=== PATIENT | female | born 1940 | race Caucasian/White ===

== ENCOUNTER 2017-11-17 15:27 | Emergency (ER) | payer OTHER ==
[~2017-11-17] VITALS: Ht 170.2 cm; Wt 136.0 kg
[~2017-11-17 15:27] MED LIST: ACET-1138 PO; ADVIN25/60 INH; BUME1TAB PO; CHOL1CAP85 PO; CITA20TA9 PO; FEXO1TAB46 PO; LBT100 PO; LOSA1TAB PO; NEOMOIN3 TD; NRN100 PO; OXGN; SIMV40TA4 PO; SPIR25TA5 PO; VNTHFA/IN INH; WARF-280 PO; WARF5TAB7 PO
[2017-11-17 15:33] VITALS: TEMP 36.6; Ht 170.2 cm; Wt 136.0 kg
[2017-11-17 16:39] LABS: INR 4.4 (0.9-1.1)
[2017-11-17] MEDS ORDERED: VENTOLIN HFA 90MCG INH (16:39)
[2017-11-17] MEDS ORDERED: CHOL1000 PO (16:41)
[2017-11-17] MEDS ORDERED: GABA-112 PO (16:43)
--- NOTE | 2017-11-17 16:53 | DIAGNOSTIC IMAGING REPORT ---
SINGLE VIEW PELVIS; 2 VIEWS LEFT HIP CLINICAL HISTORY: Hip and pelvic pain. FINDINGS: An AP view of the pelvis, with AP and crosstable lateral views of the left hip are obtained. The crosstable lateral views are severely degraded by large body habitus. No prior studies are available for comparison at the time of dictation. The skeletal structures are osteopenic. There is no radiographic evidence of acute fracture involving the hips or bony pelvis. Mild to moderate arthritic change and joint space narrowing is seen in the hips. Postoperative change is partially imaged in the right proximal femoral shaft. Enthesophytes arise from the anterior superior iliac spine bilaterally. There are sclerotic changes noted in the sacroiliac joints and symphysis pubis. Lumbosacral spondylosis is partially imaged. No bowel obstruction is seen. A catheter projects over the pelvis. IMPRESSION: 1. No acute osseous abnormality is identified involving the hips or bony pelvis. 2. Osteopenia and degenerative change as above. Electronically signed by: Fabian Duenas M.D. 11/17/2017 4:52 PM Dictated Date/Time: 11/17/2017 4:48 PM
--- NOTE | 2017-11-17 17:09 | DIAGNOSTIC IMAGING REPORT ---
CT SCAN OF THE BRAIN WITHOUT IV CONTRAST CLINICAL HISTORY: Head injury. COMPARISON STUDY: CT of the brain dated 04/01/2007. TECHNIQUE: Unenhanced axial CT scan of the brain is performed from the vertex to the skull base. A dose lowering technique was utilized adhering to the principles of ALARA. CT DOSE: 1040.95 mGy.cm FINDINGS: Brain parenchyma: There are age-related involutional changes noting moderate patchy subcortical and periventricular microangiopathic change. There is no hemorrhage, mass effect, or evidence of acute territorial ischemia by CT criteria. Owen-white matter is preserved. No extra-axial fluid collection is seen. Ventricles, sulci, cisterns: Prominent secondary to involutional change. Intracranial vasculature: There is atherosclerotic calcification of the cavernous carotid and vertebral arteries. Calvarium: The skeletal structures are osteopenic. There is no depressed calvarial fracture. Sinuses and mastoids: There is complete opacification of the right maxillary antrum. Thickening and sclerosis of the sinus wall suggests chronicity. There is complete opacification of several right ethmoid sinuses. Moderate mucosal thickening is noted in the right frontal sinus. The remaining visualized paranasal sinuses are clear. The mastoid air cells are well pneumatized. Orbits: The bony orbits are grossly intact. IMPRESSION: 1. There is no hemorrhage, mass effect, or evidence of acute territorial ischemia by CT criteria. 2. Right-sided paranasal sinus disease as above. Electronically signed by: Fabian Duenas M.D. 11/17/2017 5:08 PM Dictated Date/Time: 11/17/2017 5:05 PM
--- NOTE | 2017-11-17 17:15 | DIAGNOSTIC IMAGING REPORT ---
CT SCAN OF THE CERVICAL SPINE CLINICAL HISTORY: Head injury. Neck pain. COMPARISON STUDY: No priors. TECHNIQUE: CT scan of the cervical spine is performed from the skull base to the upper thoracic spine. Images are reviewed in the axial, sagittal, and coronal planes. IV contrast was not administered for this examination. A dose lowering technique was utilized adhering to the principles of ALARA. FINDINGS: Skeletal structures: The skeletal structures are osteopenic. There is no evidence of fracture or subluxation involving the cervical spine. Vertebral body height and alignment are maintained. Anterior osteophytes are seen in the lower cervical spine. There is straightening of the cervical lordosis. The odontoid process and lateral masses are intact. There is advanced degenerative change with Limited is calcification and near complete bony fusion seen at the atlantodental articulation. The spinous processes appear intact. There is moderate multilevel cervical spondylosis. Uncovertebral and facet arthropathy contribute to neural foraminal stenosis at several levels. Intervertebral discs: Moderate to advanced disc space narrowing is noted at C5-C6 and C6-C7. Mild disc space narrowing is seen at the remaining cervical levels. Central canal: Posterior disc osteophyte complexes at C3-C4, C5-C6, and C6-C7 likely contribute to acquired compromise of the central canal. A large posterior disc osteophyte complex is also seen at T1-T2. Soft tissues: The prevertebral and paraspinous soft tissues are within normal limits. There is atherosclerotic calcification of the carotid bulbs. The thyroid gland is heterogeneous. A final matter calcified nodule is noted in the left lobe. Calvarium: The visualized calvarium at the skull base appears intact. Brain parenchyma: Partially visualized brain parenchyma the skull base is within normal limits. Sinuses and mastoids: There is complete opacification of the right maxillary antrum. Thickening and sclerosis is noted in the sinus wall suggesting chronicity. The mastoid air cells are well pneumatized. Lung apices: Clear as visualized. IMPRESSION: 1. There is no evidence of fracture or subluxation involving the cervical spine. 2. Osteopenia and spondylotic change as above. Electronically signed by: Fabian Duenas M.D. 11/17/2017 5:14 PM Dictated Date/Time: 11/17/2017 5:08 PM
--- NOTE | 2017-11-17 17:20 | DIAGNOSTIC IMAGING REPORT ---
LEFT ELBOW 3 VIEWS CLINICAL HISTORY: Left elbow injury. FINDINGS: 3 views of the left elbow are obtained. No prior studies are available for comparison at the time of dictation. The skeletal structures are osteopenic. There is no radiographic evidence of left elbow fracture. No joint effusion is identified. A large enthesophyte is seen at the triceps insertion. Small enthesophytes are seen arising from the humeral epicondyles. Soft tissue edema is present around the elbow, greatest dorsally. IMPRESSION: Soft tissue edema with no radiographic evidence of left elbow fracture. Electronically signed by: Fabian Duenas M.D. 11/17/2017 5:18 PM Dictated Date/Time: 11/17/2017 5:17 PM
[2017-11-17] MEDS ORDERED: LEVO50TA6 PO (17:22)
[2017-11-17 17:30] VITALS: BP 137/69; PULSE 92; O2SAT 98
--- NOTE | 2017-11-17 17:44 | EMERGENCY ROOM VISIT NOTE ---
ED Visit Note First contact with patient: 15:38 The patient was seen and examined with Arjun Dickerson - [facility]. I agree with the history, physical and findings. Please see the note for disposition and details.
--- NOTE | 2017-11-17 19:16 | EMERGENCY ROOM VISIT NOTE ---
History First contact with patient: 15:38 Chief Complaint: FALL Stated Complaint: UPSET SCOOTER ON MYSELF, LEFT ARM & HIP PAIN History of Present Illness The patient is a 76 year old female who presents to the Emergency Room with complaints of injuries after upsetting her motorized scooter in her garage yesterday. She reports that she and the scooter fell to the left, and she landed on her left hip and left elbow. She does report hitting her head on the ground, and does have a mild headache and neck discomfort. According to the patient, she takes Coumadin for history of atrial fibrillation and pulmonary emboli. The patient lives alone. Her neighbor was able to help her back on her feet. In addition to her scooter, she also uses a walker at home. She reports notable bruising and swelling about the left elbow and left buttock region. She denies any focal back pain, chest pain, shortness of breath, abdominal pain or injuries to the right side extremities. The patient took 2 Tylenol this morning, and currently rates her pain an 8 out of 10. Review of Systems 10 system review was performed and was negative except for pertinent positives and negatives as indicated in history of present illness Past Medical/Surgical History Medical Problems: (1) Depression (2) retirement (current) use of anticoagulants Medical Problems: (1) Asthma, Unspecified (2) Atrial Fibrillation (3) Body Mass Index 40 And Over, Adult (4) Congestive Heart Failure Nos (5) Depression (6) Diverticulosis Colon (W/O Ment Of Hemorrhage) (7) Esophageal Reflux (8) Fx Femur Shaft-Closed (9) Hyperlipidemia, Unspecified (10) Hypertension Nos (11) Hypothyroidism Nos (12) retirement (current) use of anticoagulants (13) Morbid Obesity (14) Obstructive Sleep Apnea (Adult) (Pediatric) (15) Pneumonia, Organism Nos Family History Unremarkable Social History Smoking Status: Never Smoker Alcohol Use: none Drug Use: none Marital Status: Housing Status: lives with family Occupation Status: retired Current/Historical Medications Scheduled Bumetanide (Bumex), 2 MG PO QAM Cholecalciferol (Vitamin D3), 1,000 UNITS PO DAILY Citalopram Hydrobromide (Celexa), 20 MG PO DAILY Fexofenadine Hcl (Lucie), 180 MG PO DAILY Gabapentin (Neurontin), 100 MG PO AMPM Levothyroxine Sodium (Levothyroxine Sodium), 50 MCG PO DAILY Losartan Potassium (Cozaar), 25 MG PO DAILY Neomycin/Polymyx/Bacitr (Neosporin), 1 APPLN TD 2XWK Simvastatin (Zocor), 40 MG PO DAILY Spironolactone (Aldactone), 25 MG PO BID Warfarin Sod (Jantoven), 5 MG PO 3XWK Warfarin Sodium (Warfarin Sodium), 2.5 MG PO 4XWK Scheduled PRN Acetaminophen (Tylenol Extra Strength), 500-1,000 MG PO PRN PRN for Headache Fluticasone Prop/Salmeterol (Advair Diskus 250/50 60 Dose), 1 PUFF INH BID PRN for SOB/Wheezing Home O2 Therapy (Oxygen), 2 LITERS NA PRN PRN for Shortness of Breath [Ventolin Hfa 90MCG], 2 PUFFS INH Q6H PRN for SOB/Wheezing Physical Exam Vital Signs Date Time Temp Pulse Resp B/P (MAP) Pulse Ox O2 Delivery O2 Flow Rate FiO2 11/17/17 17:30 92 20 137/69 98 Room Air 11/17/17 15:33 36.6 104 20 127/65 92 Room Air Physical Exam CONSTITUTIONAL: Healthy and well nourished. Alert and oriented X 3 with positive affect. Patient appears in mild discomfort. GCS 15. HEENT: Normocephalic, atraumatic. Pupils equal, round and reactive. No epistaxis, hemotympanum, raccoon's eyes or caldwell sign. NECK: Full active range of motion without discomfort. Patient has mild tenderness to palpation of the cervical musculature. RESPIRATORY: Clear to auscultation bilaterally with no wheezing, crackles, rhonchi or stridor. CARDIOVASCULAR: Regular rate and rhythm with no murmurs, rubs or gallops. GASTROINTESTINAL: Bowel sounds present in all quadrants. Protuberant but soft and nontender to palpation. MUSCULOSKELETAL: Examination shows discomfort to palpation and range of motion of the left elbow and left hip. She has no focal tenderness through the central thoracolumbar spine. Pelvis is stable with rock. Negative logroll bilaterally. Pedal pulses are intact. INTEGUMENTARY: Examination shows notable edema and ecchymosis about the left elbow and left buttock region. No significant firmness or induration noted over these areas. NEUROLOGIC: Upper and lower extremities are sensory intact. Medical Decision & Procedures ER Provider Diagnostic Interpretation: My interpretation of left elbow x-rays does not show any acute fractures, dislocation or obvious joint effusion. Radiologist report is as follows: LEFT ELBOW 3 VIEWS CLINICAL HISTORY: Left elbow injury. FINDINGS: 3 views of the left elbow are obtained. No prior studies are available for comparison at the time of dictation. The skeletal structures are osteopenic. There is no radiographic evidence of left elbow fracture. No joint effusion is identified. A large enthesophyte is seen at the triceps insertion. Small enthesophytes are seen arising from the humeral epicondyles. Soft tissue edema is present around the elbow, greatest dorsally. IMPRESSION: Soft tissue edema with no radiographic evidence of left elbow fracture. My interpretation of pelvis and left hip x-rays does not show any acute fractures. Radiologist report is as follows: SINGLE VIEW PELVIS; 2 VIEWS LEFT HIP CLINICAL HISTORY: Hip and pelvic pain. FINDINGS: An AP view of the pelvis, with AP and crosstable lateral views of the left hip are obtained. The crosstable lateral views are severely degraded by large body habitus. No prior studies are available for comparison at the time of dictation. The skeletal structures are osteopenic. There is no radiographic evidence of acute fracture involving the hips or bony pelvis. Mild to moderate arthritic change and joint space narrowing is seen in the hips. Postoperative change is partially imaged in the right proximal femoral shaft. Enthesophytes arise from the anterior superior iliac spine bilaterally. There are sclerotic changes noted in the sacroiliac joints and symphysis pubis. Lumbosacral spondylosis is partially imaged. No bowel obstruction is seen. A catheter projects over the pelvis. IMPRESSION: 1. No acute osseous abnormality is identified involving the hips or bony pelvis. 2. Osteopenia and degenerative change as above. Noncontrast CT of the head does not show any acute intracranial bleed, midline shift or mass-effect. Right-sided paranasal sinus disease is also noted. Radiology CT SCAN OF THE BRAIN WITHOUT IV CONTRAST CLINICAL HISTORY: Head injury. COMPARISON STUDY: CT of the brain dated 04/01/2007. TECHNIQUE: Unenhanced axial CT scan of the brain is performed from the vertex to the skull base. A dose lowering technique was utilized adhering to the principles of ALARA. CT DOSE: 1040.95 mGy.cm FINDINGS: Brain parenchyma: There are age-related involutional changes noting moderate patchy subcortical and periventricular microangiopathic change. There is no hemorrhage, mass effect, or evidence of acute territorial ischemia by CT criteria. Owen-white matter is preserved. No extra-axial fluid collection is seen. Ventricles, sulci, cisterns: Prominent secondary to involutional change. Intracranial vasculature: There is atherosclerotic calcification of the cavernous carotid and vertebral arteries. Calvarium: The skeletal structures are osteopenic. There is no depressed calvarial fracture. Sinuses and mastoids: There is complete opacification of the right maxillary antrum. Thickening and sclerosis of the sinus wall suggests chronicity. There is complete opacification of several right ethmoid sinuses. Moderate mucosal thickening is noted in the right frontal sinus. The remaining visualized paranasal sinuses are clear. The mastoid air cells are well pneumatized. Orbits: The bony orbits are grossly intact. IMPRESSION: 1. There is no hemorrhage, mass effect, or evidence of acute territorial ischemia by CT criteria. 2. Right-sided paranasal sinus disease as above. Noncontrast CT of the cervical spine does not show any acute fracture or subluxation. Radiologist report is as follows: CT SCAN OF THE CERVICAL SPINE CLINICAL HISTORY: Head injury. Neck pain. COMPARISON STUDY: No priors. TECHNIQUE: CT scan of the cervical spine is performed from the skull base to the upper thoracic spine. Images are reviewed in the axial, sagittal, and coronal planes. IV contrast was not administered for this examination. A dose lowering technique was utilized adhering to the principles of ALARA. FINDINGS: Skeletal structures: The skeletal structures are osteopenic. There is no evidence of fracture or subluxation involving the cervical spine. Vertebral body height and alignment are maintained. Anterior osteophytes are seen in the lower cervical spine. There is straightening of the cervical lordosis. The odontoid process and lateral masses are intact. There is advanced degenerative change with Limited is calcification and near complete bony fusion seen at the atlantodental articulation. The spinous processes appear intact. There is moderate multilevel cervical spondylosis. Uncovertebral and facet arthropathy contribute to neural foraminal stenosis at several levels. Intervertebral discs: Moderate to advanced disc space narrowing is noted at C5-C6 and C6-C7. Mild disc space narrowing is seen at the remaining cervical levels. Central canal: Posterior disc osteophyte complexes at C3-C4, C5-C6, and C6-C7 likely contribute to acquired compromise of the central canal. A large posterior disc osteophyte complex is also seen at T1-T2. Soft tissues: The prevertebral and paraspinous soft tissues are within normal limits. There is atherosclerotic calcification of the carotid bulbs. The thyroid gland is heterogeneous. A final matter calcified nodule is noted in the left lobe. Calvarium: The visualized calvarium at the skull base appears intact. Brain parenchyma: Partially visualized brain parenchyma the skull base is within normal limits. Sinuses and mastoids: There is complete opacification of the right maxillary antrum. Thickening and sclerosis is noted in the sinus wall suggesting chronicity. The mastoid air cells are well pneumatized. Lung apices: Clear as visualized. IMPRESSION: 1. There is no evidence of fracture or subluxation involving the cervical spine. 2. Osteopenia and spondylotic change as above. Laboratory Results Test 11/17/17 16:14 Prothrombin Time 44.8 SECONDS (9.0-12.0) Prothromb Time International Ratio 4.4 (0.9-1.1) INR is 4.4. ED Course Patient history and physical exam were performed. Nurse's notes were reviewed. Vital signs were reviewed and were normal. The patient refused any analgesics. Noncontrast CT of the head and cervical spine were normal. X-rays of the left elbow and left hip/pelvis were also normal. INR today is 4.4. The patient was advised of her findings. The patient was instructed to hold her Coumadin dosing for tonight, and resume her usual dosing tomorrow. I did encourage her to contact the Coumadin clinic to advise them that she had lab work done while in the emergency department. Trial ambulation with a walker was successful. The patient was encouraged to intermittently apply ice to areas of discomfort. It was also suggested that she apply an Christian wrap to the left elbow as well. Tylenol as needed for pain. She refused any stronger analgesics. I did encourage her to follow-up with her PCP or orthopedics for recheck within the next 2-3 days. She was instructed to return to the emergency department sooner with any progressively worsening pain or swelling of the left elbow or buttock region. The patient was happy with plan of care, voiced understanding of all discharge instructions, and rated her pain a 5 out of 10 at the time of discharge. The patient was also seen and examined by Dr. Camacho, ED attending physician, who agrees with workup and plan of care. Medical Decision Medication Reconcilliation Current Medication List: was personally reviewed by me Blood Pressure Screening Patient's blood pressure: Normal blood pressure Impression Primary Impression: Left buttock hematoma Additional Impressions: Left elbow contusion Supratherapeutic INR Fall from motorized mobility scooter, initial encounter Departure Information Dispostion Home / Self-Care Condition FAIR Referrals Nito Dangelo M.D. Forms HOME CARE DOCUMENTATION FORM, IMPORTANT VISIT INFORMATION Patient Instructions My [facility] [employer] Additional Instructions Hold your Coumadin for tonight, and take your next dose tomorrow evening. Call the Coumadin clinic on Sunday to advise them that she had a repeat INR in the emergency department. Your INR today was 4.4. Intermittently apply ice to areas of swelling. You may also want to apply an Christian wrap to the left elbow. Be careful when moving around her house that she do not fall -always use your walker. Follow-up with your family doctor or [facility] (Dr. Dangelo) for further reevaluation and management. Problem Qualifiers Additional Impressions: Left elbow contusion Encounter type: initial encounter Qualified Codes: S50.02XA - Contusion of left elbow, initial encounter
== END 2017-11-17 18:00 | disposition home or self-care (01) ==
LOC: C.EDB 15:28 → C.EDC 18:00
DX: S30.0XXA Contusion of lower back and pelvis, initial encounter (principal); S50.02XA Contusion of left elbow, initial encounter; S09.90XA Unspecified injury of head, initial encounter; R79.1 Abnormal coagulation profile; V00.831A Fall from motorized mobility scooter, initial encounter; Y92.015 Private garage of single-family (private) house as the place of occurrence of the external cause; F32.9 Major depressive disorder, single episode, unspecified; I48.91 Unspecified atrial fibrillation; J45.909 Unspecified asthma, uncomplicated; I50.9 Heart failure, unspecified; I11.0 Hypertensive heart disease with heart failure; E78.5 Hyperlipidemia, unspecified; Z86.711 Personal history of pulmonary embolism; Z79.01 Long term (current) use of anticoagulants; Z79.899 Other long term (current) drug therapy

== ENCOUNTER 2020-12-05 09:49 | Inpatient (IN) ==
--- NOTE | 2020-12-05 10:08 | Emergency Department Note ---
Impression & Plan Hypoxia, CHF (congestive heart failure), [facility] (current) use of anticoagulants, Atrial fibrillation ED Provider Note NAME: GARRETT MARTINEZ AGE: 80 SEX: F : 1940 ARRIVES VIA: Ambulance INFORMANT: Patient, ED PROVIDER(S): Abner South DO CHIEF COMPLAINT: shortness of breath HPI: Patient is a 80-year-old female who was in Center care for sacral ulcers w ith a past medical history of anemia, asthma, obesity, hyperlipidemia, sleep apnea, A. fib, pulmonary hypertension, CHF, hypothyroidism, on Coumadin that presents to the ER for shortness of breath. Her symptoms started 5 days ago with a cough and congestion. She also admits to a runny nose. Symptoms have worsened today. They have been titrating her oxygen up. She normally only wears about 1 to 2 L at night while sleeping. She has been wearing it constantly. Without oxygen she is about 83%. She admits to some nausea. No dysuria, urgency or frequency. She has been taking her Coumadin. ROS: See above HPI for pertinent positives & negatives. A total of 10 systems reviewed and were otherwise negative. PAST MEDICAL HISTORY:See Below PAST SURGICAL HISTORY:See Below FAMILY HISTORY:See Below SOCIAL HISTORY:See Below HOME MEDICATIONS:See Below ALLERGIES:See Below VITALS:See Below PHYSICAL EXAMINATION: GENERAL: Sitting up in bed, alert, chronically ill-appearing, morbidly obese, disheveled, on 2 L nasal cannula, intermittent cough EYE EXAM: normal conjunctiva. OROPHARYNX: no exudate, no erythema, lips, buccal mucosa, and tongue normal and mucous membranes are moist NECK: supple, no nuchal rigidity, no adenopathy, non-tender LUNGS: Diminished bilaterally. Normal chest wall mechanics HEART: Distant, S1 normal and S2 normal ABDOMEN: abdomen soft, non-tender, normo-active bowel sounds, no masses, no rebound or guarding. UPPER EXTREMITIES: upper extremities are grossly normal. LOWER EXTREMITIES: Calves are equal bilateral with pitting edema NEURO EXAM: Normal sensorium, cranial nerves II-XII grossly intact, normal speech, no gross weakness of arms, no gross weakness of legs. MEDICAL DECISION MAKING: Patient is a 80-year-old female who presents the ER for shortness of breath which is been present for the past 5 days associate with cough and a little bit of runny nose. IV was established blood work was obtained. She was hypoxic at 83 to 5% on room air. She was placed on 3 to 4 L nasal cannula. On exam she has pitting edema in the lower extremities. Labs show no significant leukocytosis and mild anemia at 9. INR was therapeutic at 2.5. BMP with LFTs bilirubin was unremarkable. Troponin was negative. proBNP was elevated at 2500 . Lipase is normal. UA was contaminated. Covid was negative. Chest x-ray with cephalization. Patient was given Bumex and updated at bedside. She remained on nasal cannula and rested comfortably while in the ER. She was discussed with hospitalist admitted for further work-up. Triage Nursing notes reviewed. Limited review of prior medical records performed Vital Signs: reviewed and remarkable for hypoxic Differential diagnosis: Differential diagnoses includes but is not limited to pneumonia, bronchitis, COPD/Asthma exacerbation, pneumothorax, pulmonary embolism, congestive heart failure, acute coronary syndrome ER treatment provided: See below Diagnostics interpreted by me: ECG: A. fib rate of 95 Left axis Inferior Q waves Right bundle branch block T wave inversions in septal leads QTC 469 Cardiac Monitoring: An order was placed for continuous cardiac monitoring. The monitor shows a rate of 92 with A. fib rhythm. Laboratory studies: As stated above and show below. Imaging studies: Portable AP upright 1 view chest shows no focal infiltrate but cephalization with pulmonary vascular congestion Consultation(s): Discussed with hospitalist for further evaluation Procedures: none Critical Care: I have personally spent 32 minutes of critical care time in the direct management of this patient. This includes bedside care, interpretation of diagnostic studies, and testing, discussion with consultants, patient, and family members, and other required patient management activities. This 32 mago nikolai is in excess of all separately billable procedures. Past Med/Surg History Medical History (Updated 12/05/20 @ 16:31 by Abner South DO) Adult body mass index 40 and over Adult situational stress disorder Allergic rhinitis due to allergen Anemia Asthma Atrial fibrillation BMI 50.0-59.9, adult Bronchitis Congestive heart failure, unspecified COPD (chronic obstructive pulmonary disease) COPD exacerbation Cough Diverticulosis of colon (without mention of hemorrhage) Esophageal reflux Fx femur shaft-closed History of pulmonary embolism Hyperlipidemia Hyperlipidemia, unspecified Hypoxia Localized primary osteoarthritis of lower leg Lumbar radiculopathy Morbid obesity Morbid obesity with BMI of 45.0-49.9, adult Neurodermatitis Obstructive sleep apnea (adult) (pediatric) Onychomycosis Permanent atrial fibrillation Pneumonia Pneumonia, organism unspecified Psoriasis Pulmonary hypertension Sleep related hypoxia Systolic congestive heart failure Jory byrd Unspecified asthma Surgical History History of appendectomy History of hysterectomy History of tonsillectomy Family History Unknown Acute myocardial infarction Mother Heart disease Myocardial infarction Other No significant family history Denies family history of Ovarian cancer Prostate cancer Breast cancer Lung cancer Colorectal cancer Social History Smoking Status: Never smoker Second Hand Exposure: No; Hx Alcohol Use: No Hx Substance Use: No Preferred Language: [place] Island[place] Communication Ability: Effective Visual Impairment: Limited Hearing Ability: Normal Hall Cleaner Required: No Beliefs That Will Affect Care: Jewish Jewish Beliefs: Hindu marital status: / Current Living Situation: Alone current occupational status: retired How many Children do You have: 2 Feels Safe at Home: Yes Childhood Exposure to Second-Hand Smoke: No caffeine: No Dental Care, Regularly: No Physical Activity Frequency: Does not Exercise Physical Activity Frequency Comment: due to health issues Seatbelt Use: always Sunscreen Use: No (not in the sun) Assistive Devices: Walker Allergies Allergies Allergy/AdvReac Type Severity Reaction Status Date / Time sulfisoxazole Allergy Unknown Unknown Verified 12/05/20 10:26 thimerosal Allergy Unknown Unknown Verified 12/05/20 10:26 torsemide Allergy Unknown Unknown Verified 12/05/20 10:26 buspirone [From BuSpar] Allergy Unknown Verified 12/05/20 10:26 cephalexin Allergy RASH Verified 09/17/20 10:58 clarithromycin [From Biaxin] Allergy Unknown Verified 12/05/20 10:26 iodine Allergy Unknown Verified 12/05/20 10:26 povidone-iodine Allergy Unknown Verified 12/05/20 10:26 [From Betadine] soap [From Betadine] Allergy Unknown Verified 12/05/20 10:26 Home Meds Home Medications Medication Instructions Recorded Confirmed albuterol sulfate 90 mcg/actuation 2 inha INH Q6H PRN 12/20/17 12/05/20 aerosol inhaler (Ventolin HFA) fexofenadine 180 mg tablet 180 mg PO DAILY 12/20/17 12/05/20 (Lucie Allergy) cholecalciferol (vitamin D3) 125 5,000 unit PO DAILY 02/14/18 12/05/20 mcg (5,000 unit) tablet (Vitamin D3) Oxygen Home #1 ea 10/04/18 08/05/20 bumetanide 1 mg tablet 1 mg PO DAILY tab 05/07/19 12/05/20 acetaminophen 325 mg tablet 650 mg PO Q6 PRN MDD 3g 12/05/20 12/05/20 (Tylenol) doxycycline hyclate 100 mg tablet 100 mg PO BID 12/05/20 12/05/20 gabapentin 100 mg capsule 100 mg PO AMHS 12/05/20 12/05/20 lorazepam 0.5 mg tablet See Rx Instructions .ROUTE 12/05/20 12/05/20 .COMPLEX PRN multivitamin with iron-mineral 1 tab PO DAILY 12/05/20 12/05/20 nystatin 100,000 unit/mL oral 5 ml PO QID 12/05/20 12/05/20 suspension polysaccharide iron complex 150 mg 150 mg PO DAILY 12/05/20 12/05/20 iron capsule tramadol 50 mg tablet 50 mg PO Q8 PRN 12/05/20 12/05/20 Previous Rx's Medication Instructions Recorded spironolactone 25 mg tablet 25 mg PO BID #180 tab 07/14/19 Lift Chair #1 ea 10/16/19 losartan 25 mg tablet 25 mg PO QAM #90 tab 10/20/19 levothyroxine 50 mcg tablet 50 mcg PO DAILY #30 tab 07/12/20 (Euthyrox) citalopram 20 mg tablet 20 mg PO DAILY #90 tab 07/19/20 simvastatin 40 mg tablet (Zocor) 40 mg PO DAILY #90 tab 08/09/20 Results & Data (ED) Vital Signs Vital Signs - 24 hr 12/05/20 09:55 12/05/20 09:59 12/05/20 10:01 Temperature 36.8 C Temperature Source Oral Pulse Rate 92 H 98 H 101 H Pulse Rate [Finger] Pulse Rate from SpO2 Sensor 93 H 96 H Respiratory Rate 28 H 20 33 H Respiratory Effort / Characteristics Non-Labored Respiratory Depth Normal Respiratory Pattern Regular Blood Pressure 182/111 H 186/100 H 185/105 H Blood Pressure [Left Arm] Blood Pressure Mean 134 128 131 Blood Pressure Mean [Left Arm] Pulse Oximetry 91 86 L 95 Oxygen Delivery Method Room Air Oxygen Flow Rate Sepsis Recent Fever Within 48 Hours No Sepsis New/Unexplained Change in Mental Status No Sepsis Action Taken by Nursing No Action Required Oxygen Flow Rate - Titration Pulse Oximetry Post Tiitration 12/05/20 10:04 12/05/20 10:15 12/05/20 10:22 Temperature Temperature Source Pulse Rate Pulse Rate [Finger] 95 H Pulse Rate from SpO2 Sensor Respiratory Rate 26 H Respiratory Effort / Characteristics Respiratory Depth Respiratory Pattern Blood Pressure Blood Pressure [Left Arm] 182/130 H Blood Pressure Mean Blood Pressure Mean [Left Arm] 147 Pulse Oximetry 86 L 95 95 Oxygen Delivery Method Room Air Nasal Cannula Nasal Cannula Oxygen Flow Rate 2 2 Sepsis Recent Fever Within 48 Hours Sepsis New/Unexplained Change in Mental Status Sepsis Action Taken by Nursing Oxygen Flow Rate - Titration 2 Pulse Oximetry Post Tiitration 95 12/05/20 10:24 12/05/20 10:30 12/05/20 11:01 Temperature Temperature Source Pulse Rate 88 87 89 Pulse Rate [Finger] Pulse Rate from SpO2 Sensor 93 H 88 90 Respiratory Rate 27 H 22 25 H Respiratory Effort / Characteristics Respiratory Depth Respiratory Pattern Blood Pressure 160/69 H 185/79 H Blood Pressure [Left Arm] Blood Pressure Mean 132 99 114 Blood Pressure Mean [Left Arm] Pulse Oximetry 96 95 95 Oxygen Delivery Method Oxygen Flow Rate Sepsis Recent Fever Within 48 Hours Sepsis New/Unexplained Change in Mental Status Sepsis Action Taken by Nursing Oxygen Flow Rate - Titration Pulse Oximetry Post Tiitration 12/05/20 11:30 12/05/20 12:01 12/05/20 12:31 Temperature Temperature Source Pulse Rate 87 99 H 80 Pulse Rate [Finger] Pulse Rate from SpO2 Sensor 91 H 100 H 82 Respiratory Rate 24 17 28 H Respiratory Effort / Characteristics Respiratory Depth Respiratory Pattern Blood Pressure 131/92 177/89 H 164/110 H Blood Pressure [Left Arm] Blood Pressure Mean 105 118 128 Blood Pressure Mean [Left Arm] Pulse Oximetry 94 94 78 L Oxygen Delivery Method Oxygen Flow Rate Sepsis Recent Fever Within 48 Hours Sepsis New/Unexplained Change in Mental Status Sepsis Action Taken by Nursing Oxygen Flow Rate - Titration Pulse Oximetry Post Tiitration Laboratory Data Result diagrams: 12/05/20 10:12 12/05/20 10:12 Lab Results 12/05/20 12/05/20 12/05/20 Range/Units 10:12 10:12 10:12 WBC 6.55 (4.8-10.8) K/uL RBC 3.21 L (4.2-5.4) M/uL Hgb 9.0 L (12.0-16.0) g/dL Hct 30.7 L (37-47) % MCV 95.6 (80-100) fL MCH 28.0 (25-34) pg MCHC 29.3 L (32-36) g/dL RDW Std Deviation 56.4 H (36.4-46.3) fL RDW Coeff of Delaney 16.1 H (11.5-14.5) % Plt Count 215 (130-400) K/uL MPV 8.7 (7.4-10.4) fL Immature Gran % (Auto) 0.3 % Neut % (Auto) 85.9 % Lymph % (Auto) 5.8 % [place] % (Auto) 6.0 % Eos % (Auto) 2.0 % Baso % (Auto) 0.0 % Neut # (Auto) 5.63 (1.4-6.5) K/uL Lymph # (Auto) 0.38 L (1.2-3.4) K/uL [place] # (Auto) 0.39 (0.11-0.59) K/uL Eos # (Auto) 0.13 (0-0.5) K/uL Baso # (Auto) 0.00 (0-0.2) K/uL Immature Gran # (Auto) 0.02 (0.00-0.02) K/uL ESR (0-30) mm/hr PT 23.9 H (9.0-12.0) Seconds INR 2.5 H (0.9-1.1) APTT 36.9 H (21.0-31.0) Seconds PTT Ratio 1.4 Sodium 137 (136-145) mmol/L Potassium 4.5 (3.5-5.1) mmol/L Chloride 95 L (98-107) mmol/L Carbon Dioxide 38 H (21-32) mmol/L Anion Gap 4.0 (3-11) BUN 30 H (7-18) mg/dl Creatinine 0.82 (0.6-1.2) mg/dl Est Cr Clr Drug Dosing 87.2 ml/min Est GFR ( Amer) 79.4 ml/min Est GFR (Non-Af Amer) 68.5 ml/min BUN/Creatinine Ratio 37.1 H (10-20) Glucose 165 H (70-99) mg/dl Calcium 8.8 (8.5-10.1) mg/dl Total Bilirubin 0.5 (0.2-1) mg/dl AST 17 (15-37) U/L ALT 20 (12-78) U/L Alkaline Phosphatase 137 H (45-117) U/L Troponin I < 0.015 (0-0.045) ng/ml C-Reactive Protein (0-0.29) mg/dl NT-Pro-B Natriuret Pep 2571 H (0-1800) pg/ml Total Protein 6.8 (6.4-8.2) gm/dl Albumin 3.2 L (3.4-5.0) gm/dl Globulin 3.6 (2.5-4.0) gm/dl Albumin/Globulin Ratio 0.9 (0.9-2) Lipase 70 L (73-393) U/L Procalcitonin (0-0.5) ng/ml COVID-19 Eval Order SARS-CoV-2 (PCR) (Negative) 12/05/20 12/05/20 12/05/20 Range/Units 10:13 10:13 10:13 WBC (4.8-10.8) K/uL RBC (4.2-5.4) M/uL Hgb (12.0-16.0) g/dL Hct (37-47) % MCV (80-100) fL MCH (25-34) pg MCHC (32-36) g/dL RDW Std Deviation (36.4-46.3) fL RDW Coeff of Delaney (11.5-14.5) % Plt Count (130-400) K/uL MPV (7.4-10.4) fL Immature Gran % (Auto) % Neut % (Auto) % Lymph % (Auto) % [place] % (Auto) % Eos % (Auto) % Baso % (Auto) % Neut # (Auto) (1.4-6.5) K/uL Lymph # (Auto) (1.2-3.4) K/uL [place] # (Auto) (0.11-0.59) K/uL Eos # (Auto) (0-0.5) K/uL Baso # (Auto) (0-0.2) K/uL Immature Gran # (Auto) (0.00-0.02) K/uL ESR 56 H (0-30) mm/hr PT (9.0-12.0) Seconds INR (0.9-1.1) APTT (21.0-31.0) Seconds PTT Ratio Sodium (136-145) mmol/L Potassium (3.5-5.1) mmol/L Chloride (98-107) mmol/L Carbon Dioxide (21-32) mmol/L Anion Gap (3-11) BUN (7-18) mg/dl Creatinine (0.6-1.2) mg/dl Est Cr Clr Drug Dosing ml/min Est GFR ( Amer) ml/min Est GFR (Non-Af Amer) ml/min BUN/Creatinine Ratio (10-20) Glucose (70-99) mg/dl Calcium (8.5-10.1) mg/dl Total Bilirubin (0.2-1) mg/dl AST (15-37) U/L ALT (12-78) U/L Alkaline Phosphatase (45-117) U/L Troponin I (0-0.045) ng/ml C-Reactive Protein 1.71 H (0-0.29) mg/dl NT-Pro-B Natriuret Pep (0-1800) pg/ml Total Protein (6.4-8.2) gm/dl Albumin (3.4-5.0) gm/dl Globulin (2.5-4.0) gm/dl Albumin/Globulin Ratio (0.9-2) Lipase (73-393) U/L Procalcitonin < 0.05 (0-0.5) ng/ml COVID-19 Eval Order SARS-CoV-2 (PCR) (Negative) 12/05/20 12/05/20 Range/Units 10:15 10:15 WBC (4.8-10.8) K/uL RBC (4.2-5.4) M/uL Hgb (12.0-16.0) g/dL Hct (37-47) % MCV (80-100) fL MCH (25-34) pg MCHC (32-36) g/dL RDW Std Deviation (36.4-46.3) fL RDW Coeff of Delaney (11.5-14.5) % Plt Count (130-400) K/uL MPV (7.4-10.4) fL Immature Gran % (Auto) % Neut % (Auto) % Lymph % (Auto) % [place] % (Auto) % Eos % (Auto) % Baso % (Auto) % Neut # (Auto) (1.4-6.5) K/uL Lymph # (Auto) (1.2-3.4) K/uL [place] # (Auto) (0.11-0.59) K/uL Eos # (Auto) (0-0.5) K/uL Baso # (Auto) (0-0.2) K/uL Immature Gran # (Auto) (0.00-0.02) K/uL ESR (0-30) mm/hr PT (9.0-12.0) Seconds INR (0.9-1.1) APTT (21.0-31.0) Seconds PTT Ratio Sodium (136-145) mmol/L Potassium (3.5-5.1) mmol/L Chloride (98-107) mmol/L Carbon Dioxide (21-32) mmol/L Anion Gap (3-11) BUN (7-18) mg/dl Creatinine (0.6-1.2) mg/dl Est Cr Clr Drug Dosing ml/min Est GFR ( Amer) ml/min Est GFR (Non-Af Amer) ml/min BUN/Creatinine Ratio (10-20) Glucose (70-99) mg/dl Calcium (8.5-10.1) mg/dl Total Bilirubin (0.2-1) mg/dl AST (15-37) U/L ALT (12-78) U/L Alkaline Phosphatase (45-117) U/L Troponin I (0-0.045) ng/ml C-Reactive Protein (0-0.29) mg/dl NT-Pro-B Natriuret Pep (0-1800) pg/ml Total Protein (6.4-8.2) gm/dl Albumin (3.4-5.0) gm/dl Globulin (2.5-4.0) gm/dl Albumin/Globulin Ratio (0.9-2) Lipase (73-393) U/L Procalcitonin (0-0.5) ng/ml COVID-19 Eval Order Covid19 at [facility] SARS-CoV-2 (PCR) NEGATIVE (Negative) Administered Medications Discontinued Medications Bumetanide 1 mg/ Syringe 4 mls @ 4 mls/min IV ONE ONE Stop: 12/05/20 11:01 Last Admin: 12/05/20 11:19 Dose: 4 mls/min Documented by: [id number] Imaging Data Radiologist's Impression: Chest X-Ray 12/05/20 10:01 XR chest 1V portable HISTORY: Atypical Chest Pain COMPARISON: 07/17/2018. FINDINGS: No pneumothorax. No pleural effusions. The heart remains enlarged. There is progressive interstitial/vascular thickening consistent with mild pulmonary edema. No new focal lung consolidations to suggest pneumonia. IMPRESSION: Cardiomegaly with mild interstitial pulmonary edema. ACT 112: Negative or not required by law. Electronically signed by: Luke Savage M.D. 12/05/2020 10:32 AM Discharge Plan Visit Data Chief Complaint: Shortness of Breath/Dyspnea ED Provider: Abner South Discharge Problem: Hypoxia, CHF (congestive heart failure), [facility] (current) use of anticoagulants, Atrial fibrillation Patient Disposition: Admitted As Inpatient Discharge Instructions Interventions: ED Discharge Assessment Last Done: 12/05/20 14:28 Discharge Problem: CHF (congestive heart failure) Qualifiers: Heart failure type: unspecified Heart failure chronicity: unspecified Qualified Code(s): I50.9 - Heart failure, unspecified Atrial fibrillation Qualifiers: Atrial fibrillation type: unspecified Qualified Code(s): I48.91 - Unspecified atrial fibrillation
[2020-12-05 10:24] LABS: Eosinophils # (auto) 0.13 K/uL (0-0.5); Hematocrit (blood only) 30.7 % (37-47); Immature Granulocytes # (auto) 0.02 K/uL (0.00-0.02); Immature Granulocytes % (auto) 0.3 %; Lymphocytes # (auto) 0.38 K/uL (1.2-3.4); Lymphocytes % (auto) 5.8 %; Mean Corpuscular Hgb Conc 29.3 g/dL (32-36); Mean Corpuscular Volume 95.6 fL (80-100); Mean Platelet Volume 8.7 fL (7.4-10.4); Monocytes # (auto) 0.39 K/uL (0.11-0.59); Neutrophils # (auto) 5.63 K/uL (1.4-6.5); Neutrophils % (auto) 85.9 %; Platelet Count 215 K/uL (130-400); RDW Coefficient of Variation 16.1 % (11.5-14.5); RDW Standard Deviation 56.4 fL (36.4-46.3); Red Blood Count 3.21 M/uL (4.2-5.4); White Blood Count 6.55 K/uL (4.8-10.8)
--- NOTE | 2020-12-05 10:33 | XRay Report ---
XR chest 1V portable HISTORY: Atypical Chest Pain COMPARISON: 07/17/2018. FINDINGS: No pneumothorax. No pleural effusions. The heart remains enlarged. There is progressive int erstitial/vascular thickening consistent with mild pulmonary edema. No new focal lung consolidations to suggest pneumonia. IMPRESSION: Cardiomegaly with mild interstitial pulmonary edema. ACT 112: Negative or not required by law. Electronically signed by: Luke Savage M.D. 12/05/2020 10:32 AM
[2020-12-05 10:34] LABS: INR 2.5 (0.9-1.1); Partial Thromboplastin Ratio 1.4; Partial Thromboplastin Time 36.9 Seconds (21.0-31.0); Prothrombin Time 23.9 Seconds (9.0-12.0)
[2020-12-05 10:40] LABS: Alanine Aminotransferase 20 U/L (12-78); Albumin Level 3.2 gm/dl (3.4-5.0); BUN Creatinine Ratio 37.1 (10-20); Blood Urea Nitrogen 30 mg/dl (7-18); Calcium 8.8 mg/dl (8.5-10.1); Carbon Dioxide 38 mmol/L (21-32); Chloride 95 mmol/L (98-107); Creatinine Clr Calc Pharmacy 87.2 ml/min; Est GFR (African American) 79.4 ml/min; Est GFR (Non-African American) 68.5 ml/min; Glucose 165 mg/dl (70-99); Lipase 70 U/L (73-393); Potassium 4.5 mmol/L (3.5-5.1); Sodium 137 mmol/L (136-145)
[2020-12-05 10:45] LABS: Albumin Globulin Ratio 0.9 (0.9-2); Alkaline Phosphatase 137 U/L (45-117); Aspartate Aminotransferase 17 U/L (15-37); Bilirubin,Total 0.5 mg/dl (0.2-1); Globulin 3.6 gm/dl (2.5-4.0); NT Pro B Type Natriuretic Pept 2571 pg/ml (0-1800); Total Protein 6.8 gm/dl (6.4-8.2); Troponin I < 0.015 ng/ml (0-0.045)
[2020-12-05] MEDS ORDERED: BUMETANIDE 1 MG in SYRINGE 0 ML IV ONE (11:00)
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
[2020-12-05] MEDS ORDERED: traMADol HCL 50 MG TABLET PO PRN (14:56)
[2020-12-05] MEDS ORDERED: LORazepam 0.5 MG TAB PO PRN (14:56)
[2020-12-05] MEDS ORDERED: POLYETHYLENE (MIRALAX) 17 GM PACK PO PRN (14:56)
[2020-12-05] MEDS ORDERED: ACETAMINOPHEN 325 MG TAB PO PRN (14:56)
[2020-12-05 14:58] LABS: Appearance Urine Clear (Clear); Bacteria Urine Automated Negative (Negative); Bilirubin Urine Negative (Negative); Blood Urine Trace (Negative); Color Urine Yellow; Epithelial Cell Urine Auto >30 /lpf (0-5); Glucose Urine UA Negative (Negative); Ketones Urine Negative (Negative); Leukocyte Esterase Urine Trace (Negative); Nitrite Urine Negative (Negative); Protein Urine Negative (Negative); RBC Urine Automated 0-4 /hpf (0-4); Specific Gravity Urine 1.006 (1.000-1.030); Urobilinogen Urine Negative (Negative); pH Urine 6.5 (4.5-7.5)
[2020-12-05] MEDS: WARFARIN SOD 4 MG TAB PO SCH (16:56)
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
[2020-12-05] MEDS: BUMETANIDE 1 MG in SYRINGE 0 ML IV SCH (17:42)
[2020-12-05] MEDS: SPIRONOLACTONE 25 MG TAB PO SCH (20:06)
[2020-12-05] MEDS: GABAPENTIN 100 MG CAP PO SCH (20:06)
--- NOTE | 2020-12-05 22:11 | XCELERA ---
[id number]
[2020-12-06] MEDS: ALBUTEROL HFA 8 GM INHALER INH PRN ×2 (05:40→21:51)
[2020-12-06] MEDS: LEVOTHYROXINE SODIUM 50 MCG TABLET PO SCH (05:46)
--- NOTE | 2020-12-06 06:14 | Electrocardiogram Report ---
Test Reason : Blood Pressure : / mmHG Vent. Rate : 095 BPM Atrial Rate : 081 BPM P-R Int : 000 ms QRS Dur : 130 ms QT Int : 374 ms P-R-T Axes : 000 -47 028 degrees QTc Int : 469 ms Atrial fibrillation Left axis deviation Right bundle branch block Possible Anterolateral infarct , age undetermined Abnormal ECG When compared with ECG of 14-FEB-2018 13:16, Borderline criteria for Anterolateral infarct are now Present Confirmed by Santiago Cordova ([id number]) on 12/06/2020 6:14:12 AM Referred By: [facility] Confirmed By:Santiago Cordova
[2020-12-06 07:35] LABS: INR 2.5 (0.9-1.1); Prothrombin Time 23.3 Seconds (9.0-12.0)
[2020-12-06 08:05] LABS: Hematocrit (blood only) 30.6 % (37-47); Mean Corpuscular Hemoglobin 28.1 pg (25-34); Mean Corpuscular Hgb Conc 29.4 g/dL (32-36); Mean Corpuscular Volume 95.6 fL (80-100); Mean Platelet Volume 8.7 fL (7.4-10.4); Platelet Count 210 K/uL (130-400); RDW Standard Deviation 56.5 fL (36.4-46.3); White Blood Count 6.17 K/uL (4.8-10.8)
[2020-12-06 08:15] LABS: BUN Creatinine Ratio 32.9 (10-20); Calcium 8.9 mg/dl (8.5-10.1); Creatinine Clr Calc Pharmacy 66.9 ml/min; Est GFR (African American) 69.1 ml/min; Est GFR (Non-African American) 59.6 ml/min; Magnesium 1.9 mg/dl (1.8-2.4); Potassium 4.8 mmol/L (3.5-5.1)
[2020-12-06] MEDS: IRON POLYSACCHARIDE COMPLEX 150 MG CAPSULE PO SCH (09:39)
[2020-12-06] MEDS: BUMETANIDE 1 MG in SYRINGE 0 ML IV SCH ×2 (09:39→17:00)
[2020-12-06] MEDS: CITALOPRAM 20 MG TAB PO SCH (09:39)
[2020-12-06] MEDS: GABAPENTIN 100 MG CAP PO SCH ×2 (09:39→20:05)
[2020-12-06] MEDS: FEXOFENADINE HCL 180 MG TAB PO SCH (09:39)
[2020-12-06] MEDS: LOSARTAN POTASSIUM 25 MG TAB PO SCH (09:40)
[2020-12-06] MEDS: SIMVASTATIN 40 MG TAB PO SCH (09:40)
[2020-12-06] MEDS: SPIRONOLACTONE 25 MG TAB PO SCH ×2 (09:40→20:06)
--- NOTE | 2020-12-06 13:33 | Hospitalist Progress Note ---
Date of Service December 06, 2020 Assessment & Plan (1) Congestive heart failure, unspecified: Plan: Acute diastolic CHF. EF was 55 - 60% this admission. Moderate LVH. (Also with acute hypoxemic respiratory failure.) - Continue Bumex 1mg BID for tonight and tomorrow morning - Continue spironolactone 25 mg PO BID - Continue ARB - Not on beta-zach at baseline. (2) Pulmonary hypertension: Plan: Diagnosed via only ECHO in 2009 as moderate. Multiple co-morbidities and causes with SRINIVASA and/or obesity hypoventilation syndrome playing a role. Declined referral to get sleep study. - Echo this admission now with SEVERE pulmonary hypertension. Estimated RVSP 65 mmHg. (3) Hypertension: Plan: BP today is 115/70. - Continue meds as above (4) Permanent atrial fibrillation: Plan: As above- not on rate control agent. HR presently in the 90s range. - Continue warfarin 4mg PO daily - INR/PT daily (5) Hyperlipidemia: Plan: - Continue simvastatin 40mg PO daily (6) Sleep related hypoxia: Plan: As above. - 2L NC at night (7) SRINIVASA (obstructive sleep apnea): Plan: As above - does not use CPAP (8) Morbid obesity with BMI of 45.0-49.9, adult: Plan: Chronic. - Weight loss encouraged as able (9) DVT prophylaxis: Plan: On warfarin for afib - INR today is 2.5 Admission and Anticipated Discharge Date Admission Date: December 05, 2020 Subjective Feels like she is doing better today. Less shortness of breath. Not as much swelling in legs. Reports no fevers/chills, chest pain, abdominal pain, nausea, or vomiting. Physical Exam Constitutional: WD/WN, vitals as above Eyes: EOM intact bilaterally; no conjunctival abnormality ENMT: external ear and nose normal, oropharynx normal Neck: trachea midline, no thyromegaly normal visual inspection Respiratory: normal respiratory effort, lungs clear to auscultation no respiratory distress Cardiovascular: Rate/Rhythm: regular rate and regular rhythm Extremities: + edema (Trace in legs) Gastrointestinal (Abdomen): Inspection/Auscultation: abdomen normal to inspection; abdomen not distended Musculoskeletal: no cyanosis or clubbing, extremities motor strength 5/5 Skin: no rashes, warm and dry Neurologic: moves all extremities and awake Psychiatric: Orientation: alert, oriented to person and cooperative Results & Data Results & Data ([facility]) Vital Signs (Past 12 Hours) Vital Signs Temp Pulse Resp BP BP Pulse Ox 12/06/20 12:00 36.3 C L 98 H 18 116/68 93 12/06/20 07:32 36.6 C 93 H 20 151/64 H 92 12/06/20 05:43 22 12/06/20 04:00 36.4 C L 98 H 18 186/73 H 90 PG Care Time/CCT Total # of Minutes Spent Total Time Spent with Patient: Total time spent is greater than 50% in coordination of care (as documented) at patient's floor/unit and/or counseling patient: Coding Level of Care Code 24004 Subseq Hosp Care Lvl 3 Diagnoses Congestive heart failure, unspecified I50.9 Hyperlipidemia E78.5 Permanent atrial fibrillation I48.2 Pulmonary hypertension I27.20 Sleep related hypoxia G47.34 SRINIVASA (obstructive sleep apnea) G47.33 Morbid obesity with BMI of 45.0-49.9, adult E66.01; Z68.42 DVT prophylaxis Z29.9 Hypertension I10 Hypertension type: essential hypertension (1) Hypertension Hypertension type: essential hypertension Qualified Code(s): I10 - Essential (primary) hypertension
[2020-12-06] MEDS: WARFARIN SOD 4 MG TAB PO SCH (16:02)
[2020-12-07] MEDS: ALBUTEROL HFA 8 GM INHALER INH PRN (03:50)
[2020-12-07] MEDS: LEVOTHYROXINE SODIUM 50 MCG TABLET PO SCH (05:35)
[2020-12-07 07:31] LABS: Hematocrit (blood only) 30.7 % (37-47); Hemoglobin 8.9 g/dL (12.0-16.0); Mean Corpuscular Hemoglobin 27.8 pg (25-34); Mean Corpuscular Volume 95.9 fL (80-100); Mean Platelet Volume 8.7 fL (7.4-10.4); Platelet Count 175 K/uL (130-400); RDW Standard Deviation 56.9 fL (36.4-46.3)
[2020-12-07 07:41] LABS: INR 3.2 (0.9-1.1); Prothrombin Time 29.9 Seconds (9.0-12.0)
[2020-12-07 07:59] LABS: Creatinine Clr Calc Pharmacy 70.1 ml/min; Est GFR (Non-African American) 61.2 ml/min; Potassium 4.8 mmol/L (3.5-5.1)
[2020-12-07 08:00] LABS: BUN Creatinine Ratio 36.7 (10-20); Calcium 8.8 mg/dl (8.5-10.1)
[2020-12-07] MEDS: LOSARTAN POTASSIUM 25 MG TAB PO SCH (08:51)
[2020-12-07] MEDS: FEXOFENADINE HCL 180 MG TAB PO SCH (08:51)
[2020-12-07] MEDS: BUMETANIDE 1 MG in SYRINGE 0 ML IV SCH (08:51)
[2020-12-07] MEDS: SPIRONOLACTONE 25 MG TAB PO SCH ×2 (08:52→20:15)
[2020-12-07] MEDS: IRON POLYSACCHARIDE COMPLEX 150 MG CAPSULE PO SCH (08:52)
[2020-12-07] MEDS: GABAPENTIN 100 MG CAP PO SCH ×2 (08:52→20:15)
[2020-12-07] MEDS: CITALOPRAM 20 MG TAB PO SCH (08:52)
[2020-12-07] MEDS: SIMVASTATIN 40 MG TAB PO SCH (08:52)
[2020-12-07] MEDS: WARFARIN SOD 4 MG TAB PO SCH (16:10)
[2020-12-08] MEDS: LEVOTHYROXINE SODIUM 50 MCG TABLET PO SCH (05:48)
[2020-12-08 06:10] LABS: Hematocrit (blood only) 30.6 % (37-47); Mean Corpuscular Hgb Conc 29.4 g/dL (32-36); Mean Platelet Volume 8.4 fL (7.4-10.4); Platelet Count 195 K/uL (130-400); RDW Standard Deviation 56.2 fL (36.4-46.3); Red Blood Count 3.22 M/uL (4.2-5.4); White Blood Count 7.09 K/uL (4.8-10.8)
[2020-12-08 06:23] LABS: INR 3.2 (0.9-1.1); Prothrombin Time 29.7 Seconds (9.0-12.0)
[2020-12-08 06:57] LABS: BUN Creatinine Ratio 35.6 (10-20); Creatinine Clr Calc Pharmacy 63.7 ml/min; Est GFR (African American) 67.3 ml/min; Est GFR (Non-African American) 58.1 ml/min; Potassium 4.8 mmol/L (3.5-5.1)
[2020-12-08] MEDS: BUMETANIDE 1 MG TAB PO SCH (08:16)
[2020-12-08] MEDS: CITALOPRAM 20 MG TAB PO SCH (08:45)
[2020-12-08] MEDS: FEXOFENADINE HCL 180 MG TAB PO SCH (08:45)
[2020-12-08] MEDS: SIMVASTATIN 40 MG TAB PO SCH (08:45)
[2020-12-08] MEDS: LOSARTAN POTASSIUM 25 MG TAB PO SCH (08:45)
[2020-12-08] MEDS: GABAPENTIN 100 MG CAP PO SCH ×2 (08:45→20:33)
[2020-12-08] MEDS: IRON POLYSACCHARIDE COMPLEX 150 MG CAPSULE PO SCH (08:45)
--- NOTE | 2020-12-08 12:40 | Hospitalist Progress Note ---
Date of Service December 08, 2020 Assessment & Plan (1) Congestive heart failure, unspecified: Plan: Acute diastolic CHF. EF was 55 - 60% this admission. Moderate LVH. (Also with acute hypoxemic respiratory failure.) - Continue Bumex 1mg PO daily - Continue home spironolactone 25 mg PO BID - Continue ARB - Not on beta-zach at baseline. (2) Pulmonary hypertension: Plan: Diagnosed via only ECHO in 2009 as moderate. Multiple co-morbidities and causes with SRINIVASA and/or obesity hypoventilation syndrome playing a role. Declined referral to get sleep study. - Echo this admission now with SEVERE pulmonary hypertension. Estimated RVSP 65 mmHg. (3) Hypertension: Plan: BP today is 145/70. - Continue meds as above (4) Permanent atrial fibrillation: Plan: As above- not on rate control agent. HR presently in the 90s range. - Continue warfarin 4mg PO daily - INR/PT daily -> INR is 3.2 today. Will hold warfarin x 1 day. (5) Hyperlipidemia: Plan: - Continue simvastatin 40mg PO daily (6) Sleep related hypoxia: Plan: As above. - 2L NC at night (7) SRINIVASA (obstructive sleep apnea): Plan: As above - does not use CPAP (8) Morbid obesity with BMI of 45.0-49.9, adult: Plan: Chronic. - Weight loss encouraged as able (9) DVT prophylaxis: Plan: On warfarin for afib - INR today is 3.2. Admission and Anticipated Discharge Date Admission Date: December 05, 2020 Subjective Not much shortness of breath today. Does not note any swelling in legs. Reports no fevers/chills, chest pain, abdominal pain, nausea, or vomiting. Physical Exam Constitutional: WD/WN, vitals as above Eyes: EOM intact bilaterally; no conjunctival abnormality ENMT: external ear and nose normal, oropharynx normal Neck: trachea midline, no thyromegaly normal visual inspection Respiratory: normal respiratory effort, lungs clear to auscultation no respiratory distress Cardiovascular: Rate/Rhythm: regular rate and regular rhythm Extremities: + edema (Trace in legs) Gastrointestinal (Abdomen): Inspection/Auscultation: abdomen normal to inspection; abdomen not distended Musculoskeletal: no cyanosis or clubbing, extremities motor strength 5/5 Skin: no rashes, warm and dry Neurologic: moves all extremities and awake Psychiatric: Orientation: alert, oriented to person and cooperative Results & Data Results & Data ([facility]) Vital Signs (Past 12 Hours) Vital Signs Temp Pulse Pulse Resp BP BP Pulse Ox 12/08/20 11:41 37.0 C 96 H 18 143/67 H 92 12/08/20 07:50 36.6 C 93 H 18 146/78 H 95 12/08/20 07:00 94 H 12/08/20 03:22 36.8 C 87 18 142/67 H 93 12/08/20 02:58 106 H PG Care Time/CCT Total # of Minutes Spent Total Time Spent with Patient: Total time spent is greater than 50% in coor dination of care (as documented) at patient's floor/unit and/or counseling patient: Coding Level of Care Code 11835 Subseq Hosp Care Lvl 3 Diagnoses Congestive heart failure, unspecified I50.9 Pulmonary hypertension I27.20 Hypertension I10 Hypertension type: essential hypertension Permanent atrial fibrillation I48.2 Hyperlipidemia E78.5 Sleep related hypoxia G47.34 SRINIVASA (obstructive sleep apnea) G47.33 Morbid obesity with BMI of 45.0-49.9, adult E66.01; Z68.42 DVT prophylaxis Z29.9 (1) Hypertension Hypertension type: essential hypertension Qualified Code(s): I10 - Essential (primary) hypertension
[2020-12-08] MEDS ORDERED: MICONAZOLE NITRATE POWDER 43 GM EXT PRN (20:23)
[2020-12-09] MEDS: LEVOTHYROXINE SODIUM 50 MCG TABLET PO SCH (05:51)
[2020-12-09 07:33] LABS: INR 2.7 (0.9-1.1); Prothrombin Time 25.1 Seconds (9.0-12.0)
[2020-12-09 07:38] LABS: Hematocrit (blood only) 31.4 % (37-47); Hemoglobin 8.9 g/dL (12.0-16.0); Mean Corpuscular Hemoglobin 27.5 pg (25-34); Mean Corpuscular Hgb Conc 28.3 g/dL (32-36); Mean Corpuscular Volume 96.9 fL (80-100); Mean Platelet Volume 8.7 fL (7.4-10.4); Platelet Count 189 K/uL (130-400); RDW Coefficient of Variation 16.1 % (11.5-14.5); RDW Standard Deviation 57.6 fL (36.4-46.3); Red Blood Count 3.24 M/uL (4.2-5.4); White Blood Count 7.83 K/uL (4.8-10.8)
[2020-12-09 08:05] LABS: BUN Creatinine Ratio 36.1 (10-20); Calcium 9.1 mg/dl (8.5-10.1); Creatinine Clr Calc Pharmacy 66.9 ml/min; Est GFR (African American) 68.2 ml/min; Est GFR (Non-African American) 58.9 ml/min; Magnesium 2.3 mg/dl (1.8-2.4)
[2020-12-09] MEDS: IRON POLYSACCHARIDE COMPLEX 150 MG CAPSULE PO SCH (08:43)
[2020-12-09] MEDS: GABAPENTIN 100 MG CAP PO SCH ×2 (08:43→21:40)
[2020-12-09] MEDS: CITALOPRAM 20 MG TAB PO SCH (08:43)
[2020-12-09] MEDS: SIMVASTATIN 40 MG TAB PO SCH (08:43)
[2020-12-09] MEDS: SPIRONOLACTONE 25 MG TAB PO SCH ×2 (08:44→21:40)
[2020-12-09] MEDS: LOSARTAN POTASSIUM 25 MG TAB PO SCH (08:44)
[2020-12-09] MEDS: FEXOFENADINE HCL 180 MG TAB PO SCH (08:44)
[2020-12-09] MEDS: BUMETANIDE 1 MG TAB PO SCH (08:44)
--- NOTE | 2020-12-09 15:18 | Hospitalist Progress Note ---
Date of Service December 09, 2020 Assessment & Plan (1) Congestive heart failure, unspecified: Plan: Acute diastolic CHF. EF was 55 - 60% this admission. Moderate LVH. (Also with acute hypoxemic respiratory failure.) - Continue Bumex 1mg PO daily - Continue home spironolactone 25 mg PO BID - Continue ARB - Not on beta-zach at baseline. (2) Pulmonary hypertension: Plan: Diagnosed via only ECHO in 2009 as moderate. Multiple co-morbidities and causes with SRINIVASA and/or obesity hypoventilation syndrome playing a role. Declined referral to get sleep study. - Echo this admission now with SEVERE pulmonary hypertension. Estimated RVSP 65 mmHg. (3) Hypertension: Plan: BP today is 145/80. - Continue meds as above (4) Permanent atrial fibrillation: Plan: As above- not on rate control agent. HR presently in the 90s range. - Restart warfarin at 3 mg PO daily - INR/PT daily -> INR is 2.7 today. (5) Hyperlipidemia: Plan: - Continue simvastatin 40mg PO daily (6) Sleep related hypoxia: Plan: As above. - 2L NC at night (7) SRINIVASA (obstructive sleep apnea): Plan: As above - does not use CPAP (8) Morbid obesity with BMI of 45.0-49.9, adult: Plan: Chronic. - Weight loss encouraged as able (9) DVT prophylaxis: Plan: On warfarin for afib - INR today is 2.7. Admission and Anticipated Discharge Date Admission Date: December 05, 2020 Subjective Not much shortness of breath today. Does not note any swelling in legs. Reports no fevers/chills, chest pain, abdominal pain, nausea, or vomiting. Physical Exam Constitutional: WD/WN, vitals as above Eyes: EOM intact bilaterally; no conjunctival abnormality ENMT: external ear and nose normal, oropharynx normal Neck: trachea midline, no thyromegaly normal visual inspection Respiratory: normal respiratory effort, lungs clear to auscultation no respiratory distress Cardiovascular: Rate/Rhythm: regular rate and regular rhythm Extremities: + edema (Trace in legs (improving)) Gastrointestinal (Abdomen): Inspection/Auscultation: abdomen normal to inspection; abdomen not distended Musculoskeletal: no cyanosis or clubbing, extremities motor strength 5/5 Skin: no rashes, warm and dry Neurologic: moves all extremities and awake Psychiatric: Orientation: alert, oriented to person and cooperative Results & Data Results & Data ([facility]) Vital Signs (Past 12 Hours) Vital Signs Temp Pulse Resp BP Pulse Ox 12/09/20 11:00 36.9 C 103 H 18 147/82 H 97 12/09/20 06:58 36.9 C 95 H 20 148/83 H 99 12/09/20 04:01 36.3 C L 99 H 20 147/68 H 97 PG Care Time/CCT Total # of Minutes Spent Total Time Spent with Patient: Total time spent is greater than 50% in coordination of care (as documented) at patient's floor/unit and/or counseling patient: Coding Level of Care Code 45158 Subseq Hosp Care Lvl 2 Diagnoses Congestive heart failure, unspecified I50.9 Pulmonary hypertension I27.20 Hypertension I10 Hypertension type: essential hypertension Permanent atrial fibrillation I48.2 Hyperlipidemia E78.5 Sleep related hypoxia G47.34 SRINIVASA (obstructive sleep apnea) G47.33 Morbid obesity with BMI of 45.0-49.9, adult E66.01; Z68.42 DVT prophylaxis Z29.9 (1) Hypertension Hypertension type: essential hypertension Qualified Code(s): I10 - Essential (primary) hypertension
[2020-12-09] MEDS: WARFARIN SOD 3 MG TAB PO SCH (16:17)
[2020-12-10] MEDS: LEVOTHYROXINE SODIUM 50 MCG TABLET PO SCH (06:31)
[2020-12-10 06:42] LABS: Hematocrit (blood only) 31.6 % (37-47); Hemoglobin 9.1 g/dL (12.0-16.0); Mean Corpuscular Hemoglobin 27.9 pg (25-34); Mean Corpuscular Hgb Conc 28.8 g/dL (32-36); Mean Corpuscular Volume 96.9 fL (80-100); Mean Platelet Volume 8.9 fL (7.4-10.4); Platelet Count 217 K/uL (130-400); RDW Coefficient of Variation 16.1 % (11.5-14.5); RDW Standard Deviation 57.4 fL (36.4-46.3); Red Blood Count 3.26 M/uL (4.2-5.4); White Blood Count 8.63 K/uL (4.8-10.8)
[2020-12-10 07:11] LABS: INR 2.1 (0.9-1.1); Prothrombin Time 20.1 Seconds (9.0-12.0)
[2020-12-10 07:16] LABS: BUN Creatinine Ratio 36.1 (10-20); Calcium 8.9 mg/dl (8.5-10.1); Est GFR (African American) 59.6 ml/min; Est GFR (Non-African American) 51.4 ml/min; Magnesium 2.2 mg/dl (1.8-2.4); Potassium 5.1 mmol/L (3.5-5.1)
[2020-12-10] MEDS: SIMVASTATIN 40 MG TAB PO SCH (08:38)
[2020-12-10] MEDS: SPIRONOLACTONE 25 MG TAB PO SCH ×2 (08:39→19:52)
[2020-12-10] MEDS: CITALOPRAM 20 MG TAB PO SCH (08:39)
[2020-12-10] MEDS: IRON POLYSACCHARIDE COMPLEX 150 MG CAPSULE PO SCH (08:39)
[2020-12-10] MEDS: BUMETANIDE 1 MG TAB PO SCH (08:39)
[2020-12-10] MEDS: LOSARTAN POTASSIUM 25 MG TAB PO SCH (08:39)
[2020-12-10] MEDS: GABAPENTIN 100 MG CAP PO SCH ×2 (08:40→19:53)
[2020-12-10] MEDS: FEXOFENADINE HCL 180 MG TAB PO SCH (08:40)
[2020-12-10 08:58] LABS: Base Excess VBG 16.6 mEq/L; pH VBG 7.34 (7.36-7.41)
[2020-12-10 14:55] LABS: Urine Potassium 29.9 mmol/L
--- NOTE | 2020-12-10 16:01 | Pulmonary Consultation ---
Date of Consultation December 10, 2020 Assessment & Plan (1) Acute on chronic respiratory failure with hypoxia and hypercapnia: (2) SRINIVASA (obstructive sleep apnea): (3) Morbid obesity: (4) Pulmonary hypertension: Chest x-ray 12/05/2020 personally reviewed: Portable film, good respiratory eff ort, vascular congestion appreciated with increased hilar markings, blunting of bilateral costophrenic angle Increased cardiac silhouette --Acute on chronic hypercapnic hypoxic respiratory failure Hypoxia is likely from underlying diastolic CHF --> continue with diuretics Hypercapnia is a combination likely from SRINIVASA noncompliance as well as OHS BNP 2571 Procalcitonin negative, nasal MRSA negative COVID-19 PCR negative Continue with O2 supplementation to keep oxygen between 88-92% BiPAP nightly and as needed shortness of breath --Pulmonary hypertension Likely combination of type II-type III SRINIVASA/OHS also playing a role Treatment as above --Metabolic alkalosis At the compensated mechanics of her chronic hypercapnic respiratory failure Underlying current diuresis is also playing a role Unfortunately acetazolamide could not be thought of to be given when the pH is acidotic Plan: Start the patient on BiPAP nightly and as needed shortness of breath Repeat ABG in the morning Do not over oxygenate the patient. Keep oxygen less than 92% The patient is willing to use BiPAP and she will be a candidate for trilogy We will decide based on the ABG tomorrow Please note the above document was generated using voice recognition software. It may contain grammatical, syntax or spelling errors.Any formal questions or concerns about the content, text or information contained within the body of this dictation should be directly addressed to the provider for clarification. History of Present Illness Attending Physician: Jovanny Badillo MD History of Present Illness 80-year-old female past medical history of A. fib on Coumadin, diastolic CHF, SRINIVASA noncompliant with CPAP, nocturnal hypoxia, morbid obesity presented to the hospital with complaints of shortness of breath getting progressively worse since a week with increased lower extremity swelling Patient's ABG showed PCO2 of 88 Pulmonary were consulted for probable SRINIVASA/OHS At the time of examination patient states she is doing okay when it comes to her breathing She does have history of sleep apnea but she was not able to tolerate CPAP She is using oxygen only at night Denies any chest pain No headache, no nausea, no vomiting. No fever or chills. Dysuria, no diarrhea. Social history: Non-smoker, no illicit drug use, no alcohol use Allergies Allergy/AdvReac Type Severity Reaction Status Date / Time sulfisoxazole Allergy Unknown Unknown Verified 12/05/20 10:26 thimerosal Allergy Unknown Unknown Verified 12/05/20 10:26 torsemide Allergy Unknown Unknown Verified 12/05/20 10:26 buspirone [From BuSpar] Allergy Unknown Verified 12/05/20 10:26 cephalexin Allergy RASH Verified 09/17/20 10:58 clarithromycin [From Biaxin] Allergy Unknown Verified 12/05/20 10:26 iodine Allergy Unknown Verified 12/05/20 10:26 povidone-iodine Allergy Unknown Verified 12/05/20 10:26 [From Betadine] soap [From Betadine] Allergy Unknown Verified 12/05/20 10:26 Home Medications Medication Instructions Recorded Confirmed Type albuterol sulfate 90 mcg/actuation 2 inha INH Q6H PRN 12/20/17 12/05/20 History aerosol inhaler (Ventolin HFA) fexofenadine 180 mg tablet 180 mg PO DAILY 12/20/17 12/05/20 History (Lucie Allergy) cholecalciferol (vitamin D3) 125 5,000 unit PO DAILY 02/14/18 12/05/20 History mcg (5,000 unit) tablet (Vitamin D3) Oxygen Home #1 ea 10/04/18 08/05/20 History bumetanide 1 mg tablet 1 mg PO DAILY tab 05/07/19 12/05/20 History spironolactone 25 mg tablet 25 mg PO BID #180 tab 07/14/19 12/05/20 Rx Lift Chair #1 ea 10/16/19 08/05/20 Rx losartan 25 mg tablet 25 mg PO QAM #90 tab 10/20/19 12/05/20 Rx levothyroxine 50 mcg tablet 50 mcg PO DAILY #30 tab 07/12/20 12/05/20 Rx (Euthyrox) citalopram 20 mg tablet 20 mg PO DAILY #90 tab 07/19/20 12/05/20 Rx simvastatin 40 mg tablet (Zocor) 40 mg PO DAILY #90 tab 08/09/20 12/05/20 Rx acetaminophen 325 mg tablet 650 mg PO Q6 PRN MDD 3g 12/05/20 12/05/20 History (Tylenol) doxycycline hyclate 100 mg tablet 100 mg PO BID 12/05/20 12/05/20 History gabapentin 100 mg capsule 100 mg PO AMHS 12/05/20 12/05/20 History lorazepam 0.5 mg tablet See Rx Instructions .ROUTE 12/05/20 12/05/20 History .COMPLEX PRN multivitamin with iron-mineral 1 tab PO DAILY 12/05/20 12/05/20 History nystatin 100,000 unit/mL oral 5 ml PO QID 12/05/20 12/05/20 History suspension polysaccharide iron complex 150 mg 150 mg PO DAILY 12/05/20 12/05/20 History iron capsule tramadol 50 mg tablet 50 mg PO Q8 PRN 12/05/20 12/05/20 History Patient History Medical History (Updated 12/10/20 @ 16:06 by Jovanny Badillo MD) Adult body mass index 40 and over Adult situational stress disorder Allergic rhinitis due to allergen Anemia Asthma Atrial fibrillation BMI 50.0-59.9, adult Bronchitis Congestive heart failure, unspecified COPD (chronic obstructive pulmonary disease) COPD exacerbation Cough Diverticulosis of colon (without mention of hemorrhage) Esophageal reflux Fx femur shaft-closed History of pulmonary embolism Hyperlipidemia Hyperlipidemia, unspecified Hypoxia Localized primary osteoarthritis of lower leg Lumbar radiculopathy Morbid obesity Morbid obesity with BMI of 45.0-49.9, adult Neurodermatitis Obstructive sleep apnea (adult) (pediatric) Onychomycosis Permanent atrial fibrillation Pneumonia Pneumonia, organism unspecified Psoriasis Pulmonary hypertension Sleep related hypoxia Systolic congestive heart failure Tailor's bunionette Unspecified asthma Surgical History History of appendectomy History of hysterectomy History of tonsillectomy Family History Unknown Acute myocardial infarction Mother Heart disease Myocardial infarction Other No significant family history Denies family history of Ovarian cancer Prostate cancer Breast cancer Lung cancer Colorectal cancer Social History Smoking Status: Never smoker Second Hand Exposure: No; Hx Alcohol Use: No Hx Substance Use: No Preferred Language: Luxembourgish Communication Ability: Effective Visual Impairment: Limited Hearing Ability: Normal Cold 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 Required: No Beliefs That Will Affect Care: None marital status: / Current Living Situation: Retirement current occupational status: retired How many Children do You have: 2 Feels Safe at Home: Yes Childhood Exposure to Second-Hand Smoke: No caffeine: No Dental Care, Regularly: No Physical Activity Frequency: Does not Exercise Physical Activity Frequency Comment: due to health issues Seatbelt Use: always Sunscreen Use: No (not in the sun) Assistive Devices: Glasses and Oxygen - Continuous Review of Systems Review of Systems: All systems reviewed & are unremarkable except as noted in HPI & below Physical Exam Physical Exam: Constitutional: No acute distress HEENT: EOMI, PERRLA Respiratory system: Decreased air entry bilaterally, no wheeze, no rhonchi, positive crackles bilateral lower lobes CVS: S1-S2 positive, no murmurs or gallops, distant heart sounds Abdomen: Soft, nontender, nondistended, positive bowel sounds x4, obese Extremities: +2 pulses bilaterally radialis/ dorsalis pedis, no cyanosis, +1 pitting edema bilateral lower extremity Neuro: Awake alert oriented x3 Psych: Normal mood and affect G/U: Positive [place]emaker Skin: no rashes, warm and dry Lymphatic: no cervical or axillary lymphadenopathy Results & Data Results & Data ([facility]) Vital Signs (Past 12 Hours) Vital Signs Temp Pulse Resp BP BP Pulse Ox 12/10/20 14:56 36.6 C 96 H 20 130/74 98 12/10/20 11:06 37.1 C 97 H 20 142/61 H 90 12/10/20 07:40 36.5 C 98 H 20 126/66 93 12/10/20 05:38 12/10/20 05:38 PG Care Time/CCT Total # of Minutes Spent Total Time Spent with Patient: Total time spent is greater than 50% in coordination of care (as documented) at patient's floor/unit and/or counseling patient: Coding Level of Care Code 44897 Initial Inpt Care Lvl 3 Diagnoses Acute on chronic respiratory failure with hypoxia and hypercapnia J96.21; J96.22 SRINIVASA (obstructive sleep apnea) G47.33 Morbid obesity E66.01 Pulmonary hypertension I27.20
--- NOTE | 2020-12-10 16:09 | Hospitalist Progress Note ---
Date of Service December 10, 2020 Assessment & Plan (1) Metabolic alkalosis with respiratory acidosis: Plan: CO2 has been trending up. Metabolic alkalosis compensating for her chronic respiratory acidosis. VBG indicates normal pH. - Given this is likely stemming from obesity hypoventilation, discussed with pulm and then entered consult for any possible BiPap/Trilogy qualifications. - Consider acetazolamide; will defer to pulm recs. (2) Congestive heart failure, unspecified: Plan: Acute diastolic CHF. EF was 55 - 60% this admission. Moderate LVH. (Also with acute hypoxemic respiratory failure.) - Continue Bumex 1mg PO daily - Continue home spironolactone 25 mg PO BID - Continue ARB - Not on beta-zach at baseline. (3) Pulmonary hypertension: Plan: Diagnosed via only ECHO in 2009 as moderate. Multiple co-morbidities and causes with SRINIVASA and/or obesity hypoventilation syndrome playing a role. Declined referral to get sleep study. - Echo this admission now with SEVERE pulmonary hypertension. Estimated RVSP 65 mmHg. (4) Hypertension: Plan: BP today is 130/75. - Continue meds as above (5) Permanent atrial fibrillation: Plan: As above- not on rate control agent. HR presently in the 90s range. - Restarted warfarin at 3 mg PO daily on 12/09 - INR/PT daily -> INR is 2.1 today. (6) Hyperlipidemia: Plan: - Continue simvastatin 40mg PO daily (7) Sleep related hypoxia: Plan: As above. - 2L NC at night (8) SRINIVASA (obstructive sleep apnea): Plan: As above - does not use CPAP (9) Morbid obesity with BMI of 45.0-49.9, adult: Plan: Chronic. - Weight loss encouraged as able (10) DVT prophylaxis: Plan: On warfarin for afib - INR today is 2.1. Admission and Anticipated Discharge Date Admission Date: December 05, 2020 Subjective Doing well today. Feels good. Reports no fevers/chills, chest pain, shortness of breath, abdominal pain, nausea, or vomiting. Physical Exam Constitutional: WD/WN, vitals as above Eyes: EOM intact bilaterally; no conjunctival abnormality ENMT: external ear and nose normal, oropharynx normal Neck: trachea midline, no thyromegaly normal visual inspection Respiratory: normal respiratory effort, lungs clear to auscultation no respiratory distress Cardiovascular: Rate/Rhythm: regular rate and regular rhythm Extremities: + edema (Trace in legs (improving)) Gastrointestinal (Abdomen): Inspection/Auscultation: abdomen normal to inspection; abdomen not distended Musculoskeletal: no cyanosis or clubbing, extremities motor strength 5/5 Skin: no rashes, warm and dry Neurologic: moves all extremities and awake Psychiatric: Orientation: alert, oriented to person and cooperative Results & Data Results & Data ([facility]) Vital Signs (Past 12 Hours) Vital Signs Temp Pulse Resp BP BP Pulse Ox 12/10/20 14:56 36.6 C 96 H 20 130/74 98 12/10/20 11:06 37.1 C 97 H 20 142/61 H 90 12/10/20 07:40 36.5 C 98 H 20 126/66 93 PG Care Time/CCT Total # of Minutes Spent Total Time Spent with Patient: Total time spent is greater than 50% in coordination of care (as documented) at patient's floor/unit and/or counseling patient: Coding Level of Care Code 24585 Subseq Hosp Care Lvl 3 Diagnoses Congestive heart failure, unspecified I50.9 Pulmonary hypertension I27.20 Hypertension I10 Hypertension type: essential hypertension Permanent atrial fibrillation I48.2 Hyperlipidemia E78.5 Sleep related hypoxia G47.34 SRINIVASA (obstructive sleep apnea) G47.33 Morbid obesity with BMI of 45.0-49.9, adult E66.01; Z68.42 DVT prophylaxis Z29.9 Metabolic alkalosis with respiratory acidosis E87.4 (1) Hypertension Hypertension type: essential hypertension Qualified Code(s): I10 - Essential (primary) hypertension
[2020-12-10] MEDS: WARFARIN SOD 3 MG TAB PO SCH (17:08)
[2020-12-11 06:50] LABS: Base Excess ABG 19.9 mEq/L (-9-1.8); HCO3 ABG 49 mmol/L (19-24); Oxygen Saturation ABG 90.7 % (90-95); PCO2 ABG 96 mmHg (35-46); PO2 ABG 64 mmHg (80-95); pH ABG 7.33 (7.35-7.45)
[2020-12-11 06:54] LABS: Allen Test Pos (Pos); INR 2.3 (0.9-1.1); Prothrombin Time 21.5 Seconds (9.0-12.0)
[2020-12-11 07:07] LABS: Hematocrit (blood only) 31.2 % (37-47); Hemoglobin 8.9 g/dL (12.0-16.0); Mean Corpuscular Hemoglobin 27.3 pg (25-34); Mean Corpuscular Hgb Conc 28.5 g/dL (32-36); Mean Corpuscular Volume 95.7 fL (80-100); Mean Platelet Volume 8.7 fL (7.4-10.4); Platelet Count 192 K/uL (130-400); RDW Standard Deviation 56.4 fL (36.4-46.3); Red Blood Count 3.26 M/uL (4.2-5.4); White Blood Count 7.04 K/uL (4.8-10.8)
[2020-12-11 07:25] LABS: BUN Creatinine Ratio 40.4 (10-20); Calcium 9.2 mg/dl (8.5-10.1); Creatinine Clr Calc Pharmacy 62.8 ml/min; Est GFR (African American) 63.3 ml/min; Est GFR (Non-African American) 54.6 ml/min
[2020-12-11] MEDS: LEVOTHYROXINE SODIUM 50 MCG TABLET PO SCH (07:57)
[2020-12-11] MEDS: BUMETANIDE 1 MG TAB PO SCH (08:14)
[2020-12-11] MEDS: IRON POLYSACCHARIDE COMPLEX 150 MG CAPSULE PO SCH (08:15)
[2020-12-11] MEDS: CITALOPRAM 20 MG TAB PO SCH (08:15)
[2020-12-11] MEDS: FEXOFENADINE HCL 180 MG TAB PO SCH (08:15)
[2020-12-11] MEDS: LOSARTAN POTASSIUM 25 MG TAB PO SCH (08:15)
[2020-12-11] MEDS: SIMVASTATIN 40 MG TAB PO SCH (08:15)
[2020-12-11] MEDS: SPIRONOLACTONE 25 MG TAB PO SCH (08:15)
[2020-12-11] MEDS: GABAPENTIN 100 MG CAP PO SCH (08:15)
--- NOTE | 2020-12-11 10:23 | Pulmonology Progress Note ---
Date of Service December 11, 2020 Assessment & Plan (1) Acute on chronic respiratory failure with hypoxia and hypercapnia: (2) SRINIVASA (obstructive sleep apnea): (3) Morbid obesity: (4) Pulmonary hypertension: (5) Metabolic alkalosis: Plan: Chest x-ray 12/05/2020 personally reviewed: Portable film, good respiratory effort, vascular congestion appreciated with increased hilar markings, blunting of bilateral costophrenic angle Increased cardiac silhouette --Acute on chronic hypercapnic hypoxic respiratory failure Hypoxia is likely from underlying diastolic CHF --> continue with diuretics Hypercapnia is a combination likely from SRINIVASA noncompliance as well as OHS BNP 2571 Procalcitonin negative, nasal MRSA negative COVID-19 PCR negative Continue with O2 supplementation to keep oxygen between 88-92% BiPAP nightly and as needed shortness of breath --Pulmonary hypertension Likely combination of type II-type III SRINIVASA/OHS also playing a role Treatment as above --Metabolic alkalosis At the compensated mechanics of her chronic hypercapnic respiratory failure Underlying current diuresis is also playing a role Unfortunately acetazolamide could not be thought of to be given when the pH is acidotic --> acetazolamide will be started once the pH is greater than 7.4 --A. fib On warfarin Plan: In/out: -910, urine output 1999 ABG 12/11/2020: 7.33/96/64 on 2 L I did explain to the patient in depth that she has sleep apnea with a component of OHS, the only treatment for it is using CPAP or having a tracheostomy Patient stated she would not like to have a tracheostomy. So I did explain to her CPAP/BiPAP compliance is very important and if she does not use that she will end up getting confused and dying. She is willing to try another type of mask. I spoke with RT to see if we have nasal pillows and try nasal pillows during the day today. Do not over oxygenate the patient. Keep oxygen less than 92% The patient is willing to use BiPAP and she will be a candidate for trilogy Case discussed with Dr. aBdillo Please note the above document was generated using voice recognition software. It may contain grammatical, syntax or spelling errors.Any formal questions or concerns about the content, text or information contained within the body of this dictation should be directly addressed to the provider for clarification. Admission and Anticipated Discharge Date Admission Date: December 05, 2020 Subjective Patient seen and examined at bedside. No acute distress, no adverse events overnight. Patient was resting in bed. Denies any chest pain, no shortness of breath. She says that she is feeling better after coming to the hospital She did try to put the BiPAP on at night but she was not able to tolerate the mask Review of Systems Review of Systems: All systems reviewed & are unremarkable except as noted in Subjective Physical Exam Physical Exam: Constitutional: No acute distress HEENT: EOMI, PERRLA Respiratory system: Decreased air entry bilaterally, no wheeze, no rhonchi, positive crackles bilateral lower lobes CVS: S1-S2 positive, no murmurs or gallops, distant heart sounds Abdomen: Soft, nontender, nondistended, positive bowel sounds x4, obese Extremities: +2 pulses bilaterally radialis/ dorsalis pedis, no cyanosis, +1 pitting edema bilateral lower extremity Neuro: Awake alert oriented x3 Psych: Normal mood and affect G/U: Positive Shoemaker Skin: no rashes, warm and dry Lymphatic: no cervical or axillary lymphadenopathy Results & Data Results & Data ([facility]) Vital Signs (Past 12 Hours) Vital Signs Temp Pulse Pulse Resp BP Pulse Ox 12/11/20 04:19 37.0 C 87 20 140/82 92 12/10/20 23:35 36.9 C 94 H 20 143/83 H 92 12/10/20 23:34 106 H PG Care Time/CCT Total # of Minutes Spent Total Time Spent with Patient: Total time spent is greater than 50% in coordination of care (as documented) at patient's floor/unit and/or counseling patient: Coding Level of Care Code 70932 Subseq Hosp Care Lvl 3 Diagnoses Acute on chronic respiratory failure with hypoxia and hypercapnia J96.21; J96.22 SRINIVASA (obstructive sleep apnea) G47.33 Morbid obesity E66.01 Pulmonary hypertension I27.20 Metabolic alkalosis E87.3
--- NOTE | 2020-12-11 14:40 | Discharge Summary ---
Date of Service December 11, 2020 Admission HPI Per Admitting Provider 80 YOF with past medical history of: Afib (on Coumadin) HF, systolic murmur, SRINIVASA (on night time oxygen, no CPAP/BiPAP), chronic venous station, Stage I-II buttocks ulceration, HTN, Pulmonary hypertension, CKD III, morbid obesity. Patient comes to the EMD from center care for 3-4 day history of increase dyspnea, cough, and lower extremity swelling. Patient endorses that she has had trouble lying flat and talking, she states her legs are more swollen as she has not been wearing her Tubigrip as well. The patient also endorses dietary indiscretion by eating potato chips. Patient declined referral for another sleep study in regards to her SRINIVASA and pulmonary HTN which is likely related to her obesity as well. The patient states that her cough has increased and that her sputum is thin and clear. In the EMD the patient required her standard 2LNC with Spo2 86 on admission that responded to 1mg Bumex. She is on Coumadin for her afib history and she remains therapeutic on all her lab draws. Patient CXR was consistent with pulmonary edema, she does not have an elevated white count and her BNP is 2571. Patient will be admitted for continued diuresing and evaluation of her dyspnea. Infective biomarkers will be added on to labs. Patient has chronic lower leg swelling with venous stasis ulcers, will apply TEDS while in house. Patient has received her COVID vaccine and her COVID test on admission is NEGATIVE. Principal Diagnosis * Acute diastolic heart failure * Untreated obesity hypoventilation syndrome & obstructive sleep apnea leading to chronic hypercapnic respiratory failure & metabolic alkalosis Discharge Exam Constitutional WD/WN, vitals as above Eyes EOM intact bilaterally; no conjunctival abnormality ENMT external ear and nose normal, oropharynx normal Neck trachea midline, no thyromegaly normal visual inspection Respiratory normal respiratory effort, lungs clear to auscultation no respiratory distress Cardiovascular Rate/Rhythm: regular rate and regular rhythm Extremities: + edema (Trace in legs (improving)) Gastrointestinal (Abdomen) Inspection/Auscultation: abdomen normal to inspection; abdomen not distended Musculoskeletal no cyanosis or clubbing, extremities motor strength 5/5 Skin no rashes, warm and dry Neurologic moves all extremities and awake Psychiatric Orientation: alert, oriented to person and cooperative Discharge Data Allergies Allergy/AdvReac Type Severity Reaction Status Date / Time sulfisoxazole Allergy Unknown Unknown Verified 12/05/20 10:26 thimerosal Allergy Unknown Unknown Verified 12/05/20 10:26 torsemide Allergy Unknown Unknown Verified 12/05/20 10:26 buspirone [From BuSpar] Allergy Unknown Verified 12/05/20 10:26 cephalexin Allergy RASH Verified 09/17/20 10:58 clarithromycin [From Biaxin] Allergy Unknown Verified 12/05/20 10:26 iodine Allergy Unknown Verified 12/05/20 10:26 povidone-iodine Allergy Unknown Verified 12/05/20 10:26 [From Betadine] soap [From Betadine] Allergy Unknown Verified 12/05/20 10:26 Consultations 12/05/20 11:34 ED Decision to Admit Stat 12/10/20 15:05 Consult Pulmonology Routine Hospital Course (1) Congestive heart failure, unspecified: Acute diastolic CHF. EF was 55 - 60% this admission. Moderate LVH. (Also with acute hypoxemic respiratory failure.) - Continue Bumex 1mg PO daily - Continue home spironolactone 25 mg PO BID - Continue ARB - Not on beta-zach at baseline. -> Appt with Natalia Robb on 12/15 at 2pm. (2) Metabolic alkalosis with respiratory acidosis: CO2 has been trending up. CO2 was 47 by discharge. Metabolic alkalosis compensating for her chronic respiratory acidosis. ABG indicated slight acidosis. - Given this is likely stemming from obesity hypoventilation, discussed with pulm and then entered consult for any possible BiPap/Trilogy qualifications. -> However, patient could not tolerate any BiPap masks in the hospital. Could trial others at [facility]. Did discuss hospice v. palliative given she is DNR/DNI and may not want to pursue BiPap if hospitalized. - No acetazolamide given she is already acidemic. (3) Pulmonary hypertension: Diagnosed via only ECHO in 2009 as moderate. Multiple co-morbidities and causes with SRINIVASA and/or obesity hypoventilation syndrome playing a role. Declined referral to get sleep study. - Echo this admission now with SEVERE pulmonary hypertension. Estimated RVSP 65 mmHg. (4) Hypertension: BP today is 130/75. - Continue meds as above (5) Permanent atrial fibrillation: As above- not on rate control agent. HR presently in the 90s range. - Restarted warfarin at 3 mg PO daily on 12/09 - INR/PT daily -> INR is 2.4 today. (6) Hyperlipidemia: - Continue simvastatin 40mg PO daily (7) Sleep related hypoxia: As above. - 2L NC at night (8) SRINIVASA (obstructive sleep apnea): As above - does not use CPAP (9) Morbid obesity with BMI of 45.0-49.9, adult: Chronic. - Weight loss encouraged as able (10) DVT prophylaxis: On warfarin for afib - INR today is 2.4. Total Time Total Time Spent Total Time Spent (In Minutes): 35 Discharge Plan Discharge Items Patient Disposition: Transfer [facility] Reason For Visit: CHF EXACERBATION,DYSPNEA Discharge Diagnosis: CHF exacerbation Activity: Resume your previous activity Non-emergency contact: Primary Care Provider and Php Magento Developer Call non-emergency contact if: your symptoms worsen Follow-up/Referrals: [facility] [Primary Care Provider] - Natalia Robb PA-C [Physician Welder Manufacture] - 12/15/20 2:00 pm (Please refer to [facility] for help with volume status.) Diet: Heart Healthy and Low Sodium (2gm) Addtl Attending Provider Instructions: Ms. Alexandre was admitted for shortness of breath and was found to have a CHF exacerbation. We used Bumex IV to diurese her, and she felt better quite quickly. 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 However, her bedscale weight was around 126 kgs on discharge. Her diuretic dosing is a bit complex to know what do use at [facility]. Here, she diuresed very well on Bumex 1 mg IV BID with her normal spironolactone 25 mg PO BID. I actually dropped her straight down to her home dosing. I think if her salt intake can be maintained at a steady level, she may be able to keep her dosing without change. However, if she is getting outside food or snacks, she may need Bumex 1 mg PO BID to maintain volume status. Natalia Robb saw her in the hospital and can hopefully help coordinate her diuretic dosing and volume status along with labs. Her bicarbonate trended up while here. Pulmonology saw her and recommended BiPap or even Trilogy for obesity hypoventilation + obstructive sleep apnea. We tried all the masks available in the hospital without finding one she could tolerate. Pulmonology essentially signed off without having anything else to offer. Given the Bumex is pushing her bicarbonate up, it might be held here or there, but I think it will be hard to hold it much without further fluid building up. The spironolactone actually keeps the bicarbonate down, so we did not titrate this. Addtl Recreation Leader Provider Instructions: Call your Primary Care doctor if any of the following symptoms or problems start or get worse: * Shortness of breath or difficulty breathing * Wake up at night short of breath * Chest pain * Cough * Swelling of your hands, feet, or legs * More fatigued or tired with your normal activity * Palpitations - sudden fast heart beats WEIGHT * Weigh yourself every morning after using the bathroom. * Use the same scale. * Wear the same amount of clothing. * Write your weight down on a chart. * Call your Primary Care doctor if you gain more than 2-3 pounds in 1-2 days. MEDICATIONS * Use this discharge instruction sheet for medication instructions. * Take your medications at the time your doctor ordered. * Do not skip a dose of your medicines. * If you miss a dose of medicine, take it as soon as possible, but DO NOT DOUBLE A DOSE. * Read your medicine information when you get home. * Know all of the side effects of your medicine. If in doubt, ask your pharmac ist * Call your Primary Care doctor's office if you have any side effects. * Be sure all of your doctors know what medicine and herbs you take (including cold, flu, and herbal medicine). Take the following with you to your follow-up doctor appointments: * Weight Chart * Medication List * List of questions Do not drink excessive alcohol, beer or wine. Pending Studies at Discharge: No Stand-Alone Forms: My [facility] ticckle Skilled Items Patient informed of condition?: No DNR: Yes Discharge Level of Care: Skilled Communicable Disease: No Discharge Prognosis: Stable Lines: None Urinary Catheter: No Medications and DC Order Prescriptions: Continued fexofenadine [Lucie Allergy] 180 mg tablet 180 mg PO DAILY RF: 0 albuterol sulfate [Ventolin HFA] 90 mcg/actuation HFA aerosol inhaler 2 inha INH Q6H PRN (Reason: Shortness Of Breath Or Wheezing) RF: 0 spironolactone 25 mg tablet 25 mg PO BID Qty: 180 RF: 3 (DME) Lift Chair Misc See Rx Instructions .ROUTE .MEDSUPPLY Qty: 1 RF: 0 losartan 25 mg tablet 25 mg PO QAM Qty: 90 RF: 3 levothyroxine [Euthyrox] 50 mcg tablet 50 mcg PO DAILY Qty: 30 RF: 2 citalopram 20 mg tablet 20 mg PO DAILY Qty: 90 RF: 1 simvastatin [Zocor] 40 mg tablet 40 mg PO DAILY Qty: 90 RF: 3 bumetanide 1 mg tablet 1 mg PO DAILY RF: 0 (DME) Oxygen Home Liters Per Minute See Dose Instructions .ROUTE .MEDSUPPLY Qty: 1 RF: 0 cholecalciferol (vitamin D3) [Vitamin D3] 5,000 unit Tablet 5,000 unit PO DAILY RF: 0 gabapentin 100 mg capsule 100 mg PO AMHS RF: 0 nystatin 100,000 unit/mL suspension 5 ml PO QID RF: 0 polysaccharide iron complex 150 mg iron Capsule 150 mg PO DAILY RF: 0 tramadol 50 mg tablet 50 mg PO Q8 PRN (Reason: Pain, Severe) RF: 0 multivitamin with iron-mineral Tablet 1 tab PO DAILY RF: 0 lorazepam 0.5 mg Tablet See Rx Instructions .ROUTE .COMPLEX PRN (Reason: anxiety/restlessness) RF: 0 acetaminophen [Tylenol] 325 mg Tablet 650 mg PO Q6 MDD 3g PRN (Reason: Fever Or Pain) RF: 0 Discontinued doxycycline hyclate 100 mg tablet 100 mg PO BID RF: 0 Discharge Orders: Discharge Order (Routine); Ordered 12/11/20 Ordered By: Jovanny Badillo Admission Data Admit Date/Time: 12/05/20 12:53 Attending Provider: Jovanny Badillo Admit Provider: Aaron Friend Primary Care Provider: [facility] Other Providers: Jovanny Badillo ; Radha Carlisle Other Interventions: Discharge Summary Assessment (RN) Last Done: 12/11/20 13:34 Coding Level of Care Code D/C DAY MANAGEMENT >30 MINS Diagnoses Metabolic alkalosis with respiratory acidosis E87.4 Congestive heart failure, unspecified I50.9 Pulmonary hypertension I27.20 Hypertension I10 Hypertension type: essential hypertension Permanent atrial fibrillation I48.2 Hyperlipidemia E78.5 Sleep related hypoxia G47.34 SRINIVASA (obstructive sleep apnea) G47.33 Morbid obesity with BMI of 45.0-49.9, adult E66.01; Z68.42 DVT prophylaxis Z29.9
== END 2020-12-11 14:08 | DRG 291 ==
LOC: ED 09:49 → 2N 12:53 → SUATTDRO 12:53 → 2N 14:28

== ENCOUNTER 2021-11-06 17:27 | Inpatient (IN) ==
[2021-11-06] MEDS ORDERED: RAPID SEQUENCE INDUCTION BAG ONE (17:31)
--- NOTE | 2021-11-06 17:40 | Emergency Department Note ---
Impression & Plan Acute hypoxemic respiratory failure, Sepsis, Acute UTI, Acute dehydration ED Provider Note NAME: GARRETT MARTINEZ AGE: 80 SEX: F : 1940 ARRIVES VIA: Ambulance INFORMANT: [Patient][, ] ED PROVIDER(S): [Dewayne Camacho MD] Chief Complaint: Respiratory distress HPI: Patient presents from [facility] due to concern for worsening respiratory distress. Patient does have a known history of diastolic CHF chronic hypoxic and hypercapnic respiratory failure SRINIVASA pulmonary hypertension was anticoagulated on Coumadin. But has not been on rate control. Patient does have CKD stage III. Patient is reportedly a DNR. I did asked the patient to have she would want to be put on a ventilator even in if needed and she denied wanting to do this. The patient is alert follows commands is oriented to person place and time and understands that there is a risk of if not being placed on a ventilator that it could be fatal. Patient reportedly was noted to be hypoxic 70% on 10 L and when EMS arrived and placed her on CPAP. Patient reportedly had some hypoxia and associated emesis while at lunch. There was concern about the possibility of aspiration. Patient reportedly was opposed to return to the hospital. ROS: See HPI for pertinent positives and negatives. A total of 10 systems were reviewed and otherwise negative. Past medical history: See below Surgical history: See below Social history: See below Physical Exam: GENERAL: CPAP mask in place, follows commands. Moderate distress EYE EXAM: Normal conjunctiva. PERRL, no anisocoria and EOM's grossly intact w/o pain. NECK: Supple, no nuchal rigidity, no adenopathy, non-tender. No signs of meningismus. FROM of the neck with good chin to chest and neck extension. No stridor. LUNGS: Clear to auscultation. Normal chest wall mechanics. HEART: Tachycardic and irregularly irregular, no MRG. ABDOMEN: Abdomen soft, non-tender, normo-active bowel sounds, no masses, no rebound or guarding. BACK: No CVA TTP. SKIN: No rashes and no bruising. UPPER EXTREMITIES: Upper extremities are grossly normal. LOWER EXTREMITIES: Grossly normal, nonpitting edema. NEURO EXAM: A&O x3, cranial nerves II-XII grossly intact, normal speech, moves all 4 extremities. Differential diagnoses: Reactive airway disease, pneumonia, pneumothorax, COPD, CHF, infections, cardiac ischemia, pulmonary embolism, musculoskeletal, gastrointestinal, as well as other pathologies. Course: Patient was seen and evaluated the bedside. Full history physical exam was performed. EKG interpreted by me Thee dan with RVR, rate 149, wide QRS, left axis deviation. Imaging Studies: See Below Cardiac monitoring: An order was placed for continuous cardiac monitoring. The monitor shows a rate of 135 with irregular irregular rhythm. MDM: Patient presented in respiratory distress hypoxia and fever. The patient was transitioned to BiPAP. The patient adamant about not being placed on a v entilator. Patient did have bladder completed was started on empiric antibiotics MRSA swab respiratory swab VBG blood cultures and lactic acid. I did perform a quick bedside ultrasound which not get great views of the heart patient did not have overt B-lines and the IVC did not appear to be grossly plethoric. Patient was ordered Ofirmev as well as 1 L IV fluids. Patient was ordered broad-spectrum antibiotics. Blood work did show white count of 21 with a hemoglobin of 9. The patient does have fairly chronic and stable anemia. The patient's platelet count was unremarkable. VBG was initial PCO2 of 72 with a VBG pH is 7.33. Patient does have some very mild acute on chronic hypercarbia. Patient does have elevated bicarb with creat 1.2. The patient's initial lactate was 2.5. Magnesium 1.6. The patient was ordered additional IV fluids. Troponin is elevated at 44 but the patient's BNP is not elevated. Urinalysis does appear to be grossly infected. The patient was MRSA screen positive and the patient's respiratory viral panel was negative. Patient did appear to improve clinically upon multiple reassessments. I did speak with the on-call hospitalist Dr. Stcokton and the patient was admitted to the medicine service and subsequently was placed in the intensive care unit. Patient's heart rate did improve with IV fluids as well as the patient's clinical status. The patient did appear more awake and alert. Critical Care: I have personally spent 96 minutes of critical care time in direct management of this patient. This includes bedside care, interpretation of diagnostic studies, and testing, discussion with consultants, patient, and family members, and other require inpatient management activities. This 96 minutes is in excess of all separately billable procedures. Past Med/Surg History Medical History (Updated 11/07/21 @ 00:30 by Dewayne Camacho MD) Adult body mass index 40 and over Adult situational stress disorder Allergic rhinitis due to allergen Anemia Asthma Atrial fibrillation BMI 50.0-59.9, adult Bronchitis Congestive heart failure, unspecified COPD (chronic obstructive pulmonary disease) COPD exacerbation Cough Diverticulosis of colon (without mention of hemorrhage) Esophageal reflux Fx femur shaft-closed History of pulmonary embolism Hyperlipidemia Hyperlipidemia, unspecified Hypoxia Localized primary osteoarthritis of lower leg Lumbar radiculopathy Morbid obesity Morbid obesity with BMI of 45.0-49.9, adult Neurodermatitis Obstructive sleep apnea (adult) (pediatric) Onychomycosis Permanent atrial fibrillation Pneumonia Pneumonia, organism unspecified Psoriasis Pulmonary hypertension Sleep related hypoxia Systolic congestive heart failure Tailor's bunionette Unspecified asthma Surgical History History of appendectomy History of hysterectomy History of tonsillectomy Family History Unknown Acute myocardial infarction Mother Heart disease Myocardial infarction Other No significant family history Denies family history of Ovarian cancer Prostate cancer Breast cancer Lung cancer Colorectal cancer Social History Smoking Status: Former smoker Second Hand Exposure: No; Do You Dip or Chew Tobacco: No; Tobacco Cessation Education Requested by Patient: No Hx Alcohol Use: No Hx Substance Use: No Preferred Language: Yakut Communication Ability: Effective Visual Impairment: Limited Hearing Ability: Normal Cold Strip Feeder Required: No Beliefs That Will Affect Care: None marital status: / Current Living Situation: Personal Care Facility current occupational status: retired How many Children do You have: 2 Other Information That Helps Us Care for You: No Feels Safe at Home: Yes Childhood Exposure to Second-Hand Smoke: No caffeine: No Dental Care, Regularly: No Physical Activity Frequency: Does not Exercise Physical Activity Frequency Comment: due to health issues Seatbelt Use: always Sunscreen Use: No (not in the sun) Assistive Devices: BiPap, CPAP, Oxygen - Continuous and Wheelchair Allergies Allergies Allergy/AdvReac Type Severity Reaction Status Date / Time sulfisoxazole Allergy Unknown Unknown Verified 08/04/21 12:53 thimerosal Allergy Unknown Unknown Verified 08/04/21 12:53 torsemide Allergy Unknown Unknown Verified 08/04/21 12:53 buspirone [From BuSpar] Allergy Unknown Verified 08/04/21 12:53 cephalexin Allergy RASH Verified 08/04/21 12:53 clarithromycin [From Biaxin] Allergy Unknown Verified 08/04/21 12:53 iodine Allergy Unknown Verified 08/04/21 12:53 povidone-iodine Allergy Unknown Verified 08/04/21 12:53 [From Betadine] soap [From Betadine] Allergy Unknown Verified 08/04/21 12:53 Home Meds Home Medications Medication Instructions Recorded Confirmed albuterol sulfate 90 mcg/actuation 2 inha inhalation Q6H PRN 12/20/17 11/06/21 aerosol inhaler (Ventolin HFA) Shortness Of Breath Or Wheezing fexofenadine 180 mg tablet 180 mg PO DAILY 12/20/17 11/06/21 (Lucie Allergy) cholecalciferol (vitamin D3) 125 5,000 unit PO DAILY 02/14/18 11/06/21 mcg (5,000 unit) tablet (Vitamin D3) acetaminophen 325 mg tablet 650 mg PO Q6 PRN Fever Or Pain 12/05/20 11/06/21 (Tylenol) gabapentin 100 mg capsule 100 mg PO AMHS 12/05/20 11/06/21 lorazepam 0.5 mg tablet See Rx Instructions .Route 12/05/20 11/06/21 .COMPLEX PRN anxiety/restlessness multivitamin with iron-mineral 1 tab PO DAILY 12/05/20 11/06/21 nystatin 100,000 unit/mL oral 5 ml PO QID 12/05/20 11/06/21 suspension polysaccharide iron complex 150 mg 150 mg PO DAILY 12/05/20 11/06/21 iron capsule tramadol 50 mg tablet 50 mg PO Q8 PRN Pain, Severe 12/05/20 11/06/21 apixaban 2.5 mg tablet (Eliquis) 5 mg PO BID 02/17/21 11/06/21 ascorbate calcium (vitamin C) 500 500 mg PO BID 02/17/21 11/06/21 mg tablet bumetanide 1 mg tablet 2 mg PO DAILY 02/17/21 11/06/21 melatonin 3 mg capsule 3 mg PO HS PRN Insomnia 02/17/21 11/06/21 citalopram 10 mg tablet 15 mg PO DAILY 08/04/21 11/06/21 Previous Rx's Medication Instructions Recorded spironolactone 25 mg tablet 25 mg PO BID #180 tabs 07/14/19 Lift Chair #1 ea 10/16/19 losartan 25 mg tablet 25 mg PO QAM #90 tabs 10/20/19 levothyroxine 50 mcg tablet 50 mcg PO DAILY #30 tabs 07/12/20 (Euthyrox) simvastatin 40 mg tablet (Zocor) 40 mg PO DAILY #90 tabs 08/09/20 Results & Data (ED) Vital Signs Vital Signs - 24 hr 11/06/21 17:34 11/06/21 17:34 11/06/21 17:34 Temperature 38.7 C H Temperature Source Axillary Pulse Rate 150 H Pulse Rate from SpO2 Sensor Respiratory Rate 29 H Respiratory Effort / Characteristics Non-Labored Spontaneous Labored Short of Breath Respiratory Depth Shallow Respiratory Pattern Regular Rapid/Shallow Blood Pressure 110/64 Blood Pressure Mean 79 Blood Pressure Position Lying Pulse Oximetry 95 Oxygen Delivery Method BiPAP BiPAP Fraction of Inspired Oxygen 40 Sepsis Recent Fever Within 48 Hours Yes Sepsis New/Unexplained Change in Mental Status Yes Sepsis Action Taken by Nursing Physician Notified 11/06/21 17:40 11/06/21 18:22 11/06/21 17:33 Temperature Temperature Source Pulse Rate 146 H Pulse Rate from SpO2 Sensor Respiratory Rate 33 H Respiratory Effort / Characteristics Non-Labored Spontaneous Respiratory Depth Normal Respiratory Pattern Regular Blood Pressure 127/87 Blood Pressure Mean 100 Blood Pressure Position Pulse Oximetry 98 Oxygen Delivery Method BiPAP BiPAP Fraction of Inspired Oxygen 40 Sepsis Recent Fever Within 48 Hours Sepsis New/Unexplained Change in Mental Status Sepsis Action Taken by Nursing 11/06/21 17:33 11/06/21 17:34 11/06/21 17:34 Temperature Temperature Source Pulse Rate 142 H 143 H Pulse Rate from SpO2 Sensor 141 H 149 H Respiratory Rate 21 31 H Respiratory Effort / Characteristics Respiratory Depth Respiratory Pattern Blood Pressure 110/64 Blood Pressure Mean 79 Blood Pressure Position Pulse Oximetry 98 96 Oxygen Delivery Method BiPAP BiPAP BiPAP Fraction of Inspired Oxygen Sepsis Recent Fever Within 48 Hours Sepsis New/Unexplained Change in Mental Status Sepsis Action Taken by Nursing 11/06/21 17:40 11/06/21 17:50 11/06/21 18:00 Temperature Temperature Source Pulse Rate 158 H 135 H 139 H Pulse Rate from SpO2 Sensor 147 H 132 H 135 H Respiratory Rate 29 H 31 H 29 H Respiratory Effort / Characteristics Respiratory Depth Respiratory Pattern Blood Pressure Blood Pressure Mean Blood Pressure Position Pulse Oximetry 99 100 92 Oxygen Delivery Method BiPAP BiPAP BiPAP Fraction of Inspired Oxygen Sepsis Recent Fever Within 48 Hours Sepsis New/Unexplained Change in Mental Status Sepsis Action Taken by Nursing 11/06/21 18:23 11/06/21 18:30 11/06/21 18:40 Temperature Temperature Source Pulse Rate 135 H 127 H Pulse Rate from SpO2 Sensor 138 H 126 H Respiratory Rate 31 H 30 H Respiratory Effort / Characteristics Respiratory Depth Respiratory Pattern Blood Pressure 109/58 L Blood Pressure Mean 75 Blood Pressure Position Pulse Oximetry 96 97 Oxygen Delivery Method BiPAP BiPAP BiPAP Fraction of Inspired Oxygen Sepsis Recent Fever Within 48 Hours Sepsis New/Unexplained Change in Mental Status Sepsis Action Taken by Nursing 11/06/21 18:50 11/06/21 18:45 11/06/21 19:25 Temperature 38.8 C H Temperature Source Rectal Pulse Rate 124 H Pulse Rate from SpO2 Sensor 127 H Respiratory Rate 27 H 25 H Respiratory Effort / Characteristics Respiratory Depth Respiratory Pattern Blood Pressure Blood Pressure Mean Blood Pressure Position Pulse Oximetry 99 90 Oxygen Delivery Method BiPAP Fraction of Inspired Oxygen 21 Sepsis Recent Fever Within 48 Hours Sepsis New/Unexplained Change in Mental Status Sepsis Action Taken by [facility] Medications Current Medication List: was personally reviewed by me Laboratory Data Attestation: I reviewed the patient's lab results. Result diagrams: 11/06/21 18:07 11/06/21 18:07 Lab Results 11/06/21 11/06/21 11/06/21 Range/Units 18:00 18:00 18:07 WBC 21.73 H (4.8-10.8) K/ul RBC 3.18 L (3.93-5.22) M/uL Hgb 9.9 L (12.0-16.0) g/dl Hct 30.8 L (34.1-44.9) % MCV 96.9 (80.0-100.0) fL MCH 31.1 (25.0-34.0) pg MCHC 32.1 (32.0-36.0) g/dL RDW Std Deviation 49.7 H (36.4-46.3) fL RDW Coeff of Delaney 13.9 (11.5-14.5) % Plt Count 243 (130-400) K/uL MPV 9.0 L (9.4-12.3) fL Immature Gran % (Auto) 0.5 % Neut % (Auto) 92.0 % Lymph % (Auto) 1.8 % [place] % (Auto) 5.2 % Eos % (Auto) 0.3 % Baso % (Auto) 0.2 % Neut # (Auto) 20.00 H (1.4-6.5) K/uL Lymph # (Auto) 0.40 L (1.2-3.4) K/uL [place] # (Auto) 1.12 H (0.24-0.82) K/uL Eos # (Auto) 0.07 (0-0.50) K/uL Baso # (Auto) 0.04 (0-0.2) K/uL Immature Gran # (Auto) 0.10 H (0.00-0.02) K/uL PT (9.0-12.0) Seconds INR (0.9-1.1) APTT (21.0-31.0) Seconds PTT Ratio VBG pH (7.36-7.41) VBG pCO2 (38-50) mmHg VBG pO2 mmHg VBG HCO3 mmol/L VBG O2 Saturation % VBG Base Excess mEq/L Sodium (136-145) mmol/L Potassium (3.5-5.1) mmol/L Chloride (98-107) mmol/L Carbon Dioxide (21-32) mmol/L Anion Gap (3-11) BUN (6-23) mg/dl Creatinine (0.6-1.2) mg/dl Est Cr Clr Drug Dosing Est GFR ( Amer) ml/min Est GFR (Non-Af Amer) ml/min BUN/Creatinine Ratio (10-20) Glucose (70-99(Fasting)) mg/dl Lactate (0.4-2.0) mmol/L Calcium (8.5-10.1) mg/dl Magnesium (1.7-2.4) mg/dl Total Bilirubin (0.2-1.0) mg/dl AST (13-39) U/L ALT (7-52) U/L Alkaline Phosphatase (34-104) U/L Troponin I High Sens (0-14) pg/ml B-Natriuretic Peptide (0-100) pg/ml Total Protein (6.0-8.3) gm/dl Albumin (3.4-5.0) gm/dl Globulin (2.5-4.0) gm/dl Albumin/Globulin Ratio (0.9-2) Random Cortisol mcg/dl Urine Color Urine Appearance (Clear) Urine pH (4.5-7.5) Ur Specific [place] (1.000-1.030) Urine Protein (Negative) Urine Glucose (UA) (Negative) Urine Ketones (Negative) Urine Blood (Negative) Urine Nitrite (Negative) Urine Bilirubin (Negative) Urine Urobilinogen (Negative) Ur Leukocyte Esterase (Negative) Urine WBC (Auto) (0-5) /hpf Urine RBC (Auto) (0-4) /hpf U Hyaline Cast (Auto) (0-5) /lpf U Epithel Cells (Auto) (0-5) /lpf Urine Bacteria (Auto) (Negative) Urine Yeast (None Prsent) Nasal Screen MRSA (PCR) Positive A (Negative) Adenovirus (PCR) Not Detected (NotDetected) B. pertussis DNA (PCR) Not Detected (NotDetected) B.parapertussis DNA PCR Not Detected (NotDetected) C. pneumoniae DNA (PCR) Not Detected (NotDetected) Coronavirus OC43 (PCR) Not Detected (NotDetected) Coronavirus HKU1 (PCR) Not Detected (NotDetected) Coronavirus 229E (PCR) Not Detected (NotDetected) SARS-CoV-2 (PCR) Not Detected (NotDetected) Coronavirus NL63 (PCR) Not Detected (NotDetected) Human Metapneumovir PCR Not Detected (NotDetected) Influenza Type A (PCR) Not Detected (NotDetected) Influenza Type B (PCR) Not Detected (NotDetected) M. pneumoniae (PCR) Not Detected (NotDetected) Parainfluenza 1 (PCR) Not Detected (NotDetected) Parainfluenza 2 (PCR) Not Detected (NotDetected) Parainfluenza 3 (PCR) Not Detected (NotDetected) Parainfluenza 4 (PCR) Not Detected (NotDetected) RSV (PCR) Not Detected (NotDetected) Entero/Rhino (PCR) Not Detected (NotDetected) 11/06/21 11/06/2122 Range/Units 18:07 18:07 18:07 WBC (4.8-10.8) K/ul RBC (3.93-5.22) M/uL Hgb (12.0-16.0) g/dl Hct (34.1-44.9) % MCV (80.0-100.0) fL MCH (25.0-34.0) pg MCHC (32.0-36.0) g/dL RDW Std Deviation (36.4-46.3) fL RDW Coeff of Delaney (11.5-14.5) % Plt Count (130-400) K/uL MPV (9.4-12.3) fL Immature Gran % (Auto) % Neut % (Auto) % Lymph % (Auto) % [place] % (Auto) % Eos % (Auto) % Baso % (Auto) % Neut # (Auto) (1.4-6.5) K/uL Lymph # (Auto) (1.2-3.4) K/uL [place] # (Auto) (0.24-0.82) K/uL Eos # (Auto) (0-0.50) K/uL Baso # (Auto) (0-0.2) K/uL Immature Gran # (Auto) (0.00-0.02) K/uL PT 11.9 (9.0-12.0) Seconds INR 1.1 (0.9-1.1) APTT 23.4 (21.0-31.0) Seconds PTT Ratio 0.9 VBG pH (7.36-7.41) VBG pCO2 (38-50) mmHg VBG pO2 mmHg VBG HCO3 mmol/L VBG O2 Saturation % VBG Base Excess mEq/L Sodium 137 (136-145) mmol/L Potassium 4.6 (3.5-5.1) mmol/L Chloride 92 L (98-107) mmol/L Carbon Dioxide 34 H (21-32) mmol/L Anion Gap 11 (3-11) BUN 72 H (6-23) mg/dl Creatinine 1.25 H (0.6-1.2) mg/dl Est Cr Clr Drug Dosing Not Reportable Est GFR ( Amer) 47.7 ml/min Est GFR (Non-Af Amer) 41.2 ml/min BUN/Creatinine Ratio 57.6 H (10-20) Glucose 145 H (70-99(Fasting)) mg/dl Lactate (0.4-2.0) mmol/L Calcium 9.0 (8.5-10.1) mg/dl Magnesium 1.6 L (1.7-2.4) mg/dl Total Bilirubin 0.5 (0.2-1.0) mg/dl AST 24 (13-39) U/L ALT 16 (7-52) U/L Alkaline Phosphatase 158 H (34-104) U/L Troponin I High Sens 44.6 H (0-14) pg/ml B-Natriuretic Peptide 76 (0-100) pg/ml Total Protein 6.6 (6.0-8.3) gm/dl Albumin 3.7 (3.4-5.0) gm/dl Globulin 2.9 (2.5-4.0) gm/dl Albumin/Globulin Ratio 1.3 (0.9-2) Random Cortisol mcg/dl Urine Color Urine Appearance (Clear) Urine pH (4.5-7.5) Ur Specific [place] (1.000-1.030) Urine Protein (Negative) Urine Glucose (UA) (Negative) Urine Ketones (Negative) Urine Blood (Negative) Urine Nitrite (Negative) Urine Bilirubin (Negative) Urine Urobilinogen (Negative) Ur Leukocyte Esterase (Negative) Urine WBC (Auto) (0-5) /hpf Urine RBC (Auto) (0-4) /hpf U Hyaline Cast (Auto) (0-5) /lpf U Epithel Cells (Auto) (0-5) /lpf Urine Bacteria (Auto) (Negative) Urine Yeast (None Prsent) Nasal Screen MRSA (PCR) (Negative) Adenovirus (PCR) (NotDetected) B. pertussis DNA (PCR) (NotDetected) B.parapertussis DNA PCR (NotDetected) C. pneumoniae DNA (PCR) (NotDetected) Coronavirus OC43 (PCR) (NotDetected) Coronavirus HKU1 (PCR) (NotDetected) Coronavirus 229E (PCR) (NotDetected) SARS-CoV-2 (PCR) (NotDetected) Coronavirus NL63 (PCR) (NotDetected) Human Metapneumovir PCR (NotDetected) Influenza Type A (PCR) (NotDetected) Influenza Type B (PCR) (NotDetected) M. pneumoniae (PCR) (NotDetected) Parainfluenza 1 (PCR) (NotDetected) Parainfluenza 2 (PCR) (NotDetected) Parainfluenza 3 (PCR) (NotDetected) Parainfluenza 4 (PCR) (NotDetected) RSV (PCR) (NotDetected) Entero/Rhino (PCR) (NotDetected) 11/06/21 11/06/21 11/06/21 Range/Units 18:07 18:07 18:13 WBC (4.8-10.8) K/ul RBC (3.93-5.22) M/uL Hgb (12.0-16.0) g/dl Hct (34.1-44.9) % MCV (80.0-100.0) fL MCH (25.0-34.0) pg MCHC (32.0-36.0) g/dL RDW Std Deviation (36.4-46.3) fL RDW Coeff of Delaney (11.5-14.5) % Plt Count (130-400) K/uL MPV (9.4-12.3) fL Immature Gran % (Auto) % Neut % (Auto) % Lymph % (Auto) % [place] % (Auto) % Eos % (Auto) % Baso % (Auto) % Neut # (Auto) (1.4-6.5) K/uL Lymph # (Auto) (1.2-3.4) K/uL [place] # (Auto) (0.24-0.82) K/uL Eos # (Auto) (0-0.50) K/uL Baso # (Auto) (0-0.2) K/uL Immature Gran # (Auto) (0.00-0.02) K/uL PT (9.0-12.0) Seconds INR (0.9-1.1) APTT (21.0-31.0) Seconds PTT Ratio VBG pH 7.33 L (7.36-7.41) VBG pCO2 72 H (38-50) mmHg VBG pO2 17 mmHg VBG HCO3 38 mmol/L VBG O2 Saturation < 60.0 % VBG Base Excess 9.1 mEq/L Sodium (136-145) mmol/L Potassium (3.5-5.1) mmol/L Chloride (98-107) mmol/L Carbon Dioxide (21-32) mmol/L Anion Gap (3-11) BUN (6-23) mg/dl Creatinine (0.6-1.2) mg/dl Est Cr Clr Drug Dosing Est GFR ( Amer) ml/min Est GFR (Non-Af Amer) ml/min BUN/Creatinine Ratio (10-20) Glucose (70-99(Fasting)) mg/dl Lactate 2.5 H* (0.4-2.0) mmol/L Calcium (8.5-10.1) mg/dl Magnesium (1.7-2.4) mg/dl Total Bilirubin (0.2-1.0) mg/dl AST (13-39) U/L ALT (7-52) U/L Alkaline Phosphatase (34-104) U/L Troponin I High Sens (0-14) pg/ml B-Natriuretic Peptide (0-100) pg/ml Total Protein (6.0-8.3) gm/dl Albumin (3.4-5.0) gm/dl Globulin (2.5-4.0) gm/dl Albumin/Globulin Ratio (0.9-2) Random Cortisol 32.89 mcg/dl Urine Color Urine Appearance (Clear) Urine pH (4.5-7.5) Ur Specific [place] (1.000-1.030) Urine Protein (Negative) Urine Glucose (UA) (Negative) Urine Ketones (Negative) Urine Blood (Negative) Urine Nitrite (Negative) Urine Bilirubin (Negative) Urine Urobilinogen (Negative) Ur Leukocyte Esterase (Negative) Urine WBC (Auto) (0-5) /hpf Urine RBC (Auto) (0-4) /hpf U Hyaline Cast (Auto) (0-5) /lpf U Epithel Cells (Auto) (0-5) /lpf Urine Bacteria (Auto) (Negative) Urine Yeast (None Prsent) Nasal Screen MRSA (PCR) (Negative) Adenovirus (PCR) (NotDetected) B. pertussis DNA (PCR) (NotDetected) B.parapertussis DNA PCR (NotDetected) C. pneumoniae DNA (PCR) (NotDetected) Coronavirus OC43 (PCR) (NotDetected) Coronavirus HKU1 (PCR) (NotDetected) Coronavirus 229E (PCR) (NotDetected) SARS-CoV-2 (PCR) (NotDetected) Coronavirus NL63 (PCR) (NotDetected) Human Metapneumovir PCR (NotDetected) Influenza Type A (PCR) (NotDetected) Influenza Type B (PCR) (NotDetected) M. pneumoniae (PCR) (NotDetected) Parainfluenza 1 (PCR) (NotDetected) Parainfluenza 2 (PCR) (NotDetected) Parainfluenza 3 (PCR) (NotDetected) Parainfluenza 4 (PCR) (NotDetected) RSV (PCR) (NotDetected) Entero/Rhino (PCR) (NotDetected) 11/06/21 Range/Units 18:45 WBC (4.8-10.8) K/ul RBC (3.93-5.22) M/uL Hgb (12.0-16.0) g/dl Hct (34.1-44.9) % MCV (80.0-100.0) fL MCH (25.0-34.0) pg MCHC (32.0-36.0) g/dL RDW Std Deviation (36.4-46.3) fL RDW Coeff of Delaney (11.5-14.5) % Plt Count (130-400) K/uL MPV (9.4-12.3) fL Immature Gran % (Auto) % Neut % (Auto) % Lymph % (Auto) % [place] % (Auto) % Eos % (Auto) % Baso % (Auto) % Neut # (Auto) (1.4-6.5) K/uL Lymph # (Auto) (1.2-3.4) K/uL [place] # (Auto) (0.24-0.82) K/uL Eos # (Auto) (0-0.50) K/uL Baso # (Auto) (0-0.2) K/uL Immature Gran # (Auto) (0.00-0.02) K/uL PT (9.0-12.0) Seconds INR (0.9-1.1) APTT (21.0-31.0) Seconds PTT Ratio VBG pH (7.36-7.41) VBG pCO2 (38-50) mmHg VBG pO2 mmHg VBG HCO3 mmol/L VBG O2 Saturation % VBG Base Excess mEq/L Sodium (136-145) mmol/L Potassium (3.5-5.1) mmol/L Chloride (98-107) mmol/L Carbon Dioxide (21-32) mmol/L Anion Gap (3-11) BUN (6-23) mg/dl Creatinine (0.6-1.2) mg/dl Est Cr Clr Drug Dosing Est GFR ( Amer) ml/min Est GFR (Non-Af Amer) ml/min BUN/Creatinine Ratio (10-20) Glucose (70-99(Fasting)) mg/dl Lactate (0.4-2.0) mmol/L Calcium (8.5-10.1) mg/dl Magnesium (1.7-2.4) mg/dl Total Bilirubin (0.2-1.0) mg/dl AST (13-39) U/L ALT (7-52) U/L Alkaline Phosphatase (34-104) U/L Troponin I High Sens (0-14) pg/ml B-Natriuretic Peptide (0-100) pg/ml Total Protein (6.0-8.3) gm/dl Albumin (3.4-5.0) gm/dl Globulin (2.5-4.0) gm/dl Albumin/Globulin Ratio (0.9-2) Random Cortisol mcg/dl Urine Color Dark Yellow Urine Appearance Turbid A (Clear) Urine pH 5.0 (4.5-7.5) Ur Specific [place] 1.011 (1.000-1.030) Urine Protein 1+ H (Negative) Urine Glucose (UA) Negative (Negative) Urine Ketones Negative (Negative) Urine Blood 2+ H (Negative) Urine Nitrite Positive A (Negative) Urine Bilirubin Negative (Negative) Urine Urobilinogen Negative (Negative) Ur Leukocyte Esterase 3+ H (Negative) Urine WBC (Auto) >30 H (0-5) /hpf Urine RBC (Auto) >30 H (0-4) /hpf U Hyaline Cast (Auto) 10-30 H (0-5) /lpf U Epithel Cells (Auto) >30 H (0-5) /lpf Urine Bacteria (Auto) 4+ H (Negative) Urine Yeast Present A (None Prsent) Nasal Screen MRSA (PCR) (Negative) Adenovirus (PCR) (NotDetected) B. pertussis DNA (PCR) (NotDetected) B.parapertussis DNA PCR (NotDetected) C. pneumoniae DNA (PCR) (NotDetected) Coronavirus OC43 (PCR) (NotDetected) Coronavirus HKU1 (PCR) (NotDetected) Coronavirus 229E (PCR) (NotDetected) SARS-CoV-2 (PCR) (NotDetected) Coronavirus NL63 (PCR) (NotDetected) Human Metapneumovir PCR (NotDetected) Influenza Type A (PCR) (NotDetected) Influenza Type B (PCR) (NotDetected) M. pneumoniae (PCR) (NotDetected) Parainfluenza 1 (PCR) (NotDetected) Parainfluenza 2 (PCR) (NotDetected) Parainfluenza 3 (PCR) (NotDetected) Parainfluenza 4 (PCR) (NotDetected) RSV (PCR) (NotDetected) Entero/Rhino (PCR) (NotDetected) Administered Medications Apixaban (Apixaban 2.5 Mg Tab) 5 mg PO BID NÉSTOR Stop: 12/06/21 22:53 Last Admin: 11/06/21 23:46 Dose: 5 mg Documented By: ERICK Magnesium Sulfate/Dextrose (Magnesium Sulfate / D5w) 1 gm in 100 mls @ 50 mls/hr IV Q2H NÉSTOR Stop: 11/07/21 01:44 Last Admin: 11/06/21 22:34 Dose: 50 mls/hr Documented By: Infusion: 11/06/21 22:34 Dose: 50 mls/hr Documented By: Admin: 11/06/21 20:40 Dose: 50 mls/hr Documented By: ROSAMARIA Cefepime HCl 2,000 mg/ Syringe 20 mls @ 5 mls/min IV Q12H NÉSTOR; Protocol Stop: 11/16/21 22:59 Last Admin: 11/06/21 23:46 Dose: 5 mls/min Documented By: ERICK Discontinued Medications Sodium Chloride (Nss 1000ml) 1,000 mls @ 999 mls/hr IV .Q1H1M ONE Stop: 11/06/21 18:46 Last Infusion: 11/06/21 19:20 Dose: 0 mls/hr Documented By: Admin: 11/06/21 18:17 Dose: 999 mls/hr Documented By: KALPANA Acetaminophen (Ofirmev) 1,000 mg in 100 mls @ 400 mls/hr IV NOW STA Stop: 11/06/21 18:00 Last Infusion: 11/06/21 18:48 Dose: 0 mls/hr Documented By: Admin: 11/06/21 18:16 Dose: 400 mls/hr Documented By: KALPANA Sodium Chloride (Nss 1000ml) 1,000 mls @ 999 mls/hr IV .Q1H1M ONE Stop: 11/06/21 19:53 Last Infusion: 11/06/21 20:11 Dose: 0 mls/hr Documented By: Admin: 11/06/21 19:00 Dose: 999 mls/hr Documented By: KALPANA Magnesium Sulfate/Dextrose (Magnesium Sulfate / D5w) 1 gm in 100 mls @ 100 mls/hr IV NOW STA Stop: 11/06/21 19:53 Last Infusion: 11/06/21 20:31 Dose: 0 mls/hr Documented By: Admin: 11/06/21 19:24 Dose: 100 mls/hr Documented By: ROSAMARIA Vancomycin HCl 2,750 mg/ (Sodium Chloride) 555 mls @ 200 mls/hr IV NOW STA Stop: 11/06/21 21:41 Last Admin: 11/06/21 20:11 Dose: 200 mls/hr Documented By: ROSAMARIA Ertapenem (Invanz) 10 mls @ 2 mls/min IV NOW STA Stop: 11/06/21 18:58 Last Admin: 11/06/21 19:12 Dose: 2 mls/min Documented By: ROSAMARIA Lactated Ringer's (Lr) 500 mls @ 999 mls/hr IV .Q31M ONE Stop: 11/06/21 22:18 Last Admin: 11/06/21 23:09 Dose: 999 mls/hr Documented By: ERICK Ondansetron HCl (Ondansetron Inj 2 Mg/Ml 2 Ml Vial) 4 mg IV NOW STA Stop: 11/06/21 17:58 Last Admin: 11/06/21 18:17 Dose: 4 mg Documented By: KALPANA Imaging Data Radiologist's Impression: Chest X-Ray 11/06/21 17:34 XR chest 1V portable CLINICAL HISTORY: Dyspnea COMPARISON STUDY: Chest radiograph December 05, 2020. FINDINGS: Lung volumes are normal. No pneumothorax or pleural effusion is noted. Moderate cardiomegaly is present. No evidence for pulmonary edema. No consolidation to suggest pneumonia. IMPRESSION: No acute cardiopulmonary findings. Cardiomegaly. ACT 112: Negative or not required by law. Electronically signed by: Shin Henderson M.D. 11/06/2021 6:20 PM Discharge Plan Visit Data Chief Complaint: Respiratory Distress ED Provider: Dewayne Camacho Discharge Problem: Acute hypoxemic respiratory failure, Sepsis, Acute UTI, Acute dehydration Patient Disposition: Admitted As Inpatient Discharge Instructions Interventions: ED Discharge Assessment Last Done: 11/06/21 22:24
[2021-11-06] MEDS ORDERED: ACETAMINOPHEN 1,000 MG/100 ML VIAL IV STA (17:46)
[2021-11-06] MEDS ORDERED: SODIUM CHLORIDE 0.9% 1000ML 1,000 ML IV ONE ×2 (17:46→18:53)
[2021-11-06] MEDS ORDERED: ONDANSETRON INJ 2 MG/ML 2 ML VIAL IV STA (17:57)
--- NOTE | 2021-11-06 18:21 | XRay Report ---
XR chest 1V portable CLINICAL HISTORY: Dyspnea COMPARISON STUDY: Chest radiograph December 05, 2020. FINDINGS: Lung volumes are normal. No pneumothorax or pleural effusion is noted. Moderate cardiomegal y is present. No evidence for pulmonary edema. No consolidation to suggest pneumonia. IMPRESSION: No acute cardiopulmonary findings. Cardiomegaly. ACT 112: Negative or not required by law. Electronically signed by: Shin Henderson M.D. 11/06/2021 6:20 PM
[2021-11-06 18:22] LABS: Hematocrit (blood only) 30.8 % (34.1-44.9); Hemoglobin 9.9 g/dl (12.0-16.0); Mean Corpuscular Hemoglobin 31.1 pg (25.0-34.0); Mean Corpuscular Hgb Conc 32.1 g/dL (32.0-36.0); Mean Corpuscular Volume 96.9 fL (80.0-100.0); Platelet Count 243 K/uL (130-400); RDW Coefficient of Variation 13.9 % (11.5-14.5); RDW Standard Deviation 49.7 fL (36.4-46.3); Red Blood Count 3.18 M/uL (3.93-5.22); White Blood Count 21.73 K/ul (4.8-10.8)
[2021-11-06 18:34] LABS: Base Excess VBG 9.1 mEq/L; HCO3 VBG 38 mmol/L; INR 1.1 (0.9-1.1); Oxygen Saturation VBG < 60.0 %; PCO2 VBG 72 mmHg (38-50); PO2 VBG 17 mmHg; Partial Thromboplastin Ratio 0.9; Partial Thromboplastin Time 23.4 Seconds (21.0-31.0); Prothrombin Time 11.9 Seconds (9.0-12.0); pH VBG 7.33 (7.36-7.41)
[2021-11-06 18:49] LABS: Troponin I High Sensitivity 44.6 pg/ml (0-14)
[2021-11-06 18:52] LABS: Alanine Aminotransferase 16 U/L (7-52); Albumin Globulin Ratio 1.3 (0.9-2); Albumin Level 3.7 gm/dl (3.4-5.0); Alkaline Phosphatase 158 U/L (34-104); Anion Gap 11 (3-11); Aspartate Aminotransferase 24 U/L (13-39); BUN Creatinine Ratio 57.6 (10-20); Bilirubin,Total 0.5 mg/dl (0.2-1.0); Blood Urea Nitrogen 72 mg/dl (6-23); Carbon Dioxide 34 mmol/L (21-32); Chloride 92 mmol/L (98-107); Est GFR (African American) 47.7 ml/min; Est GFR (Non-African American) 41.2 ml/min; Globulin 2.9 gm/dl (2.5-4.0); Glucose 145 mg/dl (70-99(Fasting)); Magnesium 1.6 mg/dl (1.7-2.4); Potassium 4.6 mmol/L (3.5-5.1); Sodium 137 mmol/L (136-145); Total Protein 6.6 gm/dl (6.0-8.3)
[2021-11-06] MEDS ORDERED: VANCOMYCIN CONSULT ACTIVE PRN (18:54)
[2021-11-06] MEDS ORDERED: VANCOMYCIN HCL 2,750 MG in SODIUM CHLORIDE 0.9% 500 ML IV STA (18:54)
[2021-11-06] MEDS ORDERED: ERTAPENEM SODIUM 10 ML IV STA (18:54)
[2021-11-06] MEDS ORDERED: MAGNESIUM SULFATE / D5W 1 GM/100 ML BAG IV STA (18:54)
[2021-11-06 19:01] LABS: Adenovirus PCR Not Detected (NotDetected); Bordetella parapertussis PCR Not Detected (NotDetected); Bordetella pertussis PCR Not Detected (NotDetected); Chlamydia pneumoniae PCR Not Detected (NotDetected); Coronavirus 229E PCR Not Detected (NotDetected); Coronavirus CoV-2 (COVID19)PCR Not Detected (NotDetected); Coronavirus HKU1 PCR Not Detected (NotDetected); Coronavirus NL63 PCR Not Detected (NotDetected); Coronavirus OC43PCR Not Detected (NotDetected); Human Metapneumovirus PCR Not Detected (NotDetected); Influenza A PCR Not Detected (NotDetected); Influenza B PCR Not Detected (NotDetected); Mycoplasma pneumoniae PCR Not Detected (NotDetected); Parainfluenza Virus 1 PCR Not Detected (NotDetected); Parainfluenza Virus 2 PCR Not Detected (NotDetected); Parainfluenza Virus 3 PCR Not Detected (NotDetected); Parainfluenza Virus 4 PCR Not Detected (NotDetected); Respiratory Syncytial VirusPCR Not Detected (NotDetected); Rhinovirus/Enterovirus PCR Not Detected (NotDetected)
[2021-11-06 19:06] LABS: Appearance Urine Turbid (Clear); Bacteria Urine Automated 4+ (Negative); Bilirubin Urine Negative (Negative); Blood Urine 2+ (Negative); Color Urine Dark Yellow; Epithelial Cell Urine Auto >30 /lpf (0-5); Glucose Urine UA Negative (Negative); Ketones Urine Negative (Negative); Leukocyte Esterase Urine 3+ (Negative); Nitrite Urine Positive (Negative); Protein Urine 1+ (Negative); Specific Gravity Urine 1.011 (1.000-1.030); Urobilinogen Urine Negative (Negative); WBC Urine Automated >30 /hpf (0-5)
[2021-11-06 19:07] LABS: Basophils # (auto) 0.04 K/uL (0-0.2); Basophils % (auto) 0.2 %; Eosinophils # (auto) 0.07 K/uL (0-0.50); Eosinophils % (auto) 0.3 %; Immature Granulocytes % (auto) 0.5 %; Lymphocytes % (auto) 1.8 %; Monocytes # (auto) 1.12 K/uL (0.24-0.82); Monocytes % (auto) 5.2 %
[2021-11-06 19:33] LABS: RBC Urine Automated >30 /hpf (0-4)
--- NOTE | 2021-11-06 20:29 | History & Physical Report ---
Date of Service November 06, 2021 Assessment & Plan (1) Septic shock: Plan: Patient presents tachycardic, hypoxic, hypotensive following aspiration event. CXR without acute pulmonary process to cause the above. Elevated WBC, fever, elevation of lactic acidosis. - SIRS 4, qSOFA- 3- with evidence of organ dysfunction- Heart, Kidney, Pulmonary - Source favoring Urinary source - Placed on BiPAP (patient declined intubation)- resuscitated with crystalloid 2Liters, Invanz and Vancomycin - Continue BiPAP change abx to Cefepime and Vancomycin - Lactate 2.5 ---> 3.7 - Goal Map >65mm/hg UO 30ml per hour- currently fluid responsive- if refractory hypotension transfer for vasopressor support - Cortisol pending - Will admit to ICU (2) Atrial fibrillation with RVR: Plan: Likely secondary to # 1 - Magnesium also low at 1.6 - replete goal ~2.0 - Follow with fluid volume status - She is on Apixaban so doubt PE at play- continue Apixaban- - She is tenuous from respiratory standpoint for CT of chest and abdomen - not on any rate control agents (3) NALLELY (acute kidney injury): Plan: Secondary to #1 - hold diuretics - MAPS >65 - daily BMP - avoid further nephrotoxic as able (4) Chronic diastolic congestive heart failure: Plan: HFpEF follows with heart failure clinic - hold diuretics at this time follow hemodynamics (5) Acute on chronic respiratory failure with hypoxia and hypercapnia: Plan: Recently attempted BiPAP/CPAP following previous admission - unable to tolerate as outpatient - remains DNI (6) SRINIVASA (obstructive sleep apnea): Plan: As above (7) Metabolic alkalosis with respiratory acidosis: Plan: Uncompensated acute respiratory acidosis with chronic metabolic alkalosis (8) Hyperlipidemia: Plan: Continue statin when able to tolerate PO (9) Depression: Plan: Continue citalopram when able to tolerate PO (10) Hypothyroidism: Plan: Continue synthroid - may need to convert to IV in am (11) MRSA (methicillin resistant staph aureus) culture positive: Plan: History of MRSA skin - MRSA remains positive - Continue Vancomycin - Isolation precautions History of Present Illness Primary Care Provider: [facility] 80 YOF with medical history of: SRINIVASA, Respiratory failure, Pulmonary hypertension, HFpEF, Obesity. Patient came to the EMD today by EMS from [facility]. EMS was apparently called following aspiration event and hypoxia reported in the 70s. Patient was transported to [facility] on CPAP. She was tachypneic, tachycardic, and hypoxic in the EMD. Patient declined intubation and was placed on BiPAP 22/01. She had routine labs performed to include blood culture, HScTNI, UA, mag. CXR was performed without significant pulmonary edema or opacity, VBG was done with Co2 72 and PH 7.33. Her WBC count was elevated to 21with neutrophil predominance. Lactate was 2.5. She was started on Ertapenem and Vancomycin. Patient was given 2 liters of crystalloid. She modestly improved on the BiPAP and is conversant. Her RR has decreased and is with adequate VT and pulse oximetry. Urine likely source of infection at this time. Discussed case with son and daughter at bedside as well as patient. She would want CPR and defibrillation and remains adamant not intubation and mechanical ventilation. Patient would be poor candidate for mechanical ventilation as likely high difficulty of weaning as well. Patient has no recollection of events from earlier. She states that she has been feeling generally well over the past week. She does endorse not moving her bowels in a while and difficulty urinating, but she is unable to expound on what "a while" is. She has no other complaints. Her HR is improving and BP is volume responsive, urine is turbid. She has no open areas on her skin other than small right hip tear. Skin folds are without erythema nor fungal infection. Will place on Cefepime and continue Vancomycin. COVID and respiratory BIOfire on arrival is: NEGATIVE MRSA: POSITIVE Allergies Allergy/AdvReac Type Severity Reaction Status Date / Time sulfisoxazole Allergy Unknown Unknown Verified 08/04/21 12:53 thimerosal Allergy Unknown Unknown Verified 08/04/21 12:53 torsemide Allergy Unknown Unknown Verified 08/04/21 12:53 buspirone [From BuSpar] Allergy Unknown Verified 08/04/21 12:53 cephalexin Allergy RASH Verified 08/04/21 12:53 clarithromycin [From Biaxin] Allergy Unknown Verified 08/04/21 12:53 iodine Allergy Unknown Verified 08/04/21 12:53 povidone-iodine Allergy Unknown Verified 08/04/21 12:53 [From Betadine] soap [From Betadine] Allergy Unknown Verified 08/04/21 12:53 Home Medications Medication Instructions Recorded Confirmed Type albuterol sulfate 90 mcg/actuation 2 inha inhalation Q6H PRN 12/20/17 11/06/21 History aerosol inhaler (Ventolin HFA) Shortness Of Breath Or Wheezing fexofenadine 180 mg tablet 180 mg PO DAILY 12/20/17 11/06/21 History (Lucie Allergy) cholecalciferol (vitamin D3) 125 5,000 unit PO DAILY 02/14/18 11/06/21 History mcg (5,000 unit) tablet (Vitamin D3) spironolactone 25 mg tablet 25 mg PO BID #180 tabs 07/14/19 11/06/21 Rx Lift Chair #1 ea 10/16/19 11/06/21 Rx losartan 25 mg tablet 25 mg PO QAM #90 tabs 10/20/19 11/06/21 Rx levothyroxine 50 mcg tablet 50 mcg PO DAILY #30 tabs 07/12/20 11/06/21 Rx (Euthyrox) simvastatin 40 mg tablet (Zocor) 40 mg PO DAILY #90 tabs 08/09/20 11/06/21 Rx acetaminophen 325 mg tablet 650 mg PO Q6 PRN Fever Or Pain 12/05/20 11/06/21 History (Tylenol) gabapentin 100 mg capsule 100 mg PO AMHS 12/05/20 11/06/21 History lorazepam 0.5 mg tablet See Rx Instructions .Route 12/05/20 11/06/21 History .COMPLEX PRN anxiety/restlessness multivitamin with iron-mineral 1 tab PO DAILY 12/05/20 11/06/21 History nystatin 100,000 unit/mL oral 5 ml PO QID 12/05/20 11/06/21 History suspension polysaccharide iron complex 150 mg 150 mg PO DAILY 12/05/20 11/06/21 History iron capsule tramadol 50 mg tablet 50 mg PO Q8 PRN Pain, Severe 12/05/20 11/06/21 History apixaban 2.5 mg tablet (Eliquis) 5 mg PO BID 02/17/21 11/06/21 History ascorbate calcium (vitamin C) 500 500 mg PO BID 02/17/21 11/06/21 History mg tablet bumetanide 1 mg tablet 2 mg PO DAILY 02/17/21 11/06/21 History melatonin 3 mg capsule 3 mg PO HS PRN Insomnia 02/17/21 11/06/21 History citalopram 10 mg tablet 15 mg PO DAILY 08/04/21 11/06/21 History Past Med/Surg History Medical History (Updated 11/07/21 @ 00:30 by Dewayne Camacho MD) Adult body mass index 40 and over Adult situational stress disorder Allergic rhinitis due to allergen Anemia Asthma Atrial fibrillation BMI 50.0-59.9, adult Bronchitis Congestive heart failure, unspecified COPD (chronic obstructive pulmonary disease) COPD exacerbation Cough Diverticulosis of colon (without mention of hemorrhage) Esophageal reflux Fx femur shaft-closed History of pulmonary embolism Hyperlipidemia Hyperlipidemia, unspecified Hypoxia Localized primary osteoarthritis of lower leg Lumbar radiculopathy Morbid obesity Morbid obesity with BMI of 45.0-49.9, adult Neurodermatitis Obstructive sleep apnea (adult) (pediatric) Onychomycosis Permanent atrial fibrillation Pneumonia Pneumonia, organism unspecified Psoriasis Pulmonary hypertension Sleep related hypoxia Systolic congestive heart failure Tailor's bunionette Unspecified asthma Surgical History History of appendectomy History of hysterectomy History of tonsillectomy Family History Unknown Acute myocardial infarction Mother Heart disease Myocardial infarction Other No significant family history Denies family history of Ovarian cancer Prostate cancer Breast cancer Lung cancer Colorectal cancer Social History Smoking Status: Former smoker Second Hand Exposure: No; Do You Dip or Chew Tobacco: No; Tobacco Cessation Education Requested by Patient: No Hx Alcohol Use: No Hx Substance Use: No Preferred Language: Uzbek Communication Ability: Effective Visual Impairment: Limited Hearing Ability: Normal Jar Filler Required: No Beliefs That Will Affect Care: None marital status: / Current Living Situation: Personal Care Facility current occupational status: retired How many Children do You have: 2 Other Information That Helps Us Care for You: No Feels Safe at Home: Yes Childhood Exposure to Second-Hand Smoke: No caffeine: No Dental Care, Regularly: No Physical Activity Frequency: Does not Exercise Physical Activity Frequency Comment: due to health issues Seatbelt Use: always Sunscreen Use: No (not in the sun) Assistive Devices: BiPap, CPAP, Oxygen - Continuous and Wheelchair Review of Systems Review of Systems: REVIEW OF SYSTEMS: Constitutional: No fever, sweats or chills Eyes: No diplopia, no worsening or blurred vision ENT: normal hearing, no trouble swallowing Respiratory: (+) dyspnea, No cough, sputum, at rest or on exertion Cardiovascular: No chest pain, tightness or palpitations Abdomen: No pain, nausea, vomiting, diarrhea or constipation Musculoskeletal: No joint pain, calf pain, swelling Neurologic: No weakness, numbness/tingling, or balance problems Psychiatric: No anxiety or depression Skin: No rash or itch Physical Exam Physical Exam: PHYSICAL EXAM: General: awake, alert, coherent Head: Normocephalic, atraumatic ENT: PERRL, EOMI, no pharyngeal exudate, mucous membranes dry Neuro: AAO x 3, speech clear and appropriate, strength intact bilaterally 5/5, sensation intact and equal all extremities and dermatomes, no pronator drift Chest: equal rise and fall of the chest, no accessory muscle use, no heaves or thrills, Clear to auscultation, on room air, Cardiac: irregular rate and rhythm, telemetry reviewed- tachycardic afib, skin warm dry, cap refill <3 seconds, peripheral pulses +2 no JVD, no murmur, no edema GI: NABS x 4 quadrants, softly distended, no rebound, gaurding, or peritoneal signs : diamond to gravity draining turbid yellow urine Psych: Normal mood and affect Skin: rash to left breast, small right hip skin tear, no other rash or erythema Results & Data Results & Data ([facility]) Vital Signs (Past 12 Hours) Vital Signs Temp Pulse Resp BP Pulse Ox O2 Del Method FiO2 11/06/21 19:25 25 H 90 21 11/06/21 18:45 38.8 C H 11/06/21 18:50 124 H 27 H 99 BiPAP 11/06/21 18:40 127 H 30 H 97 BiPAP 11/06/21 18:30 135 H 31 H 96 BiPAP 11/06/21 18:23 109/58 L BiPAP 11/06/21 18:00 139 H 29 H 92 BiPAP 11/06/21 17:50 135 H 31 H 100 BiPAP 11/06/21 17:40 158 H 29 H 99 BiPAP 11/06/21 17:34 110/64 BiPAP 11/06/21 17:34 143 H 31 H 96 BiPAP 11/06/21 17:33 142 H 21 98 BiPAP 11/06/21 17:33 127/87 BiPAP 11/06/21 18:22 BiPAP 11/06/21 17:40 146 H 33 H 98 40 11/06/21 17:34 BiPAP 40 11/06/21 17:34 38.7 C H 150 H 29 H 110/64 95 BiPAP Laboratory Results Laboratory Results - last 24 hr 11/06/21 11/06/21 11/06/21 18:00 18:00 18:07 WBC 21.73 H RBC 3.18 L Hgb 9.9 L Hct 30.8 L MCV 96.9 MCH 31.1 MCHC 32.1 RDW Std Deviation 49.7 H RDW Coeff of Delaney 13.9 Plt Count 243 MPV 9.0 L Immature Gran % (Auto) 0.5 Neut % (Auto) 92.0 Lymph % (Auto) 1.8 Power % (Auto) 5.2 Eos % (Auto) 0.3 Baso % (Auto) 0.2 Neut # (Auto) 20.00 H Lymph # (Auto) 0.40 L Power # (Auto) 1.12 H Eos # (Auto) 0.07 Baso # (Auto) 0.04 Immature Gran # (Auto) 0.10 H PT INR APTT PTT Ratio VBG pH VBG pCO2 VBG pO2 VBG HCO3 VBG O2 Saturation VBG Base Excess Sodium Potassium Chloride Carbon Dioxide Anion Gap BUN Creatinine Est Cr Clr Drug Dosing Est GFR ( Amer) Est GFR (Non-Af Amer) BUN/Creatinine Ratio Glucose Lactate Calcium Magnesium Total Bilirubin AST ALT Alkaline Phosphatase Troponin I High Sens B-Natriuretic Peptide Total Protein Albumin Globulin Albumin/Globulin Ratio Urine Color Urine Appearance Urine pH Ur Specific [place] Urine Protein Urine Glucose (UA) Urine Ketones Urine Blood Urine Nitrite Urine Bilirubin Urine Urobilinogen Ur Leukocyte Esterase Urine WBC (Auto) Urine RBC (Auto) U Hyaline Cast (Auto) U Epithel Cells (Auto) Urine Bacteria (Auto) Urine Yeast Nasal Screen MRSA (PCR) Positive A Adenovirus (PCR) Not Detected B. pertussis DNA (PCR) Not Detected B.parapertussis DNA PCR Not Detected C. pneumoniae DNA (PCR) Not Detected Coronavirus OC43 (PCR) Not Detected Coronavirus HKU1 (PCR) Not Detected Coronavirus 229E (PCR) Not Detected SARS-CoV-2 (PCR) Not Detected Coronavirus NL63 (PCR) Not Detected Human Metapneumovir PCR Not Detected Influenza Type A (PCR) Not Detected Influenza Type B (PCR) Not Detected M. pneumoniae (PCR) Not Detected Parainfluenza 1 (PCR) Not Detected Parainfluenza 2 (PCR) Not Detected Parainfluenza 3 (PCR) Not Detected Parainfluenza 4 (PCR) Not Detected RSV (PCR) Not Detected Entero/Rhino (PCR) Not Detected 11/06/21 11/06/21 11/06/21 18:07 18:07 18:07 WBC RBC Hgb Hct MCV MCH MCHC RDW Std Deviation RDW Coeff of Delaney Plt Count MPV Immature Gran % (Auto) Neut % (Auto) Lymph % (Auto) Power % (Auto) Eos % (Auto) Baso % (Auto) Neut # (Auto) Lymph # (Auto) Power # (Auto) Eos # (Auto) Baso # (Auto) Immature Gran # (Auto) PT 11.9 INR 1.1 APTT 23.4 PTT Ratio 0.9 VBG pH VBG pCO2 VBG pO2 VBG HCO3 VBG O2 Saturation VBG Base Excess Sodium 137 Potassium 4.6 Chloride 92 L Carbon Dioxide 34 H Anion Gap 11 BUN 72 H Creatinine 1.25 H Est Cr Clr Drug Dosing Not Reportable Est GFR ( Amer) 47.7 Est GFR (Non-Af Amer) 41.2 BUN/Creatinine Ratio 57.6 H Glucose 145 H Lactate Calcium 9.0 Magnesium 1.6 L Total Bilirubin 0.5 AST 24 ALT 16 Alkaline Phosphatase 158 H Troponin I High Sens 44.6 H B-Natriuretic Peptide 76 Total Protein 6.6 Albumin 3.7 Globulin 2.9 Albumin/Globulin Ratio 1.3 Urine Color Urine Appearance Urine pH Ur Specific [place] Urine Protein Urine Glucose (UA) Urine Ketones Urine Blood Urine Nitrite Urine Bilirubin Urine Urobilinogen Ur Leukocyte Esterase Urine WBC (Auto) Urine RBC (Auto) U Hyaline Cast (Auto) U Epithel Cells (Auto) Urine Bacteria (Auto) Urine Yeast Nasal Screen MRSA (PCR) Adenovirus (PCR) B. pertussis DNA (PCR) B.parapertussis DNA PCR C. pneumoniae DNA (PCR) Coronavirus OC43 (PCR) Coronavirus HKU1 (PCR) Coronavirus 229E (PCR) SARS-CoV-2 (PCR) Coronavirus NL63 (PCR) Human Metapneumovir PCR Influenza Type A (PCR) Influenza Type B (PCR) M. pneumoniae (PCR) Parainfluenza 1 (PCR) Parainfluenza 2 (PCR) Parainfluenza 3 (PCR) Parainfluenza 4 (PCR) RSV (PCR) Entero/Rhino (PCR) 11/06/21 11/06/21 11/06/21 18:07 18:07 18:45 WBC RBC Hgb Hct MCV MCH MCHC RDW Std Deviation RDW Coeff of Delaney Plt Count MPV Immature Gran % (Auto) Neut % (Auto) Lymph % (Auto) Power % (Auto) Eos % (Auto) Baso % (Auto) Neut # (Auto) Lymph # (Auto) Power # (Auto) Eos # (Auto) Baso # (Auto) Immature Gran # (Auto) PT INR APTT PTT Ratio VBG pH 7.33 L VBG pCO2 72 H VBG pO2 17 VBG HCO3 38 VBG O2 Saturation < 60.0 VBG Base Excess 9.1 Sodium Potassium Chloride Carbon Dioxide Anion Gap BUN Creatinine Est Cr Clr Drug Dosing Est GFR ( Amer) Est GFR (Non-Af Amer) BUN/Creatinine Ratio Glucose Lactate 2.5 H* Calcium Magnesium Total Bilirubin AST ALT Alkaline Phosphatase Troponin I High Sens B-Natriuretic Peptide Total Protein Albumin Globulin Albumin/Globulin Ratio Urine Color Dark Yellow Urine Appearance Turbid A Urine pH 5.0 Ur Specific [place] 1.011 Urine Protein 1+ H Urine Glucose (UA) Negative Urine Ketones Negative Urine Blood 2+ H Urine Nitrite Positive A Urine Bilirubin Negative Urine Urobilinogen Negative Ur Leukocyte Esterase 3+ H Urine WBC (Auto) >30 H Urine RBC (Auto) >30 H U Hyaline Cast (Auto) 10-30 H U Epithel Cells (Auto) >30 H Urine Bacteria (Auto) 4+ H Urine Yeast Present A Nasal Screen MRSA (PCR) Adenovirus (PCR) B. pertussis DNA (PCR) B.parapertussis DNA PCR C. pneumoniae DNA (PCR) Coronavirus OC43 (PCR) Coronavirus HKU1 (PCR) Coronavirus 229E (PCR) SARS-CoV-2 (PCR) Coronavirus NL63 (PCR) Human Metapneumovir PCR Influenza Type A (PCR) Influenza Type B (PCR) M. pneumoniae (PCR) Parainfluenza 1 (PCR) Parainfluenza 2 (PCR) Parainfluenza 3 (PCR) Parainfluenza 4 (PCR) RSV (PCR) Entero/Rhino (PCR) Diagnostic Findings Chest X-Ray 11/06/21 17:34 XR chest 1V portable CLINICAL HISTORY: Dyspnea COMPARISON STUDY: Chest radiograph December 05, 2020. FINDINGS: Lung volumes are normal. No pneumothorax or pleural effusion is noted. Moderate cardiomegaly is present. No evidence for pulmonary edema. No consolidation to suggest pneumonia. IMPRESSION: No acute cardiopulmonary findings. Cardiomegaly. ACT 112: Negative or not required by law. Electronically signed by: Shin Henderson M.D. 11/06/2021 6:20 PM Medications Administered Home Medications albuterol sulfate 90 mcg/actuation aerosol inhaler (Ventolin HFA) 2 inha inhalation Q6H PRN Shortness Of Breath Or Wheezing 12/20/17 [History Confirmed 05/12/21] fexofenadine 180 mg tablet (Lucie Allergy) 180 mg PO DAILY 12/20/17 [History Confirmed 08/04/21] cholecalciferol (vitamin D3) 125 mcg (5,000 unit) tablet (Vitamin D3) 5,000 unit PO DAILY 02/14/18 [History Confirmed 08/04/21] Oxygen Home #1 ea 10/04/18 [History Confirmed 08/04/21] spironolactone 25 mg tablet 25 mg PO BID #180 tabs 07/14/19 [Rx Confirmed 08/04/21] Lift Chair #1 ea 10/16/19 [Rx Confirmed 08/04/21] losartan 25 mg tablet 25 mg PO QAM #90 tabs 10/20/19 [Rx Confirmed 08/04/21] levothyroxine 50 mcg tablet (Euthyrox) 50 mcg PO DAILY #30 tabs 07/12/20 [Rx Confirmed 08/04/21] simvastatin 40 mg tablet (Zocor) 40 mg PO DAILY #90 tabs 08/09/20 [Rx Confirmed 08/04/21] acetaminophen 325 mg tablet (Tylenol) 650 mg PO Q6 PRN Fever Or Pain 12/05/20 [History Confirmed 08/04/21] gabapentin 100 mg capsule 100 mg PO AMHS 12/05/20 [History Confirmed 08/04/21] lorazepam 0.5 mg tablet See Rx Instructions .Route .COMPLEX PRN anxiety/r estlessness 12/05/20 [History Confirmed 08/04/21] multivitamin with iron-mineral 1 tab PO DAILY 12/05/20 [History Confirmed 08/04/21] nystatin 100,000 unit/mL oral suspension 5 ml PO QID 12/05/20 [History Confirmed 08/04/21] polysaccharide iron complex 150 mg iron capsule 150 mg PO DAILY 12/05/20 [History Confirmed 08/04/21] tramadol 50 mg tablet 50 mg PO Q8 PRN Pain, Severe 12/05/20 [History Confirmed 08/04/21] apixaban 2.5 mg tablet (Eliquis) 5 mg PO BID 02/17/21 [History Confirmed 08/04/21] ascorbate calcium (vitamin C) 500 mg tablet 500 mg PO BID 02/17/21 [History Confirmed 02/17/21] bumetanide 1 mg tablet 2 mg PO DAILY 02/17/21 [History Confirmed 08/04/21] melatonin 3 mg capsule 3 mg PO HS PRN 02/17/21 [History Confirmed 08/04/21] citalopram 10 mg tablet 15 mg PO DAILY 08/04/21 [History Confirmed 08/04/21] Active Medications Vancomycin HCl 2,750 mg/ (Sodium Chloride) 555 mls @ 200 mls/hr IV NOW STA Stop: 11/06/21 21:41 Last Admin: 11/06/21 20:11 Dose: 200 mls/hr Magnesium Sulfate/Dextrose (Magnesium Sulfate / D5w) 1 gm in 100 mls @ 50 mls/hr IV Q2H NÉSTOR Stop: 11/07/21 01:44 Last Admin: 11/06/21 20:40 Dose: 50 mls/hr Miscellaneous Information (Vancomycin Consult Active) 1 each N/A UD PRN PRN Reason: Consult Stop: 12/06/21 18:53 Vancomycin HCl 2,750 mg/ (Sodium Chloride) 555 mls @ 200 mls/hr IV NOW STA Stop: 11/06/21 21:41 Last Admin: 11/06/21 20:11 Dose: 200 mls/hr Documented By: ROSAMARIA Magnesium Sulfate/Dextrose (Magnesium Sulfate / D5w) 1 gm in 100 mls @ 50 mls/hr IV Q2H NÉSTOR Stop: 11/07/21 01:44 Last Admin: 11/06/21 20:40 Dose: 50 mls/hr Documented By: ROSAMARIA Discontinued Medications Sodium Chloride (Nss 1000ml) 1,000 mls @ 999 mls/hr IV .Q1H1M ONE Stop: 11/06/21 18:46 Last Infusion: 11/06/21 19:20 Dose: 0 mls/hr Documented By: Admin: 11/06/21 18:17 Dose: 999 mls/hr Documented By: KALPANA Acetaminophen (Ofirmev) 1,000 mg in 100 mls @ 400 mls/hr IV NOW STA Stop: 11/06/21 18:00 Last Infusion: 11/06/21 18:48 Dose: 0 mls/hr Documented By: Admin: 11/06/21 18:16 Dose: 400 mls/hr Documented By: KALPANA Sodium Chloride (Nss 1000ml) 1,000 mls @ 999 mls/hr IV .Q1H1M ONE Stop: 11/06/21 19:53 Last Infusion: 11/06/21 20:11 Dose: 0 mls/hr Documented By: Admin: 11/06/21 19:00 Dose: 999 mls/hr Documented By: KALPANA Magnesium Sulfate/Dextrose (Magnesium Sulfate / D5w) 1 gm in 100 mls @ 100 mls/hr IV NOW STA Stop: 11/06/21 19:53 Last Infusion: 11/06/21 20:31 Dose: 0 mls/hr Documented By: Admin: 11/06/21 19:24 Dose: 100 mls/hr Documented By: ROSAMARIA Ertapenem (Invanz) 10 mls @ 2 mls/min IV NOW STA Stop: 11/06/21 18:58 Last Admin: 11/06/21 19:12 Dose: 2 mls/min Documented By: ROSAMARIA Ondansetron HCl (Ondansetron Inj 2 Mg/Ml 2 Ml Vial) 4 mg IV NOW STA Stop: 11/06/21 17:58 Last Admin: 11/06/21 18:17 Dose: 4 mg Documented By: KALPANA ECG Additional Comments: Atrial fibrillation with rapid ventricular response with premature ventricular or aberrantly conducted complexes Left axis deviation Low voltage QRS Right bundle branch block Inferior infarct (cited on or before 05-DEC-2020) Cannot rule out Anterior infarct (cited on or before 05-DEC-2020) Abnormal ECG When compared with ECG of 06-NOV-2021 17:31, (unconfirmed) No significant change was found Code Status & VTE Plan Code Status CODE: Conditional- YES: CPR/DEFIB/CARDIOVERT, Vasopressor/dilators. NO INTUBATION/MECHANICAL VENTILATION VTE: SCDS, Apixaban VTE Prophylaxis Plan VTE Prophylaxis will be ordered: Yes Supervising Physician Co-Signing Physician Notes Patient seen and examined, chart reviewed, case discussed with KATHARINA Friend and I agree with the assessment and plan as above. In brief, patient is a 80yo female with history of AF, COPD, HFpEF and GERD presenting with acute hypoxic failure and respiratory distress following a presumed aspiration event at [facility]. Patient placed on rescue BiPAP in the ER. She remains awake, alert and appropriate. Lactate 2.5 --> 3.7 following 2L crystalloid Patient admitted to MICU for continued care On exam she is febrile, tachycardic, tachypneic, saturating 86% on BiPAP Skin - intact, faint rash on left breast, righ thip skin tear HEENT - NC/AT, PERRL, BiPAP in place, dry MM, Neck supple Heart - +S1/S2, irregular, tachycardic, no m/r/g Lungs - mildly diminished breath sounds, no rales/rhonchi/wheezes Abd - +BS, soft, NT/ND Ext - no edema Labs and images reviewed Assessment/Plan - Septic shock, acute hypoxic respiratory failure following aspiration event -MICU admission -Continue BiPAP, wean as tolerated -Monitor Lactate -Follow cultures -Continue broad spectrum antibiotics -Patient is DNI but would want CPR -Remainder as above PG Care Time/CCT Total # of Minutes Spent Total Time Spent with Patient: Total time spent is greater than 50% in coordination of care (as documented) at patient's floor/unit and/or counseling patient: [id number]: Critical Care time 45 minutes. Time was spent reviewing chart, BiPAP evaluation/managment, re-assessing fluid and electrolyte resuscitation effects on vital signs. Ordering and evaluating re-peat labs for resuscitation endpont. Discussion with family at bedside. Re- evaluating and discussing code status Coding Level of Care Code 95048 Initial Inpt Care Lvl 3 Diagnoses Septic shock A41.9; R65.21 Atrial fibrillation with RVR I48.91 NALLELY (acute kidney injury) N17.9 Chronic diastolic congestive heart failure I50.32 Acute on chronic respiratory failure with hypoxia and hypercapnia J96.21; J 96.22 SRINIVASA (obstructive sleep apnea) G47.33 Metabolic alkalosis with respiratory acidosis E87.4 Hyperlipidemia E78.5 Depression F32.9 Hypothyroidism E03.9 Hypothyroidism type: acquired MRSA (methicillin resistant staph aureus) culture positive Z22.322 (1) Hypothyroidism Hypothyroidism type: acquired Qualified Code(s): E03.9 - Hypothyroidism, unspecified
[2021-11-06] MEDS: MAGNESIUM SULFATE / D5W 1 GM/100 ML BAG IV SCH ×2 (20:40→22:34)
[2021-11-06] MEDS ORDERED: LACTATED RINGER'S 500 ML IV ONE (21:48)
[2021-11-06] MEDS ORDERED: ALBUTEROL HFA 8 GM INHALER INH PRN (22:54)
[2021-11-06] MEDS ORDERED: GLUCOSE 40% GEL 15 GM TUBE PO PRN (22:54)
[2021-11-06] MEDS ORDERED: ALBUTEROL 0.083% NEBU SOLN 3 ML VIAL NEB PRN (22:54)
[2021-11-06] MEDS ORDERED: CARBOHYDRATES FOR HYPOGLYCEMIA PO PRN (22:54)
[2021-11-06] MEDS ORDERED: DEXTROSE 50% 50 ML SYRINGE IV PRN (22:54)
[2021-11-06] MEDS ORDERED: GLUCOSE 10 TAB/TUBE PO PRN (22:54)
[2021-11-06] MEDS ORDERED: GLUCAGON FOR INJ 1 MG VIAL SQ PRN (22:54)
[2021-11-06] MEDS ORDERED: traMADol HCL 50 MG TABLET PO PRN (22:54)
[2021-11-06] MEDS ORDERED: ONDANSETRON INJ 2 MG/ML 2 ML VIAL IV PRN (22:54)
[2021-11-06] MEDS ORDERED: CEFEPIME 2,000 MG in SYRINGE 0 ML IV SCH (23:00)
--- NOTE | 2021-11-06 23:25 | Critical Care Consultation ---
Date of Consultation November 06, 2021 Assessment & Plan (1) Sepsis: Impression: 80-year-old female presents to the ICU with sepsis, pyrexia, and hypotension following an aspiration event Neuro - [facility] ICU: Negative Depressioncontinue citalopram Cardiac - Hypotensionimproved following IV fluid resuscitation. - No indication for pressors at this time as maps have maintained greater than 65. -Echo 12/05/20 EF 55 to 60%, moderate left ventricular hypertrophy, severe biatrial dilation, mild mitral regurg, severe pulmonary hypertension - Suspect this is most likely secondary to severe sepsis. -Cortisol level appropriately elevated -Hold antihypertensives A. fib RVRsuspect this is secondary to hypoxia/sepsis. Patient now in controlled rate A. fib -Chronically anticoagulated. Continue apixaban -No home med for rate control. Continue to monitor for now HLDcontinue statin Respiratory - Acute on chronic respiratory failure with hypoxia and hypercapniasuspect this is likely following aspiration event in the setting of COPD. -Patient is DNI status and will continue therapy with BiPAP for now -Patient currently on 2 L nasal cannula baseline at home -PE unlikely as patient is anticoagulated on apixaban -Continue with BiPAP support for positive pressure ventilation -Hold diuresis for now given hypotension -Nebs as needed -Wean FiO2 as tolerated -See ID management for possible pneumonia/pneumonitis -Continuous monitoring pulse ox GI - N.p.o. for now RENAL/LYTES - AKIlikely ATN secondary to hypotension -Continue with IV fluid resuscitation to maintain maps greater than 65 -Avoid nephrotoxins and renally adjust medication -Hold losartan - Foleystrict I's and O's ENDO - ICU hyperglycemic protocol Hypothyroidcontinue Synthroid HEME - H&H stable, monitor routine CBCs ID - Severe sepsismost likely pulmonary source following aspiration event versus UTI given turbid urinalysis with +4 bacteria -Patient febrile, leukocytosis, elevated lactate -Nasal MRSA positive, continue contact precautions -Urine culture and blood cultures pending -Bio fire unremarkable -Continue to treat with broad-spectrum antibiotics cefepime and vancomycin LINES/IV ACCESS - Peripheral IVs DVT PROPHYLAXIS - SCDs, on apixaban Thank you for allowing us to participate in the care of this patient. Please refer to my attending physician's documentation for any further recommendations. (2) Acute hypoxemic respiratory failure: (3) Acute UTI: (4) NALLELY (acute kidney injury): (5) MRSA (methicillin resistant staph aureus) culture positive: (6) Atrial fibrillation with RVR: (7) Chronic diastolic congestive heart failure: (8) SRINIVASA (obstructive sleep apnea): (9) CHF (congestive heart failure): (10) Esophageal reflux: (11) Hyperlipidemia: (12) Pulmonary hypertension: (13) Hyperlipidemia: (14) Hypertension: (15) Hypothyroidism: (16) COPD (chronic obstructive pulmonary disease): History of Present Illness Attending Physician: Reina Stockton DO History of Present Illness 80-year-old female with past medical history significant for SRINIVASA, chronic respiratory failure, pulmonary hypertension, diastolic heart failure, obesity pr esented to the emergency department via EMS from [facility] earlier this evening. Patient apparently had a witnessed aspiration event and became hypoxic afterwards. She was placed on CPAP by EMS as she was hypoxic into the 70s prior to arrival. Patient declined intubation in the ED and was placed on BiPAP. She was noted to have significant leukocytosis and elevated lactate. She was given ertapenem and vancomycin in the ED along with 2 L crystalloid bolus. Urinalysis was turbid with 4+ bacteria. Cultures pending. Lactic acid did continue to increase and pressures were soft and decision was made to transfer to ICU as she was high risk for decompensation. Primary team did discuss CODE STATUS and she is DNI but would want compressions/shocks in the case of cardiac arrest. She is now being transferred to ICU for further management at this time. On arrival to the ICU the patient is oriented appears comfortable on BiPAP. Extremities are noted to be cool and clammy with sluggish venous return. She currently complains of pain around the seal of the BiPAP mask. She otherwise denies headache, dizziness, syncope, recent illness or congestion, fevers, shortness of breath, chest pain or palpitations, abdominal pain, nausea vomiting or diarrhea, or swelling in hands or feet. Allergies Allergy/AdvReac Type Severity Reaction Status Date / Time sulfisoxazole Allergy Unknown Unknown Verified 08/04/21 12:53 thimerosal Allergy Unknown Unknown Verified 08/04/21 12:53 torsemide Allergy Unknown Unknown Verified 08/04/21 12:53 buspirone [From BuSpar] Allergy Unknown Verified 08/04/21 12:53 cephalexin Allergy RASH Verified 08/04/21 12:53 clarithromycin [From Biaxin] Allergy Unknown Verified 08/04/21 12:53 iodine Allergy Unknown Verified 08/04/21 12:53 povidone-iodine Allergy Unknown Verified 08/04/21 12:53 [From Betadine] soap [From Betadine] Allergy Unknown Verified 08/04/21 12:53 Home Medications Medication Instructions Recorded Confirmed Type albuterol sulfate 90 mcg/actuation 2 inha inhalation Q6H PRN 12/20/17 11/06/21 History aerosol inhaler (Ventolin HFA) Shortness Of Breath Or Wheezing fexofenadine 180 mg tablet 180 mg PO DAILY 12/20/17 11/06/21 History (Lucie Allergy) cholecalciferol (vitamin D3) 125 5,000 unit PO DAILY 02/14/18 11/06/21 History mcg (5,000 unit) tablet (Vitamin D3) spironolactone 25 mg tablet 25 mg PO BID #180 tabs 07/14/19 11/06/21 Rx Lift Chair #1 ea 10/16/19 11/06/21 Rx losartan 25 mg tablet 25 mg PO QAM #90 tabs 10/20/19 11/06/21 Rx levothyroxine 50 mcg tablet 50 mcg PO DAILY #30 tabs 07/12/20 11/06/21 Rx (Euthyrox) simvastatin 40 mg tablet (Zocor) 40 mg PO DAILY #90 tabs 08/09/20 11/06/21 Rx acetaminophen 325 mg tablet 650 mg PO Q6 PRN Fever Or Pain 12/05/20 11/06/21 History (Tylenol) gabapentin 100 mg capsule 100 mg PO AMHS 12/05/20 11/06/21 History lorazepam 0.5 mg tablet See Rx Instructions .Route 12/05/20 11/06/21 History .COMPLEX PRN anxiety/restlessness multivitamin with iron-mineral 1 tab PO DAILY 12/05/20 11/06/21 History nystatin 100,000 unit/mL oral 5 ml PO QID 12/05/20 11/06/21 History suspension polysaccharide iron complex 150 mg 150 mg PO DAILY 12/05/20 11/06/21 History iron capsule tramadol 50 mg tablet 50 mg PO Q8 PRN Pain, Severe 12/05/20 11/06/21 History apixaban 2.5 mg tablet (Eliquis) 5 mg PO BID 02/17/21 11/06/21 History ascorbate calcium (vitamin C) 500 500 mg PO BID 02/17/21 11/06/21 History mg tablet bumetanide 1 mg tablet 2 mg PO DAILY 02/17/21 11/06/21 History melatonin 3 mg capsule 3 mg PO HS PRN Insomnia 02/17/21 11/06/21 History citalopram 10 mg tablet 15 mg PO DAILY 08/04/21 11/06/21 History Patient History Medical History (Updated 11/07/21 @ 00:30 by Dewayne Camacho MD) Adult body mass index 40 and over Adult situational stress disorder Allergic rhinitis due to allergen Anemia Asthma Atrial fibrillation BMI 50.0-59.9, adult Bronchitis Congestive heart failure, unspecified COPD (chronic obstructive pulmonary disease) COPD exacerbation Cough Diverticulosis of colon (without mention of hemorrhage) Esophageal reflux Fx femur shaft-closed History of pulmonary embolism Hyperlipidemia Hyperlipidemia, unspecified Hypoxia Localized primary osteoarthritis of lower leg Lumbar radiculopathy Morbid obesity Morbid obesity with BMI of 45.0-49.9, adult Neurodermatitis Obstructive sleep apnea (adult) (pediatric) Onychomycosis Permanent atrial fibrillation Pneumonia Pneumonia, organism unspecified Psoriasis Pulmonary hypertension Sleep related hypoxia Systolic congestive heart failure Tailor's bunionette Unspecified asthma Surgical History History of appendectomy History of hysterectomy History of tonsillectomy Family History Unknown Acute myocardial infarction Mother Heart disease Myocardial infarction Other No significant family history Denies family history of Ovarian cancer Prostate cancer Breast cancer Lung cancer Colorectal cancer Social History Smoking Status: Former smoker Second Hand Exposure: No; Do You Dip or Chew Tobacco: No; Tobacco Cessation Education Requested by Patient: No Hx Alcohol Use: No Hx Substance Use: No Preferred Language: German Communication Ability: Effective Visual Impairment: Limited Hearing Ability: Normal Home Specialist Required: No Beliefs That Will Affect Care: None marital status: / Current Living Situation: Personal Care Facility current occupational status: retired How many Children do You have: 2 Other Information That Helps Us Care for You: No Feels Safe at Home: Yes Childhood Exposure to Second-Hand Smoke: No caffeine: No Dental Care, Regularly: No Physical Activity Frequency: Does not Exercise Physical Activity Frequency Comment: due to health issues Seatbelt Use: always Sunscreen Use: No (not in the sun) Assistive Devices: BiPap, CPAP, Oxygen - Continuous and Wheelchair Review of Systems Review of Systems: All systems reviewed & are unremarkable except as noted in HPI & below Physical Exam Constitutional: + obese, cooperative and comfortable Eyes: PERRL, conjunctivae normal, anicteric sclerae ENMT: external ear and nose normal, oropharynx normal Neck: trachea midline, no thyromegaly Respiratory: normal respiratory effort, lungs clear to auscultation Cardiovascular: Rate/Rhythm: + irregularly irregular Heart Sounds: no murmur Extremities: + edema; + abnormal capillary refill Gastrointestinal (Abdomen): normal bowel sounds, soft, nontender, no hepatosplenomegaly Musculoskeletal: no cyanosis or clubbing, extremities motor strength 5/5 Skin: no rashes, warm and dry Neurologic: PERRL, EOMI, accommodation nl, no face palsy, no dysarthria Psychiatric: A+Ox3, euthymic affect Results & Data Results & Data ([facility]) Vital Signs (Past 12 Hours) Vital Signs Temp Pulse Pulse Resp BP BP Pulse Ox 11/06/21 22:50 107 H 28 H 96 11/06/21 22:24 105 H 20 93/54 L 100 11/06/21 22:00 105 H 20 93/54 L 100 11/06/21 20:51 117 H 24 94/60 L 87 L 11/06/21 19:25 25 H 90 11/06/21 18:45 38.8 C H 11/06/21 18:50 124 H 27 H 99 11/06/21 18:40 127 H 30 H 97 11/06/21 18:30 135 H 31 H 96 11/06/21 18:23 109/58 L 11/06/21 18:00 139 H 29 H 92 11/06/21 17:50 135 H 31 H 100 11/06/21 17:40 158 H 29 H 99 11/06/21 17:34 110/64 11/06/21 17:34 143 H 31 H 96 11/06/21 17:33 142 H 21 98 11/06/21 17:33 127/87 11/06/21 18:22 11/06/21 17:40 146 H 33 H 98 11/06/21 17:34 11/06/21 17:34 38.7 C H 150 H 29 H 110/64 95 O2 Del Method FiO2 11/06/21 22:50 30 11/06/21 22:24 BiPAP 30 11/06/21 22:00 BiPAP 30 11/06/21 20:51 CPAP 21 11/06/21 19:25 21 11/06/21 18:45 11/06/21 18:50 BiPAP 11/06/21 18:40 BiPAP 11/06/21 18:30 BiPAP 11/06/21 18:23 BiPAP 11/06/21 18:00 BiPAP 11/06/21 17:50 BiPAP 11/06/21 17:40 BiPAP 11/06/21 17:34 BiPAP 11/06/21 17:34 BiPAP 11/06/21 17:33 BiPAP 11/06/21 17:33 BiPAP 11/06/21 18:22 BiPAP 11/06/21 17:40 40 11/06/21 17:34 BiPAP 40 11/06/21 17:34 BiPAP Coding Level of Care Code 06797 Inpt Consult Level 3 Diagnoses Sepsis A41.9 Acute hypoxemic respiratory failure J96.01 Acute UTI N39.0 NALLELY (acute kidney injury) N17.9 MRSA (methicillin resistant staph aureus) culture positive Z22.322 Atrial fibrillation with RVR I48.91 Chronic diastolic congestive heart failure I50.32 SRINIVASA (obstructive sleep apnea) G47.33 CHF (congestive heart failure) I50.9 Heart failure chronicity: unspecified Heart failure type: unspecified Esophageal reflux K21.9 Hyperlipidemia E78.5 Pulmonary hypertension I27.20 Hyperlipidemia E78.5 Hyperlipidemia type: unspecified Hypertension I10 Hypertension type: essential hypertension Hypothyroidism E03.9 Hypothyroidism type: acquired COPD (chronic obstructive pulmonary disease) J44.9 COPD type: unspecified COPD (1) CHF (congestive heart failure) Heart failure chronicity: unspecified Heart failure type: unspecified Qualified Code(s): I50.9 - Heart failure, unspecified (2) Hyperlipidemia Hyperlipidemia type: unspecified Qualified Code(s): E78.5 - Hyperlipidemia, unspecified (3) Hypothyroidism Hypothyroidism type: acquired Qualified Code(s): E03.9 - Hypothyroidism, unspecified (4) COPD (chronic obstructive pulmonary disease) COPD type: unspecified COPD Qualified Code(s): J44.9 - Chronic obstructive pulmonary disease, unspecified (5) Hypertension Hypertension type: essential hypertension Qualified Code(s): I10 - Essential (primary) hypertension
[2021-11-06] MEDS: APIXABAN 2.5 MG TAB PO SCH (23:46)
[2021-11-07] MEDS: MAGNESIUM SULFATE / D5W 1 GM/100 ML BAG IV SCH (00:54)
[2021-11-07 03:35] LABS: Hematocrit (blood only) 26.3 % (34.1-44.9); Hemoglobin 8.5 g/dl (12.0-16.0); Mean Corpuscular Hemoglobin 31.4 pg (25.0-34.0); Mean Corpuscular Hgb Conc 32.3 g/dL (32.0-36.0); Mean Platelet Volume 9.4 fL (9.4-12.3); Platelet Count 205 K/uL (130-400); RDW Coefficient of Variation 14.2 % (11.5-14.5); RDW Standard Deviation 50.2 fL (36.4-46.3); Red Blood Count 2.71 M/uL (3.93-5.22)
[2021-11-07 03:51] LABS: Basophils # (auto) 0.03 K/uL (0-0.2); Basophils % (auto) 0.1 %; Immature Granulocytes # (auto) 0.17 K/uL (0.00-0.02); Immature Granulocytes % (auto) 0.7 %; Lymphocytes # (auto) 0.48 K/uL (1.2-3.4); Lymphocytes % (auto) 1.9 %; Monocytes # (auto) 1.24 K/uL (0.24-0.82); Monocytes % (auto) 4.8 %; Neutrophils # (auto) 23.68 K/uL (1.4-6.5); Neutrophils % (auto) 92.5 %; RBC Morphology Unremarkable
[2021-11-07 03:56] LABS: BUN Creatinine Ratio 50.4 (10-20); Calcium 8.6 mg/dl (8.5-10.1); Creatinine Clr Calc Pharmacy 44.1 ml/min; Est GFR (African American) 41.3 ml/min; Est GFR (Non-African American) 35.6 ml/min; Magnesium 2.5 mg/dl (1.7-2.4); Potassium 4.4 mmol/L (3.5-5.1)
[2021-11-07 04:05] LABS: Troponin I High Sensitivity 53.7 pg/ml (0-14)
[2021-11-07] MEDS ORDERED: LACTATED RINGER'S 500 ML IV ONE (04:36)
[2021-11-07] MEDS: LEVOTHYROXINE SODIUM 50 MCG TABLET PO SCH (05:45)
[2021-11-07] MEDS: DOCUSATE SODIUM/SENNA 50/8.6MG TAB PO SCH (07:28)
--- NOTE | 2021-11-07 07:31 | Critical Care Progress Note ---
Date of Service November 07, 2021 Assessment & Plan (1) Sepsis: (2) Acute UTI: (3) Acute dehydration: (4) NALLELY (acute kidney injury): (5) Atrial fibrillation with RVR: (6) MRSA (methicillin resistant staph aureus) culture positive: (7) Acute hypoxemic respiratory failure: (8) Septic shock: (9) Chronic diastolic congestive heart failure: (10) Pulmonary hypertension: (11) SRINIVASA (obstructive sleep apnea): (12) Acute on chronic respiratory failure with hypoxia and hypercapnia: (13) DVT prophylaxis: (14) Hypoxia: (15) COPD (chronic obstructive pulmonary disease): (16) Atrial fibrillation: (17) Asthma: Plan Impression: 80-year-old female presents to the ICU with sepsis, pyrexia, and hypotension following an aspiration event Neuro: [facility] ICU: Negative Depressioncontinue citalopram Cardiac: Hypotension -improved following IV fluid resuscitation. No need for pressors at the current time. -Echo 12/05/20 EF 55 to 60%, moderate left ventricular hypertrophy, severe biatrial dilation, mild mitral regurg, severe pulmonary hypertension -Suspect this is most likely secondary to severe sepsis. -Cortisol level appropriately elevated -Hold antihypertensives A. fib RVR -suspect this is secondary to hypoxia/sepsis. Patient now in controlled rate A. fib -Chronically anticoagulated. Continue apixaban -No home med for rate control. Continue to monitor for now HLDcontinue statin Respiratory: Acute on chronic respiratory failure with hypoxia and hypercapniasuspect this is likely following aspiration event in the setting of COPD. -Patient is DNI status, doing well weaning down to home baseline O2 of 2L. -PE unlikely as patient is anticoagulated on apixaban -Hold diuresis for now given hypotension -Nebs as needed -Wean FiO2 as tolerated -See ID management for possible pneumonia/pneumonitis -Continuous monitoring pulse ox GI: Heart healthy diet. RENAL/LYTES: AKIlikely ATN secondary to hypotension -Continue with IV fluid resuscitation to maintain maps greater than 65 -Avoid nephrotoxins and renally adjust medication -Hold losartan : Foleystrict I's and O's ENDO: ICU hyperglycemic protocol Hypothyroidcontinue Synthroid HEME: Hemoglobin 9.9 -> 8.5, baseline 9-10 over past year, monitor routine CBCs ID: Severe sepsis -UTI most likely source given 4+ bacteria on U/A, less likely pulmonary source given baseline O2 w/ good saturation -Patient febrile, leukocytosis, elevated lactate -Nasal MRSA positive, continue contact precautions -Urine culture growing gram negative bacilli. Blood culture pending. -Bio fire unremarkable -Cefepime and Vancomycin switched to Ceftriaxone. LINES/IV ACCESS: Peripheral IVs DVT PROPHYLAXIS: SCDs, on apixaban Dispo: Stale to downgrade from ICU. Admission and Anticipated Discharge Date Admission Date: November 06, 2021 Supervising Physician Co-Signing Physician Notes Dr. Dennis was resident physician during care of patient. I separately evaluated patient for moore portions of the history and the exam. I was present during the critical portion of medical decision making, and I discussed the case with the resident. I generally agree with the findings and plan. Hypoxia has resolved. I suspect that that was secondary to an aspiration pneumonitis. Leukocytosis with acute kidney injury, urine indicative of active infection would continue IV Rocephin until afebrile. As pulmonary not likely source of infection will discontinue vancomycin and cefepime. Blood cultures and urine culture pending. Reviewed notes from [facility] rehab, listing patient as DNR with date of November 06, 2021. There was reported discussion patient would want heroic measures undertaken in event of cardiac arrest however no intubation mechanical ventilation. This would likely be unsuccessful and [facility] I feel she would benefit from further discussion regarding CODE STATUS and goals of care, palliative care consulted. Increase activity, patient on heart healthy diet and has responded to volume expansion. Currently saturating 92% on baseline oxygen therapy without noninvasive ventilation. Stable for downgrade out of ICU. Biofire negative 11/06. Heart healthy diet. Subjective Patient seen at the bedside saying she's better than yesterday. She endorses she threw up x1 this morning due to a coughing spell. She states she has trouble eating solid food sometimes, this morning due to coughing. Denies chest pain, shortness of breath, nausea. Physical Exam Constitutional: WD/WN, vitals as above Eyes: PERRL, conjunctivae normal, anicteric sclerae Respiratory: normal respiratory effort, lungs clear to auscultation Cardiovascular: Rate/Rhythm: regular rate and regular rhythm Heart Sounds: normal S1 and normal S2 Extremities: + edema (1+ edema to mid steven. ) 2+ pedal pulses bilaterally. Gastrointestinal (Abdomen): normal bowel sounds, soft, nontender, no hepatosplenomegaly Results & Data Results & Data ([facility]) Vital Signs (Past 12 Hours) Vital Signs Temp Pulse Pulse Resp BP BP Pulse Ox 11/07/21 06:30 38.1 C H 95 H 15 110/65 96 11/07/21 06:00 38.2 C H 91 H 24 108/61 95 11/07/21 05:30 38.2 C H 86 29 H 111/55 L 97 11/07/21 05:15 38.3 C H 87 23 101/50 L 92 11/07/21 05:00 38.3 C H 101 H 18 104/67 95 11/07/21 04:45 38.3 C H 105 H 17 101/87 97 11/07/21 04:30 38.3 C H 89 26 H 93/64 L 95 11/07/21 04:31 92 H 24 96 11/07/21 04:15 38.3 C H 90 25 H 87/53 L 94 11/07/21 04:10 38.3 C H 87 33 H 97/51 L 96 11/07/21 04:07 38.3 C H 86 27 H 78/42 L 91 11/07/21 03:30 38.3 C H 95 H 24 98/70 L 79 L 11/07/21 03:06 89 22 78/62 L 100 11/07/21 03:00 91 H 22 93 11/07/21 02:30 38.3 C H 90 21 99/60 L 92 11/07/21 02:00 38.2 C H 93 H 22 91/44 L 98 11/07/21 01:32 38.2 C H 127 H 19 96/67 L 97 11/07/21 01:30 38.2 C H 85 17 92 11/07/21 01:30 11/07/21 01:00 38.2 C H 88 25 H 94 11/07/21 00:57 38.2 C H 100 H 18 93/67 L 91 11/07/21 00:00 104 H 11/06/21 22:54 11/07/21 00:30 38.2 C H 103 H 13 108/74 94 11/07/21 00:17 89 21 87/50 L 99 11/07/21 00:10 95 H 17 83/58 L 92 11/07/21 00:05 124 H 25 H 104/73 98 11/07/21 00:00 102 H 20 71/47 L 75 L 11/06/21 23:55 92 H 21 100/62 100 11/06/21 23:50 92 H 26 H 90/60 L 91 11/06/21 23:48 90 24 82/57 L 100 11/06/21 23:45 91 H 23 68/52 L 100 11/06/21 23:30 99 H 20 97/59 L 100 11/06/21 23:20 95 H 22 94/59 L 97 11/06/21 23:15 38 C H 99 H 16 85/56 L 96 11/06/21 23:00 109 H 17 85/54 L 78 L 11/06/21 22:53 102 H 21 94 11/06/21 21:46 116 H 27 H 82 L 11/06/21 22:54 11/06/21 22:54 37.5 C 104 H 22 100/67 98 11/06/21 22:50 107 H 28 H 96 11/06/21 22:24 105 H 20 93/54 L 100 11/06/21 22:00 105 H 20 93/54 L 100 11/06/21 20:51 117 H 24 94/60 L 87 L Pulse Ox O2 Del Method O2 Del Method O2 Flow Rate FiO2 11/07/21 06:30 Nasal Cannula 2 11/07/21 06:00 Nasal Cannula 2 11/07/21 05:30 Nasal Cannula 2 11/07/21 05:15 Nasal Cannula 2 11/07/21 05:00 Nasal Cannula 2 11/07/21 04:45 BiPAP 30 11/07/21 04:30 BiPAP 30 11/07/21 04:31 30 11/07/21 04:15 BiPAP 30 11/07/21 04:10 BiPAP 30 11/07/21 04:07 BiPAP 30 11/07/21 03:30 BiPAP 30 11/07/21 03:06 BiPAP 30 11/07/21 03:00 BiPAP 30 11/07/21 02:30 BiPAP 30 11/07/21 02:00 BiPAP 30 11/07/21 01:32 BiPAP 30 11/07/21 01:30 BiPAP 30 22 01:30 11/07/21 01:00 11/07/21 00:57 11/07/21 00:00 11/06/21 22:54 98 BiPAP 11/07/21 00:30 BiPAP 11/07/21 00:17 11/07/21 00:10 11/07/21 00:05 11/07/21 00:00 BiPAP 11/06/21 23:55 11/06/21 23:50 BiPAP 11/06/21 23:48 11/06/21 23:45 BiPAP 11/06/21 23:30 30 11/06/21 23:20 BiPAP 11/06/21 23:15 BiPAP 11/06/21 23:00 11/06/21 22:53 11/06/21 21:46 11/06/21 22:54 BiPAP 11/06/21 22:54 BiPAP 11/06/21 22:50 11/06/21 22:24 BiPAP 11/06/21 22:00 BiPAP 11/06/21 20:51 CPAP 21 Resident Activity Tracking Resident Involvement: Resident Care Provided Care Provided: Adult Hospital Medicine (1) Atrial fibrillation Atrial fibrillation type: unspecified Qualified Code(s): I48.91 - Unspecified atrial fibrillation (2) COPD (chronic obstructive pulmonary disease) COPD type: unspecified COPD Qualified Code(s): J44.9 - Chronic obstructive pulmonary disease, unspecified
[2021-11-07] MEDS: APIXABAN 2.5 MG TAB PO SCH ×2 (07:37→20:03)
[2021-11-07] MEDS ORDERED: THIAMINE HCL 500 MG in SODIUM CHLORIDE 0.9% 50 ML IV STA (09:34)
--- NOTE | 2021-11-07 09:51 | Billing Data ---
Date of Service November 07, 2021 Coding Level of Care Code 12122 Subseq Obs Care Lvl 3
[2021-11-07] MEDS: cefTRIAXone SODIUM 2,000 MG in DEXTROSE 5% 50 ML IV SCH (10:04)
[2021-11-07] MEDS ORDERED: RAPID SEQUENCE INDUCTION BAG ONE (10:15)
--- NOTE | 2021-11-07 12:18 | Electrocardiogram Report ---
Test Reason : Blood Pressure : / mmHG Vent. Rate : 149 BPM Atrial Rate : 144 BPM P-R Int : 000 ms QRS Dur : 120 ms QT Int : 308 ms P-R-T Axes : 000 -76 036 degrees QTc Int : 485 ms Atrial fibrillation with rapid ventricular response with premature ventricular or aberrantly conducte d complexes Left axis deviation Low voltage QRS Right bundle branch block Inferior infarct , age undetermined Abnormal ECG When compared with ECG of 05-DEC-2020 10:21, Vent. rate has increased BY 54 BPM Inferior infarct is now Present Confirmed by Rian Bhandari ([id number]) on 11/07/2021 12:18:02 PM Referred By: REFERRED SELF Confirmed By:Jacek Bhandari
--- NOTE | 2021-11-07 14:01 | Hospitalist Progress Note ---
Date of Service November 07, 2021 Assessment & Plan (1) Septic shock: Plan: Attending: Dr. Boss Patient admitted for tachyardia, hypoxia, and hypertension following aspiration event. CXR without acute pulmonary process to cause the above. Elevated WBC, fever, elevation of lactic acidosis. - Most likely Urinary source - Day# 2abx. De-escalated from cefepime to ceftriaxone. Urine cx with gram (-) bacilli. ID and sensitivity pending. - Patient refusing CPAP although she continues to be hypercapnic. She states that she has tried CPAP in the past as an outpatient and did not tolerate - Continue to titrate O2 to > 88%. - Lactate 2.5 ---> 3.7 and now down to 3.0 - Goal Map >65mm/hg UO 30ml per hour- currently fluid responsive- if refractory hypotension transfer for vasopressor support - Cortisol 32.89 - Continue to monitor in the ICU. Anticipate downgrade tomorrow (2) Atrial fibrillation with RVR: Plan: Likely secondary to # 1 - Magnesium still slightly deficient - replete goal ~2.0 - Received 2gms MgSO4 again this morning - Follow with fluid volume status - She is on Apixaban so doubt PE at play- continue Apixaban- - Continue to monitor on telemetry until discharge (3) NALLELY (acute kidney injury): Plan: Secondary to #1 - improved - hold diuretics - MAPS >65 - Continue to follow serial labs - avoid further nephrotoxic as able (4) Chronic diastolic congestive heart failure: Plan: HFpEF follows with heart failure clinic - hold diuretics at this time follow hemodynamics (5) Acute on chronic respiratory failure with hypoxia and hypercapnia: Plan: Recently attempted BiPAP/CPAP following previous admission - unable to tolerate as outpatient - refusing as an inpatient - DNI/DNR code status (6) SRINIVASA (obstructive sleep apnea): Plan: Hypercapnic - appears chronic in review of blood gases Refusing CPAP Continue supportive care (7) Metabolic alkalosis with respiratory acidosis: Plan: Uncompensated acute respiratory acidosis with chronic metabolic alkalosis Continue to treat for sepsis/UTI Follow serial labs (8) Hyperlipidemia: Plan: Continue statin when able to tolerate PO (9) Depression: Plan: Continue citalopram when able to tolerate PO (10) Hypothyroidism: Plan: Continue synthroid (11) MRSA (methicillin resistant staph aureus) culture positive: Plan: History of MRSA skin - MRSA remains positive - Continue Vancomycin pending blood cultures - Continue Isolation precautions Plan Patient is doing better today. Anticipate discharge back to Center care once stable Admission and Anticipated Discharge Date Admission Date: November 06, 2021 Subjective Attending: Dr. Boss Patient mated yesterday with sepsis and shock most likely secondary to urinary source. She was placed on cefepime and hydrated per sepsis protocol. Lactic acid was elevated yesterday at 3.7. Patient continues to be febrile with a temp of 38.1 C. She is chronically hypoxic and remains on 2 L of supplemental oxygen per minute via nasal cannula and is 97%. White count continues to be radha vated 25.6. Lactic acid this morning is 3 mmol/L. Procalcitonin is 0.77. Antibiotics have been de-escalated from cefepime to ceftriaxone. Urine currently is gram-negative bacilli. Blood cultures x2 are pending. Patient has no acute complaints at this time. She states that she comes from [facility] and would like to return there on discharge. Patient denies awareness of fever. She denies any sweats or rigors. She has no nausea or vomiting. No abdominal pain. No chest pain. She does have back pain which she states is typical for her. She does not feel as though it is worsened than usual. Review of Systems Review of Systems: A total of 10 systems was reviewed and is negative other than as listed in the HPI Physical Exam Physical Exam: GENERAL : No acute distress. Awake and alert and talkative. Speech is appropriate. EYES: No icterus, gaze conjugate NOSE: No evidence of epistaxis MOUTH: No lesions or candidiasis NECK: Supple LUNGS: CTA B/L, no wheezes, rales or rhonchi. Good inspiratory effort. HEART: Regular, rate controlled ABDOMEN: Soft, NT, ND, BS Present EXTREMITIES: Trace bilateral LE edema, pedal pulses intact NEURO: A&OX3. Moves all extremities spontaneously and to command. No deviation of tongue. Pupils are equal round and reactive to light. Speech is appropriate with no slur. No focal deficits appreciated. Results & Data Results & Data ([facility]) Vital Signs (Past 12 Hours) Vital Signs Temp Pulse Resp BP Pulse Ox O2 Del Method O2 Flow Rate 11/07/21 10:30 38.1 C H 87 25 H 97 Nasal Cannula 2 11/07/21 10:30 91/52 L 11/07/21 10:21 38.1 C H 94 H 28 H 95 11/07/21 10:21 90/70 L 11/07/21 10:00 38.2 C H 93 H 25 H 97 Nasal Cannula 2 11/07/21 09:30 38.2 C H 102 H 24 95 11/07/21 09:00 38.3 C H 98 H 29 H 93 11/07/21 08:30 38.3 C H 104 H 23 93 11/07/21 08:00 38.1 C H 122 H 38 H 87 L 11/07/21 07:30 38.1 C H 109 H 18 94 Nasal Cannula 2 11/07/21 07:30 88/57 L 11/07/21 07:00 38.1 C H 94 H 23 94 11/07/21 07:00 114/55 L 11/07/21 07:40 Nasal Cannula 2 11/07/21 06:30 38.1 C H 95 H 15 110/65 96 Nasal Cannula 2 11/07/21 06:00 38.2 C H 91 H 24 108/61 95 Nasal Cannula 2 11/07/21 05:30 38.2 C H 86 29 H 111/55 L 97 Nasal Cannula 2 11/07/21 05:15 38.3 C H 87 23 101/50 L 92 Nasal Cannula 2 11/07/21 05:00 38.3 C H 101 H 18 104/67 95 Nasal Cannula 2 11/07/21 04:45 38.3 C H 105 H 17 101/87 97 BiPAP 11/07/21 04:30 38.3 C H 89 26 H 93/64 L 95 BiPAP 11/07/21 04:31 92 H 24 96 11/07/21 04:15 38.3 C H 90 25 H 87/53 L 94 BiPAP 11/07/21 04:10 38.3 C H 87 33 H 97/51 L 96 BiPAP 11/07/21 04:07 38.3 C H 86 27 H 78/42 L 91 BiPAP 11/07/21 03:30 38.3 C H 95 H 24 98/70 L 79 L BiPAP 11/07/21 03:06 89 22 78/62 L 100 BiPAP 11/07/21 03:00 91 H 22 93 BiPAP 11/07/21 02:30 38.3 C H 90 21 99/60 L 92 BiPAP 11/07/21 02:00 38.2 C H 93 H 22 91/44 L 98 BiPAP FiO2 11/07/21 10:30 11/07/21 10:30 11/07/21 10:21 11/07/21 10:21 11/07/21 10:00 11/07/21 09:30 11/07/21 09:00 11/07/21 08:30 11/07/21 08:00 11/07/21 07:30 11/07/21 07:30 11/07/21 07:00 11/07/21 07:00 11/07/21 07:40 11/07/21 06:30 11/07/21 06:00 11/07/21 05:30 11/07/21 05:15 11/07/21 05:00 11/07/21 04:45 30 11/07/21 04:30 30 11/07/21 04:31 30 11/07/21 04:15 30 11/07/21 04:10 30 11/07/21 04:07 30 11/07/21 03:30 30 11/07/21 03:06 30 11/07/21 03:00 30 11/07/21 02:30 30 11/07/21 02:00 30 Critical Care Results & Data Vital Signs (Past 12 Hours) Vital Signs Temp Pulse Resp BP Pulse Ox O2 Del Method O2 Flow Rate 11/07/21 10:30 38.1 C H 87 25 H 97 Nasal Cannula 2 11/07/21 10:30 91/52 L 11/07/21 10:21 38.1 C H 94 H 28 H 95 11/07/21 10:21 90/70 L 11/07/21 10:00 38.2 C H 93 H 25 H 97 Nasal Cannula 2 11/07/21 09:30 38.2 C H 102 H 24 95 11/07/21 09:00 38.3 C H 98 H 29 H 93 11/07/21 08:30 38.3 C H 104 H 23 93 11/07/21 08:00 38.1 C H 122 H 38 H 87 L 11/07/21 07:30 38.1 C H 109 H 18 94 Nasal Cannula 2 11/07/21 07:30 88/57 L 11/07/21 07:00 38.1 C H 94 H 23 94 11/07/21 07:00 114/55 L 11/07/21 07:40 Nasal Cannula 2 11/07/21 06:30 38.1 C H 95 H 15 110/65 96 Nasal Cannula 2 11/07/21 06:00 38.2 C H 91 H 24 108/61 95 Nasal Cannula 2 11/07/21 05:30 38.2 C H 86 29 H 111/55 L 97 Nasal Cannula 2 11/07/21 05:15 38.3 C H 87 23 101/50 L 92 Nasal Cannula 2 11/07/21 05:00 38.3 C H 101 H 18 104/67 95 Nasal Cannula 2 11/07/21 04:45 38.3 C H 105 H 17 101/87 97 BiPAP 11/07/21 04:30 38.3 C H 89 26 H 93/64 L 95 BiPAP 11/07/21 04:31 92 H 24 96 11/07/21 04:15 38.3 C H 90 25 H 87/53 L 94 BiPAP 11/07/21 04:10 38.3 C H 87 33 H 97/51 L 96 BiPAP 11/07/21 04:07 38.3 C H 86 27 H 78/42 L 91 BiPAP 11/07/21 03:30 38.3 C H 95 H 24 98/70 L 79 L BiPAP 11/07/21 03:06 89 22 78/62 L 100 BiPAP 11/07/21 03:00 91 H 22 93 BiPAP 11/07/21 02:30 38.3 C H 90 21 99/60 L 92 BiPAP 11/07/21 02:00 38.2 C H 93 H 22 91/44 L 98 BiPAP FiO2 11/07/21 10:30 11/07/21 10:30 11/07/21 10:21 11/07/21 10:21 11/07/21 10:00 11/07/21 09:30 11/07/21 09:00 11/07/21 08:30 11/07/21 08:00 11/07/21 07:30 11/07/21 07:30 11/07/21 07:00 11/07/21 07:00 11/07/21 07:40 11/07/21 06:30 08/01/22 06:00 11/07/21 05:30 11/07/21 05:15 11/07/21 05:00 11/07/21 04:45 30 11/07/21 04:30 30 11/07/21 04:31 30 11/07/21 04:15 30 11/07/21 04:10 30 11/07/21 04:07 30 11/07/21 03:30 30 11/07/21 03:06 30 11/07/21 03:00 30 11/07/21 02:30 30 11/07/21 02:00 30 Lab & Micro Results (Past 24 Hours) RBC 2.71 M/uL (3.93-5.22) L 11/07/21 WBC 25.60 K/ul (4.8-10.8) H 11/07/21 Hgb 8.5 g/dl (12.0-16.0) L 11/07/21 Hct 26.3 % (34.1-44.9) L 11/07/21 MCV 97.0 fL (80.0-100.0) 11/07/21 MCH 31.4 pg (25.0-34.0) 11/07/21 MCHC 32.3 g/dL (32.0-36.0) 11/07/21 RDW Standard Deviation 50.2 fL (36.4-46.3) H 11/07/21 RDW Coefficient of Variation 14.2 % (11.5-14.5) 11/07/21 Plt Count 205 K/uL (130-400) 11/07/21 MPV 9.4 fL (9.4-12.3) 11/07/21 Neutrophils (%) (Auto) 92.5 % 11/07/21 Lymphocytes (%) (Auto) 1.9 % 11/07/21 Monocytes # (Auto) 1.24 K/uL (0.24-0.82) H 11/07/21 Eosinophils # (Auto) 0.00 K/uL (0-0.50) 11/07/21 Immature Granulocyte % (Auto) 0.7 % 11/07/21 Neutrophils # (Auto) 23.68 K/uL (1.4-6.5) H 11/07/21 Lymphocytes # (Auto) 0.48 K/uL (1.2-3.4) L 11/07/21 Monocytes # (Auto) 1.24 K/uL (0.24-0.82) H 11/07/21 Eosinophils # (Auto) 0.00 K/uL (0-0.50) 11/07/21 Basophils # (Auto) 0.03 K/uL (0-0.2) 11/07/21 Immature Granulocyte # (Auto) 0.17 K/uL (0.00-0.02) H 11/07 Red Blood Cell Morphology Unremarkable 11/07/21 Na 135 mmol/L (136-145) L 11/07/21 K 4.4 mmol/L (3.5-5.1) 11/07/21 Cl 95 mmol/L (98-107) L 11/07/21 CO2 29 mmol/L (21-32) 11/07/21 Anion Gap 11 (3-11) 11/07/21 BUN 71 mg/dl (6-23) H 11/07/21 Creatinine 1.41 mg/dl (0.6-1.2) H 11/07/21 Estimated GFR ( Amer) 41.3 ml/min 11/07/21 Estimated GFR (Non-Af Amer) 35.6 ml/min 11/07/21 BUN/Creatinine Ratio 50.4 (10-20) H 11/07/21 Glu 182 mg/dl (70-99(Fasting)) H 11/07/21 Ca 8.6 mg/dl (8.5-10.1) 11/07/21 Total Bilirubin 0.5 mg/dl (0.2-1.0) 11/06/21 AST 24 U/L (13-39) 11/06/21 ALT 16 U/L (7-52) 11/06/21 Alkaline Phosphatase 158 U/L (34-104) H 11/06/21 TP 6.6 gm/dl (6.0-8.3) 11/06/21 Albumin 3.7 gm/dl (3.4-5.0) 11/06/21 Globulin 2.9 gm/dl (2.5-4.0) 11/06/21 Albumin/Globulin Ratio 1.3 (0.9-2) 07/31/22 Mg 2.5 mg/dl (1.7-2.4) H 11/07/21 03:25 Calcium Level 8.6 mg/dl (8.5-10.1) 11/07/21 03:25 Prothromb Time International Ratio 1.1 (0.9-1.1) 11/06/21 18:0 7 Venous Blood pH 7.33 (7.36-7.41) L 11/06/21 18:07 Venous Blood Partial Pressure CO2 72 mmHg (38-50) H 11/06/21 18 :07 Venous Blood Partial Pressure O2 17 mmHg 11/06/21 18:07 Venous Blood HCO3 38 mmol/L 11/06/21 18:07 Venous Blood Base Excess 9.1 mEq/L 11/06/21 18:07 Venous Blood Oxygen Saturation < 60.0 % 11/06/21 18:07 Microbiology 11/06/21 18:45 Urine Culture - Preliminary Urine,Straight Cath Gram negative bacilli Diagnostic Findings (Past 24 Hours) Chest X-Ray 11/06/21 17:34 XR chest 1V portable CLINICAL HISTORY: Dyspnea COMPARISON STUDY: Chest radiograph December 05, 2020. FINDINGS: Lung volumes are normal. No pneumothorax or pleural effusion is noted. Moderate cardiomegaly is present. No evidence for pulmonary edema. No consolidation to suggest pneumonia. IMPRESSION: No acute cardiopulmonary findings. Cardiomegaly. ACT 112: Negative or not required by law. Electronically signed by: Shin Henderson M.D. 11/06/2021 6:20 PM I & O Totals 24 Hours 11/06/21 11/07/21 11/08/21 06:59 06:59 06:59 Intake Total 4250 / 4250 125 / 125 Output Total 305 / 305 Balance 3945 / 3945 125 / 125 Cumulative 11/06/21 17:20 thru 11/07/21 10:46 Intake Total 4375 Output Total 305 Balance 4070 RT Ventilator Mngmt (Last Documented) Ventilator Ordered Settings Respiratory Rate 25 11/07/21 10:30 Fraction of Inspired Oxygen 30 11/07/21 04:45 Ventilator - PT Measurements Respiratory Rate 25 PG Care Time/CCT Total # of Minutes Spent Total Time Spent with Patient: Total time spent is greater than 50% in coordination of care (as documented) at patient's floor/unit and/or counseling patient: Coding Level of Care Code 10421 Subseq Hosp Care Lvl 3 Diagnoses Septic shock A41.9; R65.21 Atrial fibrillation with RVR I48.91 NALLELY (acute kidney injury) N17.9 Chronic diastolic congestive heart failure I50.32 Acute on chronic respiratory failure with hypoxia and hypercapnia J96.21; J96.22 SRINIVASA (obstructive sleep apnea) G47.33 Metabolic alkalosis with respiratory acidosis E87.4 Hyperlipidemia E78.5 Depression F32.9 Hypothyroidism E03.9 Hypothyroidism type: acquired MRSA (methicillin resistant staph aureus) culture positive Z22.322 (1) Hypothyroidism Hypothyroidism type: acquired Qualified Code(s): E03.9 - Hypothyroidism, unspecified
[2021-11-08 05:20] LABS: Basophils # (auto) 0.01 K/uL (0-0.2); Basophils % (auto) 0.1 %; Eosinophils # (auto) 0.14 K/uL (0-0.50); Eosinophils % (auto) 1.5 %; Hematocrit (blood only) 23.8 % (34.1-44.9); Hemoglobin 7.6 g/dl (12.0-16.0); Immature Granulocytes # (auto) 0.03 K/uL (0.00-0.02); Immature Granulocytes % (auto) 0.3 %; Lymphocytes # (auto) 0.68 K/uL (1.2-3.4); Lymphocytes % (auto) 7.2 %; Mean Corpuscular Hemoglobin 30.6 pg (25.0-34.0); Mean Corpuscular Hgb Conc 31.9 g/dL (32.0-36.0); Monocytes % (auto) 9.5 %; Neutrophils # (auto) 7.68 K/uL (1.4-6.5); Neutrophils % (auto) 81.4 %; Platelet Count 174 K/uL (130-400); RDW Coefficient of Variation 14.2 % (11.5-14.5); RDW Standard Deviation 49.9 fL (36.4-46.3); Red Blood Count 2.48 M/uL (3.93-5.22); White Blood Count 9.44 K/ul (4.8-10.8)
[2021-11-08 05:42] LABS: BUN Creatinine Ratio 46.9 (10-20); Calcium 8.6 mg/dl (8.5-10.1); Creatinine Clr Calc Pharmacy 43.6 ml/min; Est GFR (African American) 39.2 ml/min; Est GFR (Non-African American) 33.8 ml/min; Magnesium 2.4 mg/dl (1.7-2.4); Phosphorus 3.9 mg/dl (2.5-4.9); Potassium 4.3 mmol/L (3.5-5.1)
[2021-11-08 06:10] LABS: RBC Morphology Unremarkable
[2021-11-08] MEDS: LEVOTHYROXINE SODIUM 50 MCG TABLET PO SCH (06:11)
--- NOTE | 2021-11-08 07:01 | Critical Care Progress Note ---
Date of Service November 08, 2021 Assessment & Plan (1) Sepsis: (2) Acute UTI: (3) Acute dehydration: (4) NALLELY (acute kidney injury): (5) Atrial fibrillation with RVR: (6) MRSA (methicillin resistant staph aureus) culture positive: (7) Acute hypoxemic respiratory failure: (8) Septic shock: (9) Chronic diastolic congestive heart failure: (10) Pulmonary hypertension: (11) SRINIVASA (obstructive sleep apnea): (12) Acute on chronic respiratory failure with hypoxia and hypercapnia: (13) DVT prophylaxis: (14) Hypoxia: (15) COPD (chronic obstructive pulmonary disease): (16) Atrial fibrillation: (17) Asthma: Plan Impression: 80-year-old female presents to the ICU with sepsis, pyrexia, and hypotension following an aspiration event Neuro: CAM ICU: Negative Depressioncontinue citalopram Cardiac: Hypotension -improved following IV fluid resuscitation. No need for pressors at the current time. -Echo 12/05/20 EF 55 to 60%, moderate left ventricular hypertrophy, severe biatrial dilation, mild mitral regurg, severe pulmonary hypertension -Suspect this is most likely secondary to severe sepsis. -Cortisol level appropriately elevated -Hold antihypertensives A. fib RVR -suspect this is secondary to hypoxia/sepsis. Patient now in controlled rate A. fib -Chronically anticoagulated. Continue apixaban -No home med for rate control. Continue to monitor for now HLDcontinue statin Respiratory: Acute on chronic respiratory failure with hypoxia and hypercapniasuspect this is likely following aspiration event in the setting of COPD. -Patient is DNI status, doing well weaned down to home baseline O2 of 2L. -PE unlikely as patient is anticoagulated on apixaban -Hold diuresis for now given hypotension -Nebs as needed -See ID management for possible pneumonia/pneumonitis -Continuous monitoring pulse ox GI: Heart healthy diet. RENAL/LYTES: AKIlikely ATN secondary to hypotension -Continue with IV fluid resuscitation to maintain maps greater than 65 -Avoid nephrotoxins and renally adjust medication -Hold losartan : Foleystrict I's and O's ENDO: ICU hyperglycemic protocol Hypothyroidcontinue Synthroid HEME: Hemoglobin 8.5->7.6, baseline 9-10 over past year, monitor routine CBCs and sym ptoms. ID: Severe sepsis -UTI most likely source given 4+ bacteria on U/A, less likely pulmonary source given baseline O2 w/ good saturation -Patient febrile, leukocytosis, elevated lactate -Nasal MRSA positive, continue contact precautions -Urine culture growing Klebsiella pansensitive. Blood culture negative after 24 hrs. -Bio fire unremarkable -Cefepime and Vancomycin switched to Ceftriaxone. Can switch to oral Omnicef for additional 7 days. LINES/IV ACCESS: Peripheral IVs DVT PROPHYLAXIS: SCDs, on apixaban Dispo: Stable to downgrade from ICU. Admission and Anticipated Discharge Date Admission Date: November 06, 2021 Supervising Physician Co-Signing Physician Notes Dr. Dennis was resident physician during care of patient. I separately evaluated patient for moore portions of the history and the exam. I was present during the critical portion of medical decision making, and I discussed the case with the resident. I generally agree with the findings and plan. Transition from IV Rocephin as patient is afebrile to Omnicef for 7 days, stable for downgrade to [facility]. Klebsiella UTI. Subjective Patient seen at the bedside this morning feeling better than yesterday. Patient denies any fevers, chills, chest pain, shortness of breath. She is eating well this morning with the only complication being hiccups. Review of Systems Constitutional: as per Subjective / HPI Physical Exam Constitutional: WD/WN, vitals as above Eyes: PERRL, conjunctivae normal, anicteric sclerae Respiratory: normal respiratory effort, lungs clear to auscultation Cardiovascular: Rate/Rhythm: regular rate and regular rhythm Heart Sounds: normal S1 and normal S2 Extremities: + edema (1+ edema to mid steven. ) Gastrointestinal (Abdomen): normal bowel sounds, soft, nontender, no hepatosplenomegaly Results & Data Results & Data ([facility]) Vital Signs (Past 12 Hours) Vital Signs Temp Pulse Resp BP Pulse Ox Pulse Ox O2 Del Method 11/08/21 06:30 37 C 94 H 22 111/59 L 99 Nasal Cannula 11/08/21 06:00 37.1 C 85 24 111/59 L 98 BiPAP 11/08/21 05:00 37.1 C 79 23 106/52 L 99 BiPAP 11/08/21 04:00 37.1 C 86 20 107/59 L 99 BiPAP 11/08/21 03:00 37.1 C 85 22 129/57 L 98 BiPAP 11/08/21 02:00 37.1 C 82 21 103/52 L 99 BiPAP 11/08/21 03:37 78 21 98 11/08/21 00:00 75 11/08/21 01:14 37.1 C 81 22 100/50 L 99 BiPAP 11/08/21 00:26 37.2 C 85 20 107/56 L 99 BiPAP 11/08/21 00:00 37.3 C 89 23 95/51 L 98 BiPAP 11/07/21 23:00 37.3 C 83 21 107/66 99 BiPAP 11/07/21 22:00 37.5 C 81 24 96/42 L 97 Nasal Cannula 11/07/21 21:00 37.5 C 89 24 100/52 L 99 Nasal Cannula 11/07/21 20:00 37.5 C 92 H 26 H 103/51 L 98 Nasal Cannula 11/07/21 22:54 98 11/07/21 22:50 88 26 H 99 11/07/21 19:33 132/61 11/07/21 19:30 37.5 C 91 H 26 H 132/61 98 Nasal Cannula 11/07/21 19:00 37.6 C H 89 26 H 91 Nasal Cannula 11/07/21 19:00 128/74 11/07/21 19:49 81 11/07/21 19:45 Nasal Cannula O2 Del Method O2 Flow Rate FiO2 11/08/21 06:30 2 11/08/21 06:00 30 11/08/21 05:00 30 11/08/21 04:00 30 11/08/21 03:00 30 11/08/21 02:00 30 11/08/21 03:37 30 11/08/21 00:00 11/08/21 01:14 30 11/08/21 00:26 30 11/08/21 00:00 30 11/07/21 23:00 30 11/07/21 22:00 2 11/07/21 21:00 2 11/07/21 20:00 2 11/07/21 22:54 BiPAP 11/07/21 22:50 30 11/07/21 19:33 11/07/21 19:30 2 11/07/21 19:00 2 11/07/21 19:00 11/07/21 19:49 11/07/21 19:45 2 Resident Activity Tracking Resident Involvement: Resident Care Provided Care Provided: Adult Hospital Medicine (1) Atrial fibrillation Atrial fibrillation type: unspecified Qualified Code(s): I48.91 - Unspecified atrial fibrillation (2) COPD (chronic obstructive pulmonary disease) COPD type: unspecified COPD Qualified Code(s): J44.9 - Chronic obstructive pulmonary disease, unspecified
[2021-11-08] MEDS: DOCUSATE SODIUM/SENNA 50/8.6MG TAB PO SCH (07:30)
[2021-11-08] MEDS: APIXABAN 2.5 MG TAB PO SCH ×2 (07:30→21:11)
[2021-11-08] MEDS: cefTRIAXone SODIUM 2,000 MG in DEXTROSE 5% 50 ML IV SCH (09:38)
--- NOTE | 2021-11-08 14:24 | Palliative Care Consultation ---
Date of Consultation November 08, 2021 Assessment & Plan (1) Dyspnea: with acute on chronic hypoxic respiratory failure. Improving. (2) Palliative care encounter: I talked with Hilary about her understanding of her illness and goals for her care. She tells me that she has never completed an advance directive. She indicates that her daughter, William and her son, would be her surrogate decision makers. She feels confident that they would know what to do if faced with decisions for her care. We discussed that on prior admission her code status was DNR and is conditional code on this admission. I asked her what her thoughts were about that. She told me that if she were really sick she would prefer to peacefully and does not think that she would want CPR. We discussed goals for care short of cardiopulmonary arrest and she would want to come to the hospital, have medications or bipap if needed. She has two grandsons in their 20s which bring meaning to her life and she would like to see them continue to grow. I offered to complete a POLST form that could return to [facility] with her. She feels that she would prefer to wait on this. I encouraged her to discuss her thoughts with her son and daughter to ensure that they would know what decisions to make on her behalf. I also encouraged her to talk with staff at [facility] about completing POLST in the future if she would like. History of Present Illness Reason for Consultation: goals of care Requesting Physician: Dr. Costa Attending Physician: Clemente Boss History of Present Illness 80 yo lady who resides at [facility]. She has a history of SRINIVASA, HFpEF, pulmonary hypertension, chronic respiratory failure with baseline O2 at 2L NC. She was admitted with hypoxia, following an aspiration event at [facility]. On admission she declined intubation but did want CPR with medications. She had been on bipap and is weaning down to her baseline O2 support. She is being treated for UTI and sepsis. She is awake and alert. She does not recall the specifics of the night she was admitted but does seem to have insight into her illness. She tells me that she is essentially bedbound at [facility] though she is able to get around in the wheelchair. Allergies Allergy/AdvReac Type Severity Reaction Status Date / Time sulfisoxazole Allergy Unknown Unknown Verified 08/04/21 12:53 thimerosal Allergy Unknown Unknown Verified 08/04/21 12:53 torsemide Allergy Unknown Unknown Verified 08/04/21 12:53 buspirone [From BuSpar] Allergy Unknown Verified 08/04/21 12:53 cephalexin Allergy RASH Verified 08/04/21 12:53 clarithromycin [From Biaxin] Allergy Unknown Verified 08/04/21 12:53 iodine Allergy Unknown Verified 08/04/21 12:53 povidone-iodine Allergy Unknown Verified 08/04/21 12:53 [From Betadine] soap [From Betadine] Allergy Unknown Verified 08/04/21 12:53 Home Medications Medication Instructions Recorded Confirmed Type albuterol sulfate 90 mcg/actuation 2 inha inhalation Q6H PRN 12/20/17 11/06/21 History aerosol inhaler (Ventolin HFA) Shortness Of Breath Or Wheezing fexofenadine 180 mg tablet 180 mg PO DAILY 12/20/17 11/06/21 History (Lucie Allergy) cholecalciferol (vitamin D3) 125 5,000 unit PO DAILY 02/14/18 11/06/21 History mcg (5,000 unit) tablet (Vitamin D3) spironolactone 25 mg tablet 25 mg PO BID #180 tabs 07/14/19 11/06/21 Rx Lift Chair #1 ea 10/16/19 11/06/21 Rx losartan 25 mg tablet 25 mg PO QAM #90 tabs 10/20/19 11/06/21 Rx levothyroxine 50 mcg tablet 50 mcg PO DAILY #30 tabs 07/12/20 11/06/21 Rx (Euthyrox) simvastatin 40 mg tablet (Zocor) 40 mg PO DAILY #90 tabs 08/09/20 11/06/21 Rx acetaminophen 325 mg tablet 650 mg PO Q6 PRN Fever Or Pain 12/05/20 11/06/21 History (Tylenol) gabapentin 100 mg capsule 100 mg PO AMHS 12/05/20 11/06/21 History lorazepam 0.5 mg tablet See Rx Instructions .Route 12/05/20 11/06/21 History .COMPLEX PRN anxiety/restlessness multivitamin with iron-mineral 1 tab PO DAILY 12/05/20 11/06/21 History nystatin 100,000 unit/mL oral 5 ml PO QID 12/05/20 11/06/21 History suspension polysaccharide iron complex 150 mg 150 mg PO DAILY 12/05/20 11/06/21 History iron capsule tramadol 50 mg tablet 50 mg PO Q8 PRN Pain, Severe 12/05/20 11/06/21 History apixaban 2.5 mg tablet (Eliquis) 5 mg PO BID 02/17/21 11/06/21 History ascorbate calcium (vitamin C) 500 500 mg PO BID 02/17/21 11/06/21 History mg tablet bumetanide 1 mg tablet 2 mg PO DAILY 02/17/21 11/06/21 History melatonin 3 mg capsule 3 mg PO HS PRN Insomnia 02/17/21 11/06/21 History citalopram 10 mg tablet 15 mg PO DAILY 08/04/21 11/06/21 History Patient History Medical History (Updated 11/08/21 @ 14:33 by Chasity Yanez MD) Adult body mass index 40 and over Adult situational stress disorder Allergic rhinitis due to allergen Anemia Asthma Atrial fibrillation BMI 50.0-59.9, adult Bronchitis Congestive heart failure, unspecified COPD (chronic obstructive pulmonary disease) COPD exacerbation Cough Diverticulosis of colon (without mention of hemorrhage) Esophageal reflux Fx femur shaft-closed History of pulmonary embolism Hyperlipidemia Hyperlipidemia, unspecified Hypoxia Localized primary osteoarthritis of lower leg Lumbar radiculopathy Morbid obesity Morbid obesity with BMI of 45.0-49.9, adult Neurodermatitis Obstructive sleep apnea (adult) (pediatric) Onychomycosis Permanent atrial fibrillation Pneumonia Pneumonia, organism unspecified Psoriasis Pulmonary hypertension Sleep related hypoxia Systolic congestive heart failure Tailor's bunionette Unspecified asthma Surgical History History of appendectomy History of hysterectomy History of tonsillectomy Family History Unknown Acute myocardial infarction Mother Heart disease Myocardial infarction Other No significant family history Denies family history of Ovarian cancer Prostate cancer Breast cancer Lung cancer Colorectal cancer Social History Smoking Status: Former smoker Second Hand Exposure: No; Do You Dip or Chew Tobacco: No; Tobacco Cessation Education Requested by Patient: No Hx Alcohol Use: No Hx Substance Use: No Preferred Language: Dominican Communication Ability: Effective Visual Impairment: Limited Hearing Ability: Normal 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 Required: No Beliefs That Will Affect Care: None marital status: Current Living Situation: Personal Care Facility current occupational status: retired How many Children do You have: 2 Other Information That Helps Us Care for You: No Feels Safe at Home: Yes Childhood Exposure to Second-Hand Smoke: No caffeine: No Dental Care, Regularly: No Physical Activity Frequency: Does not Exercise Physical Activity Frequency Comment: due to health issues Seatbelt Use: always Sunscreen Use: No (not in the sun) Assistive Devices: Oxygen - Continuous, Walker and Wheelchair Review of Systems Review of Systems: ESAS Pain 0/3 Dyspnea 1/3 Nausea 0/3 Fatigue 2/3 Anxiety 0/3 Drowsiness 1/3 PPS 40% Physical Exam Constitutional: no acute distress ENMT: Mouth: oral mucous membranes not dry Respiratory: normal respiratory effort; no labored breathing Cardiovascular: Rate/Rhythm: + irregularly irregular Gastrointestinal (Abdomen): obese Neurologic: awake; not confused Results & Data ([place]) Vital Signs (Past 12 Hours) Vital Signs Temp Pulse Resp BP Pulse Ox O2 Del Method O2 Flow Rate 11/08/21 11:01 98.8 F 85 27 H 100 11/08/21 11:01 131/54 L 11/08/21 11:00 80 24 100 11/08/21 10:00 98.8 F 88 23 100 11/08/21 10:00 101/60 11/08/21 09:00 98.8 F 90 24 100 11/08/21 09:00 136/68 11/08/21 08:00 83 24 100 11/08/21 08:00 117/72 11/08/21 07:30 84 27 H 100 11/08/21 07:07 86 23 100 11/08/21 07:07 115/58 L 11/08/21 07:00 84 26 H 99 11/08/21 07:00 99.0 F 11/08/21 08:00 Nasal Cannula 2 11/08/21 06:30 98.6 F 94 H 22 111/59 L 99 Nasal Cannula 2 11/08/21 06:00 98.8 F 85 24 111/59 L 98 BiPAP 11/08/21 05:00 98.8 F 79 23 106/52 L 99 BiPAP 11/08/21 04:00 98.8 F 86 20 107/59 L 99 BiPAP 11/08/21 03:00 98.8 F 85 22 129/57 L 98 BiPAP 11/08/21 03:37 78 21 98 FiO2 11/08/21 11:01 11/08/21 11:01 11/08/21 11:00 11/08/21 10:00 11/08/21 10:00 11/08/21 09:00 11/08/21 09:00 11/08/21 08:00 11/08/21 08:00 11/08/21 07:30 11/08/21 07:07 11/08/21 07:07 11/08/21 07:00 11/08/21 07:00 11/08/21 08:00 11/08/21 06:30 11/08/21 06:00 30 11/08/21 05:00 30 11/08/21 04:00 30 11/08/21 03:00 30 11/08/21 03:37 30 PG Care Time/CCT Total # of Minutes Spent Total Time Spent: 55 Total Time Spent with Patient: Total time spent is greater than 50% in coordination of care (as documented) at patient's floor/unit and/or counseling patient:goals of care, code status, POLST, surrogate decision makers, patient education and support Coding Level of Care Code 77114 Initial Inpt Care Lvl 2 Diagnoses Dyspnea R06.00 Palliative care encounter Z51.5
--- NOTE | 2021-11-08 18:21 | Hospitalist Progress Note ---
Date of Service November 08, 2021 Assessment & Plan (1) Septic shock: Plan: Attending: Dr. Boss Patient admitted for tachyardia, hypoxia, and hypertension following aspiration event. CXR without acute pulmonary process to cause the above. Elevated WBC, fever, elevation of lactic acidosis. - Most likely Urinary source - Day# 2abx. De-escalated from cefepime to ceftriaxone. Urine cx with gram (-) bacilli. ID and sensitivity pending. - Patient refusing CPAP although she continues to be hypercapnic. She states that she has tried CPAP in the past as an outpatient and did not tolerate - Continue to titrate O2 to > 88%. - Lactate 2.5 ---> 3.7 and now down to 3.0 - Goal Map >65mm/hg UO 30ml per hour- currently fluid responsive- if refractory hypotension transfer for vasopressor support - Cortisol 32.89 - Off pressors on 11/08 -Patient stable to downgrade on the floor, will transition to omnicef. (2) Atrial fibrillation with RVR: Plan: Likely secondary to # 1 - Magnesium still slightly deficient - replete goal ~2.0 - Received 2gms MgSO4 again this morning - Follow with fluid volume status - She is on Apixaban so doubt PE at play- continue Apixaban- (3) NALLELY (acute kidney injury): Plan: Secondary to #1 - improved - hold diuretics - MAPS >65 - Continue to follow serial labs - avoid further nephrotoxic as able (4) Chronic diastolic congestive heart failure: Plan: HFpEF follows with heart failure clinic - hold diuretics at this time follow hemodynamics (5) Acute on chronic respiratory failure with hypoxia and hypercapnia: Plan: Recently attempted BiPAP/CPAP following previous admission - unable to tolerate as outpatient - refusing as an inpatient - DNI/DNR code status (6) SRINIVASA (obstructive sleep apnea): Plan: Hypercapnic - appears chronic in review of blood gases Refusing CPAP Continue supportive care (7) Metabolic alkalosis with respiratory acidosis: Plan: Uncompensated acute respiratory acidosis with chronic metabolic alkalosis Continue to treat for sepsis/UTI Follow serial labs (8) Hyperlipidemia: Plan: Continue statin when able to tolerate PO (9) Depression: Plan: Continue citalopram when able to tolerate PO (10) Hypothyroidism: Plan: Continue synthroid (11) MRSA (methicillin resistant staph aureus) culture positive: Plan: History of MRSA skin - MRSA remains positive - Continue Vancomycin pending blood cultures - Continue Isolation precautions Plan Patient is doing better today. Anticipate discharge back to Center care once stable Admission and Anticipated Discharge Date Admission Date: November 06, 2021 Subjective Patient reports feeling better. Review of Systems Review of Systems: All systems reviewed & are unremarkable except as noted in HPI & below Physical Exam Physical Exam: GENERAL : No acute distress. Awake and alert and talkative. Speech is appropriate. EYES: No icterus, gaze conjugate NOSE: No evidence of epistaxis MOUTH: No lesions or candidiasis NECK: Supple LUNGS: CTA B/L, no wheezes, rales or rhonchi. Good inspiratory effort. HEART: Regular, rate controlled ABDOMEN: Soft, NT, ND, BS Present EXTREMITIES: Trace bilateral LE edema, pedal pulses intact NEURO: A&OX3. Moves all extremities spontaneously and to command. No deviation of tongue. Pupils are equal round and reactive to light. Speech is appropriate with no slur. No focal deficits appreciated. Results & Data Results & Data ([facility]) Vital Signs (Past 12 Hours) Vital Signs Temp Pulse Resp BP Pulse Ox O2 Del Method O2 Flow Rate 11/08/21 16:00 37.1 C 82 26 H 100 11/08/21 16:00 118/67 11/08/21 15:00 81 24 100 11/08/21 15:00 115/78 11/08/21 14:00 75 25 H 100 11/08/21 14:00 111/58 L 11/08/21 13:01 139/74 11/08/21 13:01 92 H 23 100 11/08/21 13:00 93 H 26 H 100 11/08/21 12:00 86 24 99 11/08/21 12:00 114/78 11/08/21 11:01 37.1 C 85 27 H 100 11/08/21 11:01 131/54 L 11/08/21 11:00 80 24 100 11/08/21 10:00 37.1 C 88 23 100 11/08/21 10:00 101/60 11/08/21 09:00 37.1 C 90 24 100 11/08/21 09:00 136/68 11/08/21 08:00 83 24 100 11/08/21 08:00 117/72 11/08/21 07:30 84 27 H 100 11/08/21 07:07 86 23 100 11/08/21 07:07 115/58 L 11/08/21 07:00 84 26 H 99 11/08/21 07:00 37.2 C 11/08/21 08:00 Nasal Cannula 2 11/08/21 06:30 37 C 94 H 22 111/59 L 99 Nasal Cannula 2 PG Care Time/CCT Total # of Minutes Spent Total Time Spent with Patient: Total time spent is greater than 50% in coordination of care (as documented) at patient's floor/unit and/or counseling patient: Coding Level of Care Code 20461 Subseq Hosp Care Lvl 3 Diagnoses Septic shock A41.9; R65.21 Atrial fibrillation with RVR I48.91 NALLELY (acute kidney injury) N17.9 Chronic diastolic congestive heart failure I50.32 Acute on chronic respiratory failure with hypoxia and hypercapnia J96.21; J96.22 SRINIVASA (obstructive sleep apnea) G47.33 Metabolic alkalosis with respiratory acidosis E87.4 Hyperlipidemia E78.5 Depression F32.9 Hypothyroidism E03.9 Hypothyroidism type: acquired MRSA (methicillin resistant staph aureus) culture positive Z22.322 Time Spent (min) 35 (1) Hypothyroidism Hypothyroidism type: acquired Qualified Code(s): E03.9 - Hypothyroidism, unspecified
[2021-11-08] MEDS ORDERED: Nursing to Pharmacy Communication SCH (22:30)
[2021-11-09] MEDS: LEVOTHYROXINE SODIUM 50 MCG TABLET PO SCH (06:00)
[2021-11-09 06:29] LABS: Basophils # (auto) 0.01 K/uL (0-0.2); Basophils % (auto) 0.2 %; Eosinophils # (auto) 0.14 K/uL (0-0.50); Eosinophils % (auto) 2.8 %; Hematocrit (blood only) 23.9 % (34.1-44.9); Hemoglobin 7.6 g/dl (12.0-16.0); Immature Granulocytes # (auto) 0.03 K/uL (0.00-0.02); Immature Granulocytes % (auto) 0.6 %; Lymphocytes # (auto) 0.46 K/uL (1.2-3.4); Lymphocytes % (auto) 9.1 %; Mean Corpuscular Hemoglobin 30.3 pg (25.0-34.0); Mean Corpuscular Hgb Conc 31.8 g/dL (32.0-36.0); Mean Corpuscular Volume 95.2 fL (80.0-100.0); Mean Platelet Volume 8.9 fL (9.4-12.3); Monocytes # (auto) 0.41 K/uL (0.24-0.82); Monocytes % (auto) 8.1 %; Neutrophils # (auto) 4.01 K/uL (1.4-6.5); Neutrophils % (auto) 79.2 %; Platelet Count 183 K/uL (130-400); RDW Coefficient of Variation 13.8 % (11.5-14.5); RDW Standard Deviation 47.3 fL (36.4-46.3); Red Blood Count 2.51 M/uL (3.93-5.22); White Blood Count 5.06 K/ul (4.8-10.8)
[2021-11-09 06:48] LABS: Creatinine Clr Calc Pharmacy 62.5 ml/min; Est GFR (African American) 62.5 ml/min; Est GFR (Non-African American) 53.9 ml/min; Magnesium 2.3 mg/dl (1.7-2.4); Phosphorus 4.3 mg/dl (2.5-4.9); Potassium 4.4 mmol/L (3.5-5.1)
[2021-11-09 06:55] LABS: RBC Morphology Unremarkable
[2021-11-09] MEDS: APIXABAN 2.5 MG TAB PO SCH (08:22)
[2021-11-09] MEDS: DOCUSATE SODIUM/SENNA 50/8.6MG TAB PO SCH (08:23)
[2021-11-09] MEDS ORDERED: CEFDINIR 300 MG CAP PO SCH (09:00)
[2021-11-09] MEDS ORDERED: MICONAZOLE NITRATE POWDER 43 GM EXT SCH (21:00)
== END 2021-11-09 15:09 | DRG 871 ==
LOC: ED 17:27 → 1E 20:27 → SUATTDRO 20:27 → 1E 22:24 → 3E 11-08 21:26
DX: F32.A Depression, unspecified; Z79.890 Hormone replacement therapy; I27.20 Pulmonary hypertension, unspecified; Z87.891 Personal history of nicotine dependence; T17.908A Unspecified foreign body in respiratory tract, part unspecified causing other injury, initial encounter; G47.33 Obstructive sleep apnea (adult) (pediatric); Z79.899 Other long term (current) drug therapy; I11.0 Hypertensive heart disease with heart failure; Z82.49 Family history of ischemic heart disease and other diseases of the circulatory system; E87.4 Mixed disorder of acid-base balance; E78.5 Hyperlipidemia, unspecified; E86.0 Dehydration; N17.0 Acute kidney failure with tubular necrosis; Z20.822 Contact with and (suspected) exposure to COVID-19; I50.32 Chronic diastolic (congestive) heart failure; I48.91 Unspecified atrial fibrillation; N39.0 Urinary tract infection, site not specified; R65.21 Severe sepsis with septic shock; Z79.01 Long term (current) use of anticoagulants; Z22.322 Carrier or suspected carrier of Methicillin resistant Staphylococcus aureus; J96.21 Acute and chronic respiratory failure with hypoxia; Z91.048 Other nonmedicinal substance allergy status; A41.59 Other Gram-negative sepsis; Z88.8 Allergy status to other drugs, medicaments and biological substances; Z88.1 Allergy status to other antibiotic agents; E03.9 Hypothyroidism, unspecified; J96.22 Acute and chronic respiratory failure with hypercapnia; Z86.14 Personal history of Methicillin resistant Staphylococcus aureus infection

== ENCOUNTER 2022-03-16 07:41 | Inpatient (IN) ==
[2022-03-16] MEDS ORDERED: CEFEPIME 2,000 MG/20 ML VIAL IV STA (08:51)
[2022-03-16] MEDS ORDERED: LEVALBUTEROL HCL 0.63 MG/3 ML NEB NEB STA (08:52)
[2022-03-16] MEDS ORDERED: methylPREDNISolone 125 MG/2 ML VIAL IV STA (08:52)
[2022-03-16 08:53] LABS: Basophils # (auto) 0.03 K/uL (0-0.2); Basophils % (auto) 0.2 %; Eosinophils # (auto) 0.01 K/uL (0-0.50); Eosinophils % (auto) 0.1 %; Hematocrit (blood only) 35.1 % (34.1-44.9); Hemoglobin 11.2 g/dl (12.0-16.0); Immature Granulocytes # (auto) 0.25 K/uL (0.00-0.02); Lymphocytes # (auto) 0.42 K/uL (1.2-3.4); Lymphocytes % (auto) 3.4 %; Mean Corpuscular Hemoglobin 30.5 pg (25.0-34.0); Mean Corpuscular Hgb Conc 31.9 g/dL (32.0-36.0); Mean Corpuscular Volume 95.6 fL (80.0-100.0); Mean Platelet Volume 9.7 fL (9.4-12.3); Monocytes # (auto) 0.95 K/uL (0.24-0.82); Monocytes % (auto) 7.6 %; Neutrophils # (auto) 10.83 K/uL (1.4-6.5); Neutrophils % (auto) 86.7 %; Platelet Count 223 K/uL (130-400); RDW Coefficient of Variation 14.8 % (11.5-14.5); RDW Standard Deviation 51.8 fL (36.4-46.3); Red Blood Count 3.67 M/uL (3.93-5.22); White Blood Count 12.49 K/ul (4.8-10.8)
[2022-03-16 09:01] LABS: INR 1.2 (0.9-1.1); Partial Thromboplastin Ratio 0.9; Partial Thromboplastin Time 23.9 Seconds (21.0-31.0); Prothrombin Time 12.2 Seconds (9.0-12.0)
--- NOTE | 2022-03-16 09:36 | XRay Report ---
XR chest 1V portable HISTORY: 81 years-old Female RSV acute shortness of breath COMPARISON: Chest radiograph 11/06/2021 TECHNIQUE: AP view of the chest FINDINGS: Cardiac silhouette is enlarged. Atherosclerosis of the aorta. Pulmonary vascular congestion. No pneum othorax. Mild right hemidiaphragmatic elevation. Unchanged blunting of the costophrenic angles with m ild subsegmental left basilar predominant opacities. Degenerative changes of the shoulders and spine. IMPRESSION: 1. Cardiomegaly with pulmonary vascular congestion. 2. Mild left greater than right bibasilar opacities favor atelectasis. A mild pneumonitis could appea r similarly. ACT 112: Negative or not required by law. The above report was generated using voice recognition software. It may contain grammatical, syntax o r spelling errors. Electronically signed by: Kodak Reese M.D. 03/16/2022 9:34 AM
[2022-03-16 09:41] LABS: Alanine Aminotransferase 9 U/L (7-52); Albumin Level 3.5 gm/dl (3.4-5.0); Alkaline Phosphatase 96 U/L (34-104); Anion Gap 10 (3-11); BUN Creatinine Ratio 27.8 (10-20); Bilirubin,Total 0.9 mg/dl (0.2-1.0); Blood Urea Nitrogen 37 mg/dl (6-23); Calcium 9.7 mg/dl (8.5-10.1); Carbon Dioxide 41 mmol/L (21-32); Chloride 90 mmol/L (98-107); Est GFR (Non-African American) 37.9 ml/min; Globulin 3.5 gm/dl (2.5-4.0); Glucose 301 mg/dl (70-99(Fasting)); Sodium 141 mmol/L (136-145)
[2022-03-16 09:46] LABS: Influenza A virus by PCR Negative (Neg); Influenza B virus by PCR Negative (Neg); SARS CoV2 RNA(COVID-19) Ceph NEGATIVE (Negative)
[2022-03-16 09:48] LABS: Base Excess VBG 21.9 mEq/L; HCO3 VBG 49 mmol/L; Oxygen Saturation VBG 97.9 %; PCO2 VBG 63 mmHg (38-50); PO2 VBG 85 mmHg
[2022-03-16 10:00] LABS: RSV by PCR Positive (Neg)
[2022-03-16 10:08] LABS: Lipase < 3 U/L (11-82); Phosphorus 3.9 mg/dl (2.5-4.9)
[2022-03-16] MEDS ORDERED: LORazepam 1 MG/1 ML SYR ONE (10:34)
[2022-03-16 10:42] LABS: Appearance Urine Turbid (Clear); Bacteria Urine Automated Negative (Negative); Bilirubin Urine Negative (Negative); Blood Urine Trace (Negative); Color Urine Dark Yellow; Glucose Urine UA Negative (Negative); Ketones Urine 1+ (Negative); Leukocyte Esterase Urine Negative (Negative); Nitrite Urine Negative (Negative); Protein Urine 3+ (Negative); RBC Urine Automated 0-4 /hpf (0-4); Specific Gravity Urine 1.019 (1.000-1.030); Urobilinogen Urine Negative (Negative)
[2022-03-16] MEDS ORDERED: LORazepam 1 MG/1 ML SYR IV ONE (10:45)
[2022-03-16 10:53] LABS: Amorphous Sediment Urine Present (None Prsent)
--- NOTE | 2022-03-16 11:06 | Emergency Department Note ---
Impression & Plan Acute on chronic respiratory failure with hypoxia and hypercapnia, CHF (congestive heart failure), Atrial fibrillation with rapid ventricular response, Pneumonia, Seizure, Elevated troponin ED Provider Note NAME: GARRETT MARTINEZ AGE: 81 SEX: F ARRIVES VIA: Ambulance INFORMANT: Patient ED PROVIDER(S): Kenny Kitchen MD CHIEF COMPLAINT: AMS, acute respiratory failure, referred. PLAN: Disposition: Admit MEDICAL DECISION MAKING: The patient is a 81-year-old woman with a past medical history of chronic respiratory failure on home oxygen, SRINIVASA,, COPD, pulmonary hypertension, CHF who presents to the emergency department for acute on chronic respiratory failure from her chcf facility at [facility] where it was noted earlier this morning on rounding that the patient was having rhonchorous respirations, noted to be 70% on 2 L nasal cannula those initially reported that the patient is on room air. The patient presents in the setting of having upper respiratory symptoms for the past several weeks where she was recently diagnosed with RSV on bio fire testing. The patient had the addition of antibiotics over the past couple of days due to worsening respiratory status. Of note, the patient is DNR/DNI. On arrival, the patient is in acute respiratory distress, afebrile with heart rate in the 140s in atrial fibrillation and respiratory rate in the 30s with increased work of breathing and blood pressure 180s/30s. O2 saturation 94% on nonrebreather. Lungs with wheezes and rhonchi bilateral lung hudson with increased work of breathing. She is confused and does not recognize family. Limited neurologic exam due to confusion. Moves bilateral upper extremities equally with generalized weakness. Minimal movement of lower extremities though unclear if related to confusion plus chronic immobility. EKG without overt acute ischemia. Chest x-ray with bibasilar densities suspicious for pneumonitis/pneumonia. WBC 12.9K, with neutrophil predominance and left shift. H&H similar to prior. Platelets within normal limits. INR 1.2. VBG with pH of 7.5 but with PCO2 of 63 and bicarbonate on chemistry 41 which may reflect a component of acute hyperventilation in the setting of chronic hypercapnia. Creatinine 1.3 similar to prior range of values. Glucose 301. Lactic acid 1.2, within normal limits. Electrolytes and LFTs unremarkable. HS 237, nonspecific and BNP 355 increased from prior in the setting of CHF. Procalcitonin is not elevated. UA with WBCs and epithelial cells and otherwise no convincing evidence of infection. Patient's RSV PCR continues to remain positive. She has had been on nonrebreather and BiPAP was ordered for additional treatment of respiratory failure in addition to Solu-Medrol and Xopenex. Unfortunately prior to BiPAP being able to be placed the patient was noted to have a seizure-like episode with rigidity and unresponsiveness though with eyes open. As her rigidity calmed she still remained unresponsive with evidence of upper airway obstruction consistent with her SRINIVASA and so was placed on BiPAP. Thus, given the patient's seizure episode suspicion that this may have occurred this morning as well when she was found to be in the 70s on nasal cannula and acutely altered. She was given a one-time dose of 0.5 mg of Ativan. Patient had been treated with empiric cefepime on arrival. IV fluid hydration- 30cc/kg deferred in the setting of hypervolemic appearance and CHF with stable blood pressure. CT of the head ordered for evaluation of seizure and altered mental status. Contrast deferred given listed iodine allergy. CT of the chest and abdomen pelvis also ordered to further characterize her acute respiratory failure with hypoxia. CT head the head was performed and negative for acute intracranial abnormality though note of paranasal sinus disease. CT of the chest further characterizes multifocal airspace consolidation of bilateral lower lobes left greater than right. CT of the abdomen pelvis demonstrates extensive diverticulosis with suggestion of mild diverticulitis. 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 Case was discussed with Dr. Stanton, [facility] hospitalist, who will evaluate the patient for admission. Further management per admitting team. Triage Nursing notes reviewed and agree them. Prior medical records reviewed Vital Signs: reviewed Differential diagnosis: Sepsis, UTI, pneumonia, metabolic, electrolyte abnormalities, cardiac sources, intracerebral event, toxicologic, neurologic, as well as other pathologies. ER treatment provided: See below. Diagnostics interpreted by me: ECG: Atrial fibrillation with RVR, 136 bpm, incomplete right bundle branch block, ST and T wave abnormality, no overt ST elevation, QTC 470, QRS 118 Cardiac Monitoring: An order for continuous cardiac monitoring was placed and demonstrates atrial fibrillation, RVR, 136 bpm, no ectopy. Laboratory studies: See below Imaging studies: See below Consultation(s): Dr. Stanton [facility] hospitalist. HPI: The patient is a 81-year-old woman with a past medical history of chronic respiratory failure on home oxygen, SRINIVASA,, COPD, pulmonary hypertension, CHF who presents to the emergency department for acute on chronic respiratory failure from her chcf facility at [facility] where it was noted earlier this morning on rounding that the patient was having rhonchorous respirations, noted to be 70% on 2 L nasal cannula those initially reported that the patient is on room air. The patient presents in the setting of having upper respiratory symptoms for the past several weeks where she was recently diagnosed with RSV on bio fire testing. The patient had the addition of antibiotics over the past couple of days due to worsening respiratory status. Of note, the patient is DNR/DNI. ROS: See above HPI for pertinent positives & negatives. A total of 10 systems reviewed and were otherwise negative. VITALS:See Below PHYSICAL EXAMINATION: GENERAL: Awake, alert but confused, ill-appearing, in no distress, BMI 42. HENT: Normocephalic, atraumatic. Oropharynx with dry mucous membranes and otherwise unremarkable. EYES: Normal conjunctiva. Sclera non-icteric. NECK: Supple. No nuchal rigidity. FROM. No JVD. RESPIRATORY: Wheezes and rhonchi bilateral lung hudson with increased work of breathing. CARDIAC: Tachycardic rate, normal rhythm. Extremities warm and well perfused. Pulses equal. ABDOMEN: Soft, non-distended. No tenderness to palpation. No rebound or guarding. No masses. RECTAL: Deferred. MUSCULOSKELETAL: Chest examination reveals no tenderness. The back is symmetrical on inspection without obvious abnormality. There is no CVA tenderness to palpation. No joint edema. LOWER EXTREMITIES: Calves are equal size bilaterally and non-tender. 1+ BLE edema. No discoloration. NEURO: Confused. Limited neurologic exam due to confusion. Moves bilateral upper extremities equally with generalized weakness. Minimal movement of lower extremities though unclear if related to confusion plus chronic immobility. SKIN: No rash or jaundice noted. ED COURSE: Critical Care: I have personally spent greater than 95 minutes of critical care time in the direct management of this patient. This includes bedside care, interpretation of diagnostic studies, and testing, discussion with consultants, patient, and family members, and other required patient management activities. This 95 minutes is in excess of all separately billable procedures. Kenny Kitchen MD Past Med/Surg History Medical History Acute metabolic encephalopathy Adult body mass index 40 and over Adult situational stress disorder Allergic rhinitis due to allergen Anemia Asthma Atrial fibrillation BMI 50.0-59.9, adult Bronchitis Congestive heart failure, unspecified COPD (chronic obstructive pulmonary disease) COPD exacerbation Cough Diabetic ketoacidosis Diverticulosis of colon (without mention of hemorrhage) Esophageal reflux Fx femur shaft-closed History of pulmonary embolism Hyperlipidemia Hyperlipidemia, unspecified Hypertensive emergency Hypoxia Localized primary osteoarthritis of lower leg Lumbar radiculopathy Morbid obesity Morbid obesity with BMI of 45.0-49.9, adult Multifocal pneumonia Neurodermatitis Obstructive sleep apnea (adult) (pediatric) Onychomycosis Permanent atrial fibrillation Pneumonia Pneumonia, organism unspecified Psoriasis Pulmonary hypertension Seizure-like activity Sleep related hypoxia Systolic congestive heart failure Tailor's bunionette Unspecified asthma Surgical History History of appendectomy History of hysterectomy History of tonsillectomy Family History Unknown Acute myocardial infarction Mother Heart disease Myocardial infarction Other No significant family history Denies family history of Ovarian cancer Prostate cancer Breast cancer Lung cancer Colorectal cancer Social History Smoking Status: Never smoker Second Hand Exposure: No; Do You Dip or Chew Tobacco: No; Tobacco Cessation Education Requested by Patient: No Hx Alcohol Use: No Hx Substance Use: No Preferred Language: Amharic Communication Ability: Effective Visual Impairment: Limited Hearing Ability: Normal Side Piece Coverer Required: No Beliefs That Will Affect Care: None marital status: Current Living Situation: Snf current occupational status: retired How many Children do You have: 2 Other Information That Helps Us Care for You: No Feels Safe at Home: Yes Safety Concerns: Feels Safe At This Time Childhood Exposure to Second-Hand Smoke: No caffeine: No Dental Care, Regularly: No Physical Activity Frequency: Does not Exercise Physical Activity Frequency Comment: due to health issues Seatbelt Use: always Sunscreen Use: No (not in the sun) Assistive Devices: BiPap Allergies Allergies Allergy/AdvReac Type Severity Reaction Status Date / Time sulfisoxazole Allergy Unknown Unknown Verified 02/02/22 09:59 thimerosal Allergy Unknown Unknown Verified 02/02/22 09:59 torsemide Allergy Unknown Unknown Verified 02/02/22 09:59 buspirone [From BuSpar] Allergy Unknown Verified 02/02/22 09:59 cephalexin Allergy RASH Verified 02/02/22 09:59 clarithromycin [From Biaxin] Allergy Unknown Verified 02/02/22 09:59 iodine Allergy Unknown Verified 02/02/22 09:59 povidone-iodine Allergy Unknown Verified 02/02/22 09:59 [From Betadine] soap [From Betadine] Allergy Unknown Verified 02/02/22 09:59 Home Meds Home Medications Medication Instructions Recorded Confirmed albuterol sulfate 90 mcg/actuation 2 inha inhalation Q6H PRN 12/20/17 03/16/22 aerosol inhaler (Ventolin HFA) Shortness Of Breath Or Wheezing fexofenadine 180 mg tablet 180 mg PO DAILY 12/20/17 03/16/22 (Lucie Allergy) cholecalciferol (vitamin D3) 125 5,000 unit PO DAILY 02/14/18 03/16/22 mcg (5,000 unit) tablet (Vitamin D3) acetaminophen 325 mg tablet 650 mg PO Q6 PRN Fever Or Pain 12/05/20 03/16/22 (Tylenol) gabapentin 100 mg capsule 100 mg PO [facility] 12/05/20 03/16/22 lorazepam 0.5 mg tablet 1 PO PRN anxiety/restlessness 12/05/20 11/06/21 multivitamin with iron-mineral 1 tab PO DAILY 12/05/20 03/16/22 nystatin 100,000 unit/mL oral 5 ml PO QID PRN Thrush 12/05/20 03/16/22 suspension polysaccharide iron complex 150 mg 150 mg PO DAILY 12/05/20 03/16/22 iron capsule tramadol 50 mg tablet 50 mg PO Q8 PRN Pain, Severe 12/05/20 03/16/22 apixaban 2.5 mg tablet (Eliquis) 5 mg PO BID 02/17/21 03/16/22 ascorbate calcium (vitamin C) 500 500 mg PO BID 02/17/21 03/16/22 mg tablet bumetanide 1 mg tablet 2 mg PO DAILY 02/17/21 03/16/22 melatonin 3 mg capsule 3 mg PO HS PRN Insomnia 02/17/21 03/16/22 citalopram 10 mg tablet 15 mg PO DAILY 08/04/21 03/16/22 Previous Rx's Medication Instructions Recorded spironolactone 25 mg tablet 25 mg PO BID #180 tabs 07/14/19 Lift Chair #1 ea 10/16/19 losartan 25 mg tablet 25 mg PO QAM #90 tabs 10/20/19 levothyroxine 50 mcg tablet 50 mcg PO DAILY #30 tabs 07/12/20 (Euthyrox) simvastatin 40 mg tablet (Zocor) 40 mg PO DAILY #90 tabs 08/09/20 cefdinir 300 mg capsule 300 mg PO BID #17 caps 11/09/21 Results & Data (ED) Vital Signs Vital Signs - 24 hr 03/16/22 07:59 03/16/22 07:50 03/16/22 08:00 Temperature 36.5 C Temperature Source Oral Pulse Rate 140 H 140 H 130 H Pulse Rate from SpO2 Sensor 148 H 135 H Respiratory Rate 24 30 H 31 H Respiratory Effort / Characteristics Accessory Muscle Use Labored Short of Breath Respiratory Depth Respiratory Pattern Blood Pressure 184/130 H 184/30 H Blood Pressure Mean 148 81 Pulse Oximetry 82 L 94 Oxygen Delivery Method Non-rebreather Oxygen Flow Rate 15 Fraction of Inspired Oxygen Sepsis Recent Fever Within 48 Hours No Sepsis New/Unexplained Change in Mental Status Yes Sepsis Action Taken by Nursing Physician Notified 03/16/22 08:30 03/16/22 09:00 03/16/22 09:30 Temperature Temperature Source Pulse Rate 128 H 128 H 120 H Pulse Rate from SpO2 Sensor 135 H 130 H 129 H Respiratory Rate 25 H 31 H 28 H Respiratory Effort / Characteristics Respiratory Depth Respiratory Pattern Blood Pressure 167/110 H 188/126 H Blood Pressure Mean 129 146 Pulse Oximetry 98 98 95 Oxygen Delivery Method Non-rebreather Oxygen Flow Rate 15 Fraction of Inspired Oxygen Sepsis Recent Fever Within 48 Hours Sepsis New/Unexplained Change in Mental Status Sepsis Action Taken by Nursing 03/16/22 10:00 03/16/22 10:30 03/16/22 10:50 Temperature Temperature Source Pulse Rate 135 H 137 H 136 H Pulse Rate from SpO2 Sensor 137 H Respiratory Rate 30 H 36 H 33 H Respiratory Effort / Characteristics Non-Labored Spontaneous Respiratory Depth Normal Respiratory Pattern Regular Blood Pressure 188/127 H Blood Pressure Mean 147 Pulse Oximetry 98 90 Oxygen Delivery Method Non-rebreather Oxygen Flow Rate 15 Fraction of Inspired Oxygen 40 Sepsis Recent Fever Within 48 Hours Sepsis New/Unexplained Change in Mental Status Sepsis Action Taken by Nursing 03/16/22 11:00 03/16/22 11:45 Temperature Temperature Source Pulse Rate 157 H 150 H Pulse Rate from SpO2 Sensor 154 H 146 H Respiratory Rate 30 H 24 Respiratory Effort / Characteristics Respiratory Depth Respiratory Pattern Blood Pressure 174/89 H 210/141 H Blood Pressure Mean 117 164 Pulse Oximetry 90 91 Oxygen Delivery Method BiPAP Oxygen Flow Rate Fraction of Inspired Oxygen 40 Sepsis Recent Fever Within 48 Hours Sepsis New/Unexplained Change in Mental Status Sepsis Action Taken by Nursing Laboratory Data Attestation: I reviewed the patient's lab results. Result diagrams: 03/16/22 08:10 03/16/22 16:12 Lab Results 03/16/22 03/16/22 03/16/22 Range/Units 08:10 08:10 08:10 WBC 12.49 H (4.8-10.8) K/ul RBC 3.67 L (3.93-5.22) M/uL Hgb 11.2 L (12.0-16.0) g/dl Hct 35.1 (34.1-44.9) % MCV 95.6 (80.0-100.0) fL MCH 30.5 (25.0-34.0) pg MCHC 31.9 L (32.0-36.0) g/dL RDW Std Deviation 51.8 H (36.4-46.3) fL RDW Coeff of Delaney 14.8 H (11.5-14.5) % Plt Count 223 (130-400) K/uL MPV 9.7 (9.4-12.3) fL Immature Gran % (Auto) 2.0 % Neut % (Auto) 86.7 % Lymph % (Auto) 3.4 % [place] % (Auto) 7.6 % Eos % (Auto) 0.1 % Baso % (Auto) 0.2 % Neut # (Auto) 10.83 H (1.4-6.5) K/uL Lymph # (Auto) 0.42 L (1.2-3.4) K/uL [place] # (Auto) 0.95 H (0.24-0.82) K/uL Eos # (Auto) 0.01 (0-0.50) K/uL Baso # (Auto) 0.03 (0-0.2) K/uL Immature Gran # (Auto) 0.25 H (0.00-0.02) K/uL PT 12.2 H (9.0-12.0) Seconds INR 1.2 H (0.9-1.1) APTT 23.9 (21.0-31.0) Seconds PTT Ratio 0.9 VBG pH (7.36-7.41) VBG pCO2 (38-50) mmHg VBG pO2 mmHg VBG HCO3 mmol/L VBG O2 Saturation % VBG Base Excess mEq/L Sodium 141 (136-145) mmol/L Potassium TNP Chloride 90 L (98-107) mmol/L Carbon Dioxide 41 H* (21-32) mmol/L Anion Gap 10 (3-11) BUN 37 H (6-23) mg/dl Creatinine 1.33 H (0.6-1.2) mg/dl Est Cr Clr Drug Dosing Not Reportable Est GFR ( Amer) 44.0 ml/min Est GFR (Non-Af Amer) 37.9 ml/min BUN/Creatinine Ratio 27.8 H (10-20) Glucose 301 H* (70-99(Fasting)) mg/dl Lactate (0.4-2.0) mmol/L Calcium 9.7 (8.5-10.1) mg/dl Phosphorus (2.5-4.9) mg/dl Magnesium (1.7-2.4) mg/dl Total Bilirubin 0.9 (0.2-1.0) mg/dl AST TNP ALT 9 (7-52) U/L Alkaline Phosphatase 96 (34-104) U/L Troponin I High Sens (0-14) pg/ml B-Natriuretic Peptide (0-100) pg/ml Total Protein 7.0 (6.0-8.3) gm/dl Albumin 3.5 (3.4-5.0) gm/dl Globulin 3.5 (2.5-4.0) gm/dl Albumin/Globulin Ratio 1.0 (0.9-2) Lipase (11-82) U/L Procalcitonin (0-0.5) ng/ml TSH (0.300-4.500) uIu/ml Free T4 (0.61-1.60) ng/dl Free T3 (2.3-4.2) pg/ml Urine Color Urine Appearance (Clear) Urine pH (4.5-7.5) Ur Specific [place] (1.000-1.030) Urine Protein (Negative) Urine Glucose (UA) (Negative) Urine Ketones (Negative) Urine Blood (Negative) Urine Nitrite (Negative) Urine Bilirubin (Negative) Urine Urobilinogen (Negative) Ur Leukocyte Esterase (Negative) Urine WBC (Auto) (0-5) /hpf Urine RBC (Auto) (0-4) /hpf U Hyaline Cast (Auto) (0-5) /lpf U Epithel Cells (Auto) (0-5) /lpf Urine Bacteria (Auto) (Negative) Ur Renal Epithelial Cell Amorphous Sediment (None Prsent) Urine Yeast SARS-CoV-2 (PCR) (Negative) Influenza Type A (PCR) (Neg) Influenza Type B (PCR) (Neg) RSV (RT-PCR) (Neg) 03/16/22 03/16/22 03/16/22 Range/Units 08:10 08:10 08:44 WBC (4.8-10.8) K/ul RBC (3.93-5.22) M/uL Hgb (12.0-16.0) g/dl Hct (34.1-44.9) % MCV (80.0-100.0) fL MCH (25.0-34.0) pg MCHC (32.0-36.0) g/dL RDW Std Deviation (36.4-46.3) fL RDW Coeff of Delaney (11.5-14.5) % Plt Count (130-400) K/uL MPV (9.4-12.3) fL Immature Gran % (Auto) % Neut % (Auto) % Lymph % (Auto) % [place] % (Auto) % Eos % (Auto) % Baso % (Auto) % Neut # (Auto) (1.4-6.5) K/uL Lymph # (Auto) (1.2-3.4) K/uL [place] # (Auto) (0.24-0.82) K/uL Eos # (Auto) (0-0.50) K/uL Baso # (Auto) (0-0.2) K/uL Immature Gran # (Auto) (0.00-0.02) K/uL PT (9.0-12.0) Seconds INR (0.9-1.1) APTT (21.0-31.0) Seconds PTT Ratio VBG pH (7.36-7.41) VBG pCO2 (38-50) mmHg VBG pO2 mmHg VBG HCO3 mmol/L VBG O2 Saturation % VBG Base Excess mEq/L Sodium (136-145) mmol/L Potassium Chloride (98-107) mmol/L Carbon Dioxide (21-32) mmol/L Anion Gap (3-11) BUN (6-23) mg/dl Creatinine (0.6-1.2) mg/dl Est Cr Clr Drug Dosing Est GFR ( Amer) ml/min Est GFR (Non-Af Amer) ml/min BUN/Creatinine Ratio (10-20) Glucose (70-99(Fasting)) mg/dl Lactate (0.4-2.0) mmol/L Calcium (8.5-10.1) mg/dl Phosphorus 3.9 (2.5-4.9) mg/dl Magnesium 2.0 (1.7-2.4) mg/dl Total Bilirubin (0.2-1.0) mg/dl AST ALT (7-52) U/L Alkaline Phosphatase (34-104) U/L Troponin I High Sens (0-14) pg/ml B-Natriuretic Peptide (0-100) pg/ml Total Protein (6.0-8.3) gm/dl Albumin (3.4-5.0) gm/dl Globulin (2.5-4.0) gm/dl Albumin/Globulin Ratio (0.9-2) Lipase < 3 L (11-82) U/L Procalcitonin 0.27 (0-0.5) ng/ml TSH (0.300-4.500) uIu/ml Free T4 (0.61-1.60) ng/dl Free T3 (2.3-4.2) pg/ml Urine Color Urine Appearance (Clear) Urine pH (4.5-7.5) Ur Specific [place] (1.000-1.030) Urine Protein (Negative) Urine Glucose (UA) (Negative) Urine Ketones (Negative) Urine Blood (Negative) Urine Nitrite (Negative) Urine Bilirubin (Negative) Urine Urobilinogen (Negative) Ur Leukocyte Esterase (Negative) Urine WBC (Auto) (0-5) /hpf Urine RBC (Auto) (0-4) /hpf U Hyaline Cast (Auto) (0-5) /lpf U Epithel Cells (Auto) (0-5) /lpf Urine Bacteria (Auto) (Negative) Ur Renal Epithelial Cell Amorphous Sediment (None Prsent) Urine Yeast SARS-CoV-2 (PCR) NEGATIVE (Negative) Influenza Type A (PCR) Negative (Neg) Influenza Type B (PCR) Negative (Neg) RSV (RT-PCR) Positive A* (Neg) 03/16/22 03/16/22 03/16/22 Range/Units 09:07 09:07 09:33 WBC (4.8-10.8) K/ul RBC (3.93-5.22) M/uL Hgb (12.0-16.0) g/dl Hct (34.1-44.9) % MCV (80.0-100.0) fL MCH (25.0-34.0) pg MCHC (32.0-36.0) g/dL RDW Std Deviation (36.4-46.3) fL RDW Coeff of Delaney (11.5-14.5) % Plt Count (130-400) K/uL MPV (9.4-12.3) fL Immature Gran % (Auto) % Neut % (Auto) % Lymph % (Auto) % [place] % (Auto) % Eos % (Auto) % Baso % (Auto) % Neut # (Auto) (1.4-6.5) K/uL Lymph # (Auto) (1.2-3.4) K/uL [place] # (Auto) (0.24-0.82) K/uL Eos # (Auto) (0-0.50) K/uL Baso # (Auto) (0-0.2) K/uL Immature Gran # (Auto) (0.00-0.02) K/uL PT (9.0-12.0) Seconds INR (0.9-1.1) APTT (21.0-31.0) Seconds PTT Ratio VBG pH 7.50 H (7.36-7.41) VBG pCO2 63 H (38-50) mmHg VBG pO2 85 mmHg VBG HCO3 49 mmol/L VBG O2 Saturation 97.9 % VBG Base Excess 21.9 mEq/L Sodium (136-145) mmol/L Potassium Chloride (98-107) mmol/L Carbon Dioxide (21-32) mmol/L Anion Gap (3-11) BUN (6-23) mg/dl Creatinine (0.6-1.2) mg/dl Est Cr Clr Drug Dosing Est GFR ( Amer) ml/min Est GFR (Non-Af Amer) ml/min BUN/Creatinine Ratio (10-20) Glucose (70-99(Fasting)) mg/dl Lactate 1.2 (0.4-2.0) mmol/L Calcium (8.5-10.1) mg/dl Phosphorus (2.5-4.9) mg/dl Magnesium (1.7-2.4) mg/dl Total Bilirubin (0.2-1.0) mg/dl AST ALT (7-52) U/L Alkaline Phosphatase (34-104) U/L Troponin I High Sens (0-14) pg/ml B-Natriuretic Peptide 355 H (0-100) pg/ml Total Protein (6.0-8.3) gm/dl Albumin (3.4-5.0) gm/dl Globulin (2.5-4.0) gm/dl Albumin/Globulin Ratio (0.9-2) Lipase (11-82) U/L Procalcitonin (0-0.5) ng/ml TSH (0.300-4.500) uIu/ml Free T4 (0.61-1.60) ng/dl Free T3 (2.3-4.2) pg/ml Urine Color Urine Appearance (Clear) Urine pH (4.5-7.5) Ur Specific [place] (1.000-1.030) Urine Protein (Negative) Urine Glucose (UA) (Negative) Urine Ketones (Negative) Urine Blood (Negative) Urine Nitrite (Negative) Urine Bilirubin (Negative) Urine Urobilinogen (Negative) Ur Leukocyte Esterase (Negative) Urine WBC (Auto) (0-5) /hpf Urine RBC (Auto) (0-4) /hpf U Hyaline Cast (Auto) (0-5) /lpf U Epithel Cells (Auto) (0-5) /lpf Urine Bacteria (Auto) (Negative) Ur Renal Epithelial Cell Amorphous Sediment (None Prsent) Urine Yeast SARS-CoV-2 (PCR) (Negative) Influenza Type A (PCR) (Neg) Influenza Type B (PCR) (Neg) RSV (RT-PCR) (Neg) 03/16/22 03/16/22 03/16/22 Range/Units 09:45 10:00 10:00 WBC (4.8-10.8) K/ul RBC (3.93-5.22) M/uL Hgb (12.0-16.0) g/dl Hct (34.1-44.9) % MCV (80.0-100.0) fL MCH (25.0-34.0) pg MCHC (32.0-36.0) g/dL RDW Std Deviation (36.4-46.3) fL RDW Coeff of Delaney (11.5-14.5) % Plt Count (130-400) K/uL MPV (9.4-12.3) fL Immature Gran % (Auto) % Neut % (Auto) % Lymph % (Auto) % [place] % (Auto) % Eos % (Auto) % Baso % (Auto) % Neut # (Auto) (1.4-6.5) K/uL Lymph # (Auto) (1.2-3.4) K/uL [place] # (Auto) (0.24-0.82) K/uL Eos # (Auto) (0-0.50) K/uL Baso # (Auto) (0-0.2) K/uL Immature Gran # (Auto) (0.00-0.02) K/uL PT (9.0-12.0) Seconds INR (0.9-1.1) APTT (21.0-31.0) Seconds PTT Ratio VBG pH (7.36-7.41) VBG pCO2 (38-50) mmHg VBG pO2 mmHg VBG HCO3 mmol/L VBG O2 Saturation % VBG Base Excess mEq/L Sodium (136-145) mmol/L Potassium 4.4 Chloride (98-107) mmol/L Carbon Dioxide (21-32) mmol/L Anion Gap (3-11) BUN (6-23) mg/dl Creatinine (0.6-1.2) mg/dl Est Cr Clr Drug Dosing Est GFR ( Amer) ml/min Est GFR (Non-Af Amer) ml/min BUN/Creatinine Ratio (10-20) Glucose (70-99(Fasting)) mg/dl Lactate (0.4-2.0) mmol/L Calcium (8.5-10.1) mg/dl Phosphorus (2.5-4.9) mg/dl Magnesium (1.7-2.4) mg/dl Total Bilirubin (0.2-1.0) mg/dl AST 16 ALT (7-52) U/L Alkaline Phosphatase (34-104) U/L Troponin I High Sens 237.4 H* (0-14) pg/ml B-Natriuretic Peptide (0-100) pg/ml Total Protein (6.0-8.3) gm/dl Albumin (3.4-5.0) gm/dl Globulin (2.5-4.0) gm/dl Albumin/Globulin Ratio (0.9-2) Lipase (11-82) U/L Procalcitonin (0-0.5) ng/ml TSH (0.300-4.500) uIu/ml Free T4 (0.61-1.60) ng/dl Free T3 (2.3-4.2) pg/ml Urine Color Dark Yellow Urine Appearance Turbid A (Clear) Urine pH 5.0 (4.5-7.5) Ur Specific [place] 1.019 (1.000-1.030) Urine Protein 3+ H (Negative) Urine Glucose (UA) Negative (Negative) Urine Ketones 1+ H (Negative) Urine Blood Trace H (Negative) Urine Nitrite Negative (Negative) Urine Bilirubin Negative (Negative) Urine Urobilinogen Negative (Negative) Ur Leukocyte Esterase Negative (Negative) Urine WBC (Auto) 10-30 H (0-5) /hpf Urine RBC (Auto) 0-4 (0-4) /hpf U Hyaline Cast (Auto) 1-5 (0-5) /lpf U Epithel Cells (Auto) 10-20 H (0-5) /lpf Urine Bacteria (Auto) Negative (Negative) Ur Renal Epithelial Cell Not Reportable Amorphous Sediment Present A (None Prsent) Urine Yeast Not Reportable SARS-CoV-2 (PCR) (Negative) Influenza Type A (PCR) (Neg) Influenza Type B (PCR) (Neg) RSV (RT-PCR) (Neg) 03/16/22 03/16/22 Range/Units 10:00 10:00 WBC (4.8-10.8) K/ul RBC (3.93-5.22) M/uL Hgb (12.0-16.0) g/dl Hct (34.1-44.9) % MCV (80.0-100.0) fL MCH (25.0-34.0) pg MCHC (32.0-36.0) g/dL RDW Std Deviation (36.4-46.3) fL RDW Coeff of Delaney (11.5-14.5) % Plt Count (130-400) K/uL MPV (9.4-12.3) fL Immature Gran % (Auto) % Neut % (Auto) % Lymph % (Auto) % [place] % (Auto) % Eos % (Auto) % Baso % (Auto) % Neut # (Auto) (1.4-6.5) K/uL Lymph # (Auto) (1.2-3.4) K/uL [place] # (Auto) (0.24-0.82) K/uL Eos # (Auto) (0-0.50) K/uL Baso # (Auto) (0-0.2) K/uL Immature Gran # (Auto) (0.00-0.02) K/uL PT (9.0-12.0) Seconds INR (0.9-1.1) APTT (21.0-31.0) Seconds PTT Ratio VBG pH (7.36-7.41) VBG pCO2 (38-50) mmHg VBG pO2 mmHg VBG HCO3 mmol/L VBG O2 Saturation % VBG Base Excess mEq/L Sodium (136-145) mmol/L Potassium Chloride (98-107) mmol/L Carbon Dioxide (21-32) mmol/L Anion Gap (3-11) BUN (6-23) mg/dl Creatinine (0.6-1.2) mg/dl Est Cr Clr Drug Dosing Est GFR ( Amer) ml/min Est GFR (Non-Af Amer) ml/min BUN/Creatinine Ratio (10-20) Glucose (70-99(Fasting)) mg/dl Lactate (0.4-2.0) mmol/L Calcium (8.5-10.1) mg/dl Phosphorus (2.5-4.9) mg/dl Magnesium (1.7-2.4) mg/dl Total Bilirubin (0.2-1.0) mg/dl AST ALT (7-52) U/L Alkaline Phosphatase (34-104) U/L Troponin I High Sens (0-14) pg/ml B-Natriuretic Peptide (0-100) pg/ml Total Protein (6.0-8.3) gm/dl Albumin (3.4-5.0) gm/dl Globulin (2.5-4.0) gm/dl Albumin/Globulin Ratio (0.9-2) Lipase (11-82) U/L Procalcitonin (0-0.5) ng/ml TSH 0.463 (0.300-4.500) uIu/ml Free T4 1.42 (0.61-1.60) ng/dl Free T3 2.76 (2.3-4.2) pg/ml Urine Color Urine Appearance (Clear) Urine pH (4.5-7.5) Ur Specific [place] (1.000-1.030) Urine Protein (Negative) Urine Glucose (UA) (Negative) Urine Ketones (Negative) Urine Blood (Negative) Urine Nitrite (Negative) Urine Bilirubin (Negative) Urine Urobilinogen (Negative) Ur Leukocyte Esterase (Negative) Urine WBC (Auto) (0-5) /hpf Urine RBC (Auto) (0-4) /hpf U Hyaline Cast (Auto) (0-5) /lpf U Epithel Cells (Auto) (0-5) /lpf Urine Bacteria (Auto) (Negative) Ur Renal Epithelial Cell Amorphous Sediment (None Prsent) Urine Yeast SARS-CoV-2 (PCR) (Negative) Influenza Type A (PCR) (Neg) Influenza Type B (PCR) (Neg) RSV (RT-PCR) (Neg) Administered Medications Insulin Human Regular 250 (units/ Sodium Chloride) 250 mls @ 4.3 mls/hr IV .Q24H [facility] [place]; Protocol Stop: 04/15/22 12:29 Last Titration: 03/16/22 19:18 Dose: 4.3 units/hr, 4.3 mls/hr Documented By: RAJAT Co-signed By: MARY Admin: 03/16/22 16:35 Dose: 4.3 units/hr, 4.3 mls/hr Documented By: MARY Co-signed By: LENNIE Famotidine 20 mg/ Syringe 5 mls @ 2.5 mls/min IV Q24H [facility] Stop: 04/15/22 20:59 Last Admin: 03/16/22 20:44 Dose: 2.5 mls/min Documented By: LMP Diltiazem HCl 125 mg/ Dextrose 125 mls @ 5 mls/hr IV .Q24H [facility] [place]; Protocol Stop: 04/15/22 15:44 Last Titration: 03/16/22 21:05 Dose: 5 mg/hr, 5 mls/hr Documented By: LMP Co-signed By: TP Titration: 03/16/22 19:55 Dose: 10 mg/hr, 10 mls/hr Documented By: LMP Co-signed By: TP Titration: 03/16/22 19:18 Dose: 0 mg/hr, 0 mls/hr Documented By: LMP Co-signed By: MARY Titration: 03/16/22 17:14 Dose: 15 mg/hr, 15 mls/hr Documented By: MARY Co-signed By: LENNIE Admin: 03/16/22 16:36 Dose: 10 mg/hr, 10 mls/hr Documented By: MARY Co-signed By: LENNIE Potassium Chloride (K Maciel / Wtr) 10 meq in 100 mls @ 100 mls/hr IV Q1H [facility] Stop: 03/16/22 22:44 Last Admin: 03/16/22 20:48 Dose: 100 mls/hr Documented By: Infusion: 03/16/22 20:48 Dose: 100 mls/hr Documented By: Admin: 03/16/22 19:56 Dose: 100 mls/hr Documented By: LMP Insulin Aspart (Insulin Aspart Per Unit) 0 units SC ACHS N[facility]ST[facility] Stop: 04/15/22 16:29 Last Admin: 03/16/22 21:01 Dose: Not Given Documented By: LMP Co-signed By: TP Admin: 03/16/22 16:30 Dose: Not Given Documented By: MARY Miscellaneous (Icu Electrolyte Replacement Protocol) 1 each N/A BID@06,18 [facility]; Protocol Stop: 03/23/22 17:59 Last Admin: 03/16/22 19:48 Dose: Not Given Documented By: LMP Discontinued Medications Diltiazem HCl (Diltiazem Hcl 5 Mg/Ml 5 Ml Vial) Confirm Administered Dose 25 mg IV .STK-MED ONE Stop: 03/16/22 15:41 Last Increment: 03/16/22 15:43 Dose: 20 mg Documented By: MARY Co-signed By: LENNIE Diltiazem HCl (Diltiazem Hcl 5 Mg/Ml 5 Ml Vial) 20 mg IV NOW STA Stop: 03/16/22 15:41 Last Admin: 03/16/22 16:51 Dose: Not Given Documented By: MARY Diltiazem HCl (Diltiazem Hcl 5 Mg/Ml 5 Ml Vial) 10 mg IV NOW STA Stop: 03/16/22 15:41 Last Admin: 03/16/22 16:51 Dose: 10 mg Documented By: MARY Co-signed By: LENNIE Diltiazem HCl (Diltiazem Hcl 5 Mg/Ml 5 Ml Vial) 10 mg IV NOW STA Stop: 03/16/22 16:33 Last Admin: 03/16/22 17:10 Dose: Not Given Documented By: MARY Furosemide (Furosemide 40 Mg/4 Ml Vial) 80 mg IV ONE ONE Stop: 03/16/22 12:17 Last Admin: 03/16/22 12:56 Dose: 80 mg Documented By: SHAHID Hydralazine HCl (Hydralazine Hcl 20 Mg/Ml Vial) 20 mg IV NOW STA Stop: 03/16/22 17:01 Last Admin: 03/16/22 17:30 Dose: 20 mg Documented By: MARY Cefepime HCl (Maxipime) 2,000 mg in 20 mls @ 5 mls/min IV NOW STA; Protocol Stop: 03/16/22 08:54 Last Admin: 03/16/22 10:09 Dose: 5 mls/min Documented By: DINAH Metronidazole (Flagyl) 500 mg in 100 mls @ 100 mls/hr IV Q8H [facility] Stop: 03/23/22 12:29 Last Infusion: 03/16/22 20:29 Dose: 0 mls/hr Documented By: Admin: 03/16/22 16:36 Dose: 100 mls/hr Documented By: MARY Vancomycin HCl 2,250 mg/ (Sodium Chloride) 545 mls @ 200 mls/hr IV NOW ONE Stop: 03/16/22 15:13 Last Admin: 03/16/22 13:04 Dose: 200 mls/hr Documented By: SHAHID Insulin Human Regular 5 units/ (Syringe) 5 mls @ 30 mls/min IV NOW ONE Stop: 03/16/22 14:16 Last Admin: 03/16/22 14:11 Dose: 30 mls/min Documented By: ZAK Co-signed By: CHERYL Levetiracetam 1,000 mg/ Sodium (Chloride) 110 mls @ 440 mls/hr IV NOW STA Stop: 03/16/22 16:30 Last Infusion: 03/16/22 20:28 Dose: 0 mls/hr Documented By: Admin: 03/16/22 16:55 Dose: 440 mls/hr Documented By: MARY Calcium Gluconate 2,000 mg/ (Dextrose) 70 mls @ 240 mls/hr IV NOW ONE Stop: 03/16/22 17:47 Last Infusion: 03/16/22 20:28 Dose: 0 mls/hr Documented By: Admin: 03/16/22 17:55 Dose: 240 mls/hr Documented By: MARY Magnesium Sulfate/Dextrose (Magnesium Sulfate / D5w) 1 gm in 100 mls @ 50 mls/hr IV Q2H [facility] Stop: 03/16/22 20:59 Last Admin: 03/16/22 21:11 Dose: 50 mls/hr Documented By: Infusion: 03/16/22 21:11 Dose: 50 mls/hr Documented By: Admin: 03/16/22 19:37 Dose: 50 mls/hr Documented By: RAJAT Insulin Human Regular (Novolin-R Insulin Per Unit Charge) Confirm Administered Dose 5 units .ROUTE .STK-MED ONE Stop: 03/16/22 14:12 Last Admin: 03/16/22 16:40 Dose: Not Given Documented By: MARY Levalbuterol HCl (Levalbuterol Hcl 0.63 Mg/3 Ml Neb) 0.63 mg NEB NOW STA; Protocol Stop: 03/16/22 08:53 Last Admin: 03/16/22 09:54 Dose: 0.63 mg Documented By: DINAH Lorazepam (Lorazepam 1 Mg/1 Ml Syr) 0.5 mg IV NOW ONE Stop: 03/16/22 10:46 Last Admin: 03/16/22 10:45 Dose: 0.5 mg Documented By: SR Methylprednisolone (Methylprednisolone 125 Mg/2 Ml Vial) 125 mg IV NOW STA Stop: 03/16/22 08:53 Last Admin: 03/16/22 10:09 Dose: 125 mg Documented By: MT Metoprolol Tartrate (Metoprolol Tartrate 1 Mg/Ml Vial) 2.5 mg IV NOW STA Stop: 03/16/22 13:41 Last Admin: 03/16/22 14:02 Dose: 2.5 mg Documented By: ZAK Imaging Data Radiologist's Impression: Chest X-Ray 03/16/22 08:33 XR chest 1V portable HISTORY: 81 years-old Female RSV acute shortness of breath COMPARISON: Chest radiograph 11/06/2021 TECHNIQUE: AP view of the chest FINDINGS: Cardiac silhouette is enlarged. Atherosclerosis of the aorta. Pulmonary vascular congestion. No pneumothorax. Mild right hemidiaphragmatic elevation. Unchanged blunting of the costophrenic angles with mild subsegmental left basilar predominant opacities. Degenerative changes of the shoulders and spine. IMPRESSION: 1. Cardiomegaly with pulmonary vascular congestion. 2. Mild left greater than right bibasilar opacities favor atelectasis. A mild pneumonitis could appear similarly. ACT 112: Negative or not required by law. The above report was generated using voice recognition software. It may contain grammatical, syntax or spelling errors. Electronically signed by: Kodak Reese M.D. 03/16/2022 9:[address] 03/16/22 10:53 CT head/brain wo con CLINICAL HISTORY: 81 years-old Female with sz, ams, ?prolonged hypoxia. Acute hypoxia with altered mental status and seizure like symptoms TECHNIQUE: Multiple axial CT images of the head were obtained without contrast. A dose lowering technique was utilized adhering to the principles of ALARA. CT DOSE: 3224.75 mGy.cm COMPARISON: Head CT 11/17/2017 FINDINGS: No acute intracranial hemorrhage, midline shift, intracranial mass, hydroceph alus, territorial ischemia or abnormal extra-axial collection. Involutional changes with chronic microvascular ischemic disease. Unchanged mild ventriculomegaly. Cerebral vascular calcifications. The calvarium is intact. Small mastoid effusions. Chronic complete opacificat ion of the right maxillary sinus. A few opacified ethmoid air cells are noted. Mild to moderate mucosal thickening of the left maxillary sinus with bilateral sphenoid and left maxillary air-fluid levels. IMPRESSION: 1. No acute intracranial abnormality. 2. Paranasal sinus disease as above. ACT 112: Negative or not required by law. The above report was generated using voice recognition software. It may contain grammatical, syntax or spelling errors. Electronically signed by: Kodak Reese M.D. 03/16/2022 12:03 PM Abdomen/Pelvis CT 03/16/22 11:13 CT abd pelvis wo con CLINICAL HISTORY: sepsis, ams TECHNIQUE: Helical axial images of the abdomen and pelvis were obtained. Aut omated dose lowering techniques and/or adjustment according to patient size were utilized for this exam. This exam was performed without intravenous contrast. COMPARISON: Comparison is made to lower extremity CTA 11/28/2013 FINDINGS: Lower chest: There is consolidation in left lower lobe. Cardiomegaly is noted with biatrial enlargement. Liver: Unremarkable. No focal lesions are seen. Gallbladder and biliary tree: Cholelithiasis is seen without evidence of cholecy stitis. No intra- or extrahepatic biliary ductal dilation. Pancreas: Fatty replacement of the pancreas is seen. Spleen: Unremarkable. Adrenals: Unremarkable. Kidneys and ureters: Hypodensity in the right inferior pole measuring 21 mm a greater than simple fluid density. Bladder: Shoemaker catheter is seen. Reproductive organs: Patient is status post hysterectomy. Bowel: Numerous diverticula are seen and there is fat stranding and increased vascularity in the sigmoid colon concerning for diverticulitis. In addition, t here appears to be a tract connecting the bowel to the vaginal cuff (series 9 image [id number]). Lymph nodes Retroperitoneal: Unremarkable. Pelvic: Unremarkable. Mesenteric: Unremarkable. Peritoneum: Mild fat stranding is seen about the sigmoid colon and rectum. No evidence of free air is seen. Vessels: Atherosclerotic calcifications are seen. Abdominal wall: A fat-containing umbilical hernia is seen. Bones: Degenerative changes in the visualized spine. Partial visualization of right femoral maryam. IMPRESSION: Extensive diverticulosis with suggestion of mild diverticulitis. 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 No evidence of perforation or abscess formation. ACT 112: Negative or not required by law. Electronically signed by: Bull Barone M.D. 03/16/2022 12:[address] 03/16/22 11:13 CT SCAN OF THE CHEST WITHOUT IV CONTRAST CLINICAL HISTORY: Hypoxia. COMPARISON STUDY: Chest x-ray dated 03/16/2022. Chest CT dated 02/01/2006. TECHNIQUE: CT scan of the thorax was performed from the thoracic inlet to the upper abdomen. Images are reviewed in the axial, sagittal, and coronal planes. IV contrast was not administered for this examination as per the referring clinician. A dose lowering technique was utilized adhering to the principles of ALARA. The examination is degraded by motion artifact, as well as by streak artifact from the arms which could not be elevated above the chest. FINDINGS: Thyroid: Imaged portions of the thyroid gland are normal in size and attenuation. Thoracic aorta: There is atherosclerotic calcification of the thoracic aorta, which is normal in caliber and demonstrates standard 3-vessel arch anatomy. Heart: The heart is enlarged and without pericardial effusion. The coronary arteries are densely calcified. Lungs and pleural spaces: There is dense airspace consolidation in the left lower lobe. Milder patchy airspace consolidation is seen throughout the right lower lobe. Comment there is minimal airspace consolidation in the right middle lobe and the upper lobes. The appearance is typical for multifocal pneumonia. There is trace left pleural effusion. Secretions are suggested in the trachea and left mainstem bronchus. There are tiny calcified granulomas. Mediastinum: Mildly enlarged mediastinal lymph nodes measure up to 11 mm short axis. [place]: Not well assessed without IV contrast. Axillae: There is no axillary lymphadenopathy. Upper abdomen: Calcified gallstones are noted. Partially visualized upper abdominal viscera is within normal limits. Skeletal structures: The skeletal structures are osteopenic. Degenerative change and mild kyphoscoliosis is noted in the thoracic spine. No lytic or blastic bony lesions are seen. IMPRESSION: 1. Streak and motion degraded examination. 2. There is multifocal airspace consolidation as above, greatest at the left lung base. The appearance is typical for pneumonia/aspiration pneumonitis. Clinical correlation will be required and radiographic follow-up to resolution is recommended. 3. Trace left pleural effusion. 4. Cardiomegaly. 5. Cholelithiasis. 6 Additional findings as above. ACT 112: Negative or not required by law. Electronically signed by: Fabian Duenas M.D. 03/16/2022 12:11 PM Discharge Plan Visit Data Chief Complaint: Illness Stated Complaint: HYPOXIA, ALOC ED Provider: Kenny Kitchen Discharge Problem: Acute on chronic respiratory failure with hypoxia and hypercapnia, CHF (congestive heart failure), Atrial fibrillation with rapid ventricular response, Pneumonia, Seizure, Elevated troponin Patient Disposition: Admitted As Inpatient Discharge Instructions Interventions: ED Discharge Assessment Last Done: 03/16/22 15:14
[2022-03-16 11:07] LABS: Potassium 4.4 mmol/L (3.5-5.1)
--- NOTE | 2022-03-16 11:43 | History & Physical Report ---
Date of Service March 16, 2022 Assessment & Plan (1) Acute respiratory failure with hypoxia: Plan: Hilary is a 81-year-old female with a past medical history of obstructive sleep apnea, respiratory failure, pulmonary hypertension, atrial fibrillation, BMI greater than 50, COPD, obesity, heart failure with preserved ejection fraction, and recent ICU admission 11/06/2021 for sepsis with hypercapnic/hypoxic combined respiratory failure who [facility] the [facility] with altered mental status and acute on chronic hypoxic respiratory failure. Sepsis 2/2 RSV with superimposed bacterial pneumonia, Acute on chronic hypercapnic, hypoxic respiratory failure - SIRS criteria, +leukocytosis and tachypnea with suspected pulmonary source - URI sx 1-2 weeks acutely wosrened in last 24-48 hours with SpO2 at facility 70% on NC. Treated yesterday with cefdinir for concern of RSV with superimposed bacterial PNA = CXR: Cardiomegaly with pulmonary vascular congestion. Left greater than right basilar opacities favoring atelectasis versus mild pneumonitis. CTchest:1. Streak and motion degraded examination. 2. There is multifocal airspace consolidation as above, greatest at the left lung base. The appearance is typical for pneumonia/aspiration pneumonitis. Clinical correlation will be required and radiographic follow-up to resolution is recommended. 3. Trace left pleural effusion. 4. Cardiomegaly. 5. Cholelithiasis. MRSA nare repeat pending, last was positive - UA: Contaminated, non-infected appearing. +sediement, epis, WBC, ketones. No bacteria/LE/Nitrite. - BC pending, UC pending Bicarb baseline 3137, acutely elevated to 42 VBG: Patient with chronic hypercapnia, current VBG 7.5/63/85/49 with PCO2 of 63 actually lower than her prior measurements. Suspect chronic compensated hypercapnia with acute hyperventilatory acidosis on underlying metabolic alkalosis. Patient was not on BiPAP prior to developing this Repeat ABG pending - Treated with cefepime and methylpred in ER RSV positive on 03/13/22, again positive on admission Continue empiric treatment with cefepime/Vanco/Flagyl - Volume/CHF management as noted IBW 57 kg equivalent, 60 cc/kg target TV 342 cc. Trend ABG, reduce MV for al kalosis Seizure - 1x episode while in ER, increaed UE muscle tone, eye drift, and loss of responsiveness per family - No past hx of seizure - CT-H:1. No acute intracranial abnormality. 2. Paranasal sinus disease as above. MRI pending for PRES/Szr eval - Contrast limtied by allergy, NALLELY - ?impaired cerebral perfusion in setting of acid-base shift Discussed with neurology. Initially deferred Keppra given suspicion for acid- base etiology, on discussion recommended deferring EEG but placing on short-term Keppra 500 twice daily for a week ago while managing above. Keppra 500 twice daily IV ordered Seizure precautions. Ativan 4 mg IV as needed for seizure activity Atrial fibrillation with RVR on apixaban Suspect RVR in the setting of sepsis Continue apixaban 5 mg p.o. twice daily, convert to heparin if unable to take p.o. due to mentation/respiratory status - With pleural effusion, increased BNP, mild ankle edema suggsetive of +volume. Bumex converted to lasix IV - MTP 5mg IV every 5 minute for sustained heart rate greater than 130, hold for hypotension Patient is on apixaban [employer] and has been taking this, low suspicion for PE as underlying cause of tachycardia/hypoxia Impaired BSG BSG 301 on admission - Last A1C 5.5% 07/2021 on no antiglycemics Ketone positive urine Does not appear clinically volume contracted Admit to ICU on insulin GTT, BMP every 4 hours, replete potassium as needed - A1C pending Hypertension Spironolactone twice daily, losartan 25 mg daily held while n.p.o. Pt given lasix, metoprol, +additional mtp pending. Started on dilt drip for rate control on ICU admit, +hydralazine. NALLELY In the setting of AHRF, critial illness/sepsis. Evidence of volume + rather than depletion on exam. Small pleural effusions appreciated - Renally dose medications, BMP daily Acute on chronic diastolic CHF Follows with heart failure clinic. Last seen 02/02/2022, euvolemic at that time Appears acutely decompensated with elevated BNP on admission Hold home Bumex 2 mg daily, converted to lasix IV - Last dry weight ~285lbs 01/2022 - Admitting weight likely inaccurate/bed weight of 250lbs. standing weight when stable/able COPD/SRINIVASA/OHVS No PFTs available for review. BMI greater than 40 with chronic hypercapnia BiPAP/trilogy recommended on prior discharge, patient has been unable to tolerate facemasks at the hospital and at [facility] - NIV as noted above History of buttock pressure ulcers Wound care Alternating pressure bed if available Hyperlipidemia Hold statin while n.p.o. Depression Hold citalopram while n.p.o. Hypothyroidism Oral Synthroid held while n.p.o., convert to IV if n.p.o. for longer than 48 hours History of MRSA positive culture Contact precautions Pneumonia treatment as above DVT prophylaxis: Apixaban if alert enough to tolerate p.o., if not convert to heparin Disposition: ICU Diet: N.p.o. pending improvement in mentation/breathing CODE STATUS: DNR/DNI, reviewed with family at bedside on admission (2) Sepsis: (3) MRSA (methicillin resistant staph aureus) culture positive: (4) Atrial fibrillation with RVR: (5) Metabolic alkalosis: (6) Pulmonary hypertension: (7) Acute on chronic respiratory failure with hypoxia and hypercapnia: (8) CHF (congestive heart failure): (9) Stage III pressure ulcer of right buttock: (10) Obstructive sleep apnea (adult) (pediatric): (11) Morbid obesity: (12) COPD (chronic obstructive pulmonary disease): (13) NALLELY (acute kidney injury): History of Present Illness Primary Care Provider: Saulo Richard is a 81-year-old female with a past medical history of obstructive sleep apnea, respiratory failure, pulmonary hypertension, atrial fibrillation, BMI greater than 50, COPD, obesity, heart failure with preserved ejection fraction, and recent ICU admission 11/06/2021 for sepsis with hypercapnic/hypoxic combined respiratory failure who presented [facility] the [facility] with altered mental status and acute on chronic hypoxic respiratory failure. ER Review: CXR: Cardiomegaly with pulmonary vascular congestion. Left greater than right basilar opacities favoring atelectasis versus mild pneumonitis. Echo 12/05/2020: EF 55 to 60%, no regional wall motion abnormalities, moderate concentric LVH. Moderately dilated RV with normal systolic function. Biatrial dilation. Moderate tricuspid regurg. Severe pulmonary hypertension, RVSP 65 mmHg, increasing RV dilation compared to 2020 study with more prominent pulmonary hypertension. Creatinine baseline 11.26. Admitting creatinine 1.33 Leukocytosis to 12.49 Lactate normal BNP 355, last 10/2019 76 Procalcitonin normal RSV positive, flu/COVID-negative EKG: A. fib with RVR.? ST depression in lead I, flipped V5 compared to prior, incomplete RBBB with conduction change in V1/V2 Alert at time of ER assessment but did not recognize family. Seizure episode tonic/clonic and unresponsive but with eyes open. BiPAP improved. 0.5mg ativan for seizure, ?keppra Per Outpatient Dr. Conley had URI sx x1-2 week, acutely worsened last 24-48 hours --> added cefdinir. Goals of care: Patient updated to DNR/DNI at last hospitalization with discharge 11/09/2021 following a ICU admission with respiratory failure. Not been able to tolerate BiPAP. Patient was seen by palliative care and declined POLST at that time. She did identify her daughter William and her son is surrogate decision makers. When discussing additional code versus DNR at that visit patient expressed that if she were very ill she would prefer to peacefully rather than having CPR, but short of cardiac or pulmonary arrest would want hospital treatment and medication/BiPAP. Subjective: Hilary is seen at the bedside with her family present. She is somnolent/borderline obtunded, history is limited by mental status and collected with collateral from her family. They report that for approximately 4 weeks she has had a wet sounding cough and some shortness of breath worse than her normal, she is normally on at least 2 L of nasal cannula. She had a outpatient test 2 days ago which showed RSV positive. She significantly worsened yesterday and underlying bacterial superinfection was suspected and she was given a dose of cefdinir. This morning she was found to be much more sedated, although arousable with worsening tachypnea and oxygen requirements at [facility] [place]. She was referred to [facility] for additional evaluation. She was found to be tachycardic in A. fib, hypoxic requiring 15 L of nonrebreather increased to BiPAP, and during assessment in the ER had an episode where she became very tense in her upper and lower extremities, eyes drifted to the left, and she stopped responding which was suspected to be seizure. She received 0.5 mg Ativan IV in the ER, with subsequent relaxation seemed fatigued, and then on assessment afterwards was sedated but would open her eyes on command. CT head did not show any acute findings. Per family she was pending evaluation with pulmonology in the coming months but has not yet made an appointment. BiPAP been discussed, but she has not been on this yet and has difficulty tolerating the mask. They confirmed that she has expressed DNR/DNI, otherwise would like full treatments. She is not a known diabetic and does not take any home antilipemics, but has been told by her doctor that she may become diabetic in the future and has had impaired blood sugars with last A1c 5.5. No fever/chills/sweats. No diarrhea/constipation. Patient had not been complaining of pain, but has been complaining of shortness of breath and orthopnea. Unsure if she has had leg swelling or weight change. Medical History: Reviewed Medications: Reviewed Surgical History: Reviewed Allergies: Reviewed Social History: Reviewed Code Status: DNR/DNI, review Allergies Allergy/AdvReac Type Severity Reaction Status Date / Time sulfisoxazole Allergy Unknown Unknown Verified 02/02/22 09:59 thimerosal Allergy Unknown Unknown Verified 02/02/22 09:59 torsemide Allergy Unknown Unknown Verified 02/02/22 09:59 buspirone [From BuSpar] Allergy Unknown Verified 02/02/22 09:59 cephalexin Allergy RASH Verified 02/02/22 09:59 clarithromycin [From Biaxin] Allergy Unknown Verified 02/02/22 09:59 iodine Allergy Unknown Verified 02/02/22 09:59 povidone-iodine Allergy Unknown Verified 02/02/22 09:59 [From Betadine] soap [From Betadine] Allergy Unknown Verified 02/02/22 09:59 Home Medications Medication Instructions Recorded Confirmed Type albuterol sulfate 90 mcg/actuation 2 inha inhalation Q6H PRN 12/20/17 03/16/22 History aerosol inhaler (Ventolin HFA) Shortness Of Breath Or Wheezing fexofenadine 180 mg tablet 180 mg PO DAILY 12/20/17 03/16/22 History (Lucie Allergy) cholecalciferol (vitamin D3) 125 5,000 unit PO DAILY 02/14/18 03/16/22 History mcg (5,000 unit) tablet (Vitamin D3) spironolactone 25 mg tablet 25 mg PO BID #180 tabs 07/14/19 03/16/22 Rx Lift Chair #1 ea 10/16/19 11/06/21 Rx losartan 25 mg tablet 25 mg PO QAM #90 tabs 10/20/19 03/16/22 Rx levothyroxine 50 mcg tablet 50 mcg PO DAILY #30 tabs 07/12/20 03/16/22 Rx (Euthyrox) simvastatin 40 mg tablet (Zocor) 40 mg PO DAILY #90 tabs 08/09/20 03/16/22 Rx acetaminophen 325 mg tablet 650 mg PO Q6 PRN Fever Or Pain 12/05/20 03/16/22 History (Tylenol) gabapentin 100 mg capsule 100 mg PO AMHS 12/05/20 03/16/22 History lorazepam 0.5 mg tablet 1 PO PRN anxiety/restlessness 12/05/20 11/06/21 History multivitamin with iron-mineral 1 tab PO DAILY 12/05/20 03/16/22 History nystatin 100,000 unit/mL oral 5 ml PO QID PRN Thrush 12/05/20 03/16/22 History suspension polysaccharide iron complex 150 mg 150 mg PO DAILY 12/05/20 03/16/22 History iron capsule tramadol 50 mg tablet 50 mg PO Q8 PRN Pain, Severe 12/05/20 03/16/22 History apixaban 2.5 mg tablet (Eliquis) 5 mg PO BID 02/17/21 03/16/22 History ascorbate calcium (vitamin C) 500 500 mg PO BID 02/17/21 03/16/22 History mg tablet bumetanide 1 mg tablet 2 mg PO DAILY 02/17/21 03/16/22 History melatonin 3 mg capsule 3 mg PO HS PRN Insomnia 02/17/21 03/16/22 History citalopram 10 mg tablet 15 mg PO DAILY 08/04/21 03/16/22 History cefdinir 300 mg capsule 300 mg PO BID #17 caps 11/09/21 03/16/22 Rx Past Med/Surg History Medical History (Updated 03/16/22 @ 16:55 by Eugene Leon MD) Acute metabolic encephalopathy Adult body mass index 40 and over Adult situational stress disorder Allergic rhinitis due to allergen Anemia Asthma Atrial fibrillation BMI 50.0-59.9, adult Bronchitis Congestive heart failure, unspecified COPD (chronic obstructive pulmonary disease) COPD exacerbation Cough Diabetic ketoacidosis Diverticulosis of colon (without mention of hemorrhage) Esophageal reflux Fx femur shaft-closed History of pulmonary embolism Hyperlipidemia Hyperlipidemia, unspecified Hypertensive emergency Hypoxia Localized primary osteoarthritis of lower leg Lumbar radiculopathy Morbid obesity Morbid obesity with BMI of 45.0-49.9, adult Multifocal pneumonia Neurodermatitis Obstructive sleep apnea (adult) (pediatric) Onychomycosis Permanent atrial fibrillation Pneumonia Pneumonia, organism unspecified Psoriasis Pulmonary hypertension Seizure-like activity Sleep related hypoxia Systolic congestive heart failure Tailor's carson Unspecified asthma Surgical History History of appendectomy History of hysterectomy History of tonsillectomy Family History Unknown Acute myocardial infarction Mother Heart disease Myocardial infarction Other No significant family history Denies family history of Ovarian cancer Prostate cancer Breast cancer Lung cancer Colorectal cancer Social History Smoking Status: Never smoker Second Hand Exposure: No; Do You Dip or Chew Tobacco: No; Tobacco Cessation Education Requested by Patient: No Hx Alcohol Use: No Hx Substance Use: No Preferred Language: Polish Communication Ability: Effective Visual Impairment: Limited Hearing Ability: Normal Clin Tech Required: No Beliefs That Will Affect Care: None marital status: Current Living Situation: Half-Way current occupational status: retired How many Children do You have: 2 Other Information That Helps Us Care for You: No Feels Safe at Home: Yes Safety Concerns: Feels Safe At This Time Childhood Exposure to Second-Hand Smoke: No caffeine: No Dental Care, Regularly: No Physical Activity Frequency: Does not Exercise Physical Activity Frequency Comment: due to health issues Seatbelt Use: always Sunscreen Use: No (not in the sun) Assistive Devices: BiPap Review of Systems Review of Systems: Unobtainable due to cognitive status Physical Exam Physical Exam: General: A exam limited by lethargy. Patient opens eyes transiently and weakly squeezes fingers on commands, does not follow other commands or answer questions HEENT: Atraumatic, normocephalic. Unable to assess vision, hearing grossly intact as patient opens eyes and squeezes hands on command Pulm: Diffusely coarse, crackles and rhonchi in the bases. Tachypneic, on BiPAP Cardiac: Tachycardic. Radial pulses intact and symmetrical. Abdominal: Does not grimace to abdominal palpation. Obese. Extremities: Unable to assess strength/sensation. Mild pedal edema Results & Data Results & Data ([facility]) Vital Signs (Past 12 Hours) Vital Signs Temp Pulse Resp BP Pulse Ox O2 Del Method O2 Flow Rate 03/16/22 10:50 136 H 33 H 90 03/16/22 10:30 137 H 36 H 188/127 H 98 Non-rebreather 15 03/16/22 10:00 135 H 30 H 03/16/22 09:30 120 H 28 H 188/126 H 95 03/16/22 09:00 128 H 31 H 98 03/16/22 08:30 128 H 25 H 167/110 H 98 Non-rebreather 15 03/16/22 08:00 130 H 31 H 94 Non-rebreather 15 03/16/22 07:50 140 H 30 H 184/30 H 82 L 03/16/22 07:59 36.5 C 140 H 24 184/130 H FiO2 03/16/22 10:50 40 03/16/22 10:30 03/16/22 10:00 03/16/22 09:30 03/16/22 09:00 03/16/22 08:30 03/16/22 08:00 03/16/22 07:50 03/16/22 07:59 PG Care Time/CCT Total # of Minutes Spent Total Time Spent with Patient: Total time spent is greater than 50% in coordination of care (as documented) at patient's floor/unit and/or counseling patient: Coding Level of Care Code 61140 Initial Inpt Care Lvl 3 Diagnoses Acute respiratory failure with hypoxia J96.01 Sepsis A41.9 MRSA (methicillin resistant staph aureus) culture positive Z22.322 Atrial fibrillation with RVR I48.91 Metabolic alkalosis E87.3 Pulmonary hypertension I27.20 Acute on chronic respiratory failure with hypoxia and hypercapnia J96.21; J96.22 CHF (congestive heart failure) I50.9 Heart failure chronicity: unspecified Heart failure type: unspecified Stage III pressure ulcer of right buttock L89.313 Obstructive sleep apnea (adult) (pediatric) G47.33 Morbid obesity E66.01 COPD (chronic obstructive pulmonary disease) J44.9 COPD type: unspecified COPD NALLELY (acute kidney injury) N17.9 (1) CHF (congestive heart failure) Heart failure chronicity: unspecified Heart failure type: unspecified Qualified Code(s): I50.9 - Heart failure, unspecified (2) COPD (chronic obstructive pulmonary disease) COPD type: unspecified COPD Qualified Code(s): J44.9 - Chronic obstructive pulmonary disease, unspecified
--- NOTE | 2022-03-16 12:05 | CT Scan Report ---
CT head/brain wo con CLINICAL HISTORY: 81 years-old Female with sz, ams, ?prolonged hypoxia. Acute hypoxia with altered m ental status and seizure like symptoms TECHNIQUE: Multiple axial CT images of the head were obtained without contrast. A dose lowering tech nique was utilized adhering to the principles of ALARA. CT DOSE: 3224.75 mGy.cm COMPARISON: Head CT 11/17/2017 FINDINGS: No acute intracranial hemorrhage, midline shift, intracranial mass, hydrocephalus, territorial ischem ia or abnormal extra-axial collection. Involutional changes with chronic microvascular ischemic disea se. Unchanged mild ventriculomegaly. Cerebral vascular calcifications. The calvarium is intact. Small mastoid effusions. Chronic complete opacification of the right maxill lucinda sinus. A few opacified ethmoid air cells are noted. Mild to moderate mucosal thickening of the le ft maxillary sinus with bilateral sphenoid and left maxillary air-fluid levels. IMPRESSION: 1. No acute intracranial abnormality. 2. Paranasal sinus disease as above. ACT 112: Negative or not required by law. The above report was generated using voice recognition software. It may contain grammatical, syntax o r spelling errors. Electronically signed by: Kodak Reese M.D. 03/16/2022 12:03 PM
--- NOTE | 2022-03-16 12:09 | CT Scan Report ---
CT abd pelvis wo con CLINICAL HISTORY: sepsis, ams TECHNIQUE: Helical axial images of the abdomen and pelvis were obtained. Automated dose lowering tech niques and/or adjustment according to patient size were utilized for this exam. This exam was perfor med without intravenous contrast. COMPARISON: Comparison is made to lower extremity CTA 11/28/2013 FINDINGS: Lower chest: There is consolidation in left lower lobe. Cardiomegaly is noted with biatrial enlargem ent. Liver: Unremarkable. No focal lesions are seen. Gallbladder and biliary tree: Cholelithiasis is seen without evidence of cholecystitis. No intra- or extrahepatic biliary ductal dilation. Pancreas: Fatty replacement of the pancreas is seen. Spleen: Unremarkable. Adrenals: Unremarkable. Kidneys and ureters: Hypodensity in the right inferior pole measuring 21 mm a greater than simple flu id density. Bladder: Shoemaker catheter is seen. Reproductive organs: Patient is status post hysterectomy. Bowel: Numerous diverticula are seen and there is fat stranding and increased vascularity in the sigm oid colon concerning for diverticulitis. In addition, there appears to be a tract connecting the ivonne l to the vaginal cuff (series 9 image 376). Lymph nodes Retroperitoneal: Unremarkable. Pelvic: Unremarkable. Mesenteric: Unremarkable. Peritoneum: Mild fat stranding is seen about the sigmoid colon and rectum. No evidence of free air is seen. Vessels: Atherosclerotic calcifications are seen. Abdominal wall: A fat-containing umbilical hernia is seen. Bones: Degenerative changes in the visualized spine. Partial visualization of right femoral maryam. IMPRESSION: Extensive diverticulosis with suggestion of mild diverticulitis. 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 No evidence of perforation or abscess formation. ACT 112: Negative or not required by law. Electronically signed by: Bull Barone M.D. 03/16/2022 12:07 PM
--- NOTE | 2022-03-16 12:13 | CT Scan Report ---
CT SCAN OF THE CHEST WITHOUT IV CONTRAST CLINICAL HISTORY: Hypoxia. COMPARISON STUDY: Chest x-ray dated 03/16/2022. Chest CT dated 02/01/2006. TECHNIQUE: CT scan of the thorax was performed from the thoracic inlet to the upper abdomen. Images are reviewed in the axial, sagittal, and coronal planes. IV contrast was not administered for this ex amination as per the referring clinician. A dose lowering technique was utilized ad[facility] to the [facility]. The examination is degraded by motion artifact, as well as by streak artifact from the arms which could not be elevated above the chest. FINDINGS: Thyroid: Imaged portions of the thyroid gland are normal in size and attenuation. Thoracic aorta: There is atherosclerotic calcification of the thoracic aorta, which is normal in nirav andrew and demonstrates standard 3-vessel arch anatomy. Heart: The heart is enlarged and without pericardial effusion. The coronary arteries are densely calc ified. Lungs and pleural spaces: There is dense airspace consolidation in the left lower lobe. Milder patchy airspace consolidation is seen throughout the right lower lobe. Comment there is minimal airspace co nsolidation in the right middle lobe and the upper lobes. The appearance is typical for multifocal pn eumonia. There is trace left pleural effusion. Secretions are suggested in the trachea and left clive tem bronchus. There are tiny calcified granulomas. Mediastinum: Mildly enlarged mediastinal lymph nodes measure up to 11 mm short axis. Yumiko: Not well assessed without IV contrast. Axillae: There is no axillary lymphadenopathy. Upper abdomen: Calcified gallstones are noted. Partially visualized upper abdominal viscera is within normal limits. Skeletal structures: The skeletal structures are osteopenic. Degenerative change and mild kyphoscolio sis is noted in the thoracic spine. No lytic or blastic bony lesions are seen. IMPRESSION: 1. Streak and motion degraded examination. 2. There is multifocal airspace consolidation as above, greatest at the left lung base. The appearanc e is typical for pneumonia/aspiration pneumonitis. Clinical correlation will be required and radiogra [facility] follow-up to resolution is recommended. 3. Trace left pleural effusion. 4. Cardiomegaly. 5. Cholelithiasis. 6 Additional findings as above. ACT 112: Negative or not required by law. Electronically signed by: Fabian Duenas M.D. 03/16/2022 12:11 PM
[2022-03-16] MEDS ORDERED: STAT IV Infusion **Titration per Protocol STA ×2 (12:16→15:40)
[2022-03-16] MEDS ORDERED: PHARMACY GLYCEMIC MGMT CONSULT PRN (12:16)
[2022-03-16] MEDS ORDERED: FUROSEMIDE 40 MG/4 ML VIAL IV ONE (12:16)
[2022-03-16] MEDS ORDERED: VANCOMYCIN CONSULT ACTIVE PRN (12:19)
[2022-03-16] MEDS ORDERED: VANCOMYCIN HCL 2,250 MG in SODIUM CHLORIDE 0.9% 500 ML IV ONE (12:30)
[2022-03-16] MEDS ORDERED: INSULIN REGULAR 250 UNITS in SODIUM CHLORIDE 0.9% 247.5 ML IV SCH (12:30)
[2022-03-16 12:33] LABS: Thyroid Stimulating Hormone 0.463 uIu/ml (0.300-4.500)
[2022-03-16 12:35] LABS: T4 Free Thyroxine 1.42 ng/dl (0.61-1.60)
[2022-03-16 13:12] LABS: Base Excess ABG 20.2 mEq/L (-9-1.8); HCO3 ABG 48 mmol/L (19-24); Oxygen Saturation ABG 97.9 % (90-95); PCO2 ABG 67 mmHg (35-46); PO2 ABG 83 mmHg (80-95); pH ABG 7.46 (7.35-7.45)
[2022-03-16 13:13] LABS: Allen Test Pos (Pos)
[2022-03-16] MEDS ORDERED: DEXTROSE 50% 50 ML SYRINGE IV PRN (13:30)
[2022-03-16] MEDS ORDERED: GLUCAGON FOR INJ 1 MG VIAL IM PRN (13:30)
[2022-03-16] MEDS ORDERED: GLUCOSE 40% GEL 15 GM TUBE PO PRN (13:30)
[2022-03-16] MEDS ORDERED: GLUCOSE 10 TAB/TUBE PO PRN (13:30)
[2022-03-16] MEDS ORDERED: CARBOHYDRATES FOR HYPOGLYCEMIA PO PRN (13:30)
[2022-03-16] MEDS ORDERED: METOPROLOL TARTRATE 1 MG/ML VIAL IV PRN (13:36)
[2022-03-16] MEDS ORDERED: METOPROLOL TARTRATE 1 MG/ML VIAL IV STA (13:40)
[2022-03-16 13:49] LABS: BUN Creatinine Ratio 26.1 (10-20); Creatinine Clr Calc Pharmacy 35.8 ml/min; Est GFR (African American) 34.9 ml/min; Est GFR (Non-African American) 30.1 ml/min; Magnesium 2.1 mg/dl (1.7-2.4); Phosphorus 4.6 mg/dl (2.5-4.9); Potassium 4.3 mmol/L (3.5-5.1)
[2022-03-16] MEDS ORDERED: NovoLIN-R INSULIN PER UNIT CHARGE ONE (14:11)
[2022-03-16] MEDS ORDERED: INSULIN HUMAN REGULAR PER UNIT 5 UNITS in SYRINGE 4.95 ML IV ONE (14:15)
--- NOTE | 2022-03-16 14:15 | Pharmacy Report ---
Pharmacy Glycemic Short Note 2 - Date of Service March 16, 2022 - Glycemic Short BSG Results (Last 24 hours): 03/16/22 03/16/22 03/16/22 08:10 12:56 12:59 Glucose 301 H* 311 H* POC Glucose 306 H* OUTPATIENT ANTIDIABETIC REGIMEN: * n/a ASSESSMENT: * 81 year old admitted with respiratory issues/hypoxia, altered mental status. RSV positive with increasing oxygen requirements. Not a know diabetic and not currently on medications at home for diabetes. Received dose of solumedrol in ED * Discussed with provider and he is wanting to begin an insulin drip for now. Plan to initiate drip per hyperglycemia protocol * Patient with issues with line access this afternoon - provider would like 5 units iv insulin x 1, will plan to start insulin drip when line gets placed PLAN FOR INPATIENT GLYCEMIC CONTROL: * Insulin drip per hyperglycemia protocol * Bolus insulin * per insulin infusion calculator
--- NOTE | 2022-03-16 14:36 | Pharmacy Report ---
Pharmacy Vanc AUC Short Note - Date of Service March 16, 2022 - Assessment & Plan Assessment 81 year old F receiving IV vancomycin for treatment of sepsis secondary to RSV infection with superimposed bacterial pneumonia. Pertinent microbiologic data includes: * MRSA nasal swab is pending; was positive on 11/06/21 * Urine and blood cultures are pending Day # 1 of antimicrobial therapy Plan Vancomycin * Loading dose: vancomycin 2250 mg IV x 1 * Maintenance dose: vancomycin 750 mg IV q24h * AUC guided dosing is effective and associated with decreased risk of nephrotoxicity compared to traditional trough targets * Trough level of 16.7 mcg/mL is predicted to achieve target AUC/YOLA of 400-600 mg/L.hr and may be associated with a 12 % risk of nephrotoxicity * Trough or random level will be ordered prior to the 3rd dose or sooner if renal function declines Pharmacy will continue to follow and will adjust dose/frequency as necessary. Thank you.
[2022-03-16] MEDS ORDERED: LORazepam 1 MG/1 ML SYR IV PRN (15:29)
[2022-03-16] MEDS ORDERED: LORazepam 4 MG in SYRINGE 0 ML IV PRN (15:33)
[2022-03-16] MEDS ORDERED: dilTIAZem HCl 5 MG/ML 5 ML VIAL IV STA ×3 (15:40→16:32)
[2022-03-16] MEDS ORDERED: dilTIAZem HCl 5 MG/ML 5 ML VIAL IV ONE (15:40)
[2022-03-16] MEDS ORDERED: metroNIDAZOLE 500 MG/100 ML BAG IV SCH (16:00)
[2022-03-16] MEDS ORDERED: levETIRAcetam 1,000 MG in 0.9 % SODIUM CHLORIDE 100 ML IV STA (16:16)
[2022-03-16] MEDS ORDERED: ICU Protocol for HYPERglycemia SCH (16:30)
[2022-03-16] MEDS: INSULIN ASPART PER UNIT SC SCH ×2 (16:30→21:01)
[2022-03-16] MEDS: dilTIAZem HCL 125 MG in DEXTROSE 5% 100 ML IV SCH ×2 (16:36→23:59)
--- NOTE | 2022-03-16 16:43 | Critical Care Consultation ---
Date of Consultation March 16, 2022 Assessment & Plan (1) Acute respiratory failure with hypoxia: Patient is DNR/DNI per discussion with family and review of prior palliative care note. Repeat ABG pending. Initial ABG representing respiratory alkalosis and hypoxia. Continue to wean BiPAP as able. Continue to maintain negative volume status with as needed diuretics. (2) Acute metabolic encephalopathy: Likely secondary to acute infection and possibly pres syndrome. Control blood pressure aggressively. CT head negative. MRI pending. Consider EEG. Bolus dose of Keppra given. Prolactin level ordered. Maintain n.p.o. status for airway protection. (3) Hypertensive emergency: Decrease MAP by 25% over the next 12 hours. Continue diltiazem drip as the patient is very responsive. Consider adding labetalol and clonidine depending on follow-up blood pressures. We will give an additional dose of hydralazine 20 mg now. (4) Seizure-like activity: Prolactin level as noted above. Keppra ordered. Consider EEG. MRI brain pending. (5) Diabetic ketoacidosis: Hyperglycemic consult. Received a bolus dose of regular insulin. Consider IV insulin if glucose increases. Replace electrolytes as needed. (6) Multifocal pneumonia: Likely bacterial pneumonia superimposed on RSV. Agree with broad-spectrum antibiotics. MRSA screen pending. If MRSA negative, will discontinue Vanco. Prior MRSA in October was positive. Plan CRITICAL CARE TIME - I have personally spent 49 minutes of critical care time in the direct managemen t of this patient. This is a life/limb threatening event. This includes time spent evaluating patient, direct bedside care, chart review, placing orders, interpretation of diagnostic studies, discussion with consultants, patient, and family members, as well as other required patient management activities. This time is exclusive of all separately billable procedures, and teaching time and separate from and in addition to any other critical care service time. History of Present Illness Reason for Consultation: Encephalopathy, hypertensive emergency and use is modest to atrial fibrillation with rapid ventricular response Attending Physician: Nito Stanton MD History of Present Illness 81-year-old female with history of SRINIVASA, chronic hypoxemic respiratory failure, A. fib, morbid obesity and secondary pulmonary hypertension who presented to the hospital from [facility] due to increasing lethargy and shortness of breath. On my exam, the patient is minimally responsive, but does withdraw from pain. She is found to be very hypertensive in the ICU with systolics in the 210s. I bolused her with 20 mg of IV diltiazem and her blood pressure improved to 130. Heart rate also came down from 140-97. We were able to place additional peripheral IVs. I also nery an ABG which is pending. Family was extensively updated at bedside. Patient turned out as RSV positive. She appears volume overloaded on exam. It appears from their previous review of notes that she has been hospitalized several times for similar pictures. Allergies Allergy/AdvReac Type Severity Reaction Status Date / Time sulfisoxazole Allergy Unknown Unknown Verified 02/02/22 09:59 thimerosal Allergy Unknown Unknown Verified 02/02/22 09:59 torsemide Allergy Unknown Unknown Verified 02/02/22 09:59 buspirone [From BuSpar] Allergy Unknown Verified 02/02/22 09:59 cephalexin Allergy RASH Verified 02/02/22 09:59 clarithromycin [From Biaxin] Allergy Unknown Verified 02/02/22 09:59 iodine Allergy Unknown Verified 02/02/22 09:59 povidone-iodine Allergy Unknown Verified 02/02/22 09:59 [From Betadine] soap [From Betadine] Allergy Unknown Verified 02/02/22 09:59 Home Medications Medication Instructions Recorded Confirmed Type albuterol sulfate 90 mcg/actuation 2 inha inhalation Q6H PRN 12/20/17 03/16/22 History aerosol inhaler (Ventolin HFA) Shortness Of Breath Or Wheezing fexofenadine 180 mg tablet 180 mg PO DAILY 12/20/17 03/16/22 History (Lucie Allergy) cholecalciferol (vitamin D3) 125 5,000 unit PO DAILY 02/14/18 03/16/22 History mcg (5,000 unit) tablet (Vitamin D3) spironolactone 25 mg tablet 25 mg PO BID #180 tabs 07/14/19 03/16/22 Rx Lift Chair #1 ea 10/16/19 11/06/21 Rx losartan 25 mg tablet 25 mg PO QAM #90 tabs 10/20/19 03/16/22 Rx levothyroxine 50 mcg tablet 50 mcg PO DAILY #30 tabs 07/12/20 03/16/22 Rx (Euthyrox) simvastatin 40 mg tablet (Zocor) 40 mg PO DAILY #90 tabs 08/09/20 03/16/22 Rx acetaminophen 325 mg tablet 650 mg PO Q6 PRN Fever Or Pain 12/05/20 03/16/22 History (Tylenol) gabapentin 100 mg capsule 100 mg PO AMHS 12/05/20 03/16/22 History lorazepam 0.5 mg tablet 1 PO PRN anxiety/restlessness 12/05/20 11/06/21 History multivitamin with iron-mineral 1 tab PO DAILY 12/05/20 03/16/22 History nystatin 100,000 unit/mL oral 5 ml PO QID PRN Thrush 12/05/20 03/16/22 History suspension polysaccharide iron complex 150 mg 150 mg PO DAILY 12/05/20 03/16/22 History iron capsule tramadol 50 mg tablet 50 mg PO Q8 PRN Pain, Severe 12/05/20 03/16/22 History apixaban 2.5 mg tablet (Eliquis) 5 mg PO BID 02/17/21 03/16/22 History ascorbate calcium (vitamin C) 500 500 mg PO BID 02/17/21 03/16/22 History mg tablet bumetanide 1 mg tablet 2 mg PO DAILY 02/17/21 03/16/22 History melatonin 3 mg capsule 3 mg PO HS PRN Insomnia 02/17/21 03/16/22 History citalopram 10 mg tablet 15 mg PO DAILY 08/04/21 03/16/22 History cefdinir 300 mg capsule 300 mg PO BID #17 caps 11/09/21 03/16/22 Rx Patient History Medical History (Updated 03/16/22 @ 16:55 by Eugene Leon MD) Acute metabolic encephalopathy Adult body mass index 40 and over Adult situational stress disorder Allergic rhinitis due to allergen Anemia Asthma Atrial fibrillation BMI 50.0-59.9, adult Bronchitis Congestive heart failure, unspecified COPD (chronic obstructive pulmonary disease) COPD exacerbation Cough Diabetic ketoacidosis Diverticulosis of colon (without mention of hemorrhage) Esophageal reflux Fx femur shaft-closed History of pulmonary embolism Hyperlipidemia Hyperlipidemia, unspecified Hypertensive emergency Hypoxia Localized primary osteoarthritis of lower leg Lumbar radiculopathy Morbid obesity Morbid obesity with BMI of 45.0-49.9, adult Multifocal pneumonia Neurodermatitis Obstructive sleep apnea (adult) (pediatric) Onychomycosis Permanent atrial fibrillation Pneumonia Pneumonia, organism unspecified Psoriasis Pulmonary hypertension Seizure-like activity Sleep related hypoxia Systolic congestive heart failure Jory byrd Unspecified asthma Surgical History History of appendectomy History of hysterectomy History of tonsillectomy Family History Unknown Acute myocardial infarction Mother Heart disease Myocardial infarction Other No significant family history Denies family history of Ovarian cancer Prostate cancer Breast cancer Lung cancer Colorectal cancer Social History Smoking Status: Unknown if ever smoked Second Hand Exposure: No; Hx Alcohol Use: No Hx Substance Use: No Preferred Language: Italian Communication Ability: Effective Visual Impairment: Limited Hearing Ability: Normal Licensed Prosthetist/Orthotist Required: No Beliefs That Will Affect Care: None marital status: Current Living Situation: Personal Care Facility current occupational status: retired How many Children do You have: 2 Feels Safe at Home: Yes Childhood Exposure to Second-Hand Smoke: No caffeine: No Dental Care, Regularly: No Physical Activity Frequency: Does not Exercise Physical Activity Frequency Comment: due to health issues Seatbelt Use: always Sunscreen Use: No (not in the sun) Assistive Devices: Oxygen - Continuous, Walker and Wheelchair Review of Systems Review of Systems: Limited as the patient is unresponsive to simple commands but does withdraw from painful stimuli. Physical Exam Physical Exam: Constitutional: Morbidly obese appearing female with BiPAP mask in place. Eyes: Pupils are equal round and reactive to light. Conjunctivae are normal. Anicteric sclera. Ears nose, mouth and throat: Mallampati class 3. Normal posterior oropharynx. Uvula is midline. Neck: Trachea is midline. Visual inspection is normal. Respiratory: Rhonchi and tachypnea bilaterally. Cardiovascular: Irregularly irregular. Edematous in the lower extremities. No murmur. Gastrointestinal: Normal bowel sounds, soft, nontender and nondistended. No hepatosplenomegaly noted. Musculoskeletal: No cyanosis. Patient is able to move all extremities. Skin: No rashes, warm dry and intact. Neurologic: difficult to assess. Lethargic. Psychiatric: Unable to assess. Results & Data Results & Data ([facility]) Vital Signs (Past 12 Hours) Vital Signs Temp Pulse Pulse Resp BP BP Pulse Ox 03/16/22 15:31 03/16/22 15:20 135 H 38 H 95 03/16/22 14:02 150 H 180/133 H 03/16/22 12:37 146 H 34 H 213/149 H 94 03/16/22 11:45 150 H 24 210/141 H 91 03/16/22 11:00 157 H 30 H 174/89 H 90 03/16/22 10:50 136 H 33 H 90 03/16/22 10:30 137 H 36 H 188/127 H 98 03/16/22 10:00 135 H 30 H 03/16/22 09:30 120 H 28 H 188/126 H 95 03/16/22 09:00 128 H 31 H 98 03/16/22 08:30 128 H 25 H 167/110 H 98 03/16/22 08:00 130 H 31 H 94 03/16/22 07:50 140 H 30 H 184/30 H 82 L 03/16/22 07:59 36.5 C 140 H 24 184/130 H O2 Del Method O2 Flow Rate FiO2 03/16/22 15:31 BiPAP 40 03/16/22 15:20 40 03/16/22 14:02 03/16/22 12:37 BiPAP 40 03/16/22 11:45 BiPAP 40 03/16/22 11:00 03/16/22 10:50 40 03/16/22 10:30 Non-rebreather 15 03/16/22 10:00 03/16/22 09:30 03/16/22 09:00 03/16/22 08:30 Non-rebreather 15 03/16/22 08:00 Non-rebreather 15 03/16/22 07:50 03/16/22 07:59 Coding Level of Care Code Critical Care 1st 30-74 mins Diagnoses Acute respiratory failure with hypoxia J96.01 Acute metabolic encephalopathy G93.41 Hypertensive emergency I16.1 Seizure-like activity R56.9 Diabetic ketoacidosis E11.10 Multifocal pneumonia J18.9 Time Spent (min) 49
[2022-03-16 16:57] LABS: BUN Creatinine Ratio 29.4 (10-20); Calcium 7.6 mg/dl (8.5-10.1); Creatinine Clr Calc Pharmacy 42.4 ml/min; Est GFR (African American) 42.8 ml/min; Est GFR (Non-African American) 36.9 ml/min; Magnesium 1.6 mg/dl (1.7-2.4); Phosphorus 3.1 mg/dl (2.5-4.9); Potassium 3.5 mmol/L (3.5-5.1)
[2022-03-16] MEDS ORDERED: STAT IV STA (16:59)
[2022-03-16] MEDS ORDERED: hydrALAZINE HCL 20 MG/ML VIAL IV STA (17:00)
[2022-03-16] MEDS ORDERED: CALCIUM GLUCONATE 10% 2,000 MG in DEXTROSE 5% 50 ML IV ONE (17:30)
--- NOTE | 2022-03-16 19:14 | Magnetic Resonance Report ---
MRI OF THE BRAIN WITHOUT CONTRAST CLINICAL HISTORY: Possible seizure activity. Possible PRES. COMPARISON STUDY: MRI of the brain April 03, 2007. Head CT performed earlier today. TECHNIQUE: Utilizing a 1.5 Christine magnet and dedicated coil, multiplanar, multiecho imaging of the bra in was performed without IV contrast. FINDINGS: There are no foci of restricted diffusion to suggest acute infarct. No acute intracranial h emorrhage, midline shift or mass effect is present. Basal cisterns are patent. There are no extra axi al collections. No intracranial masses are identified on this unenhanced exam. Moderate atrophy is no zuleyma which likely accounts for mild ventricular dilatation. White matter T2 hyperintense foci have sig nificantly progressed since MRI of April 03, 2007. Note is made of multifocal cortical/subcortical T2 hyperintense foci within the bilateral occipital lobes. This was not present on previous MRI. Rig ht maxillary sinus is opacified. This is likely chronic. An air-fluid level within left maxillary sin us is noted. There is moderate ethmoid sinus mucosal thickening. Small amount of fluid within the donavan ateral mastoid air cells is present. IMPRESSION: 1. Multifocal cortical and subcortical T2 hyperintense foci within the bilateral occipital lobes. 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 2. No evidence for acute infarction. No acute intracranial hemorrhage. 3. Moderate atrophy and suspected small vessel disease which has significantly progressed since MRI o f April 03, 2007. 4. Left maxillary sinus air-fluid level which reflect acute sinusitis. Chronic opacification of the r ight maxillary sinus. ACT 112: Negative or not required by law. Electronically signed by: Shin Henderson M.D. 03/16/2022 7:12 PM
[2022-03-16] MEDS: MAGNESIUM SULFATE / D5W 1 GM/100 ML BAG IV SCH ×2 (19:37→21:11)
[2022-03-16] MEDS: ICU ELECTROLYTE REPLACEMENT PROTOCOL SCH (19:48)
[2022-03-16] MEDS: POTASSIUM CHLORIDE / WTR 10 MEQ/100 ML PLCT IV SCH ×3 (19:56→21:52)
[2022-03-16] MEDS: FAMOTIDINE 20 MG in SYRINGE 3 ML IV SCH (20:44)
[2022-03-16] MEDS: CEFEPIME 2,000 MG in SYRINGE 0 ML IV SCH (21:52)
[2022-03-16 22:03] LABS: iSTAT Allen Test Pass; iSTAT Art Bld Gas pCO2 Correct 63 mmHg (35-46); iSTAT Arterial Blood Gas HCO3 45 meg/L (19-24); iSTAT Arterial Blood Gas pCO2 64 mmHg (35-46); iSTAT Arterial Blood Gas pH 7.46 (7.35-7.45); iSTAT Arterial Blood Gas pO2 130 mmHg (80-95); iSTAT Arterial Blood Gas pO2 C 129; iSTAT Carbon Dioxide > 40 mmol/L (24-31); iSTAT Hematocrit 32 % (37-47); iSTAT Hemoglobin 10.9 g/dl (12.0-16.0); iSTAT Site R Brachial; iSTAT Sodium 139 mmol/L (135-144)
[2022-03-16 22:07] LABS: BUN Creatinine Ratio 30.1 (10-20); Calcium 9.6 mg/dl (8.5-10.1); Creatinine Clr Calc Pharmacy 35.1 ml/min; Est GFR (African American) 34.4 ml/min; Est GFR (Non-African American) 29.7 ml/min; Magnesium 2.5 mg/dl (1.7-2.4); Phosphorus 3.7 mg/dl (2.5-4.9); Potassium 4.1 mmol/L (3.5-5.1)
[2022-03-17 00:24] LABS: A calco-baum cmplx NotReported Not Detected (NotDetected); Bact fragilis Not Reported Not Detected (NotDetected); C auris Not Reported Not Detected (NotDetected); Calbicans Not Reported Not Detected (NotDetected); Candida glabrata Not Reported Not Detected (NotDetected); Candida krusei Not Reported Not Detected (NotDetected); Cneoformans/gatti Not Reported Not Detected (NotDetected); Cparapsilosis Not Reported Not Detected (NotDetected); Ctropicalis Not Reported Not Detected (NotDetected); E cloacae compx Not Reported Not Detected (NotDetected); Efaecalis Not Reported DETECTED (NotDetected); Efaecium Not Reported Not Detected (NotDetected); Enterobacterales Not Reported Not Detected (NotDetected); Escherichia coli Not Reported Not Detected (NotDetected); H influenzae Not Reported Not Detected (NotDetected); K aerogenes Not Reported Not Detected (NotDetected); Koxytoca Not Reported Not Detected (NotDetected); Kpneumoniae grp Not Reported Not Detected (NotDetected); Lmonocyt Not Reported Not Detected (NotDetected); N meningitidis Not Reported Not Detected (NotDetected); P aeruginosa Not Reported Not Detected (NotDetected); Proteus spp Not Reported Not Detected (NotDetected); Salmonella spp Not Reported Not Detected (NotDetected); Smarcescens Not Reported Not Detected (NotDetected); Staph lugdunensis Not Reported Not Detected (NotDetected); Staph spp. Not Reported DETECTED (NotDetected); Staphaureus Not Reported Not Detected (NotDetected); Staphepi Not Reported Not Detected (NotDetected); Staphylococcus spp. DETECTED (NotDetected); Stenmaltophilia Not Reported Not Detected (NotDetected); Strep agal(GrpB) Not Reported Not Detected (NotDetected); Strep pneum Not Reported Not Detected (NotDetected); Strep pyog (GrpA) Not Reported Not Detected (NotDetected); Strep spp Not Reported Not Detected (NotDetected); VanAB Resistant Gene VRE Not Detected (NotDetected)
[2022-03-17 01:01] LABS: Enterococcus faecalis DETECTED (NotDetected)
[2022-03-17 01:22] LABS: BUN Creatinine Ratio 32.1 (10-20); Calcium 9.9 mg/dl (8.5-10.1); Est GFR (African American) 35.4 ml/min; Est GFR (Non-African American) 30.6 ml/min; Magnesium 2.7 mg/dl (1.7-2.4); Phosphorus 4.3 mg/dl (2.5-4.9); Potassium 4.1 mmol/L (3.5-5.1)
[2022-03-17 04:54] LABS: BUN Creatinine Ratio 29.9 (10-20); Calcium 9.9 mg/dl (8.5-10.1); Creatinine Clr Calc Pharmacy 32.3 ml/min; Est GFR (African American) 31.1 ml/min; Est GFR (Non-African American) 26.8 ml/min; Magnesium 2.6 mg/dl (1.7-2.4); Phosphorus 4.5 mg/dl (2.5-4.9)
[2022-03-17] MEDS: ICU ELECTROLYTE REPLACEMENT PROTOCOL SCH (05:38)
[2022-03-17] MEDS ORDERED: hydrALAZINE HCL 20 MG/ML VIAL IV PRN (05:38)
--- NOTE | 2022-03-17 05:38 | Electrocardiogram Report ---
Test Reason : Blood Pressure : / mmHG Vent. Rate : 136 BPM Atrial Rate : 133 BPM P-R Int : 000 ms QRS Dur : 122 ms QT Int : 318 ms P-R-T Axes : 000 -56 -22 degrees QTc Int : 478 ms Atrial fibrillation with rapid ventricular response Left axis deviation Right bundle branch block Nonspecific T wave abnormality Abnormal ECG When compared with ECG of 06-NOV-2021 17:32, Inverted T waves have replaced nonspecific T wave abnormality in Inferior leads T wave inversion now evident in Lateral leads Confirmed by Santiago Cordova ([id number]) on 03/17/2022 5:38:02 AM Referred By: [facility] Confirmed By:Santiago Cordova
[2022-03-17 06:11] LABS: Hematocrit (blood only) 33.5 % (34.1-44.9); Hemoglobin 10.5 g/dl (12.0-16.0); Mean Corpuscular Hemoglobin 30.2 pg (25.0-34.0); Mean Corpuscular Hgb Conc 31.3 g/dL (32.0-36.0); Mean Corpuscular Volume 96.3 fL (80.0-100.0); Mean Platelet Volume 9.2 fL (9.4-12.3); Platelet Count 235 K/uL (130-400); RDW Standard Deviation 52.9 fL (36.4-46.3); Red Blood Count 3.48 M/uL (3.93-5.22); White Blood Count 12.13 K/ul (4.8-10.8)
[2022-03-17 07:21] LABS: Basophils # (auto) 0.02 K/uL (0-0.2); Basophils % (auto) 0.2 %; Immature Granulocytes # (auto) 0.22 K/uL (0.00-0.02); Immature Granulocytes % (auto) 1.8 %; Lymphocytes # (auto) 0.34 K/uL (1.2-3.4); Lymphocytes % (auto) 2.8 %; Monocytes # (auto) 0.59 K/uL (0.24-0.82); Monocytes % (auto) 4.9 %; Neutrophils # (auto) 10.96 K/uL (1.4-6.5); Neutrophils % (auto) 90.3 %
[2022-03-17] MEDS ORDERED: LANTUS PER UNIT CHARGE SQ ONE (07:30)
[2022-03-17] MEDS ORDERED: LABETALOL HCL IV 5 MG/ML 20ML IV STA (08:04)
--- NOTE | 2022-03-17 08:14 | Critical Care Progress Note ---
Date of Service March 17, 2022 Assessment & Plan (1) Acute respiratory failure with hypoxia: Plan: Secondary to RSV and superimposed bacterial pneumonia. Significantly improved compared to yesterday. Currently off of BiPAP on nasal cannula. Continue use of as needed BiPAP. We will add hypertonic saline twice daily to help with mucociliary clearance. (2) Acute metabolic encephalopathy: Plan: Secondary to PRES given clinical presentation of severe hypertension and MRI findings. I do not think there is a role for further antiepileptic therapy at this time as there was a clear precipitating factor for her symptoms which in this case was hypertensive encephalopathy. Will consult speech therapy due to the swallowing concerns. (3) Hypertensive emergency: Plan: Improving. Weaning diltiazem drip off. Will give p.o. diltiazem and a one-time dose of labetalol IV now. (4) Seizure-like activity: Plan: Secondary to PRES. (5) Diabetic ketoacidosis: Plan: Resolved. ICU pharmacy assisting. Appreciate their help. (6) Multifocal pneumonia: Plan: Likely bacterial pneumonia superimposed on RSV. Agree with broad-spectrum antibiotics. (7) Atrial fibrillation with rapid ventricular response: Plan: Improved with diltiazem. Oral anticoagulants on hold due to NALLELY. We will consider resuming once NALLELY improves. We will start heparin subq 5000 units twice daily for the time being. Plan Patient stable to transfer to PCU status. Thank you for the consultation. Admission and Anticipated Discharge Date Admission Date: March 16, 2022 Subjective Patient seen and examined. She is much more awake and alert than she was yesterday. She is currently on nasal cannula. She does seem confused. She believes that she is currently in setting grass. She is able to tell me her full name. She denies any chest pain. She frequently keeps saying "all my" and repeatedly saying "okay". Review of Systems Review of Systems: Limited review of systems is unremarkable. Physical Exam Physical Exam: Constitutional: Morbidly obese appearing female no apparent distress. Oxygen mask in place. Eyes: Pupils are equal round and reactive to light. Conjunctivae are normal. Anicteric sclera. Ears nose, mouth and throat: Mallampati class 3. Normal posterior oropharynx. Uvula is midline. Neck: Trachea is midline. Visual inspection is normal. Respiratory: Rhonchi and tachypnea bilaterally. Cardiovascular: Irregularly irregular. Edematous in the lower extremities. No murmur. Gastrointestinal: Normal bowel sounds, soft, nontender and nondistended. No hepatosplenomegaly noted. Musculoskeletal: No cyanosis. Patient is able to move all extremities. Skin: No rashes, warm dry and intact. Neurologic: No focal deficits. Psychiatric: Confused. Mildly anxious appearing. Results & Data Results & Data ([facility]) Vital Signs (Past 12 Hours) Vital Signs Temp Pulse Resp BP Pulse Ox O2 Del Method O2 Flow Rate 03/17/22 06:06 150/108 H 03/17/22 06:06 97 H 18 98 Oxymask 6 03/17/22 06:03 91 H 23 98 03/17/22 06:00 89 23 98 03/17/22 05:36 95 H 27 H 97 03/17/22 05:31 153/67 H 03/17/22 05:31 95 H 26 H 97 03/17/22 05:30 95 H 26 H 97 03/17/22 05:01 109 H 23 98 03/17/22 05:00 91 H 19 98 Oxymask 6 03/17/22 04:30 36.5 C 03/17/22 04:31 107 H 25 H 96 03/17/22 04:31 154/86 H 03/17/22 04:30 101 H 21 95 Oxymask 6 03/17/22 04:01 101 H 30 H 96 03/17/22 04:01 150/102 H 03/17/22 04:00 106 H 22 97 03/17/22 03:31 97 H 26 H 97 03/17/22 03:31 158/95 H 03/17/22 03:30 100 H 26 H 97 03/17/22 03:01 91 H 25 H 96 03/17/22 03:01 132/83 03/17/22 03:00 94 H 26 H 97 BiPAP 03/17/22 02:31 101 H 25 H 97 03/17/22 02:31 150/95 H 03/17/22 02:30 101 H 26 H 96 03/17/22 02:01 110 H 26 H 97 03/17/22 02:01 161/94 H 03/17/22 02:00 100 H 23 97 BiPAP 03/17/22 01:31 143/83 H 03/17/22 01:31 113 H 27 H 96 03/17/22 01:30 100 H 25 H 96 03/17/22 01:01 114 H 28 H 96 BiPAP 03/17/22 01:01 133/89 03/17/22 01:00 105 H 27 H 96 03/17/22 00:31 152/94 H 03/17/22 00:31 111 H 27 H 96 03/17/22 00:30 112 H 28 H 96 03/17/22 00:01 101 H 28 H 97 03/17/22 00:01 161/81 H 03/17/22 00:00 109 H 32 H 97 BiPAP 03/16/22 23:31 148/78 H 03/16/22 23:31 100 H 29 H 96 03/16/22 23:30 108 H 32 H 94 BiPAP 03/17/22 04:30 36.4 C L 03/16/22 23:00 92 H 03/16/22 23:01 101 H 31 H 93 Oxymask 6 03/16/22 23:01 129/76 03/16/22 23:00 101 H 30 H 92 03/16/22 22:31 107 H 30 H 97 03/16/22 22:31 142/77 H 03/16/22 22:30 97 H 30 H 97 Oxymask 6 03/16/22 22:01 105 H 32 H 97 Oxymask 6 03/16/22 22:01 156/80 H 03/16/22 22:00 103 H 30 H 97 03/16/22 21:31 97 H 31 H 93 Oxymask 9 03/16/22 21:31 143/73 H 03/16/22 21:30 99 H 32 H 93 Oxymask 9 03/16/22 21:16 101 H 31 H 98 Oxymask 9 03/16/22 21:16 148/76 H 03/16/22 23:00 36.7 C 03/16/22 21:04 100 H 32 H 98 03/16/22 21:04 143/66 H 03/16/22 21:01 109 H 34 H 97 03/16/22 21:01 110/75 03/16/22 21:00 104 H 31 H 97 03/16/22 20:46 104 H 34 H 90 03/16/22 20:46 131/81 03/16/22 20:31 112 H 35 H 96 03/16/22 20:31 129/73 03/16/22 20:30 106 H 33 H 94 03/16/22 20:16 131/60 03/16/22 20:16 102 H 36 H 95 03/16/22 20:30 37.5 C FiO2 03/17/22 06:06 03/17/22 06:06 03/17/22 06:03 03/17/22 06:00 03/17/22 05:36 03/17/22 05:31 03/17/22 05:31 03/17/22 05:30 03/17/22 05:01 03/17/22 05:00 03/17/22 04:30 03/17/22 04:31 03/17/22 04:31 03/17/22 04:30 03/17/22 04:01 03/17/22 04:01 03/17/22 04:00 03/17/22 03:31 03/17/22 03:31 03/17/22 03:30 03/17/22 03:01 03/17/22 03:01 03/17/22 03:00 40 03/17/22 02:31 03/17/22 02:31 03/17/22 02:30 03/17/22 02:01 03/17/22 02:01 03/17/22 02:00 40 03/17/22 01:31 03/17/22 01:31 03/17/22 01:30 03/17/22 01:01 40 03/17/22 01:01 03/17/22 01:00 03/17/22 00:31 03/17/22 00:31 03/17/22 00:30 03/17/22 00:01 03/17/22 00:01 03/17/22 00:00 40 03/16/22 23:31 03/16/22 23:31 03/16/22 23:30 40 03/17/22 04:30 03/16/22 23:00 03/16/22 23:01 03/16/22 23:01 03/16/22 23:00 03/16/22 22:31 03/16/22 22:31 03/16/22 22:30 03/16/22 22:01 03/16/22 22:01 03/16/22 22:00 03/16/22 21:31 03/16/22 21:31 03/16/22 21:30 03/16/22 21:16 03/16/22 21:16 03/16/22 23:00 03/16/22 21:04 03/16/22 21:04 03/16/22 21:01 03/16/22 21:01 03/16/22 21:00 03/16/22 20:46 03/16/22 20:46 03/16/22 20:31 03/16/22 20:31 03/16/22 20:30 03/16/22 20:16 03/16/22 20:16 03/16/22 20:30 Coding Level of Care Code 65919 Subseq Hosp Care Lvl 3 Diagnoses Acute respiratory failure with hypoxia J96.01 Acute metabolic encephalopathy G93.41 Hypertensive emergency I16.1 Seizure-like activity R56.9 Diabetic ketoacidosis E11.10 Multifocal pneumonia J18.9 Atrial fibrillation with rapid ventricular response I48.91
[2022-03-17] MEDS: INSULIN ASPART PER UNIT SC SCH ×5 (08:19→23:55)
[2022-03-17] MEDS: SODIUM CHLOR 7% 4 ML NEB NEB SCH ×2 (08:24→20:25)
[2022-03-17 08:33] LABS: Estimated Average Glucose 157 mg/dl; Hemoglobin A1C 7.1 % (4.5-5.6)
[2022-03-17] MEDS: CEFEPIME 2,000 MG in SYRINGE 0 ML IV SCH ×2 (09:59→22:55)
[2022-03-17] MEDS: HEPARIN SOD 5,000 UNIT/0.5 ML VIAL SQ SCH ×2 (10:00→20:07)
--- NOTE | 2022-03-17 11:14 | Pharmacy Report ---
Pharmacy PK ABX Note - Date of Service March 17, 2022 - Assessment and Plan Assessment 81 year old F receiving Vancomycin and Cefepime for treatment of pneumonia and bacteremia. * Day #2 of antimicrobial therapy. * Positive MRSA nasal swab. Positive for RSV which may be leading to respiratory symptoms but a bacterial pneumonia cannot be ruled out. * Procal of 0.27. Lactate normal. White count down to 12k today. Renal fxn slightly worsened, SCr 1.77, CrCl 32.3. * Urine culture pending. / bottles from blood cultures growing GPCs in chains. BCID2 PCR shows Enterococcus faecalis and Staph species without resistance genes. Believe this sample may be contaminated. Repeat blood cultures pending from today. Plan Vancomycin * Loading dose: 2250 mg IV x 1 (20 mg/kg) * Current regimen: 750 mg IV every 24 hours * Ordered a random level today at 1000 which resulted as 14.7 mcg/mL. This is predicted to achieve target AUC/YOLA of 400-600 mg/L.hr * Predicted AUC at steady state: 529 mg/L.hr * Continue 750 mg IV every 24 hours * Repeat random level ordered for: 03/19/22 Cefepime * 2000 mg IV every 12 hours appropriate for current renal fxn Pharmacy will continue to follow and will adjust dose/frequency as necessary. Thank you. Pharmacy has transitioned to AUC monitoring for vancomycin. AUC/YOLA is the preferred PK/PD target and is associated with decreased risk of nephrotoxicity compared to traditional trough targets.
[2022-03-17] MEDS ORDERED: INSULIN ASPART PER UNIT SC SCH (11:30)
--- NOTE | 2022-03-17 11:44 | Pharmacy Report ---
Pharmacy Glycemic Short Note 2 - Date of Service March 17, 2022 - Glycemic Short BSG Results (Last 24 hours): 03/16/22 03/16/22 03/16/22 12:56 12:59 14:52 Glucose 311 H* POC Glucose 306 H* 236 H 03/16/22 03/16/22 03/16/22 16:12 16:18 17:56 Glucose 206 H POC Glucose 262 H 258 H 03/16/22 03/16/22 03/16/22 19:17 20:21 21:14 Glucose POC Glucose 253 H 239 H 216 H 03/16/22 03/16/22 03/16/22 21:36 22:14 23:17 Glucose 202 H POC Glucose 208 H 195 H 03/17/22 03/17/22 03/17/22 00:06 00:40 01:15 Glucose 156 H POC Glucose 205 H 151 H 03/17/22 03/17/22 03/17/22 02:19 03:30 04:25 Glucose 157 H POC Glucose 162 H 172 H 03/17/22 03/17/22 03/17/22 04:26 06:24 08:03 Glucose POC Glucose 171 H 160 H 161 H 03/17/22 03/17/22 09:54 11:08 Glucose POC Glucose 180 H 166 H OUTPATIENT ANTIDIABETIC REGIMEN: * No home antidiabetic medications * HbA1c = 7.1% (03/17/22) * Likely due to recent outpatient Prednisone use ASSESSMENT: 03/17: * Patient required a significant amount of insulin from the drip to control blood sugars yesterday which likely is due to SoluMedrol dose received in ED. * ~49 units required over a 12 hour span. As of this morning, average insulin rate was 3.1 units/hr which correlates to ~72 units total per day. * BSGs ranged from: 151-262 mg/dL. * Gave a 35 unit dose of Lantus x 1 this AM to help transition off the drip (assuming ~70 units/day, this would be a 50/50 split of basal/bolus). * Insulin gtt was shut off around noon today. Patient failed swallow evaluation so she will be NPO. * Novolog based on weight/stress of 2 ordered q4h for now. Likely can be switched to q6h tomorrow if BSGs controlled. * Steroids should have worn off from yesterday at this point, therefore true daily dose may be less than 70 units/day. Will add a small basal scale x 1 for this evening in the event the patient is hyperglycemic. 03/16: * 81 year old admitted with respiratory issues/hypoxia, altered mental status. RSV positive with increasing oxygen requirements. Not a know diabetic and not currently on medications at home for diabetes. Received dose of solumedrol in ED * Discussed with provider and he is wanting to begin an insulin drip for now. Plan to initiate drip per hyperglycemia protocol * Patient with issues with line access this afternoon - provider would like 5 units iv insulin x 1, will plan to start insulin drip when line gets placed PLAN FOR INPATIENT GLYCEMIC CONTROL: * Basal insulin: * Lantus 35 units SC x 1 this AM * Lantus 0-10 units SC x 1 this PM (see eMAR for more details) * Bolus insulin: * Novolog q4h for NPO status * Goal Range: 110 - 140 mg/dL * Correction Factor: 1 unit of insulin for every 20 mg/dL above goal range * Carb Ratio: 1 unit of insulin for every 7 grams of CHO
[2022-03-17] MEDS: dilTIAZem HCL 120 MG CAPCR PO SCH (13:19)
[2022-03-17] MEDS: VANCOMYCIN HCL 750 MG in SODIUM CHLORIDE 0.9% 250 ML IV SCH (13:19)
--- NOTE | 2022-03-17 15:38 | XCELERA ---
[id number] \\[id number]_[id number]}___[id number]
--- NOTE | 2022-03-17 19:18 | Hospitalist Progress Note ---
Date of Service March 17, 2022 Assessment & Plan (1) Acute on chronic respiratory failure with hypoxia and hypercapnia: Plan: Hilary is a 81-year-old female with a past medical history of obstructive sleep apnea, respiratory failure, pulmonary hypertension, atrial fibrillation, BMI greater than 50, COPD, obesity, heart failure with preserved ejection fraction, and recent ICU admission 11/06/2021 for sepsis with hypercapnic/hypoxic combined respiratory failure who [facility] with altered mental status and acute on chronic hypoxic respiratory failure. (2) Sepsis: Plan: Sepsis 2/2 RSV with superimposed bacterial pneumonia (suspect aspiration) +/- diverticulitis +/- left maxillary sinusitis - SIRS criteria, +leukocytosis and tachypnea with suspected pulmonary vs. GI source - URI sx 1-2 weeks acutely worsened in last 24-48 hours with SpO2 at facility 70% on NC. - CTchest:1. Streak and motion degraded examination. 2. There is multifocal airspace consolidation as above, greatest at the left lung base. The appearance is typical for pneumonia/aspiration pneumonitis. Clinical correlation will be required and radiographic follow-up to resolution is recommended. 3. Trace left pleural effusion. 4. Cardiomegaly. 5. Cholelithiasis. - CT A/P - Extensive diverticulosis with suggestion of mild diverticulitis. 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 No evidence of perforation or abscess formation. - Blood Cultures - staph species and enterococcus, repeat cultures taken today, Urine culture no growth Continue empiric treatment with cefepime/Vanco/Flagyl (3) Diverticulitis: Plan: with possible colovaginal fistula on CT - patient not a surgical candidate therefore surgery consult deferred at this time NPO except ice chips, sips and meds Cefepime + restart metronidazole (4) Left maxillary sinusitis: Plan: Possibly contributing. Seen on CT. Antibiotics as above (5) NALLELY (acute kidney injury): Plan: In the setting of sepsis. Reportedly volume overloaded on admission. Does not appear significantly hypervolemic today - Suspect renal function will take days to recover in setting of sepsis and hypertensive emergency on admission - fluid status appears adequate - continue to monitor urine output (6) Acute on chronic heart failure with preserved ejection fraction: Plan: Follows with heart failure clinic. Last seen 02/02/2022, euvolemic at that time Appeared acutely decompensated with elevated BNP on admission Hold home Bumex 2 mg daily, converted to lasix IV - 80mg given on admission, will defer further dosing at this time - Last dry weight ~285lbs 01/2022 - Admitting weight likely inaccurate/bed weight of 250lbs. standing weight when stable/able (7) MRSA (methicillin resistant staph aureus) culture positive: Plan: Vancomycin as above (8) Atrial fibrillation with RVR: Plan: Suspect RVR in the setting of sepsism improved even after discontinuation of diltiazem drip Patient is on apixaban [employer] and has been taking this, low suspicion for PE as underlying cause of tachycardia/hypoxia (9) Metabolic alkalosis: Plan: compensating for chronic CO2 retention (10) Pulmonary hypertension: (11) Stage III pressure ulcer of right buttock: Plan: Reported on admission, unable to examine at bedside. Consider wound care nurse. (12) Obstructive sleep apnea (adult) (pediatric): Plan: BiPAP PRN for hypoxia and increased respiratory rate (13) Morbid obesity: (14) COPD (chronic obstructive pulmonary disease): Plan: No acute exacerbation suspected No PFTs available for review. BMI greater than 40 with chronic hypercapnia BiPAP/trilogy recommended on prior discharge, patient has been unable to tolerate facemasks at the hospital and at [facility] - NIV as noted above (15) Seizure-like activity: Plan: - 1x episode while in ER, increased UE muscle tone, eye drift, and loss of responsiveness per family - No past hx of seizure - CT-H:1. No acute intracranial abnormality. 2. Paranasal sinus disease as above. MRI pending for PRES/Szr eval - ?impaired cerebral perfusion in setting of acid-base shift Discussed with neurology. Initially deferred Keppra given suspicion for acid- base etiology, on discussion recommended deferring EEG but placing on short-term Keppra 500 twice daily for a week ago while managing above. Keppra 500 twice daily IV ordered Seizure precautions. Ativan 4 mg IV as needed for seizure activity (16) Posterior reversible encephalopathy syndrome (PRES): Plan: BP much improved after interventions given yesterday. Continue to maintain sBP < 180 (17) Hyperlipidemia: Plan: Hold statin while n.p.o. (18) Hypertensive emergency: Plan: Now resolved. (19) Hypothyroidism: Plan: Continue levothyroxine once off NPO (20) Depression: Plan: Hold citalopram while n.p.o. Plan VTE Prophylaxis - heparin 5000 units BID pending improvement/stability in renal function CODE STATUS: DNR/DNI, reviewed with family at bedside on admission Disposition: stable for downgrade to PCU Admission and Anticipated Discharge Date Admission Date: March 16, 2022 Subjective Unable to get any history from the patient. Moves to voice but not opening eyes or speaking. Family at bedside report her having respiratory illness for about 4 weeks but cough more recently became metal hanger. On specifically asking about abdominal pain they report she was complaining of abdominal pain for the last week. Review of Systems Review of Systems: Unobtainable due to cognitive status Physical Exam Constitutional: well developed; + not well nourished and no acute distress Eyes: PERRL, conjunctivae normal, anicteric sclerae Respiratory: normal respiratory effort; no respiratory distress Auscultation: + rhonchi (b/l anteriorly); no wheezes Cardiovascular: Rate/Rhythm: regular rate and + irregularly irregular Heart Sounds: no murmur Extremities: + pedal edema (1+ pre-tibial) Gastrointestinal (Abdomen): normal bowel sounds, soft, nontender, no hepatosplenomegaly Skin: no rashes, warm and dry Neurologic: + confused; + does not move all extremities and + not awake Psychiatric: Orientation: alert (squirms to voice); + not oriented to person, + not oriented to place and + not oriented to time Results & Data Results & Data ([facility]) Vital Signs (Past 12 Hours) Vital Signs Temp Pulse Pulse Resp BP BP Pulse Ox 03/17/22 18:38 75 20 145/64 H 98 03/17/22 16:01 83 22 98 03/17/22 16:01 155/69 H 03/17/22 16:00 89 23 94 03/17/22 14:01 125/64 03/17/22 14:01 74 23 98 03/17/22 14:00 77 23 98 03/17/22 13:31 83 17 98 03/17/22 13:31 148/72 H 03/17/22 16:28 36.6 C 03/17/22 13:01 79 22 98 12/09/22 13:01 147/63 H 03/17/22 12:31 72 23 99 03/17/22 12:31 138/61 03/17/22 12:01 88 17 98 03/17/22 12:01 111/68 03/17/22 12:00 81 21 98 03/17/22 11:32 89 19 97 03/17/22 11:32 148/86 H 03/17/22 11:01 73 22 98 03/17/22 11:01 115/66 03/17/22 11:00 78 23 97 03/17/22 10:31 72 23 97 03/17/22 10:31 130/58 L 03/17/22 10:01 71 25 H 98 03/17/22 10:01 128/63 03/17/22 10:00 75 23 98 03/17/22 09:51 70 24 98 03/17/22 09:51 136/51 L 03/17/22 09:31 75 23 98 03/17/22 09:31 123/57 L 03/17/22 09:01 128/42 L 03/17/22 09:01 68 24 99 03/17/22 09:00 65 24 99 03/17/22 08:40 63 27 H 98 03/17/22 08:40 121/61 03/17/22 08:00 03/17/22 08:30 65 31 H 92 03/17/22 08:01 97 H 23 96 03/17/22 08:01 86 03/17/22 08:00 120 H 19 92 03/17/22 07:59 105 H 17 97 03/17/22 07:59 153/88 H 03/17/22 07:30 109 H 22 98 03/17/22 08:00 36.3 C L 03/17/22 08:25 110 H 20 82 L O2 Del Method O2 Flow Rate 03/17/22 18:38 Nasal Cannula 2 03/17/22 16:01 03/17/22 16:01 03/17/22 16:00 03/17/22 14:01 03/17/22 14:01 03/17/22 14:00 03/17/22 13:31 03/17/22 13:31 03/17/22 16:28 03/17/22 13:01 03/17/22 13:01 03/17/22 12:31 03/17/22 12:31 03/17/22 12:01 03/17/22 12:01 03/17/22 12:00 03/17/22 11:32 03/17/22 11:32 03/17/22 11:01 03/17/22 11:01 03/17/22 11:00 03/17/22 10:31 03/17/22 10:31 03/17/22 10:01 03/17/22 10:01 03/17/22 10:00 03/17/22 09:51 03/17/22 09:51 03/17/22 09:31 03/17/22 09:31 03/17/22 09:01 03/17/22 09:01 03/17/22 09:00 03/17/22 08:40 03/17/22 08:40 03/17/22 08:00 Oxymask 6 03/17/22 08:30 03/17/22 08:01 03/17/22 08:01 03/17/22 08:00 03/17/22 07:59 03/17/22 07:59 03/17/22 07:30 03/17/22 08:00 03/17/22 08:25 Room Air PG Care Time/CCT Total # of Minutes Spent Total Time Spent with Patient: Total time spent is greater than 50% in coordination of care (as documented) at patient's floor/unit and/or counseling patient: Coding Level of Care Code 31289 Subseq Hosp Care Lvl 3 Diagnoses Acute on chronic respiratory failure with hypoxia and hypercapnia J96.21; J96.22 Sepsis A41.9 Diverticulitis K57.92 Left maxillary sinusitis J32.0 NALLELY (acute kidney injury) N17.9 Acute on chronic heart failure with preserved ejection fraction I50.33 MRSA (methicillin resistant staph aureus) culture positive Z22.322 Atrial fibrillation with RVR I48.91 Metabolic alkalosis E87.3 Pulmonary hypertension I27.20 Stage III pressure ulcer of right buttock L89.313 Obstructive sleep apnea (adult) (pediatric) G47.33 Morbid obesity E66.01 COPD (chronic obstructive pulmonary disease) J44.9 COPD type: unspecified COPD Seizure-like activity R56.9 Posterior reversible encephalopathy syndrome (PRES) I67.83 Hyperlipidemia E78.5 Hypertensive emergency I16.1 Hypothyroidism E03.9 Hypothyroidism type: acquired Depression F32.9 (1) COPD (chronic obstructive pulmonary disease) COPD type: unspecified COPD Qualified Code(s): J44.9 - Chronic obstructive p ulmonary disease, unspecified (2) Hypothyroidism Hypothyroidism type: acquired Qualified Code(s): E03.9 - Hypothyroidism, unspecified
[2022-03-17] MEDS: metroNIDAZOLE 500 MG/100 ML BAG IV SCH (20:05)
[2022-03-17] MEDS: FAMOTIDINE 20 MG in SYRINGE 3 ML IV SCH (20:07)
[2022-03-17] MEDS ORDERED: LANTUS PER UNIT CHARGE SQ SCH (21:00)
[2022-03-18] MEDS ORDERED: INSULIN ASPART PER UNIT SC ONE (02:00)
[2022-03-18] MEDS: metroNIDAZOLE 500 MG/100 ML BAG IV SCH ×3 (03:36→20:53)
[2022-03-18] MEDS: INSULIN ASPART PER UNIT SC SCH ×5 (03:38→20:41)
[2022-03-18 04:13] LABS: Basophils # (auto) 0.01 K/uL (0-0.2); Basophils % (auto) 0.1 %; Hematocrit (blood only) 29.9 % (34.1-44.9); Hemoglobin 9.2 g/dl (12.0-16.0); Immature Granulocytes # (auto) 0.11 K/uL (0.00-0.02); Immature Granulocytes % (auto) 0.9 %; Lymphocytes # (auto) 0.44 K/uL (1.2-3.4); Lymphocytes % (auto) 3.6 %; Mean Corpuscular Hemoglobin 29.7 pg (25.0-34.0); Mean Corpuscular Hgb Conc 30.8 g/dL (32.0-36.0); Mean Corpuscular Volume 96.5 fL (80.0-100.0); Mean Platelet Volume 9.2 fL (9.4-12.3); Monocytes # (auto) 0.95 K/uL (0.24-0.82); Monocytes % (auto) 7.8 %; Neutrophils # (auto) 10.63 K/uL (1.4-6.5); Neutrophils % (auto) 87.6 %; Platelet Count 188 K/uL (130-400); RDW Coefficient of Variation 14.7 % (11.5-14.5); RDW Standard Deviation 51.3 fL (36.4-46.3); White Blood Count 12.14 K/ul (4.8-10.8)
[2022-03-18 04:26] LABS: Base Excess ABG 16.2 mEq/L (-9-1.8); HCO3 ABG 42 mmol/L (19-24); Oxygen Saturation ABG 99.2 % (90-95); PCO2 ABG 51 mmHg (35-46); PO2 ABG 108 mmHg (80-95)
[2022-03-18 04:27] LABS: Allen Test Pos (Pos)
[2022-03-18 04:34] LABS: pH ABG 7.52 (7.35-7.45)
[2022-03-18 04:36] LABS: BUN Creatinine Ratio 41.4 (10-20); Calcium 9.2 mg/dl (8.5-10.1); Creatinine Clr Calc Pharmacy 34.1 ml/min; Est GFR (African American) 32.9 ml/min; Est GFR (Non-African American) 28.4 ml/min; Magnesium 2.6 mg/dl (1.7-2.4); Phosphorus 5.4 mg/dl (2.5-4.9); Potassium 3.9 mmol/L (3.5-5.1)
[2022-03-18] MEDS ORDERED: LANTUS PER UNIT CHARGE SQ SCH ×2 (08:00→21:00)
[2022-03-18] MEDS: SODIUM CHLOR 7% 4 ML NEB NEB SCH ×2 (08:01→20:00)
[2022-03-18] MEDS: dilTIAZem HCL 120 MG CAPCR PO SCH ×2 (08:28→09:15)
[2022-03-18] MEDS: HEPARIN SOD 5,000 UNIT/0.5 ML VIAL SQ SCH ×2 (08:29→20:53)
[2022-03-18] MEDS: CEFEPIME 2,000 MG in SYRINGE 0 ML IV SCH ×2 (09:26→22:24)
[2022-03-18] MEDS: VANCOMYCIN HCL 750 MG in SODIUM CHLORIDE 0.9% 250 ML IV SCH (13:03)
[2022-03-18] MEDS ORDERED: Nursing to Pharmacy Communication SCH (20:45)
[2022-03-18] MEDS: FAMOTIDINE 20 MG in SYRINGE 3 ML IV SCH (20:53)
--- NOTE | 2022-03-18 23:50 | Hospitalist Progress Note ---
Date of Service March 18, 2022 Assessment & Plan (1) Acute on chronic respiratory failure with hypoxia and hypercapnia: Plan: Hilary is a 81-year-old female with a past medical history of obstructive sleep apnea, respiratory failure, pulmonary hypertension, atrial fibrillation, BMI greater than 50, COPD, obesity, heart failure with preserved ejection fraction, and recent ICU admission 11/06/2021 for sepsis with hypercapnic/hypoxic combined respiratory failure who [facility] with altered mental status and acute on chronic hypoxic respiratory failure. Patient has been refusing BiPAP therapy. Long discussion with patient's son Ruslan and daughter William. They do not want to escalate care to include mechanical ventilation. No cardiac compressions. Patient is now alkalotic within arterial pH is 7.51 Continue supportive care. Family supportive of low continuous rate of morphine should it be needed for pain or respiratory distress (2) Sepsis: Plan: Sepsis 2/2 RSV with superimposed bacterial pneumonia (suspect aspiration) +/- diverticulitis +/- left maxillary sinusitis - SIRS criteria, +leukocytosis and tachypnea with suspected pulmonary vs. GI source - URI sx 1-2 weeks acutely worsened in last 24-48 hours with SpO2 at facility 70% on NC. - CTchest:1. Streak and motion degraded examination. 2. There is multifocal airspace consolidation as above, greatest at the left lung base. The appearance is typical for pneumonia/aspiration pneumonitis. Clinical correlation will be required and radiographic follow-up to resolution is recommended. 3. Trace left pleural effusion. 4. Cardiomegaly. 5. Cholelithiasis. - CT A/P - Extensive diverticulosis with suggestion of mild diverticulitis. 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 No evidence of perforation or abscess formation. - Blood Cultures - staph species and enterococcus, repeat cultures taken today, Urine culture no growth Continue empiric treatment with cefepime/Vanco/Flagyl (3) Diverticulitis: Plan: with possible colovaginal fistula on CT - patient not a surgical candidate therefore surgery consult deferred at this time NPO except ice chips, sips and meds Cefepime + restart metronidazole (4) Left maxillary sinusitis: Plan: Possibly contributing. Seen on CT. Antibiotics as above (5) NALLELY (acute kidney injury): Plan: In the setting of sepsis. Reportedly volume overloaded on admission. Does not appear significantly hypervolemic today - Suspect renal function will take days to recover in setting of sepsis and hypertensive emergency on admission - fluid status appears adequate - continue to monitor urine output (6) Acute on chronic heart failure with preserved ejection fraction: Plan: Follows with heart failure clinic. Last seen 02/02/2022, euvolemic at that time Appeared acutely decompensated with elevated BNP on admission Hold home Bumex 2 mg daily, converted to lasix IV - 80mg given on admission, will defer further dosing at this time - Last dry weight ~285lbs 01/2022 - Admitting weight likely inaccurate/bed weight of 250lbs. standing weight when stable/able (7) MRSA (methicillin resistant staph aureus) culture positive: Plan: Vancomycin as above (8) Atrial fibrillation with RVR: Plan: Suspect RVR in the setting of sepsism improved even after discontinuation of diltiazem drip Patient is on apixaban [employer] and has been taking this, low suspicion for PE as underlying cause of tachycardia/hypoxia (9) Metabolic alkalosis: Plan: compensating for chronic CO2 retention (10) Pulmonary hypertension: Plan: Continue with supplemental oxygen as needed to maintain SaO2 greater than 90% Continue to maintain overall fluid status negative Continue supportive care (11) Stage III pressure ulcer of right buttock: Plan: Reported on admission, unable to examine at bedside. Consider wound care nurse. (12) Obstructive sleep apnea (adult) (pediatric): Plan: BiPAP PRN for hypoxia and increased respiratory rate (13) Morbid obesity: (14) COPD (chronic obstructive pulmonary disease): Plan: No acute exacerbation suspected No PFTs available for review. BMI greater than 40 with chronic hypercapnia BiPAP/trilogy recommended on prior discharge, patient has been unable to tolerate facemasks at the hospital and at [facility] - NIV as noted above (15) Seizure-like activity: Plan: - 1x episode while in ER, increased UE muscle tone, eye drift, and loss of responsiveness per family - No past hx of seizure - CT-H:1. No acute intracranial abnormality. 2. Paranasal sinus disease as above. MRI pending for PRES/Szr eval - ?impaired cerebral perfusion in setting of acid-base shift Discussed with neurology. Initially deferred Keppra given suspicion for acid- base etiology, on discussion recommended deferring EEG but placing on short-term Keppra 500 twice daily for a week ago while managing above. Keppra 500 twice daily IV ordered Seizure precautions. Ativan 4 mg IV as needed for seizure activity (16) Posterior reversible encephalopathy syndrome (PRES): Plan: BP much improved after interventions given yesterday. Continue to maintain sBP < 180 Will monitor patient for an additional 48 hours. No escalation of care per discussion with family (17) Hyperlipidemia: Plan: Hold statin while n.p.o. (18) Hypertensive emergency: Plan: Now resolved. (19) Hypothyroidism: Plan: Continue levothyroxine once off NPO (20) Depression: Plan: Hold citalopram while n.p.o. Plan VTE Prophylaxis - heparin 5000 units BID pending improvement/stability in renal function CODE STATUS: DNR/DNI, reviewed with family at bedside on admission Disposition: stable for downgrade to PCU Admission and Anticipated Discharge Date Admission Date: March 16, 2022 Supervising Physician Co-Signing Physician Notes Attending Attestation - Chart reviewed, care plan d/w HARJIT Hernandez. I agree with the moore components of his documentation. Amilcar Villalta MD Subjective Attending: Dr. Villalta Patient seen and examined in room 109 in the intensive care unit. Patient's son Ruslan and daughter William were present. Patient unable to provide review of systems. Long discussion with children in the intensive care unit this morning and again at 5 PM. At this time patient is not significantly improving. She has multiple comorbidities including colovaginal fistula, acute kidney failure, atrial fibrillation with RVR, heart failure, obstructive sleep apnea with alkalotic respiratory failure refusing treatment, MRSA infection, Enterococcus bacteremia. Prognosis is poor. Patient continues on antibiotics but no significant improvement in mental status. Unable to obtain review of systems from patient as she is unable to provide secondary to acute encephalopathy Review of Systems Review of Systems: Other (Altered mental status secondary to acute illness) Physical Exam Physical Exam: GENERAL : No acute distress EYES: No icterus, gaze conjugate NOSE: No evidence of epistaxis MOUTH: No lesions or candidiasis NECK: Supple LUNGS: Bibasilar crackles. No bronchospasm. No rhonchi. HEART: Regular, rate controlled ABDOMEN: Soft, NT, ND, BS Present EXTREMITIES: Bilateral LE edema, pedal pulses intact NEURO: Unresponsive. Patient does move all extremities spontaneously. Acute encephalopathy Results & Data Results & Data ([facility]) Vital Signs (Past 12 Hours) Vital Signs Temp Pulse Pulse Resp BP Pulse Ox O2 Del Method 03/18/22 22:49 36.6 C 90 20 153/84 H 98 Nasal Cannula 03/18/22 21:00 Nasal Cannula 03/18/22 20:01 86 15 96 Nasal Cannula 03/18/22 19:43 36.3 C L 98 H 18 170/82 H 93 Nasal Cannula 03/18/22 18:05 Nasal Cannula 03/18/22 18:04 82 03/18/22 16:00 36 C L 82 22 156/87 H 99 Nasal Cannula 03/18/22 12:00 83 23 98 03/18/22 12:00 36.1 C L O2 Flow Rate 03/18/22 22:49 03/18/22 21:00 2 03/18/22 20:01 2 03/18/22 19:43 2 03/18/22 18:05 2 03/18/22 18:04 03/18/22 16:00 2 03/18/22 12:00 03/18/22 12:00 Critical Care Results & Data Vital Signs (Past 12 Hours) Vital Signs Temp Pulse Pulse Resp BP Pulse Ox O2 Del Method 03/18/22 22:49 36.6 C 90 20 153/84 H 98 Nasal Cannula 03/18/22 21:00 Nasal Cannula 03/18/22 20:01 86 15 96 Nasal Cannula 03/18/22 19:43 36.3 C L 98 H 18 170/82 H 93 Nasal Cannula 03/18/22 18:05 Nasal Cannula 03/18/22 18:04 82 03/18/22 16:00 36 C L 82 22 156/87 H 99 Nasal Cannula 03/18/22 12:00 83 23 98 03/18/22 12:00 36.1 C L O2 Flow Rate 03/18/22 22:49 03/18/22 21:00 2 03/18/22 20:01 2 03/18/22 19:43 2 03/18/22 18:05 2 03/18/22 18:04 03/18/22 16:00 2 03/18/22 12:00 03/18/22 12:00 Lab & Micro Results (Past 24 Hours) No Data to Display No Data to Display No Data to Display Microbiology 03/17/22 09:51 Aerobic Blood Culture - Preliminary Blood No growth in Aerobic bottle after 24 hours. Anaerobic Blood Culture - Final 03/17/22 09:52 Aerobic Blood Culture - Preliminary Blood No growth in Aerobic bottle after 24 hours. Anaerobic Blood Culture - Final 03/16/22 08:10 Aerobic Blood Culture - Final Blood Enterococcus faecalis Anaerobic Blood Culture - Final Enterococcus faecalis Coag neg staph not lugdunensis 03/16/22 09:18 Aerobic Blood Culture - Preliminary Blood No growth in Aerobic bottle after 48 hours. Anaerobic Blood Culture - Preliminary No growth in Anaerobic bottle after 48 hours. 03/16/22 09:45 Urine Culture - Final Urine,Straight Cath No growth - less than 1,000 colonies/mL. I & O Totals 24 Hours 03/17/22 03/18/22 03/19/22 06:59 06:59 06:59 Intake Total 846.987 / 846.987 638.284 / 638.284 465 / 465 Output Total 675 / 675 775 / 775 350 / 350 Balance 171.987 / 171.987 -136.716 / -136.716 115 / 115 Cumulative 03/16/22 07:32 thru 03/18/22 22:24 Intake Total 1950.271 Output Total 1800 Balance 150.271 RT Ventilator Mngmt (Last Documented) Ventilator Ordered Settings Respiratory Rate 20 03/18/22 22:49 Fraction of Inspired Oxygen 40 03/17/22 03:00 Ventilator - PT Measurements Respiratory Rate 20 PG Care Time/CCT Total # of Minutes Spent Total Time Spent with Patient: Total time spent is greater than 50% in coordination of care (as documented) at patient's floor/unit and/or counseling patient: Coding Level of Care Code 33167 Subseq Hosp Care Lvl 3 (25 - SIGNIFICANT, SEPARATELY IDENTIFIABLE ) Diagnoses Acute on chronic respiratory failure with hypoxia and hypercapnia J96.21; J96.22 Sepsis A41.9 Diverticulitis K57.92 Left maxillary sinusitis J32.0 NALLELY (acute kidney injury) N17.9 Acute on chronic heart failure with preserved ejection fraction I50.33 MRSA (methicillin resistant staph aureus) culture positive Z22.322 Atrial fibrillation with RVR I48.91 Metabolic alkalosis E87.3 Pulmonary hypertension I27.20 Stage III pressure ulcer of right buttock L89.313 Obstructive sleep apnea (adult) (pediatric) G47.33 Morbid obesity E66.01 COPD (chronic obstructive pulmonary disease) J44.9 COPD type: unspecified COPD Seizure-like activity R56.9 Posterior reversible encephalopathy syndrome (PRES) I67.83 Hyperlipidemia E78.5 Hypertensive emergency I16.1 Hypothyroidism E03.9 Hypothyroidism type: acquired Depression F32.9 (1) Hypothyroidism Hypothyroidism type: acquired Qualified Code(s): E03.9 - Hypothyroidism, unspecified (2) COPD (chronic obstructive pulmonary disease) COPD type: unspecified COPD Qualified Code(s): J44.9 - Chronic obstructive pulmonary disease, unspecified
[2022-03-19] MEDS: INSULIN ASPART PER UNIT SC SCH ×3 (00:15→11:42)
[2022-03-19 05:08] LABS: Basophils # (auto) 0.01 K/uL (0-0.2); Basophils % (auto) 0.1 %; Hematocrit (blood only) 30.1 % (34.1-44.9); Hemoglobin 9.4 g/dl (12.0-16.0); Immature Granulocytes # (auto) 0.13 K/uL (0.00-0.02); Immature Granulocytes % (auto) 1.3 %; Lymphocytes # (auto) 0.44 K/uL (1.2-3.4); Lymphocytes % (auto) 4.3 %; Mean Corpuscular Hemoglobin 29.7 pg (25.0-34.0); Mean Corpuscular Hgb Conc 31.2 g/dL (32.0-36.0); Mean Platelet Volume 9.2 fL (9.4-12.3); Monocytes # (auto) 0.88 K/uL (0.24-0.82); Monocytes % (auto) 8.6 %; Neutrophils # (auto) 8.78 K/uL (1.4-6.5); Neutrophils % (auto) 85.7 %; Platelet Count 193 K/uL (130-400); RDW Coefficient of Variation 14.6 % (11.5-14.5); RDW Standard Deviation 51.3 fL (36.4-46.3); Red Blood Count 3.17 M/uL (3.93-5.22); White Blood Count 10.24 K/ul (4.8-10.8)
[2022-03-19] MEDS: metroNIDAZOLE 500 MG/100 ML BAG IV SCH ×2 (05:39→11:44)
[2022-03-19 05:49] LABS: BUN Creatinine Ratio 48.6 (10-20); Calcium 9.2 mg/dl (8.5-10.1); Creatinine Clr Calc Pharmacy 41.9 ml/min; Est GFR (Non-African American) 36.3 ml/min; Magnesium 2.7 mg/dl (1.7-2.4); Phosphorus 4.3 mg/dl (2.5-4.9)
[2022-03-19] MEDS: SODIUM CHLOR 7% 4 ML NEB NEB SCH (07:51)
[2022-03-19] MEDS: dilTIAZem HCL 120 MG CAPCR PO SCH (09:51)
[2022-03-19] MEDS: HEPARIN SOD 5,000 UNIT/0.5 ML VIAL SQ SCH (09:54)
[2022-03-19] MEDS: CEFEPIME 2,000 MG in SYRINGE 0 ML IV SCH (09:56)
--- NOTE | 2022-03-19 11:13 | Pharmacy Report ---
Pharmacy PK ABX Note - Date of Service March 19, 2022 - Assessment and Plan Assessment * 81 year old F receiving vancomycin, cefepime, and metronidazole for treatment of E. faecalis bacteremia +/- PNA (RVS w ?superimposed bacterial MRSA vs. aspiration) +/- diverticulitis +/- sinusitis * Culture data * 03/16 MRSA nasal swab positive. * 03/16 positive RSV * 03/16 Urine - NGTD * 03/16 blood cultures - 1 of 2 w E. faecalis and CoNS. Contamination likely given CoNS, but E. faecalis is not usually a contaminant * 03/17 blood cultures - NGTD * Renal * SCr elevated from baseline of 0.8 mg/dL, but is now trending down gradually x3 days to 1.38 mg/dL today Vancomycin * Would like to keep in upper end of goal range as this is the only agent w coverage for E. faecalis bacteremia at this time * Goal AUC 400-600 mg/L.hr * *Random* level this AM was 20.7 mcg/mL. This was *not* a trough level. Predicted AUC is 576 mg/L.hr, which is in goal range * Will continue current dose, but obtain an early repeat level given improvement in renal function and also utilization for bacteremia Plan * Continue vancomycin 750 mg IV q24h * Repeat random level 12/ w AM labs Pharmacy will continue to follow and will adjust dose/frequency as necessary. Thank you. Pharmacy has transitioned to AUC monitoring for vancomycin. AUC/YOLA is the preferred PK/PD target and is associated with decreased risk of nephrotoxicity compared to traditional trough targets.
--- NOTE | 2022-03-19 13:07 | Pharmacy Report ---
Pharmacy Glycemic Short Note 2 - Date of Service March 19, 2022 - Glycemic Short BSG Results (Last 24 hours): 03/18/22 03/18/22 03/18/22 16:44 20:08 23:42 Glucose POC Glucose 147 H 149 H 145 H 03/19/22 03/19/22 03/19/22 04:22 05:52 11:32 Glucose 108 H POC Glucose 116 H 120 H OUTPATIENT ANTIDIABETIC REGIMEN: * No home antidiabetic medications * HbA1c = 7.1% (03/17/22) * Likely due to recent outpatient Prednisone use ASSESSMENT: 03/19: * BSGs improving, insulin requirements significantly reduced * Received 32 units of insulin yesterday (25 units of basal and 7 units of prandial/correctional bolus) * Assuming recent hyperglycemia was related to steroid use * Patient remains NPO - will scale back insulin today 03/17: * Patient required a significant amount of insulin from the drip to control blood sugars yesterday which likely is due to SoluMedrol dose received in ED. * ~49 units required over a 12 hour span. As of this morning, average insulin rate was 3.1 units/hr which correlates to ~72 units total per day. * BSGs ranged from: 151-262 mg/dL. * Gave a 35 unit dose of Lantus x 1 this AM to help transition off the drip (assuming ~70 units/day, this would be a 50/50 split of basal/bolus). * Insulin gtt was shut off around noon today. Patient failed swallow evaluation so she will be NPO. * Novolog based on weight/stress of 2 ordered q4h for now. Likely can be switched to q6h tomorrow if BSGs controlled. * Steroids should have worn off from yesterday at this point, therefore true daily dose may be less than 70 units/day. Will add a small basal scale x 1 for this evening in the event the patient is hyperglycemic. 03/16: * 81 year old admitted with respiratory issues/hypoxia, altered mental status. RSV positive with increasing oxygen requirements. Not a know diabetic and not currently on medications at home for diabetes. Received dose of solumedrol in ED * Discussed with provider and he is wanting to begin an insulin drip for now. Plan to initiate drip per hyperglycemia protocol * Patient with issues with line access this afternoon - provider would like 5 units iv insulin x 1, will plan to start insulin drip when line gets placed PLAN FOR INPATIENT GLYCEMIC CONTROL: * Basal insulin: * Lantus 0-10 units SC HS * Bolus insulin: * Novolog q4h for NPO status * Goal Range: 110 - 140 mg/dL * Correction Factor: 1 unit of insulin for every 20 mg/dL above goal range * Carb Ratio: 1 unit of insulin for every 7 grams of CHO
[2022-03-19] MEDS: VANCOMYCIN HCL 750 MG in SODIUM CHLORIDE 0.9% 250 ML IV SCH (13:46)
[2022-03-19] MEDS ORDERED: ONDANSETRON 4 MG OD TAB SL PRN (13:59)
[2022-03-19] MEDS ORDERED: LORazepam 0.5 MG in SYRINGE 0 ML IV PRN (13:59)
[2022-03-19] MEDS ORDERED: chlorproMAZINE HCL 25 MG TAB PO PRN (13:59)
[2022-03-19] MEDS ORDERED: LORazepam 0.5 MG TAB PO PRN (13:59)
[2022-03-19] MEDS ORDERED: HYOSCYAMINE SULFATE 0.125 MG TAB SL PRN (13:59)
[2022-03-19] MEDS ORDERED: ONDANSETRON INJ 2 MG/ML 2 ML VIAL IV PRN (13:59)
[2022-03-19] MEDS ORDERED: MoRPHine SULFATE 5 MG/0.25 ML UDP PO PRN (13:59)
[2022-03-19] MEDS ORDERED: MoRPHine SULF/NSS 250 MG/250 ML BTL IV SCH (14:00)
[2022-03-19] MEDS ORDERED: diphenhydrAMINE 50 MG/ML VIAL IV PRN (14:11)
[2022-03-19] MEDS ORDERED: SCOPOLAMINE 1 MG TDSY TD SCH (14:15)
[2022-03-19] MEDS: MoRPHine BOLUS from BAG IV PRN ×4 (14:56→19:16)
[2022-03-19] MEDS: ATROPINE SULFATE 1% OP SOLN 5 ML BTL SL PRN ×3 (15:24→19:15)
[2022-03-19] MEDS ORDERED: CHECK SCOPOLAMINE PATCH PLACEMENT SCH (16:00)
[2022-03-19] MEDS ORDERED: LORazepam 1 MG in SYRINGE 0 ML IV STA (19:45)
[2022-03-19] MEDS ORDERED: Nursing to Pharmacy Communication SCH (20:00)
[2022-03-19] MEDS ORDERED: LANTUS PER UNIT CHARGE SQ SCH (21:00)
--- NOTE | 2022-03-19 22:15 | Hospitalist Progress Note ---
Date of Service March 19, 2022 Assessment & Plan (1) Acute on chronic respiratory failure with hypoxia and hypercapnia: Plan: Attending: Dr. Ambar Richard is a 81-year-old female with a past medical history of obstructive sleep apnea, respiratory failure, pulmonary hypertension, atrial fibrillation, BMI greater than 50, COPD, obesity, heart failure with preserved ejection fraction, and recent ICU admission 11/06/2021 for sepsis with hypercapnic/hypoxic combined respiratory failure who [facility] with altered mental status and acute on chronic hypoxic respiratory failure. Patient has been refusing BiPAP therapy. Long discussion with patient's son Ruslan and daughter William. They do not want to escalate care to include mechanical ventilation. No cardiac compressions. Patient is now alkalotic within arterial pH is 7.51 Changed to comfort measures only. 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 Nursing updated with instructions on management of patient Family advised that they can remain at bedside (2) Sepsis: Plan: Sepsis 2/2 RSV with superimposed bacterial pneumonia (suspect aspiration) +/- diverticulitis +/- left maxillary sinusitis - SIRS criteria, +leukocytosis and tachypnea with suspected pulmonary vs. GI source - URI sx 1-2 weeks acutely worsened in last 24-48 hours with SpO2 at facility 70% on NC. - CTchest:1. Streak and motion degraded examination. 2. There is multifocal airspace consolidation as above, greatest at the left lung base. The appearance is typical for pneumonia/aspiration pneumonitis. Clinical correlation will be required and radiographic follow-up to resolution is recommended. 3. Trace left pleural effusion. 4. Cardiomegaly. 5. Cholelithiasis. - CT A/P - Extensive diverticulosis with suggestion of mild diverticulitis. 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 No evidence of perforation or abscess formation. - Blood Cultures - staph species and enterococcus, repeat cultures taken today, Urine culture no growth Continue empiric treatment with cefepime/Vanco/Flagyl (3) Diverticulitis: Plan: with possible colovaginal fistula on CT - patient not a surgical candidate therefore surgery consult deferred at this time NPO except ice chips, sips and meds Cefepime + restart metronidazole (4) Left maxillary sinusitis: Plan: Possibly contributing. Seen on CT. Antibiotics as above (5) NALLELY (acute kidney injury): Plan: In the setting of sepsis. Reportedly volume overloaded on admission. Does not appear significantly hypervolemic today - Suspect renal function will take days to recover in setting of sepsis and hypertensive emergency on admission - fluid status appears adequate - continue to monitor urine output (6) Acute on chronic heart failure with preserved ejection fraction: Plan: Follows with heart failure clinic. Last seen 02/02/2022, euvolemic at that time Appeared acutely decompensated with elevated BNP on admission Hold home Bumex 2 mg daily, converted to lasix IV - 80mg given on admission, will defer further dosing at this time - Last dry weight ~285lbs 01/2022 - Admitting weight likely inaccurate/bed weight of 250lbs. 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 Discontinue oxygen. (11) Stage III pressure ulcer of right buttock: Plan: Reported on admission Xeroform dressings (12) Obstructive sleep apnea (adult) (pediatric): Plan: BiPAP PRN for hypoxia and increased respiratory rate Patient refusing (13) Morbid obesity: (14) COPD (chronic obstructive pulmonary disease): Plan: No acute exacerbation suspected No PFTs available for review. BMI greater than 40 with chronic hypercapnia BiPAP/trilogy recommended on prior discharge, patient has been unable to tolerate facemasks at the hospital and [facility] - Now change to comfort measures only (15) Seizure-like activity: Plan: - 1x episode while in ER, increased UE muscle tone, eye drift, and loss of responsiveness per family - No past hx of seizure - CT-H:1. No acute intracranial abnormality. 2. Paranasal sinus disease as above. MRI pending for PRES/Szr eval - ?impaired cerebral perfusion in setting of acid-base shift Discussed with neurology. Initially deferred Keppra given suspicion for acid- base etiology, on discussion recommended deferring EEG but placing on short-term Keppra 500 twice daily for a week ago while managing above. Keppra 500 twice daily IV ordered Seizure precautions. Ativan 4 mg IV as needed for seizure activity (16) Posterior reversible encephalopathy syndrome (PRES): Plan: BP much improved after interventions given yesterday. Continue to maintain sBP < 180 Will monitor patient for an additional 48 hours. No escalation of care per discussion with family (17) Hyperlipidemia: Plan: Hold statin while n.p.o. (18) Hypertensive emergency: Plan: Now resolved. (19) Hypothyroidism: Plan: Continue levothyroxine once off NPO (20) Depression: Plan: Hold citalopram while n.p.o. Plan VTE Prophylaxis - heparin 5000 units BID pending improvement/stability in renal function CODE STATUS: DNR/DNI, reviewed with family at bedside on admission Disposition: Family desires to convert to comfort measures only Admission and Anticipated Discharge Date Admission Date: March 16, 2022 Supervising Physician Co-Signing Physician Notes Attending Attestation - Chart reviewed, care plan d/w PA Fabian Hernandez. I agree with the moore components of his documentation. VERY complicated chronic medical history with NUMEROUS acute issues - PRES, RSV infection, sinusitis, diverticulitis, etc. After discussion with family (Mr Hernandez discussed her care plan) she is now comfort care measures only. Amilcar Villalta MD Subjective Attending: Dr. Villalta Patient seen and examined in room 461. Patient's son Ruslan and daughter William were present. Patient unresponsive. At this time patient is having significant decline. Tachypneic and breathing with accessory muscles. Rhonchorous. Appears uncomfortable. She has multiple comorbidities including colovaginal fistula, acute kidney failure, atrial fibrillation with RVR, heart failure, obstructive sleep apnea with alkalotic respiratory failure refusing treatment, MRSA infection, Enterococcus bacteremia. No improvement to cognitive status with antibiotics. Patient continues to have alkalotic respiratory failure. Confirmed again with family that patient would not want to be intubated. Family states that it is apparent that their mother is suffering and expressed desire to move towards comfort care. Will discontinue current medication regimen and initiate low-dose morphine drip per protocol. Review of Systems Review of Systems: Unobtainable secondary to patient's unresponsiveness secondary to illness Physical Exam Physical Exam: GENERAL : Appears to be in respiratory distress EYES: No icterus, gaze conjugate. Pupils equal but sluggish NOSE: No evidence of epistaxis MOUTH: No lesions or candidiasis. Mucosa dry NECK: Supple LUNGS: Patient now tachypneic with a respiratory rate at 38. No response to low-dose morphine. Increased rhonchi. Use of abdominal and other accessory muscles to breathe. HEART: Regular, tachycardic ABDOMEN: Soft, NT, ND, no appreciation of bowel sounds EXTREMITIES: Bilateral LE edema, pedal pulses intact NEURO: Unresponsive. Results & Data Results & Data ([facility]) Vital Signs (Past 12 Hours) Vital Signs Temp Pulse Pulse Resp BP Pulse Ox O2 Del Method 03/19/22 16:00 121 H 03/19/22 11:40 36.8 C 111 H 26 H 186/82 H 96 Oxymask O2 Flow Rate 03/19/22 16:00 03/19/22 11:40 3 Critical Care Results & Data Vital Signs (Past 12 Hours) Vital Signs Temp Pulse Pulse Resp BP Pulse Ox O2 Del Method 03/19/22 16:00 121 H 03/19/22 11:40 36.8 C 111 H 26 H 186/82 H 96 Oxymask O2 Flow Rate 03/19/22 16:00 03/19/22 11:40 3 Lab & Micro Results (Past 24 Hours) No Data to Display No Data to Display No Data to Display Microbiology 03/17/22 09:51 Aerobic Blood Culture - Preliminary Blood No growth in Aerobic bottle after 48 hours. Anaerobic Blood Culture - Final 03/17/22 09:52 Aerobic Blood Culture - Preliminary Blood No growth in Aerobic bottle after 48 hours. Anaerobic Blood Culture - Final I & O Totals 24 Hours 03/18/22 03/19/22 03/20/22 06:59 06:59 06:59 Intake Total 638.284 / 638.284 565 / 565 372.600 / 372.600 Output Total 775 / 775 800 / 800 751 / 751 Balance -136.716 / -136.716 -235 / -235 -378.400 / -378.400 Cumulative 03/16/22 07:32 thru 03/19/22 20:50 Intake Total 2422.871 Output Total 3001 Balance -578.129 RT Ventilator Mngmt (Last Documented) Ventilator Ordered Settings Respiratory Rate 26 03/19/22 11:40 Fraction of Inspired Oxygen 40 03/17/22 03:00 Ventilator - PT Measurements Respiratory Rate 26 PG Care Time/CCT Total # of Minutes Spent Total Time Spent with Patient: Total time spent is greater than 50% in coordination of care (as documented) at patient's floor/unit and/or counseling patient: Coding Level of Care Code 96907 Subseq Hosp Care Lvl 3 (25 - SIGNIFICANT, SEPARATELY IDENTIFIABLE ) Diagnoses Acute on chronic respiratory failure with hypoxia and hypercapnia J96.21; J96.22 Sepsis A41.9 Diverticulitis K57.92 Left maxillary sinusitis J32.0 NALLELY (acute kidney injury) N17.9 Acute on chronic heart failure with preserved ejection fraction I50.33 MRSA (methicillin resistant staph aureus) culture positive Z22.322 Atrial fibrillation with RVR I48.91 Metabolic alkalosis E87.3 Pulmonary hypertension I27.20 Stage III pressure ulcer of right buttock L89.313 Obstructive sleep apnea (adult) (pediatric) G47.33 Morbid obesity E66.01 COPD (chronic obstructive pulmonary disease) J44.9 COPD type: unspecified COPD Seizure-like activity R56.9 Posterior reversible encephalopathy syndrome (PRES) I67.83 Hyperlipidemia E78.5 Hypertensive emergency I16.1 Hypothyroidism E03.9 Hypothyroidism type: acquired Depression F32.9 Time Spent (min) 90 Comment 90 minutres critical care time discussing end of life management change to [employer]USTRI[employer] ROOFER (1) Hypothyroidism Hypothyroidism type: acquired Qualified Code(s): E03.9 - Hypothyroidism, unspecified (2) COPD (chronic obstructive pulmonary disease) COPD type: unspecified COPD Qualified Code(s): J44.9 - Chronic obstructive pulmonary disease, unspecified
--- NOTE | 2022-03-23 15:12 | Discharge Summary ---
Date of Service date of admission - March 16, 2022 date of - March 19, 2022 time of - 1954 Admission HPI Per Admitting Provider Hilary is a 81-year-old female with a past medical history of obstructive sleep apnea, respiratory failure, pulmonary hypertension, atrial fibrillation, BMI greater than 50, COPD, obesity, heart failure with preserved ejection fraction, and recent ICU admission 11/06/2021 for sepsis with hypercapnic/hypoxic combined respiratory failure who [facility] with altered mental status and acute on chronic hypoxic respiratory failure. ER Review: CXR: Cardiomegaly with pulmonary vascular congestion. Left greater than right basilar opacities favoring atelectasis versus mild pneumonitis. Echo 12/05/2020: EF 55 to 60%, no regional wall motion abnormalities, moderate concentric LVH. Moderately dilated RV with normal systolic function. Biatrial dilation. Moderate tricuspid regurg. Severe pulmonary hypertension, RVSP 65 mmHg, increasing RV dilation compared to 2020 study with more prominent pulmo nary hypertension. Creatinine baseline 11.26. Admitting creatinine 1.33 Leukocytosis to 12.49 Lactate normal BNP 355, last 10/2019 76 Procalcitonin normal RSV positive, flu/COVID-negative EKG: A. fib with RVR.? ST depression in lead I, flipped V5 compared to prior, incomplete RBBB with conduction change in V1/V2 Alert at time of ER assessment but did not recognize family. Seizure episode tonic/clonic and unresponsive but with eyes open. BiPAP improved. 0.5mg ativan for seizure, ?keppra Per Outpatient Dr. Conley had URI sx x1-2 week, acutely worsened last 24-48 hours --> added cefdinir. Goals of care: Patient updated to DNR/DNI at last hospitalization with discharge 11/09/2021 following a ICU admission with respiratory failure. Not been able to tolerate BiPAP. Patient was seen by palliative care and declined POLST at that time. She did identify her daughter William and her son is surrogate decision makers. When discussing additional code versus DNR at that visit patient expre ssed that if she were very ill she would prefer to peacefully rather than having CPR, but short of cardiac or pulmonary arrest would want hospital treatment and medication/BiPAP. Subjective: Hilary is seen at the bedside with her family present. She is somnolent/borderline obtunded, history is limited by mental status and collected with collateral from her family. They report that for approximately 4 weeks she has had a wet sounding cough and some shortness of breath worse than her normal, she is normally on at least 2 L of nasal cannula. She had a outpatient test 2 days ago which showed RSV positive. She significantly worsened yesterday and underlying bacterial superinfection was suspected and she was given a dose of cefdinir. This morning she was found to be much more sedated, although arousable with worsening tachypnea and oxygen requirements at [facility]. She was referred to [facility] for additional evaluation. She was found to be tachycardic in A. fib, hypoxic requiring 15 L of nonrebreather increased to BiPAP, and during assessment in the ER had an episode where she became very tense in her upper and lower extremities, eyes drifted to the left, and she stopped responding which was suspected to be seizure. She received 0.5 mg Ativan IV in the ER, with subsequent relaxation seemed fatigued, and then on assessment afterwards was sedated but would open her eyes on command. CT head did not show any acute findings. Per family she was pending evaluation with pulmonology in the coming months but has not yet made an appointment. BiPAP been discussed, but she has not been on this yet and has difficulty tolerating the mask. They confirmed that she has expressed DNR/DNI, otherwise would like full treatments. She is not a known diabetic and does not take any home antilipemics, but has been told by her doctor that she may become diabetic in the future and has had impaired blood sugars with last A1c 5.5. No fever/chills/sweats. No diarrhea/constipation. Patient had not been complaining of pain, but has been complaining of shortness of breath and orthopnea. Unsure if she has had leg swelling or weight change. Principal Diagnosis 1. septicemia 2. PRES (posterior reversible encephalopathy syndrome) 3. RSV infection 4. acute/chronic hypoxic & hypercarbic respiratory failure 5. acute metabolic encephalopathy 6. diverticulitis 7. atrial fibrillation with RVR 8. seizure 9. bilateral pneumonia 10. morbid obesity BMI 42 11. NALLELY Discharge Exam at time of - no audible heart tones, no spontaneous respiratory effort, no response to pain/voice, no palpable pulse Discharge Data Allergies Allergy/AdvReac Type Severity Reaction Status Date / Time sulfisoxazole Allergy Unknown Unknown Verified 02/02/22 09:59 thimerosal Allergy Unknown Unknown Verified 02/02/22 09:59 torsemide Allergy Unknown Unknown Verified 02/02/22 09:59 buspirone [From BuSpar] Allergy Unknown Verified 02/02/22 09:59 cephalexin Allergy RASH Verified 02/02/22 09:59 clarithromycin [From Biaxin] Allergy Unknown Verified 02/02/22 09:59 iodine Allergy Unknown Verified 02/02/22 09:59 povidone-iodine Allergy Unknown Verified 02/02/22 09:59 [From Betadine] soap [From Betadine] Allergy Unknown Verified 02/02/22 09:59 Consultations 03/16/22 13:40 Consult Customer Support Professional Routine 03/19/22 14:00 Consult Palliative Care Routine Procedures Performed Echocardiogram Ordered Studies 03/16/22 10:53 CT head/brain wo con Stat 03/16/22 11:13 CT abd pelvis wo con Stat CT chest diagnostic wo con Stat 03/16/22 16:21 MRI Brain [MR brain wo con] Stat Hospital Course (1) Acute on chronic respiratory failure with hypoxia and hypercapnia: Patient presented to the hospital from [facility] by ambulance with altered mental status and acute on chronic hypoxic/hypercapnic respiratory failure. She met criteria for sepsis. While awaiting admission in the ER she had a seizure- like event. At time of admission she tested positive for RSV infection, had bilateral pneumonia on CT Chest, had sigmoid diverticulitis with possible colovaginal fistula on CT abd/pelvis, had left maxillary sinusitis on CT head, and was significantly altered. BPs were markedly high. Blood cultures were dispatched and she was initiated on broad-spectrum IV antibiotics. Blood cultures were ultimately positive for enterococcus and coag neg staph. The patient continued to have altered mental status and she underwent MRI brain showing evidence of PRES (Posterior reversible encephalopathy syndrome). Mrs Alexandre continued to do poorly given her numerous medical problems and acute illnesses. Palliative care was consulted, and the patient's family ultimately made the patient comfort care. Mrs Alexandre passed peacefully on the evening of March 19. (2) Septicemia: (3) Sepsis: (4) Diverticulitis: (5) Left maxillary sinusitis: (6) NALLELY (acute kidney injury): (7) Acute on chronic heart failure with preserved ejection fraction: (8) Atrial fibrillation with RVR: (9) Metabolic alkalosis: (10) Pulmonary hypertension: (11) Stage III pressure ulcer of right buttock: (12) Obstructive sleep apnea (adult) (pediatric): (13) Morbid obesity: (14) COPD (chronic obstructive pulmonary disease): (15) Seizure-like activity: (16) Posterior reversible encephalopathy syndrome (PRES): (17) Hyperlipidemia: (18) Hypertensive emergency: (19) Hypothyroidism: (20) Depression: Total Time Total Time Spent Total Time Spent (In Minutes): 25 Discharge Plan Discharge Items Patient Disposition: Other Date/Time: 03/19/22 20:50 Coding Level of Care Code D/C DAY MANAGEMENT <30 MINS Diagnoses Acute on chronic respiratory failure with hypoxia and hypercapnia J96.21; J96.22 Septicemia A41.9 Sepsis A41.9 Diverticulitis K57.92 Left maxillary sinusitis J32.0 NALLELY (acute kidney injury) N17.9 Acute on chronic heart failure with preserved ejection fraction I50.33 Atrial fibrillation with RVR I48.91 Metabolic alkalosis E87.3 Pulmonary hypertension I27.20 Stage III pressure ulcer of right buttock L89.313 Obstructive sleep apnea (adult) (pediatric) G47.33 Morbid obesity E66.01 COPD (chronic obstructive pulmonary disease) J44.9 COPD type: unspecified COPD Seizure-like activity R56.9 Posterior reversible encephalopathy syndrome (PRES) I67.83 Hyperlipidemia E78.5 Hypertensive emergency I16.1 Hypothyroidism E03.9 Hypothyroidism type: acquired Depression F32.9
== END 2022-03-19 22:05 | disposition expired | DRG 871 ==
LOC: ED 07:41 → 1E 12:27 → SUATTDRO 12:27 → 1E 15:14 → 4W 03-18 18:17